=== PATIENT | male | born 1955 | race Caucasian/White ===

== ENCOUNTER 2024-04-13 18:26 | Emergency (ER) | payer MEDICARE, SELFPAY ==
[2024-04-13 18:48] VITALS: BP 129/64; PULSE 67; RESP 15; TEMP 36.3; O2SAT 100
--- NOTE | 2024-04-13 19:10 | ED_ITS ---
HPI - Extremity Injury (Lower) General Chief Complaint: Extremity Injury, Lower Stated Complaint: right/left big toe issues Time Seen by Provider: 04/13/24 19:10 Source: patient, RN notes reviewed and old records reviewed Mode of arrival: ambulatory Limitations: no limitations History of Present Illness HPI Narrative: Patient presents with complaints of bilateral great toe discomfort. He reports that on the left foot, the nail became loose when he tried to cut it with a Dremel tool. Right foot has scant amount of drainage around the toenail. Patient admits he has not been taking good care of his feet. He does have a podiatry appointment on April 26, 2024 Related Data Home Medications ?Medication ?Instructions ?Recorded ?Confirmed ?Last Taken ?Type atorvastatin 40 mg tablet mg 04/13/24 Unknown History finasteride 5 mg tablet mg 04/13/24 Unknown History insulin degludec 100 unit/mL (3 unit subcut 04/13/24 Unknown History mL) subcutaneous pen (Tresiba FlexTouch U-100 insulin) meloxicam 15 mg tablet mg 04/13/24 Unknown History pioglitazone 15 mg tablet mg 04/13/24 Unknown History Allergies Allergy/AdvReac Type Severity Reaction Status Date / Time No Known Allergies Allergy Verified 04/13/24 18:50 Review of Systems Review of Systems: All systems reviewed & are unremarkable except as noted in HPI and below Constitutional: Constitutional: Reports no additional constitutional complaints ENT: Reports system reviewed and no additional complaints, except as documented Cardiovascular: Cardiovascular: Reports no additional cardiovascular complaints Respiratory: Respiratory: Reports no additional respiratory complaints Gastrointestinal: Gastrointestinal: Reports no additional gastrointestinal complaints Integumentary/Breasts: Skin/Breast: Reports nail changes and Reports change in nails PMFSH Comments At the time of my signature, I reviewed and agree with the nursing past medical, surgical, social, and family history. There is no relevant family history pertinent to the patient complaint. Exam Const: General: cooperative, no acute distress, alert and awake Orientation/consciousness: oriented to person, oriented to place and oriented to time HENMT: Head: normal to inspection Resp: Effort & Inspection: normal respiratory effort and able to speak in complete sentences Auscultation: clear to auscultation bilaterally, no crackles, no rales, no rhonchi and no wheezes Cardio: Palpation: normal PMI Rate: regular rate Rhythm: regular rhythm Heart sounds: S1 normal heart sound present and S2 normal heart sound present Skin: Nails: discolored (toenails), yellow and thickened (toenails) and other (Right great toe with some drainage surrounding the nail) Neuro: General: oriented to person, oriented to place and oriented to time Cranial nerves: Yes CN's II-XII intact bilaterally Psych: Appearance: grossly normal Thought process: Normal thought process present Insight: Good insight present (Psych) Judgement: Good judgement present (Psych) Course Course Level of Care: Express Care Visit Vital Signs Vital signs: Vital Signs Temperature 97.3 F L 04/13/24 18:48 Pulse Rate 67 04/13/24 18:48 Respiratory Rate 15 04/13/24 18:48 Blood Pressure 129/64 04/13/24 18:48 Pulse Oximetry 100 04/13/24 18:48 Oxygen Delivery Room Air 04/13/24 18:48 Temperature 97.3 F L 04/13/24 18:48 Pulse Rate 67 04/13/24 18:48 Respiratory Rate 15 04/13/24 18:48 Blood Pressure 129/64 04/13/24 18:48 Pulse Oximetry 100 04/13/24 18:48 Oxygen Delivery Room Air 04/13/24 18:48 Reviewed MDM - Extremity Injury (Lower) MDM Narrative Medical decision making narrative: Patient diabetic, has active infections to both great toes. He does have appointment follow with Podiatry later this month. Emergency department precautions discussed. Some parts of this dictation were generated by voice recognition software and may contain typographical and/or grammatical inaccuracies. Discharge instructions reviewed with patient, as well as provided in writing per nursing staff. The instructions also include specific and strict return/GO TO THE ER as well as f/u information. All questions have been answered, and the patient deny any further questions with discharge and discharge plan. Differential Diagnosis Differential diagnosis: Likely other (Toe injury) Medical Records Attestation: I reviewed the patient's medical records. Discharge Plan Discharge Clinical Impression: Infection of toe Patient Disposition: Home, Self-Care Condition: Stable Instructions: Antibiotic Form Additional Instructions: Take medication as prescribed. Follow-up with critical care nurse as scheduled. Emergency department for new or worse symptoms Patient Language: Wolof Prescriptions: New doxycycline hyclate 100 mg capsule 100 mg PO BID Qty: 20 0RF No Action pioglitazone 15 mg tablet atorvastatin 40 mg tablet meloxicam 15 mg tablet finasteride 5 mg tablet insulin degludec [Tresiba FlexTouch U-100] 100 unit/mL (3 mL) insulin pen SUBCUT Follow-up/Referrals: Alecia,Merary Veras, [employer]EL[employer] [Primary Care Provider] - 2 Weeks Time of Disposition: 19:15
== END 2024-04-13 19:19 | disposition home or self-care (01) ==
PROVIDERS: Emergency Provider Nurse Practitioner Family; PCP Nurse Practitioner
DX: L03.032 Cellulitis of left toe (principal); L03.031 Cellulitis of right toe; E11.9 Type 2 diabetes mellitus without complications; E78.00 Pure hypercholesterolemia, unspecified
CPT/HCPCS: 99203; G0463

== ENCOUNTER 2024-05-29 09:17 | Outpatient (CLI) | payer MEDICARE, SELFPAY ==
--- NOTE | ~2024-05-29 | XR_ITS ---
Lumbosacral Spine: AP and lateral views Clinical History: Pain Findings: The normal lordotic curve is maintained. No fracture or subluxation. There is advanced dege nerative disc and L5-S1. There is moderate degenerative disc narrowing at L2-L3 and L3-L4. There is m ild facet arthropathy. The sacroiliac joints are normally outlined. Impression: Moderate degenerative spondylosis overall, as detailed above. Reviewed, dictated and finalized at location M. Impression: Moderate degenerative spondylosis overall, as detailed above.
--- OUTSIDE RECORDS SUMMARY | 2024-05-29 10:02 | XMS_ITS | Encounter Summary ---
Author Organization [facility] Address [address] [place] [address] Care Team Providers Care Crosstie Inspector Name Role Phone Glen Banks MD Unavailable Pascual Lamar DO Unavailable Gabby Gilbert MD Primary Care Provider Jerrell Qureshi DO Unavailable [phone] Alex Cage MD Unavailable Lewis Barahona DO Unavailable Holli Wellington AMBULANCE OPERATIONS SUPERVISOR-PETAL SHAPER HAND Unavailable Caitlin Mabry RN Unavailable Gabby Gilbert MD Unavailable Holli Wellington AMBULANCE OPERATIONS SUPERVISOR-PETAL SHAPER HAND Unavailable Caitlin Mabry RN Unavailable Lo Scott RN Unavailable Alexa Burton MA Unavailable Devora Lindsay AMBULANCE OPERATIONS SUPERVISOR-PETAL SHAPER HAND Unavailable Lee Trujillo RN Unavailable Gabby Gilbert MD Unavailable Evelyn Azul Unavailable Holli Wellington AMBULANCE OPERATIONS SUPERVISOR-PETAL SHAPER HAND Unavailable Evelyn Azul Unavailable Gabby Gilbert MD Unavailable [phone] Glen Banks MD Unavailable Holli Wellington AMBULANCE OPERATIONS SUPERVISOR-PETAL SHAPER HAND Unavailable Merary Alston AMBULANCE OPERATIONS SUPERVISOR-PETAL SHAPER HAND Primary Care Provid er Encounter Details Date Type Department Care Team (Late st Contact Info) Description 05/07/2017 [facility] Outpatient Visit [facility] Orthopedics - Radiology [address] [place] [address] Dell Walker PA-C [facility] [address] [place] [address] Social History Tobacco Use Types Packs/Day Years Used Date Smoking Tobacco: Every Day Cigarettes 1 30 Smokeless Tobacco: Never Alcohol Use Standard Drinks/Week Comments Yes 1 (1 standard drink = 0.6 oz pur e alcohol) Sex and Gender Information Value Date Recorded Sex Assigned at Not on file Gender Identity Not on file Sexual Orientation Not on file documented as of this encounter Functional Status Functional Status Response Date of Assess ment Is person deaf or have serious hearing difficult y? No 04/21/2017 Is person blind or have serious difficulty seein g? No 04/21/2017 Does person have serious dif ficulty walking/climbing stairs? Yes 04/21/2017 Does person have difficulty dressing/bathing? Ye s 04/21/2017 Does person have difficulty doing errands alone? Yes 04/21/2017 Cognitive Status Response Date of Assessm ent Does person have difficulty concentrating/remembering/making decisions? No 04/21/2017 documented as of this encounter Plan of Treatment Not on file documented as of this encounter Goals Goal Patient Goal Type Associated Problems Recent Progress Patient-Stated? Author Quit smoking / using tobacco Lifestyle No Liberty Yoder MA [facility] Lifestyle: Have labs drawn Lifestyle No Liberty Yoder MA Have labs drawn Lifestyle Liberty Pritchett MA documented as of this encounter Visit Diagnoses Not on filedocumented in this encounter Care Teams Crosstie Inspector Relationship Specialty Start Date End Date Gabby Gilbert MD [address] [place] [address] PCP - General Family Medicine 06/04/15 05/04/24 Holli Wellington AMBULANCE OPERATIONS SUPERVISOR-PETAL SHAPER HAND [address] [place], [place] [address] [address] [place] [phone] PCP - Attributed-MSSP 11/29/18 06/04/19 Gabby Gilbert MD [address] [place] [address] PCP - Attributed-MSSP 03/01/21 06/28/21 Holli Wellington AMBULANCE OPERATIONS SUPERVISOR-PETAL SHAPER HAND [address] [place], [place] [address] [address] [phone] PCP - Attributed-MSSP 06/29/21 05/30/23 Devora Lindsay AMBULANCE OPERATIONS SUPERVISOR-PETAL SHAPER HAND [address] SCHWARTZ [address] [place] [address] PCP - Attributed-MSSP 05/31/23 08/29/23 Gabby Gilbert MD [address] [place] [address] PCP - Attributed-MSSP 08/30/23 11/29/23 Holli Wellington AMBULANCE OPERATIONS SUPERVISOR-PETAL SHAPER HAND [address] [place], [place] [address] [address] [phone] PCP - Attributed-MSSP 11/30/23 [place] [address] [place] [address] [address] [place] [address] PCP - Attributed-MSSP 04/29/18 07/29/18 Glen Banks MD [address] [address] PCP - Attributed-MSSP 09/29/18 11/28/18 Holli Wellington AMBULANCE OPERATIONS SUPERVISOR-PETAL SHAPER HAND [address] [place] [phone] PCP - Attributed-MSSP 07/30/18 09/28/18 Merary Alston AMBULANCE OPERATIONS SUPERVISOR-PETAL SHAPER HAND [address] [place] [phone] PCP - General Nurse Practitioner 05/05/24 Glen Banks MD [address] [address] Psychiatry 01/02/14 05/25/23 Pascual Lamar DO [address] [place] [address] [address] [place] [address] Hand Surgery 12/19/14 [place] [address] Crew Supervisor 06/04/15 Alex Cage MD [address] [place] [address] [address] [place] [address] Endocrinology 06/04/15 Lewis Barahona DO [address] [place] [address] Orthopedic Surgery 05/25/17 Caitlin Mabry RN Insole RounderCredit Interviewer 03/04/21 03/16/23 Caitlin Mabry RN Care Management 03/04/21 03/09/23 Lo Scott RN [address] [address] Insole RounderCredit Interviewer 03/09/23 06/03/23 Alexa Burton [place] Care Coordination Specialist Care Management 05/28/23 05/28/23 Lee Trujillo, JOHNATHAN [address] [place] [address] Insole RounderCredit Interviewer 11/04/23 11/05/23 Evelyn Azul [address] [place] [address] Care Coordination Specialist Care Management 12/02/23 01/16/24 Evelyn Azul [address] [place] [address] Care Coordination Specialist Care Management 03/08/24 04/22/24 documented as of this encounter
--- OUTSIDE RECORDS SUMMARY | 2024-05-29 10:02 | XMS_ITS ---
Author Organization [facility] Address [address] [place] [address] Dr. [address] [place] [address] Care Team Providers Care Pancake Professional Name Role Phone Merary Amezcua Primary Care Provider Unavail able Roberto Mccarty Unavailable [phone] REASON FOR VISIT Right sided abdominal pain Medications Medication SIG (Take, Route, Frequency, Duration) Notes Start Date End Date Status Sennosides Active Tresiba Active Finasteride Active metFORMIN HCl Active traZODone HCl Active Metamucil Active Docusate Sodium Acti ve Omeprazole 40 MG 1 capsule 1/2 to 1 hour before morning meal Orally Once a day 03/28/2024 Active Simethicone Active MiraLax Active Atorvastatin Calcium Active Pioglitazone HCl Act harvey OTC/Vitamins Linda Root, ASA Active Meloxicam Active Procedures Procedure Date Ordered Date Performed Result Body Sit e SIBO Breath Test 05/17/2024 N/A Encounters Encounter Location Date Provider Diagnosis [facility], [address] [place] [address] 05/17/2024 Roberto Mccarty Right sided abdomina l pain R10.9 Assessments Encounter Date Diagnosis (ICD Code) Assessment Notes Treatment Notes Treatment Clinical Notes Section Notes 05/17/2024 Right sided abdominal pain (ICD-10 - R10.9) Patient has experienced a constant abdominal pain which is described as a dull burning pain which can become sharp and stabbing at times. He has undergone 3 CT scans during this time, as well as 2 ultrasounds. He also has undergone endoscopy and colonoscopy per his report with no abnormalities contributing to symptoms. Unfortunately these records are unavailable for review and were requested. Differential diagnosis includes irritable bowel syndrome, SIBO, food intolerances, secondary to radiculopathy, urinary tract and less likely his gallbladder as he has not noticed symptoms are worse after eating, would like to ensure he has been tested for celiac disease. Plan Of Treatment Pending Test Test Name Order Date SIBO Breath Test 05/17/2024 Progress Notes * VALENTINO RafaelDOB: 7 (69 yo M)Acc No.[id number]:05/17/2024 Patient: Rafael PEREZ Provider: Sona Mccarty D.O. :1955 A ge:69 Y S ex:Male Date:05/17/2024 Address:[address] [place] [address] Pcp:Merary GAVIN Subjective: * Chief Complaints: * R ight sided abdominal pain * Medical History: * Surgical History: * Hospitalization/Major Diagno stic Procedure: * Medications: T akingOmeprazole 40 MG Capsule Delayed Release 1 capsule 1/2 to 1 hour before morning meal Orally Once a day Simethicone MiraLax Metamucil Docusate Sodium Sennosides Tresiba Finasteride traZODone HCl metFORMIN HCl Pioglitazone HCl Atorvastatin Calcium Meloxicam OTC/Vitamins , Notes to Pharmacist: Linda Garcia, ASATaking Omeprazole 40 MG Capsule Delayed Release 1 capsule 1/2 to 1 hour before morning meal Orally Once a day Taking Simethicone Taking MiraLax Taking Metamucil Taking Docusate Sodium Taking Sennosides Taking Tresiba Taking Finasteride Taking traZODone HCl Taking metFORMIN HCl Taking Pioglitazone HCl Taking Atorvastatin Calcium Taking Meloxicam Taking OTC/Vitamins , Notes to Pharmacist: Linda Garcia ASA Objective: * Vitals: Assessment: * Assessment: 1. R ight sided abdominal pain - R10.9 (Primary) N otes :Patient has experienced a constant abdominal pain which is described as a dull burning pain which can become sharp and stabbing at times. He has undergone 3 CT scans during this time, as well as 2 ultrasounds. He also has undergone endoscopy and colonoscopy per his report with no abnormalities contributing to symptoms. Unfortunately these records are unavailable for review and were requested. Differential diagnosis includes irritable bowel syndrome, SIBO, food intolerances, secondary to radiculopathy, urinary tract and less likely his gallbladder as he has not noticed symptoms are worse after eating, would like to ensure he has been tested for celiac disease. Plan: * Treatment: * Procedure Codes: 9 1065 BREATH HYDROGEN TEST * Images: * Sign off status: Completed true * Provider: Sona Mccarty D.O. Date: 0 05/17/2024 Generated for Reba gu/Elke/Niecyitting on: 0 05/29/2024 10:02 AM CDT
--- OUTSIDE RECORDS SUMMARY | 2024-05-29 10:02 | XMS_ITS | Clinical Summary ---
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 Gender Identity Not on file Sexual Orientation Not on file Plan of Treatment Upcoming Encounters Date Type Department Care Team (Late st Contact Info) Description 06/28/2024 1:00 PM CDT Office Visit [facility], [address] [phone] Marcelo Brynat MD [facility], [address] [place], [place] [phone] Health Maintenance Due Date Last Done Comments Colorectal Cancer Screening Colonoscopy (10 Years) 1955 Hepatitis C 1975 DTaP, Tdap and Td Vaccines ( 1 - Tdap) 01/14/1976 Zoster Vaccines (1 of 2) 2007 Annual Medicare Wellness Visit 2022 Pneumococcal Vaccine: 65+ Ye ars (1 of 1 - PCV) 2022 COVID-19 Vaccine ( - 2023-2 5 season) 2023 RSV Immunization or 60+ Years (1 - 1-dose 75+ series) 01/14/2032 Meningococcal B Vaccine Aged Out No l onger eligible based on patient's age to complete this topic Meningococcal Vaccine Aged Out No vanna radha eligible based on patient's age to complete this topic RSV Immunizations Under 20 Months Aged Out No longer eligible based on patient's age to complete this topic Insurance MEDICARE
--- OUTSIDE RECORDS SUMMARY | 2024-05-29 10:02 | XMS_ITS | Patient Health Record ---
Author Organization [facility] Address [address] [facility] [address] [place] [address] Care Team Providers Care Parent Aide Name Role Phone Merary Amezcua Primary Care Provider Unavail able Lola Davis Unavailable [phone] Roberto Mccarty Unavailable [phone] Allergies No Known Allergies Reason For Referral No Information Medications Medication SIG (Take, Route, Frequency, Duration) Notes Start Date End Date Status Metamucil Active Docusate Sodium Acti ve Sennosides Active Tresiba Active Atorvastatin Calcium Active Omeprazole 40 MG 1 capsule 1/2 to 1 hour before morning meal Orally Once a day 03/28/2024 Active Pioglitazone HCl Act harvey Simethicone Active OTC/Vitamins Linda Root, ASA Active MiraLax Active Meloxicam Active Finasteride Active Neomycin Sulfate 500 MG 1 tablet Orally Twice a day for 10 days 05/22/2024 Active metFORMIN HCl Active traZODone HCl Active Immunizations Vaccine Route Administration Date Status Comme nts Influenza Vaccination Unknown 10/31/2023 Administered Pneumococcal polysaccharide PPV23 Unknown 10/31/2023 Ad ministered Zoster Unknown 06/29/2022 Administered Zoster Unknown 07/30/2022 Administered Social History Tobacco Use: Social History Observation Description Date Details (start date - stop date) Former Smoker NA - NA Tobacco Control (Standard) Question Answer Notes Tobacco use: Former smoker How long has it been since you last smoked? 1-5 years Problems Problem Type SNOMED Code ICD Code Onset Dates Problem Status W/U Status Risk Notes Problem Flatulence (363695554) Flatulence (R14.3) Active confirmed Problem Colon cancer screening (345602344) Colon cancer screening (Z12.11) Active confirmed Patient reports recent colonoscopy revealed 5 colon polyps which were removed. These records are unavailable for review. Problem Elevated liver enzymes level (029177011) Elevated liver enzymes (R74.8) Active confirmed Mildly eleva michael liver enzymes. Is certainly possible this may be secondary to fatty liver. His most recent hemoglobin A1c was 8.7. Will obtain records. Problem [id number] Constipation (K59.00) Active confirmed Patient has a history of chronic constipation. He is up-to-date with colon cancer screening. Differential diagnosis includes irritable bowel syndrome, side effect of medication, secondary to diet, and other. Problem 884417814 Chronic GERD (K21.9) Active confirmed Patient is currently on omeprazole 40 mg daily and denies any symptoms. He reports recent upper endoscopy revealed findings secondary to acid reflux. Problem Right sided abdominal pain (067002949) Right sided abdominal pain (R10.9) Active confirmed Patient has experienced a constant abdominal pain [...] he has been tested for celiac disease. Problem 49867613 Hepatitis B (B19.10) Active confirmed Patient reports exposure in [place] but reports hepatitis B DNA was negative last September. Would like to repeat. Recent labs revealed elevated liver enzymes with an ALT of 80. Vital Signs Height 69 in 03/28/2024 Weight 186 lbs 03/28/2024 BMI 27.46 kg/m2 03/28/2024 Procedures Procedure Date Ordered Date Performed Result Body Sit e Initiate SIBO 03/28/2024 N/A SIBO Breath Test 05/17/2024 N/A Encounters Encounter Location Date Provider Diagnosis [facility], [address] Hoffman [address] [place] [phone] 03/28/2024 Lola Davis Right sided abdomina l pain R10.9 ; Chronic GERD K21.9 ; Constipation K59.00 ; Flatulence R14.3 ; Hepatitis B B19.10 ; Elevated liver enzymes R74.8 and Colon cancer screening Z12.[address] [place] [address] 05/17/2024 Roberto Mccarty Right sided abdomina l pain R10.[address] [place] [address] 05/17/2024 Roberto Mccarty [address] [place] [address] 02/11/2024 Lola Davis [address] [place] [address] 03/31/2024 Lola Davis [address] [place] [address] 03/31/2024 Lola Davis [address] [place] [address] 05/17/2024 Lola Davis Assessments Encounter Date Diagnosis (ICD Code) Assessment Notes Treatment Notes Treatment Clinical Notes Section Notes 03/28/2024 Chronic GERD (ICD-10 - K21.9) Patient is currently on omeprazole 40 mg daily and denies any symptoms. He reports recent upper endoscopy revealed findings secondary to acid reflux. 03/28/2024 Right sided abdominal pain (ICD-10 - R10.9) [...] he has been tested for celiac disease. Records were requested to include endoscopy, colonoscopy, path report, recent CT scan, ultrasound and labs. Schedule SIBO breath testing. Further recommendations pending test results. May want to pursue further food intolerance testing. Consider trial of dicyclomine. 05/17/2024 Right sided abdominal pain (ICD-10 - [...] he has been tested for celiac disease. 03/28/2024 Constipation (ICD-10 - K59.00) Patient has a history of chronic constipation. He is up-to-date with colon cancer screening. Differential diagnosis includes irritable bowel syndrome, side effect of medication, secondary to diet, and other. Continue with regimen of medications however would like for him to wean off of the senna as this may be contributing to his symptoms. May consider Amitiza in the future. He has been prescribed Linzess in the past but was too expensive. Can increase Miralax dose as needed. 03/28/2024 Flatulence (ICD-10 - R14.3) 03/28/2024 Hepatitis B (ICD-10 - B19.10) Patient reports exposure in [place] but reports hepatitis B DNA was negative last September. Would like to repeat. Recent labs revealed elevated liver enzymes with an ALT of 80. 03/28/2024 Elevated liver enzymes (ICD-10 - R74.8) Mildly elevated liver enzymes. Is certainly possible this may be secondary to fatty liver. His most recent hemoglobin A1c was 8.7. Will obtain records. 03/28/2024 Colon cancer screening (ICD-10 - Z12.11) Patient reports recent colonoscopy revealed 5 colon polyps which were removed. These records are unavailable for review. Plan Of Treatment Pending Test Test Name Order Date SIBO Breath Test 05/17/2024 HEPATITIS B SURFACE AB IMMUNITY, QN 03/02 HEPATITIS BE ANTIBODY 03/28/2024 HEPATITIS B VIRUS DNA, QN PCR W/REFL HBV GENOTYPE 03/28/2024 Hepatitis b surface Ag 03/28/2024 Hep Be Ag 03/28/2024 Initiate SIBO 03/28/2024 Hepatic Function 03/28/2024 Insurance Providers Payer Name Payer Address Payer Phone Subscriber Number Group Number Insured Name Patient Relationship to Insured Coverage Start Date Coverage End Date Medicare E2 [address] [address] [place] [phone] [id number] Rafael Hall Self - patient is the insured Medical (General) History Medical History History ICD Code GERD IBS Colon Polyps Hemorrhoids Hepatitis B Hyperlipidemia Hypercholesterolemia Diabetes Depression Surgical History Surgery Date(Month/Year) Colonoscopy (Outside Provider) 2023 Upper Endoscopy (Outside Provider) 2023 Pilonidal Cyst Removal Surgery Rt Ankle fracture with plate and screw r epair Hospitalization History Reason Date(Month/Year) Anxiety/Depression Unspecified Injury
--- OUTSIDE RECORDS SUMMARY | 2024-05-29 10:02 | XMS_ITS | Encounter Summary ---
Author Organization [facility] Address [address] [place] [address] Care Team Providers Care Music Librarian Name Role Phone Glen Banks MD Unavailable Pascual Lamar DO Unavailable Gabby Gilbert MD Primary Care Provider Jerrell Qureshi DO Unavailable Alex Cage MD Unavailable Lewis Barahona DO Unavailable Holli Wellington SALES ESTIMATOR-ADOBE MAKER Unavailable Caitlin Mabry RN Unavailable Gabby Gilbert MD Unavailable Holli Wellington SALES ESTIMATOR-ADOBE MAKER Unavailable Caitlin Mabry RN Unavailable Lo Scott RN Unavailable Alexa Burton MA Unavailable Devora Lindsay SALES ESTIMATOR-ADOBE MAKER Unavailable Lee Trujillo RN Unavailable Gabby Gilbert MD Unavailable Evelyn Azul Unavailable Holli Wellington SALES ESTIMATOR-ADOBE MAKER Unavailable [phone] Evelyn Azul Unavailable Gabby Gilbert MD Unavailable Glen Banks MD Unavailable Holli Wellington SALES ESTIMATOR-ADOBE MAKER Unavailable Merary Alston SALES ESTIMATOR-ADOBE MAKER Primary Care Provid er Encounter Details Date Type Department Care Team (Late st Contact Info) Description 06/14/2017 [facility] Outpatient Visit [facility] Orthopedics - Radiology [address] [place] [address] Dell Walker PA-C [facility] [address] [place] [address] Social History Tobacco Use Types [...] using tobacco Lifestyle No Liberty Yoder MA [facility] Lifestyle: Have labs drawn Lifestyle No Liberty Yoder MA Have labs drawn Lifestyle Liberty Pritchett MA documented as of this encounter Visit Diagnoses Not on filedocumented in this encounter Care Teams Music Librarian Relationship Specialty Start Date End Date Gabby Gilbert MD [address] [place] [address] PCP - General Family Medicine 06/04/15 05/04/24 Holli Wellington SALES ESTIMATOR-ADOBE MAKER [address] [place], [place] [address]y [address] [place] [phone] PCP - Attributed-MSSP 11/29/18 06/04/19 Gabby Gilbert MD [address] [place] [phone] PCP - Attributed-MSSP 03/01/21 06/28/21 Holli Wellington SALES ESTIMATOR-ADOBE MAKER [address] [place], [place] [address] [phone] PCP - Attributed-MSSP 06/29/21 05/30/23 Devora Lindsay SALES ESTIMATOR-ADOBE MAKER [address] [place] [address] [place] [address] PCP - Attributed-MSSP 05/31/23 08/29/23 Gabby Gilbert MD [address] [place] [address] PCP - Attributed-MSSP 08/30/23 11/29/23 Holli Wellington SALES ESTIMATOR-ADOBE MAKER [address] [place], [place] [address]y [address] [phone] PCP - Attributed-MSSP 11/30/23 [place] [address] [place] [address] [address] [place] [address] PCP - Attributed-MSSP 04/29/18 07/29/18 Glen Banks MD [address] [address] PCP - Attributed-MSSP 09/29/18 11/28/18 Holli Wellington SALES ESTIMATOR-ADOBE MAKER [address] [place] [phone] PCP - Attributed-MSSP 07/30/18 09/28/18 Merary Alston SALES ESTIMATOR-ADOBE MAKER [address] [place] [phone] PCP - General Nurse Practitioner 05/05/24 Glen Banks MD [address] [address] Psychiatry 01/02/14 05/25/23 Pascual Lamar DO [address] [place] [address] [address] [place] [address] Hand Surgery 12/19/14 Jerrell Qureshi [place] [address] Stacker Straightener 06/04/15 Alex Cage MD [address] [place] [address] [address] [place] [address] Endocrinology 06/04/15 Lewis Barahona DO [address] [facility] [address] [place] [address] Orthopedic Surgery 05/25/17 Caitlin Mabry RN Crew DirectorCell Tender Helper 03/04/21 03/16/23 Caitlin Mabry RN Care Management 03/04/21 03/09/23 Lo Scott RN [address] [address] Crew DirectorCell Tender Helper 03/09/23 06/03/23 Alexa Burton [place] Care Coordination Specialist Care Management 05/28/23 05/28/23 Lee Trujillo, JOHNATHAN [address] [place] [address] Crew DirectorCell Tender Helper 11/04/23 11/05/23 Evelyn Azul [address] [place] [address] Care Coordination Specialist Care Management 12/02/23 01/16/24 Evelyn Azul [address] [place] [address] Care Coordination Specialist Care Management 03/08/24 04/22/24 documented as of this encounter
--- OUTSIDE RECORDS SUMMARY | 2024-05-29 10:02 | XMS_ITS | Clinical Summary ---
Author Organization [facility] Address [address] [place] [address] Care Team Providers Care Dietary Manager Name Role Phone Pascual Lamar DO Unavailable [phone] Jerrell Qureshi DO Unavailable [phone] Aelx Cage MD Unavailable Lewis Barahona DO Unavailable [phone] Holli Wellington GUT SORTER-ECMO SPECIALIST Unavailable [phone] Merary Alston GUT SORTER-ECMO SPECIALIST Primary Care Provid er Source Comments [facility],non-owned Affiliates and Associated Physician Practices is amultiple site organization consisting of ambulatory clinics and hospital sitesin [place], [place], [place] and [place]. This disclosure is being madepursuant to the Care Everywhere program and may not contain all information available regarding this patient. Last updated 17.[facility] Allergies No known active allergies Medications * Be aware that medications may not be up to date on this document. Alwaysverify current medications with the patient. Medication Sig Dispensed Refills Start Date End Date Status docusate sodium (COLACE) 100 MG capsuleIndications:Ch ronic idiopathic constipation Take 1 (one) capsule by mouth 2 times daily 60 capsule 2 1 Active buPROPion XL 24hr (Wellbutrin-XL) 150 MG tablet Take 1 (one) tablet by mouth every morning 4 Active omeprazole (PriLOSEC) 40 MG capsuleIndications:Ga stroesophageal reflux disease without esophagitis,Oropharyn geal dysphagia Take 1 (one) capsule by mouth daily before breakfast 90 capsule 1 4 09/20/19 25 Active finasteride (Proscar) 5 MG tablet Take 1 (one) tablet by mouth once daily 30 tablet 11 4 Active aspirin (Aspirin) 81 MG chew tablet Take 1 (one) tablet by mouth once daily Active traZODone (Desyrel) 50 MG tabletIndications:Ins omnia,Major Depressive Disorder Take 1 (one) tablet by mouth at bedtime Reasons: Major Depressive Disorder, Trouble Sleeping 15 tablet 1 4 Active polyethylene glycol 3350 (Miralax) 17 g packetIndications:Con stipation Take 17 (seventeen) g by mouth once daily Reasons: Constipation 15 packet 4 Active glimepiride (Amaryl) 4 MG tablet 4 Active atorvastatin (Lipitor) 40 MG tablet TAKE 1 TABLET BY MOUTH AT BEDTIME REASONS: HIGH AMOUNT OF FATS IN THE BLOOD 90 tablet 2 4 Active pioglitazone (Actos) 15 MG tabletIndications:Typ e 2 diabetes mellitus with 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, with long-term current use of insulin (HCC) Take 1 (one) tablet by mouth once daily 30 tablet 5 4 Active insulin degludec (Tresiba FlexTouch) 100 UNIT/ML pen Inject 10 (ten) Units subcutaneously once daily 15 mL 1 5 Active Active Problems Problem Noted Date Diagnosed Date Moderate episode of recurrent major depressive d isorder 11/11/2023 BPH (benign prostatic hyperplasia) 11/11/2023 Gastroesophageal reflux disease without esophagi tis 08/25/2023 Recurrent major depressive episodes, moderate Mild nonproliferative diabet ic retinopathy of both eyes without macular edema associated with type 2 diabetes mellitus 05/26/2023 Seasonal allergic rhinitis due to pollen 023 Bipolar disorder, current episode mixed, moderat e 03/27/2020 Overview (03/27/2020): Managed by Psychiatry Chronic idiopathic constipation 03/27/2020 Type 2 diabetes mellitus wit h 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, with long-term current use of insulin 06/22/2017 Overview (04/08/2022): Managed by Endocrinology ss Mixed hyperlipidemia 06/04/2015 Overview (04/08/2022): Managed by Endocrinology ss Resolved Problems Problem Noted Date Diagnosed Date Resolved Date Depression, unspecified depression type 11/01/2023 11/11/2023 Type 2 diabetes mellitus wit hout complication, with long-term current use of insulin 03/28/2020 04/08/2022 Overview (04/08/2022): Managed by Endocrinology ss Uncontrolled type 2 diabetes mellitus with diabetic polyneuropathy 03/28/2020 04/08/2022 Overview (03/28/2020): Gabby Gilbert MD 09/05/19 Uncontrolled Type II Diabete s mellitus w/ Diabetic polyneuropathy 06/18/2017 04/08/2022 Overview (06/18/2017): Alex Caeg MD: 11.07.17 Closed fracture of right ankle 04/21/2017 09/05/2019 Ankle injury, right, initial encounter 04/21/2017 09/05/2019 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 06/04/2015 06/22/2017 Major depressive disorder, s christine episode, severe with psychotic features 06/04/2015 1 long-term current use of insulin 06/04/2015 06/22/2017 Type 2 diabetes mellitus, uncontrolled 05/30/2015 06/04/2015 Vitamin D deficiency 04/16/2014 016 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 04/09/2014 06/04/2015 Overview (05/30/2015): Cee Rincon, OD 02/07/15 salvage determiner current use of insulin 04/09/2014 06/04/2015 Hyperlipidemia 01/10/2014 06/04/2015 Overview (01/10/2014): 19% AHA 12/2013 Severe major depression with psychotic features 01/10/2014 06/04/2015 DM II with ophthalmic manifestations 12/17/2013 05/30/2015 History of hepatitis B 12/17/201306/03 Depression 12/17/2013 06/04/2015 IBS (irritable bowel syndrome) 12/17/2013 06/04/2015 Tobacco abuse 12/13/2013 06/04/2015 Encounters Date Type Department Care Team Description 03/08/2024 Patient Outreach [facility] - Care Coordination [address] [place] [address] Evelyn Azul Outreach Preventive Care 03/05/2024 Refill [facility] - Endocrinology [address] [place] [address] Alex Cage MD Med Change Request from Last 3 Months Immunizations Name Administration Dates Next Due INFLUENZA VACCINE, TRIV. (AF LURIA, FLUZONE TRIVALENT; 6MO+) (IIV3) 12/08/2016,01/10/2014 COVID MODERNA 12+ yr 50mcg/0.5mL 11/15/2023 COVID PFIZER 12+YR 30MCG/0.3mL 05/26/2023 COVID PFIZER BIVALENT 12Y+ 30mcg/0.3ML 04/08/2022 Covid Pfizer primary monoval ent 12+ yr 0.3mL Purple cap 06/20/2020 INFLUENZA VACCINE 11/30/2018,12/08/2016,12/06/19 16 INFLUENZA VACCINE, ADJUVANTE D, QUADR. (FLUAD QUADRIVALENT; 65Y+) (AIIV4) 11/09/2022 INFLUENZA VACCINE, CELL CULT URE, QUADR. (FLUCELVAX QUADRIVALENT; 6MO+) (CCIIV4) 11/26/2021 INFLUENZA VACCINE, HIGH-DOSE , QUADR. (FLUZONE HIGH-DOSE QUADRIVALENT; 65Y+), 0.7 ML (HD-IIV4) 11/15/2023 INFLUENZA VACCINE, HIGH-DOSE , TRIV. (FLUZONE HIGH-DOSE TRIVALENT; 65Y+) (HD-IIV3) 11/15/2023 INFLUENZA VACCINE, QUADR. (A FLURIA, FLUZONE QUADRIVALENT; 6MO+) (IIV4) 11/30/2018,12/06/2014 INFLUENZA VACCINE, QUADR. (F LUZONE; FLULAVAL; FLUARIX; AFLURIA QUADRIVALENT; 6MO+), 0.5 ML (IIV4) 12/02/2020,11/16/2019,11/16/2019,2018,12/07/2017 INFLUENZA VACCINE, TRIV. (FL UZONE; FLULAVAL; FLUARIX; AFLURIA TRIVALENT; 6MO+), 0.5 ML (IIV3) 12/06/2015 PNEUMOCOCCAL PCV20 CONJ VAC IM 05/26/2023 PNEUMOCOCCAL PPSV23 01/10/2014 Zoster Hzv Vacc Recombinant Inj Im 11/09/2022, Family History Medical History Relation Name Comments Diabetes Father bilateral amput ee Cancer Mother luncg Diabetes Sister Cancer - Colon Neg Hx Colon polyps Neg Hx Relation Name Status Comments Father Mother Sister Social History Tobacco Use Types Packs/Day Years Used Date Smoking Tobacco: Former Cigarettes 1 30 0 11/14/1989 - 11/15/2019 Passive Smoke Exposure: Current Smokeless Tobacco: Never Tobacco Cessation:Counseling Given: Yes Alcohol Use Standard Drinks/Week Comments Not Currently 0 (1 standard drink = 0.6 oz pur e alcohol) Social Connection and Isolat ion Panel [NHANES] Answer Date Recorded In a typical week, how many times do you talk on the phone with family, friends, or neighbors? Once a week 06/09/2022 How often do you get togethe r with friends or relatives? More than three times a week 06/09/2022 How often do you attend [facility] or anabaptism services? More than 4 times per year 06/09/2022 Do you belong to any clubs o r organizations such as restorationism groups, unions, fraternal or athletic groups, or school groups? No 06/09/2022 How often do you attend meet ings of the clubs or organizations you belong to? Never 06/09/2022 Marital Status Not on file 06/09/2022 AUDIT-C Answer Date Recorded Q1: How often do you have a drink containing alcohol? Never 11/01/2023 Q2: How many drinks containi ng alcohol do you have on a typical day when you are drinking? Patient does not drink Q3: How often do you have si x or more drinks on one occasion? Never 11/01/2023 Overall Financial Resource Strain (CARDIA) Answe r Date Recorded How hard is it for you to pa y for the very basics like food, housing, medical care, and heating? Somewhat hard 11/01/2023 PHQ-2 Answer Date Recorded Patient Health Questionnaire-2 Score 0 11/11/2023 [facility] Occupat ional [facility] - Occupational Stress Questionnaire Answer Date Recorded Do you feel stress - tense, restless, nervous, or anxious, or unable to sleep at night because your mind is troubled all the time - these days? To some extent 11/01/2023 Exercise Vital Sign Answer Date Recorde d On average, how many days pe r week do you engage in moderate to strenuous exercise (like a brisk walk)? 5 days 06/09/2022 On average, how many minutes do you engage in exercise at this level? 20 min 06/09/2022 Hunger Vital Sign Answer Date Recorded Within the past 12 months, y ou worried that your food would run out before you got the money to buy more. Sometimes true Within the past 12 months, t he food you bought just didn't last and you didn't have money to get more. Sometimes true 04/2023 PRAPARE - Transportation Answer Date Re corded In the past 12 months, has l ack of transportation kept you from medical appointments or from getting medications? No 04/2023 In the past 12 months, has l ack of transportation kept you from meetings, work, or from getting things needed for daily living? No 11/01/2023 Housing Stability Vital Sign Answer Anton e Recorded In the last 12 months, was t here a time when you were not able to pay the mortgage or rent on time? Patient declined 11/01/19 24 In the last 12 months, how many places have you lived? 1 11/01/2023 In the last 12 months, was t here a time when you did not have a steady place to sleep or slept in a correction (including now)? No 11/01/2023 Sex and Gender Information Value Date Recorded Sex Assigned at Not on file Gender Identity Not on file Sexual Orientation Not on file Last Filed Vital Signs Vital Sign Reading Time Taken Comments Blood Pressure 120/59 12/01/2023 10:00 AM CDT Pulse 71 12/01/2023 10:00 AM CDT Temperature 36.3 C (97.4 F) 12/01/2023 7:51 AM CDT Respiratory Rate 27 12/01/2023 10:0 0 AM CDT Oxygen Saturation 99% 12/01/2023 10: 00 AM CDT Inhaled Oxygen Concentration 100% 03/25/2020 6 :38 PM TRAVELIFT OPERATOR Weight 80.6 kg (177 lb 12.8 oz) 12/01/2023 7:51 AM CDT Height 175.3 cm (5' 9 ) 12/01/2023 7:51 AM CDT Body Mass Index 26.26 12/01/2023 7:51 AM CDT Plan of Treatment Health Maintenance Due Date Last Done Comments COLOGUARD (AGES 45-75) - COLON CA SCREENING 1955 CT COLONOGRAPHY - COLON CA SCREENING 1955 FIT - COLON CA SCREENING 1955 FLEX SIG - COLON CA SCREENING 1955 DTAP/TDAP/TD VACCINES (1 - Tdap) 01/14/1976 Respiratory Syncytial Virus (RSV) Vaccine Pt: or over 60 yrs (1 - Risk 60-74 years 1-dose series) 2017 AAA SCREENING 2022 LUNG CANCER SCREENING 12/10/2022 12/10/2021 , 09/30/2020, 09/26/2019 DIABETES RETINOPATHY SCREENING 08/27/2023 08/26/2022, 07/16/2021, 07/09/2020, Additional history exists DIABETES - URINE PROTEIN SCREENING 03/01/2024 02/03/2023, 01/12/2022, 01/08/2021, Additional history exists DIABETES-HGB A1C 05/01/2024 11/02/2023, , 07/20/2022, Additional history exists MEDICARE AWV 12 MONTHS 05/25/2024 05/26/2023, 04/08/2022, 01/01/2021, Additional history exists DIABETES-FOOT EXAM WITH MONOFILAMENT 08/17/2024 08/18/2023, 01/10/2014, 01/10/2014 DIABETES-SERUM CREATININE 11/01/20242023, 08/19/2023, 08/17/2023, Additional history exists COLON MONITORING 12/06/2026 12/07/2023, 04/2023, 12/01/2023, Additional history exists Colorectal Cancer Screening 12/06/2026 COLONOSCOPY - COLON CA SCREENING 12/06/2033 12/07/2023, 12/01/2023, 12/01/2023, Additional history exists HEPATITIS C SCREENING Completed 01/15/2014 ZOSTER VACCINE Completed 11/09/2022, 09/07/2022 PNEUMOCOCCAL VACCINE 50+ Completed 05/26/2023, 12/30 COVID-19 VACCINE Completed 11/15/2023, , 04/08/2022, Additional history exists INFLUENZA VACCINE Completed 11/15/2023, , 11/09/2022, Additional history exists HEPATITIS B VACCINE Aged Out No longe r eligible based on patient's age to complete this topic HIB VACCINE Aged Out No longer eligi ble based on patient's age to complete this topic HPV VACCINE Aged Out No longer eligi ble based on patient's age to complete this topic MENINGOCOCCAL (Group B) VACCINE SHARED DECISION-MAKING Aged Out No longer eligible based on patient's age to complete this topic MENINGOCOCCAL GROUPS A/C/Y/W VACCINE Aged Out No longer eligible based on patient's age to complete this topic Goals Goal Patient Goal Type Associated Problems Recent Progress Patient-Stated? Author Quit smoking / using tobacco Lifestyle No Liberty Yoder MA [facility] Lifestyle: Have labs drawn Lifestyle No Liberty Yoder MA Have labs drawn Lifestyle No Liberty Yoder MA Medical Devices Implanted Type Area Appeals Examiner Device Identifier Shelf Expiration Date Model / Serial / Lot Plate Lopro 5 Hl Lck Mdlr Ss Ankl Rt Fib Implanted:Qty: 1 on 04/22/2017 by Lewis Barahona DO at [facility] Right: Ankle [employer] [id number] / / Screw Bn 2.7mm 12mm Loprfl Scr Ss Ft T10 Implanted:Qty: 1 on 04/22/2017 by Lewis Barahona DO at [facility] Right: Ankle [employer] AR-[id number]-12 / / Screw Bn 2.7mm 14mm Loprfl Scr Ss Ft T10 Implanted:Qty: 2 on 04/22/2017 by Lewis Barahona DO at [facility] Right: Ankle [employer] AR-[id number]-14 / / Screw Bn 3.5mm 14mm Loprfl Scr Ss T15 Ft Implanted:Qty: 1 on 04/22/2017 by Lewis Barahona DO at [facility] Right: Ankle [employer] AR-8835-14 / / Screw Bn 2.7mm 16mm Loprfl Scr Ss Ft T10 Implanted:Qty: 1 on 04/22/2017 by Lewis Barahona DO at [facility] Right: Ankle [employer] AR-[id number]-16 / / Screw Bn 3.5mm 16mm Loprfl Scr Ss T15 Ft Implanted:Qty: 1 on 04/22/2017 by Lewis Barahona DO at [facility] Right: Ankle [employer] AR-8835-16 / / Screw Bn 3.5mm 14mm Loprfl Scr Ss T15 Ft Implanted:Qty: 2 on 04/22/2017 by Lewis Barahona DO at [facility] Right: Ankle [employer] AR-8835L-14 / / Screw Bn 4mm 40mm Loprfl Scr Ss Lng .5 Implanted:Qty: 1 on 04/22/2017 by Lewis Barahona DO at [facility] Right: Ankle [employer] AR-[id number]-4 0 / / Procedures Procedure Name Priority Date/Time Associated Diagnosis Comments ENDOSCOPY, COLON, SCREENING Routine 12/01/2023 9:02 AM CDT Encounter for screening for colorectal cancer in high risk patient Adenomatous polyp of colon, unspecified part of colon COMPREHENSIVE METABOLIC PANEL AM Draw 11/02/2023 6:28 AM CDT HEMOGLOBIN A1C Routine 11/02/2023 6:28 AM CDT MICROALB/CREAT RATIO URINE RANDOM PANEL Routine 02/03/2023 9:16 AM TRAVELIFT OPERATOR Type 2 diabetes mellitus with 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, with long-term current use of insulin EYE EXAM 08/26/2022 CT LUNG SCREEN LOW DOSE Routine 12/10/2021 9:31 AM CDT Personal history of nicotine dependence from Last 3 Months or Most Recently Relevant to Health Maintenance Results * Endoscopy, Colon, Screening (12/01/2023 9:02 AM CDT) Report Endoscopy POC _ Patient Name: Rafael Hall Procedure Date: 12/01/2023 9:02 AM Date of : 1955 Admit Type: Outpatient Age: 68 Gender: Male Attending MD: Trevor Morrison MD, [id number] _ Procedure: Colonoscopy Indications: High risk colon cancer surveillance: Personal history of colonic polyps Providers: Trevor Morrison MD (Doctor) Referring MD: Gabby Gilbert MD (Referring MD) Medicines: Monitored Anesthesia Care Complications: No immediate complications. _ Estimated Blood Loss: Estimated blood loss was minimal. Procedure: Pre-Anesthesia Assessment: - Prior to the procedure, a History and Physical was performed, and patient medications, allergies and sensitivities were reviewed. The patient's tolerance of previous anesthesia was reviewed. - The risks and benefits of the procedure and the sedation options and risks were discussed with the patient. All questions were answered and informed consent was obtained. After I obtained informed consent, the scope was passed under direct vision. Throughout the procedure, the patient's blood pressure, pulse, and oxygen saturations were monitored continuously. The Colonoscope was introduced through the anus and advanced to the cecum, identified by appendiceal orifice and ileocecal valve. The colonoscopy was performed without difficulty. The patient tolerated the procedure well. The quality of the bowel preparation was adequate to identify polyps greater than 5 mm in size. The terminal ileum, ileocecal valve, appendiceal orifice, and rectum were photographed. Findings: The perianal exam findings include medium non-thrombosed external hemorrhoids. The terminal ileum appeared normal. Two sessile polyps were found in the descending colon. The polyps were 2 to 3 mm in size. These polyps were removed with a cold biopsy forceps. Resection and retrieval were complete. Three sessile polyps were found in the recto-sigmoid colon. The polyps were 2 to 3 mm in size. These polyps were removed with a cold biopsy forceps. Resection and retrieval were complete. Non-bleeding internal hemorrhoids were found during retroflexion. The hemorrhoids were small. A diffuse area of mild melanosis was found in the entire colon. Biopsies were taken with a cold forceps for histology. _ Impression: - Non-thrombosed external hemorrhoids found on perianal exam. - The examined portion of the ileum was normal. - Two 2 to 3 mm polyps in the descending colon, removed with a cold biopsy forceps. Resected and retrieved. - Three 2 to 3 mm polyps at the recto-sigmoid colon, removed with a cold biopsy forceps. Resected and retrieved. - Non-bleeding internal hemorrhoids. - Melanosis in the colon. Biopsied. Recommendation: - Await pathology results. - Discontinue aspirin and NSAIDs for 7 days. - High fiber diet. - Repeat colonoscopy in 3 - 5 years for surveillance based on pathology results. - Discharge patient to home (ambulatory). - Patient has a contact number available for emergencies. The signs and symptoms of potential delayed complications were discussed with the patient. Return to normal activities tomorrow. Written discharge instructions were provided to the patient. Procedure Code(s): --- Professional --- 27319, Colonoscopy, flexible; with biopsy, single or multiple --- Technical --- 82250, Colonoscopy, flexible; with biopsy, single or multiple Diagnosis Code(s): --- Professional --- Z86.010, Personal history of colonic polyps K64.4, Residual hemorrhoidal skin tags K64.8, Other hemorrhoids D12.4, Benign neoplasm of descending colon D12.7, Benign neoplasm of rectosigmoid junction K63.89, Other specified diseases of intestine --- Technical --- Z86.010, Personal history of colonic polyps K64.4, Residual hemorrhoidal skin tags K64.8, Other hemorrhoids D12.4, Benign neoplasm of descending colon D12.7, Benign neoplasm of rectosigmoid junction K63.89, Other specified diseases of intestine CPT copyright 2020 [employer]. All rights reserved. The codes documented in this report are preliminary and upon production tech review may be revised to meet current compliance requirements. Trevor Morrison MD 12/01/2023 9:38:03 AM This report has been signed electronically. Number of Addenda: 0 Note Initiated On: 12/01/2023 9:02 AM Procedure Date: 12/01/2023 9:02:31 AM Scope Withdrawal Time: 0 hours 20 minutes 42 seconds [facility] 12/01/2023 9:02 AM CDT Trevor Morrison MD GI PROCEDURE ORDERA BLES [facility] ENDOSCOPY * (ABNORMAL) HEMOGLOBIN A1C (11/02/2023 6:28 AM CDT) Hemoglobin A1c 6.5(H) <5.7 % 11/02/2023 7:05 AM CDT [facility] Estimated Average Glucose 140 mg/dL 11/02/2023 7:05 AM CDT [facility] Blood BLOOD SPECIMEN / Unknown Venipuncture / Unknown 11/02/2023 6:28 AM CDT 11/02/2023 6:37 AM CDT [facility] LAB[facility]ATORY - 11/02/2023 7:05 AM CDT HbA1c Interpretation: Normal: < 5.7% Pre-diabetes: 5.7-6.4% Diabetes: Equal to or greater than 6.5% Test results diagnostic of diabetes should be repeated for confirmation. Treatment target values recommended by ADA and other clinical organizations should be used to evaluate metabolic control in patients. This test should not replace glucose testing for patients with Type 1 diabetes, pediatric patients, or women. Falsely low HbA1c results may be observed in patients with clinical conditions that shorten erythrocyte life span or decrease mean erythrocyte age such as the presence of unstable hemoglobin variants, elevated hemoglobin F level or other causes of hemolytic anemia. HbA1c may not accurately reflect glycemic control when clinical conditions that affect erythrocyte survival are present. Severe Iron deficiency anemia may yield falsely high results. Hemoglobin A1c assay should not be used to diagnose or monitor diabetes in patients with malignancy, recent blood transfusion, chronic kidney or liver disease. This method may yield falsely low results when hemoglobin (HbF) exceeds 5% in the specimen. The Hall Alinity assay for the measurement of HbA1c is a National Glycohemoglobin Standardization Program (NGSP) certified method. Jamila Zapata MD LAB - CHEMISTRY NEELIMA PATTERSON [facility] [address] [place] [address] * (ABNORMAL) COMPREHENSIVE METABOLIC PANEL (11/02/2023 6:28 AM CDT) Glucose 192(H) 70 - 105 mg/dL 11/02/2023 7:00 AM [facility] Sodium 139 136 - 145 mmol/L 11/02/2023 7:00 AM [facility] Potassium 4.2 3.5 - 5.1 mmol/L 11/02/2023 7:00 AM [facility] Chloride 109(H) 98 - 107 mmol/L 11/02/2023 7:00 AM [facility] CO2 20(L) 22 - 29 mmol/L 11/02/2023 7:00 AM [facility] Calcium 9.6 8.4 - 10.4 mg/dL 11/02/2023 7:00 AM [facility] Anion Gap 10 6 - 16 mmol/L 11/02/2023 7:00 AM [facility] BUN 17 7 - 26 mg/dL 11/02/2023 7:00 AM [facility] Creatinine 0.87 0.72 - 1.25 mg/dL 11/02/2023 7:00 AM [facility] Alkaline Phosphatase 149 40 - 150 U/L 11/02/2023 7:00 AM [facility] ALT 63(H) 0 - 55 U/L 11/02/2023 7:00 AM [facility] AST 28 5 - 34 U/L 11/02/2023 7:00 AM [facility] Protein Total 6.5 6.4 - 8.3 gm/dL 11/02/2023 7:00 AM [facility] Albumin 4.0 3.4 - 5.0 gm/dL 11/02/2023 7:00 AM [facility] Bilirubin Total 0.8 0.2 - 1.2 mg/dL 11/02/2023 7:00 AM [facility] eGFR by CKD-EPI >90 >=90 mL/min/1.7 3 m2 11/02/2023 7:00 AM [facility] Blood BLOOD SPECIMEN / Unknown Venipuncture / Unknown 11/02/2023 6:28 AM CDT 11/02/2023 6:37 AM T Jamila Zapata MD LAB - CHEMISTRY NEELIMA PATTERSON [facility] Organization Address City/State/ZIP Co de Phone Number [facility] [address] [place] [address] * MICROALB/CREAT RATIO URINE RANDOM PANEL (02/03/2023 9:16 AM TRAVELIFT OPERATOR) Creatinine Urine 147.89 mg/dL [facility] INSURANCE BILL Microalbumin Urine 0.8 mg/dL [facility] INSURANCE BILL Microalbumin/Crea tinine Ratio 5 <30 mg/g [facility] INSURANCE BILL Comment:FASTING Urine URINE SPECIMEN OBTAINED BY CLEAN CATCH PROCEDURE / Unknown 02/03/2023 9:16 AM TRAVELIFT OPERATOR 02/03/2023 Narrative Resulting Agency Comment Lab Testing performed at: [facility] [address] [place]ZMAN [id number] Holli Wellington GUT SORTER-ECMO SPECIALIST LAB - URINE CHEM ISTRY ORDERABLES [facility] INSURANCE BILL [address] [place] [address] * EYE EXAM (08/26/2022) Anatomical Region Laterality Modality Other 08/26/2022 Narrative 08/26/2022 Ordered by an unspecified provider. Scanned Document SCANNING ONLY * CT LUNG CANCER SCREEN LOW DOSE (12/10/2021 9:31 AM CDT) Anatomical Region Laterality Modality Chest Computed Tomogra phy 12/10/2021 10:1 8 AM CDT Narrative 12/10/2021 10:25 AM CDT PROCEDURE: CT LUNG SCREEN LOW DOSE, DATE/TIME OF EXAM: 12/10/2021 9:32 AM, LOCATION [facility] INDICATION: Z87.891: Personal history of nicotine dependence ADDITIONAL CLINICAL INFORMATION: Ordering Provider Reason For Exam: Technologist Note: Patient is a former smoker with a 30 pack year history Additional: COMPARISON: September 30, 2020 TECHNIQUE: CT of the chest was performed without intravenous contrast utilizing low dose protocol. CT dose reduction technique was used, including Automated Exposure Control. FINDINGS: The peripheral soft tissues are unremarkable. There is no significant axillary or thoracic inlet lymphadenopathy. Unchanged left thyroid hypodense nodule with coarse calcification. Mild cardiomegaly. Mild hiatal hernia. Cholecystectomy clips are present. The central airways are patent. There is no gross pleural effusion or pneumothorax. Mild bilateral upper lobe predominant centrilobular emphysematous changes are seen. On series 4 image 97, punctate right upper lobe perivascular nodule is unchanged. Image 145, tiny right middle lobe nodules are new. Image 130, punctate left upper lobe nodule is new. Image 137, likely a left intrafissural lymph node is unchanged. No focal osseous lesion identified. ASSESSMENT: Lung-RADS 2: Benign appearance or behavior. RECOMMENDATION: Follow up LDCT in 1 year. ACR Lung-RADS Category/Recommendations: 0: Need prior comparisons or additional images 1: Negative: 12 month follow up LDCT (Low Dose CT) 2: Benign Appearin month follow up LDCT 3: Probably Benign: 6 month follow up LDCT 4A: Suspicious: 3 month follow up LDCT (or immediate PET if >7mm solid component) 4B: Suspicious: Immediate Chest CT or PET if >7mm solid component 4X: Cat 3 or 4A nodules with additional suspicious findings Modifier- S : Significant NON-lung cancer findings Modifier- C : Prior treated Lung Cancer. For details of the ACR Lung-RADS program, categories and recommendations: 1) https://www.acr.org/Quality-Safety/Resources/LungRADS 2) Internet search: Lung-RADS Lung Cancer Screening 3) Contact [facility] thoracic nurse coordinator ([phone]) (Data Mining Phrase: [facility]-LungNodule ) > Interpreting Provider: Teddy Richards MD on 12/10/2021 10:25 AM Procedure Note Teddy Richards MD - 12/10/2021 PROCEDURE: CT LUNG SCREEN LOW DOSE, DATE/TIME OF EXAM: 12/10/2021 9:32 AM, LOCATION [facility] INDICATION: Z87.891: Personal history of nicotine dependence ADDITIONAL CLINICAL INFORMATION: Ordering Provider Reason For Exam: Technologist Note: Patient is a former smoker with a 30 pack yearhistory Additional: COMPARISON: September 30, 2020 TECHNIQUE: CT of the chest was performed without intravenous contrast utilizing low dose protocol. CT dose reduction technique was used, including Automated ExposureControl. FINDINGS: The peripheral soft tissues are unremarkable. There is no significant axillary or thoracic inlet lymphadenopathy. Unchanged left thyroid hypodense nodule with coarse calcification. Mild cardiomegaly. Mildhiatal hernia. Cholecystectomy clips are present. The central airways are patent. There is no gross pleural effusion or pneumothorax. Mild bilateral upper lobe predominant centrilobular emphysematous changes are seen. On series 4 image 97, punctate right upper lobe perivascular nodule is unchanged. Image 145, tiny right middle lobe nodules are new. Image 130, punctate left upper lobe nodule is new. Image 137, likely a left intrafissural lymph node is unchanged. No focal osseous lesion identified. ASSESSMENT: Lung-RADS 2: Benign appearance or behavior. RECOMMENDATION: Follow up LDCT in 1 year. ACR Lung-RADS Category/Recommendations: 0: Need prior comparisons or additional images 1: Negative: 12 month follow up LDCT (Low Dose CT) 2: Benign Appearin month follow up LDCT 3: Probably Benign: 6 month follow up LDCT 4A: Suspicious: 3 month follow up LDCT (or immediate PET if >7mm solid component) 4B: Suspicious: Immediate Chest CT or PET if >7mm solid component 4X: Cat 3 or 4A nodules with additional suspicious findings Modifier- S : Significant NON-lung cancer findings Modifier- C : Prior treated Lung Cancer. For details of the ACR Lung-RADS program, categories andrecommendations: 1) https://www.acr.org/Quality-Safety/Resources/LungRADS 2) Internet search: Lung-RADS Lung Cancer Screening 3) Contact [facility] thoracic nurse coordinator ([phone]) (Data Mining Phrase: [facility]-LungNodule ) > Interpreting Provider: Teddy Richards MD on 12/10/2021 10:25 AM Gabby Gilbert MD CT ORDERABLES from Last 3 Months or Most Recently Relevant to Health Maintenance Advance Directives * Full Code (Latest Code Status on File) Date Activated Date Inactivated Comments 11/01/2023 11:26 AM 11/03/2023 6:11 PM * Full Code Date Activated Date Inactivated Comments 04/22/2017 6:02 PM 04/24/2017 4:48 PM * Full Code Date Activated Date Inactivated Comments 04/21/2017 2:18 PM 04/22/2017 6:02 PM Care Teams Dietary Manager Relationship Specialty Start Date End Date Holli Wellington APRN-ECMO SPECIALIST [address] [place] [address] [address]kw[address] [place] [phone] PCP - Attributed-MSSP 11/30/23 Merary Alston GUT SORTER-ECMO SPECIALIST [address] [place] [phone] PCP - General Nurse Practitioner 05/05/24 Pascual Lamar DO [address] [facility] [address] [place] [phone] Hand Surgery 12/19/14 Jerrell Qureshi DO [address] [place] [address] Distribution Sales Representative 06/04/15 Alex Cage MD [address] [place] [address] [address] [place] [phone] Endocrinology 06/04/15 Lewis Barahona DO [address] [facility] [address] [place] [address] Orthopedic Surgery 05/25/17
--- OUTSIDE RECORDS SUMMARY | 2024-05-29 10:02 | XMS_ITS | Encounter Summary ---
Author Organization [facility] Address [address] [facility] [place] [address] Care Team Providers Care Mother Baby Rn Name Role Phone Glen Banks MD Unavailable Pascual Lamar DO Unavailable Gabby Gilbert MD Primary Care Provider Jerrell Qureshi DO Unavailable Alex Cage MD Unavailable [phone] Lewis Barahona DO Unavailable Holli Wellington FINANCE ADMIN-SECONDARY SCHOOL PRINCIPAL Unavailable Caitlin Mabry RN Unavailable Gabby Gilbert MD Unavailable Holli Wellington FINANCE ADMIN-SECONDARY SCHOOL PRINCIPAL Unavailable Caitlin Mabry RN Unavailable Lo Scott RN Unavailable Alexa Burton MA Unavailable Devora Lindsay FINANCE ADMIN-SECONDARY SCHOOL PRINCIPAL Unavailable Lee Trujillo RN Unavailable Gabby Gilbert MD Unavailable [phone] Evelyn Azul Unavailable Holli Wellington FINANCE ADMIN-SECONDARY SCHOOL PRINCIPAL Unavailable [phone] Evelyn Azul Unavailable Gabby Gilbert MD Unavailable Glen Banks MD Unavailable Holli Wellington FINANCE ADMIN-SECONDARY SCHOOL PRINCIPAL Unavailable Merary Alston FINANCE ADMIN-SECONDARY SCHOOL PRINCIPAL Primary Care Provid er Encounter Details Date Type Department Care Team (Late st Contact Info) Description 05/14/2017 [facility] Outpatient Visit [facility] Health Orthopedics - Radiology [address] [place] [address] Lewis Barahona [facility] [address] [address] Social History Tobacco Use Types Packs/Day [...] using tobacco Lifestyle No Liberty Yoder MA [facility] Lifestyle: Have labs drawn Lifestyle No Liberty Yoder MA Have labs drawn Lifestyle Liberty Pritchett MA documented as of this encounter Visit Diagnoses Not on filedocumented in this encounter Care Teams Mother Baby Rn Relationship Specialty Start Date End Date Gabby Gilbert MD [address] [place] [address] PCP - General Family Medicine 06/04/15 05/04/24 Holli Wellington APRN-SECONDARY SCHOOL PRINCIPAL [address] [place], [place] [address]y [address] [place] [phone] PCP - Attributed-MSSP 11/29/18 06/04/19 Gabby Gilbert MD [address] [place] [address] PCP - Attributed-MSSP 03/01/21 06/28/21 Holli Wellington FINANCE ADMIN-SECONDARY SCHOOL PRINCIPAL [address] [place], [place] [address]y [address] [phone] PCP - Attributed-MSSP 06/29/21 05/30/23 Devora Lindsay FINANCE ADMIN-SECONDARY SCHOOL PRINCIPAL [address] [place] [address] PCP - Attributed-MSSP 05/31/23 08/29/23 Gabby Gilbert MD [address] [place] [address] PCP - Attributed-MSSP 08/30/23 11/29/23 Holli Wellington FINANCE ADMIN-SECONDARY SCHOOL PRINCIPAL [address] [place], [place] [address] [address] [place] [phone] PCP - Attributed-MSSP 11/30/23 [place] [address] [place] [address] [address] [place] [address] PCP - Attributed-MSSP 04/29/18 07/29/18 Glen Banks MD [address] [address] PCP - Attributed-MSSP 09/29/18 11/28/18 Holli Wellington FINANCE ADMIN-SECONDARY SCHOOL PRINCIPAL [address] [place] [phone] PCP - Attributed-MSSP 07/30/18 09/28/18 Merary Alston FINANCE ADMIN-SECONDARY SCHOOL PRINCIPAL [address] [place], [place] [phone] PCP - General Nurse Practitioner 05/05/24 Glen Banks MD [address] [address] Psychiatry 01/02/14 05/25/23 Pascual Lamar DO [address] [place] [address] [address] [place] [address] Hand Surgery 12/19/14 [place] [address] Centrifugal Casting Machine Operator 06/04/15 Alex Cage MD [address] [place] [address] [place] [address] [place] [address] Endocrinology 06/04/15 Lewis Barahona DO [address] [facility] [address] [place] [address] Orthopedic Surgery 05/25/17 Caitlin Mabry RN Washroom OperatorNuclear Radiation Engineer 03/04/21 03/16/23 Caitlin Mabry RN Care Management 03/04/21 03/09/23 oL Scott RN [address] [address] Washroom OperatorNuclear Radiation Engineer 03/09/23 06/03/23 Alexa Burton, [place] Care Coordination Specialist Care Management 05/28/23 05/28/23 Lee Trujillo, JOHNATHAN [address] [place] [address] Washroom OperatorNuclear Radiation Engineer 11/04/23 11/05/23 Evelyn Azul [address] [place] [address] Care Coordination Specialist Care Management 12/02/23 01/16/24 Evelyn Azul [address] [place] [address] Care Coordination Specialist Care Management 03/08/24 04/22/24 documented as of this encounter
--- OUTSIDE RECORDS SUMMARY | 2024-05-29 10:02 | XMS_ITS | Encounter Summary ---
Author Organization [facility] Address [address] [place] [address] Care Team Providers Care Entry Level Sales Consultant Name Role Phone Glen Banks MD Unavailable Pascual Lamar DO Unavailable Gabby Gilbert MD Primary Care Provider [phone] Jerrell Qureshi DO Unavailable Alex Cage MD Unavailable [phone] Lewis Barahona DO Unavailable Caitlin Mabry RN Unavailable Gabby Gilbert MD Unavailable Holli Wellington CLOTH SPREADER SCREEN PRINTING-AERONAUTICAL TEST ENGINEER Unavailable Caitlin Mabry RN Unavailable Lo Scott RN Unavailable Alexa Burton MA Unavailable Devora Lindsay CLOTH SPREADER SCREEN PRINTING-AERONAUTICAL TEST ENGINEER Unavailable Lee rTujillo RN Unavailable Gabby Gilbert MD Unavailable Evelyn Azul Unavailable Holli Wellington CLOTH SPREADER SCREEN PRINTING-AERONAUTICAL TEST ENGINEER Unavailable Evelyn Azul Unavailable Merary Alston July CLOTH SPREADER SCREEN PRINTING-AERONAUTICAL TEST ENGINEER Primary Care Provid er Reason for Visit * Reason Onset Date Comments MEDICATION REFILL 03/04/2021 Encounter Details Date Type Department Care Team (Late st Contact Info) Description 03/04/2021 Refill [facility] - Family Medicine [address] [facility] [address] [place] [address] Shawn Whitmore PA-C [address] [place] [address] [address] [place] [address] MEDICATION REFILL Social History Tobacco Use Types Packs/Day Years Used Date Smoking Tobacco: Former Cigarettes 1 30 0 11/14/1989 - 11/15/2019 Smokeless Tobacco: Never Alcohol Use Standard Drinks/Week Comments Not Currently 1 (1 standard drink = 0.6 oz pur e alcohol) AUDIT-C Answer Date Recorded Q1: How often do you have a drink containing alc ohol? Never 01/12/2021 Average Number of Drinks Not on file 021 Frequency of Binge Drinking Not on file 12/30 Sex and Gender Information Value Date Recorded Sex Assigned at Not on file Gender Identity Not on file Sexual Orientation Not on file documented as of this encounter Functional Status Functional Status Response Date of Assess ment Is person deaf or have serious hearing difficult y? No 10/25/2019 Is person blind or have serious difficulty seein g? No 10/25/2019 Does person have serious dif ficulty walking/climbing stairs? No 10/25/2019 Does person have difficulty dressing/bathing? No 10/25/2019 Does person have difficulty doing errands alone? No 10/25/2019 Cognitive Status Response Date of Assessm ent Does person have difficulty concentrating/remembering/making decisions? No 10/25/2019 documented as of this encounter Plan of Treatment Not on file documented as of this encounter Goals Goal Patient Goal Type Associated Problems Recent Progress Patient-Stated? Author Quit smoking / using tobacco Lifestyle No Liberty Yoder MA [facility] Lifestyle: Have labs drawn Lifestyle No Liberty Yoder MA Have labs drawn Lifestyle No Liberty Yoder MA documented as of this encounter Visit Diagnoses Diagnosis Chronic idiopathic constipation Unspecified constipation documented in this encounter Care Teams Entry Level Sales Consultant Relationship Specialty Start Date End Date Gabby Gilbert MD [address] [place] [address] PCP - General Family Medicine 06/04/15 05/04/24 Gabby Gilbert MD [address] [place] [address] PCP - Attributed-MSSP 03/01/21 06/28/21 Holli Wellington CLOTH SPREADER SCREEN PRINTING-AERONAUTICAL TEST ENGINEER [address] [place] [phone] PCP - Attributed-MSSP 06/29/21 05/30/23 Devora Lindsay CLOTH SPREADER SCREEN PRINTING-AERONAUTICAL TEST ENGINEER [address] [address] PCP - Attributed-MSSP 05/31/23 08/29/23 Gabby Gilbert MD [address] [place] [address] PCP - Attributed-MSSP 08/30/23 11/29/23 Holli Wellington CLOTH SPREADER SCREEN PRINTING-AERONAUTICAL TEST ENGINEER [address] [place] [address] [place] [phone] PCP - Attributed-MSSP 11/30/23 Merary Alston CLOTH SPREADER SCREEN PRINTING-AERONAUTICAL TEST ENGINEER [address] [place] [phone] PCP - General Nurse Practitioner 05/05/24 Glen Banks MD [address] [place], [place] [phone] Psychiatry 01/02/14 05/25/23 Pascual Lamar DO [address] [facility] [place] [phone] Hand Surgery 12/19/14 Jerrell Qureshi DO [address] [place], [place] [phone] Inclusion Paraeducator 06/04/15 Alex Cage MD [address] [facility] [address] [place] [address] Endocrinology 06/04/15 Lewis Barahona DO [address] [facility] [address] [place] [address] Orthopedic Surgery 05/25/17 Caitlin Mabry RN Mammography TechnologistJoint Setter 03/04/21 03/16/23 Caitlin Mabry RN Care Management 03/04/21 03/09/23 Lo Scott, JOHNATHAN [address] [facility] [address] [place] [address] Mammography TechnologistJoint Setter 03/09/23 06/03/23 Alexa Burton MA Care Coordination Specialist Care Management 05/28/23 05/28/23 Lee Trujillo, RN [address] [place] [address] Mammography TechnologistJoint Setter 11/04/23 11/05/23 Evelyn Azul [address] [address] Care Coordination Specialist Care Management 12/02/23 01/16/24 Evelyn Azul [address] [address] Care Coordination Specialist Care Management 03/08/24 04/22/24 documented as of this encounter
--- OUTSIDE RECORDS SUMMARY | 2024-05-29 10:02 | XMS_ITS | Clinical Summary ---
Author Organization [facility] Address [address] [place] [address] Phone Care Team Providers Care Statistical Developer Name Role Phone Tex Colby MD Primary Care Provider + Allergies No known active allergies Medications insulin glargine (LANTUS) 100 unit/mL subCUT Soln Inject by subcutaneous injection daily. Active metFORMIN (GLUCOPHAGE) 1,000 mg Oral tablet Take 1,000 mg by mouth 2 times daily with meals. Active donepezil (ARICEPT) 10 mg Oral tablet Take 10 mg by mouth 2 times daily. Active L-methylfolate (DEPLIN) 15 mg Oral Tab Take by mouth daily. Active armodafinil (NUVIGIL) 250 mg Oral tablet Take 250 mg by mouth 2 times daily. Active QUEtiapine SR 24 hour (SEROQUEL XR) 300 mg Oral Tb24 Take 300 mg by mouth daily with supper. Active carBAMazepine SR 12 hr (TEGRETOL XR) 200 mg Oral tablet Take 200 mg by mouth 2 times daily. Active OTHER trifuoperazine--an ti psychotic-1mg bid Active OTHER vitbryd--depressio n rx--20mg daily Active moxifloxacin (MOXIFLOXICIN) 0.5 % OP solution Administer 1 Drop in left eye 3 times daily. 3 mL 0 2 Active DULoxetine (Cymbalta) 20 mg Capsule, Delayed Release(E.C.) Take 3 Capsules by mouth. Active atorvastatin (LIPITOR) 40 mg tablet TAKE 1 TABLET BY MOUTH AT BEDTIME REASONS: HIGH AMOUNT OF FATS IN THE BLOOD 9 Active glimepiride (AMARYL) 4 mg tablet TAKE 1 TABLET BY MOUTH TWICE A DAY 0 Active insulin degludec (Tresiba FlexTouch U-100) 100 unit/mL pen syringe INJECT 20 UNITS SUBCUTANEOUSLY ONCE DAILY REASONS: TYPE 2 DIABETES 9 Active lithium carbonate (ESKALITH IR) 300 mg Capsule Take 300 mg by mouth. 4 Active loxapine (LOXITANE) 10 mg Capsule Take 30 mg by mouth. 5 Active mirtazapine (REMERON) 15 mg tablet Take 15 mg by mouth. 8 Active Insulin [place], Disposable, (Nette Pen Needle) 32 gauge x 32 Needle 1 Syringe by NOT APPLICABLE route. 9 Active pioglitazone (ACTOS) 15 mg tablet TAKE 1 TABLET BY MOUTH ONCE DAILY REASONS: TYPE 2 DIABETES 0 Active prazosin (MINIPRESS) 2 mg capsule Take 2 mg by mouth. 4 Active Active Problems Problem Noted Date Diagnosed Date Type II or unspecified type diabetes mellitus without mention of complication, not stated as uncontrolled 06/13/2010 Family History Medical History Relation Name Comments Unknown Father Lung Cancer Mother Relation Name Status Comments Father Mother Social History Tobacco Use Types Packs/Day Years Used Date Smoking Tobacco: Every Day Cigarettes 1 30 Smokeless Tobacco: Never Alcohol Use Standard Drinks/Week Comments Yes 0 (1 standard drink = 0.6 oz pur e alcohol) Sex and Gender Information Value Date Recorded Sex Assigned at Not on file Legal Sex Male 5:56 AM REMEDY DEVELOPER Gender Identity Not on file Sexual Orientation Not on file Occupation Industry Job Start Date Job End Date Not on file Not on file Not on file Not on file Last Filed Vital Signs Vital Sign Reading Time Taken Comments Blood Pressure 147/77 05/11/2019 10:56 PM CDT Pulse 103 03/19/2013 5:09 PM REMEDY DEVELOPER Temperature 36.9 C (98.5 F) 05/11/2019 8:12 PM CDT Respiratory Rate 18 05/11/2019 10:56 PM CDT Oxygen Saturation 97% 05/11/2019 10:56 PM CDT Inhaled Oxygen Concentration - - Weight 82.8 kg (182 lb 8 oz) 05/11/2019 8:12 PM CDT Height 174 cm (5' 8.5 ) 05/11/2019 8:12 PM CDT Body Mass Index 27.35 05/11/2019 8:12 PM CDT Plan of Treatment Health Maintenance Due Date Last Done Comments DIABETES MICROALBUMIN ANNUAL SCREEN 1975 LDL CHOLESTEROL ANNUAL 1975 DTAP/TDAP/TD VACCINES (1 - Tdap) 01/14/1976 FIT-DNA Q 3 years 2002 FIT/FOBT Q 1 year 2002 Flex Sig/CT Colonography Q 5 years 2002 RSV VACCINE (60+ or ) (1 - Risk 60-74 years 1-dose series) 2017 DIABETES ANNUAL RETINAL EXAM 08/27/2023 08/26/2022 DIABETES HBA1C Q 6 MONTHS 05/01/20242023, 01/25/2023, 07/20/2022, Additional history exists COVID-19 Vaccine (2023-2 5 season) 2024 11/15/2023, 05/26/2023, 04/08/2022, Additional history exists DIABETES ANNUAL FOOT EXAM 08/17/2024 08/18/2023 COLORECTAL SCREENING 11/30/2033 12/01/2023, 12/01/2023, 01/15/2021 Colorectal Cancer Screening 11/30/2033 ZOSTER VACCINE Completed 11/09/2022, 09/07/2022 PNEUMOCOCCAL VACCINE 50+ YEARS Completed 05/26/2023 , 01/10/2014 INFLUENZA VACCINE Completed 11/15/2023, , 11/09/2022, Additional history exists Insurance MEDICARE PART A AND B [facility] [id number] Care Teams Statistical Developer Relationship Specialty Start Date End Date Tex Colby MD PCP - General Allergy & Immunology 11/30/09
--- OUTSIDE RECORDS SUMMARY | 2024-05-29 10:02 | XMS_ITS ---
Author Organization [facility] Address [address] [place] [address] [address] [place] [address] Care Team Providers Care Political Theory Professor Name Role Phone Merary Amezcua Primary Care Provider Roberto Chiang Unavailable [phone] REASON FOR VISIT *UPDATE*SIBO- positive Medications Medication SIG (Take, Route, Fr equency, Duration) Notes Start Date End Date Status Neomycin Sulfate 500 MG 1 tablet Orally Twice a day for 10 days 05/22/2024 Active Encounters Encounter Location Date Provider Diagnosis [facility], [address] [place] [address] 05/17/2024 Roberto Mccarty Plan Of Treatment Medication Medication Name Sig Start Date Stop Date Notes Neomycin Sulfate 500 MG 1 tablet Orally Twice a day for 10 days 05/22/2024 Progress Notes * Rafael AVELARDOB: 7 (69 yo M)Acc No.[id number]:05/17/2024 Patient: Tigist Rafael CRYSTAL :1955 A ge:69 Y S ex:Male Address:[address] [place] [address], [address] * Refills Start Neomycin Sulfate Tablet, 500 MG, Orally, 20 Tablet, 1 tablet, Twice a day, 10 days, Refills=0 * * Date:
--- OUTSIDE RECORDS SUMMARY | 2024-05-29 10:02 | XMS_ITS ---
Author Organization [facility], [facility] Address [address] [place] [address] [address] [place] [address] Care Team Providers Care Silviculture Teacher Name Role Phone Merary Amezcua Primary Care Provider Unavail Lola Aleman Unavailable [phone] REASON FOR VISIT Omeprazole Refill request Medications Medication SIG (Take, Route, Fr equency, Duration) Notes Start Date End Date Status Omeprazole 40 MG 1 capsule 1/2 to 1 h our before morning meal Orally Once a day for 30 days 03/28/2024 Active Encounters Encounter Location Date Provider Diagnosis [facility], [address] [place] [address] 05/17/2024 Lola Davis Plan Of Treatment Medication Medication Name Sig Start Date Stop Date Notes Omeprazole 40 MG 1 capsule 1/2 to 1 h our before morning meal Orally Once a day for 30 days 03/28/2024 Progress Notes * Rafael AVELARDOB: 7 (69 yo M)Acc No.[id number]:05/17/2024 Patient: Tigist Rafael CRYSTAL :1955 A ge:69 Y S ex:Male Address:[address] [place] [address], [address] * Refills Refill Omeprazole Capsule Delayed Release, 40 MG, Orally, 30, 1 capsule 1/2 to 1 hour before morning meal, Once a day, 30 days, Refills=11 * true * Date: Generated for Reba gu/Elke/Niecyitting on: 0 05/29/2024 10:02 AM CDT
--- OUTSIDE RECORDS SUMMARY | 2024-05-29 10:03 | XMS_ITS | Encounter Summary ---
Author Organization [facility] Address [address] [facility] [place] [address] Care Team Providers Care Electrical Plumbing Supervisor Name Role Phone Ladonna Turcios MD Primary Care Provider [phone] Glen Banks MD Unavailable [phone] Pascual Lamar DO Unavailable Gabby Gilbert MD Primary Care Provider [phone] Jerrell Qureshi DO Unavailable Alex Cage MD Unavailable Lewis Barahona DO Unavailable Holli Wellington PET TECHNOLOGIST-FOUNDATION MAKER Unavailable Caitlin Mabry RN Unavailable Gabby Gilbert MD Unavailable Holli Wellington PET TECHNOLOGIST-FOUNDATION MAKER Unavailable Caitlin Mabry RN Unavailable Lo Scott RN Unavailable Alexa Burton MA Unavailable Devora Lindsay PET TECHNOLOGIST-FOUNDATION MAKER Unavailable Lee Trujillo RN Unavailable Gabby Gilbert MD Unavailable Evelyn Azul Unavailable [phone] Holli Wellington PET TECHNOLOGIST-FOUNDATION MAKER Unavailable Evelyn Azul Unavailable Gabby Gilbert MD Unavailable Glen Banks MD Unavailable Holli Wellington PET TECHNOLOGIST-FOUNDATION MAKER Unavailable Alecia Merarywestley Jones PET TECHNOLOGIST-FOUNDATION MAKER Primary Care Provid er Reason for Visit * Reason Onset Date Comments MEDICATION REFILL 01/17/2015 Encounter Details Date Type Department Care Team (Late st Contact Info) Description 01/17/2015 Refill SS MYCHART GENERII [address] [place] [address] Mychart, Generic Provider MEDICATION REFILL Social History Tobacco Use Types Packs/Day Years Used Date Smoking Tobacco: Every Day Cigarettes 1 30 Alcohol Use Standard Drinks/Week Comments Yes 0.8 (1 standard drink = 0.6 oz p ure alcohol) Sex and Gender Information Value Date Recorded Sex Assigned at Not on file Gender Identity Not on file Sexual Orientation Not on file documented as of this encounter Plan of Treatment Not on file documented as of this encounter Goals Goal Patient Goal Type Associated Problems Recent Progress Patient-Stated? Author Quit smoking / using tobacco Lifestyle No Liberty Yoder MA M Lifestyle: Have labs drawn Lifestyle No Liberty Yoder MA Have labs drawn Lifestyle Liberty Pritchett MA documented as of this encounter Visit Diagnoses Not on filedocumented in this encounter Care Teams Electrical Plumbing Supervisor Relationship Specialty Start Date End Date Ladonna Turcios MD PCP - General Family Medicine 12/08/13 06/03/15 Gabby Gilbert MD [address] [place] [address] PCP - General Family Medicine 06/04/15 05/04/24 Holli Wellington PET TECHNOLOGIST-FOUNDATION MAKER [address] [place] [address] [address] [place] [phone] PCP - Attributed-MSSP 11/29/18 06/04/19 Gabby Gilbert MD [address] [place] [address] PCP - Attributed-MSSP 03/01/21 06/28/21 Holli Wellington PET TECHNOLOGIST-FOUNDATION MAKER [address] [place] [address] [address] [place] [phone] PCP - Attributed-MSSP 06/29/21 05/30/23 Devora Lindsay, PET TECHNOLOGIST-FOUNDATION MAKER [address] [facility] [address] [address] PCP - Attributed-MSSP 05/31/23 08/29/23 Gabby Gilbert MD [address] [place] [address] PCP - Attributed-MSSP 08/30/23 11/29/23 Holli Wellington PET TECHNOLOGIST-FOUNDATION MAKER [address] [place] [address] [address] [place] [phone] PCP - Attributed-MSSP 11/30/23 Gabby Gilbert MD [address] [place] [address] PCP - Attributed-MSSP 04/29/18 07/29/18 Glen Banks MD [address] [facility] [address] [place] [address] PCP - Attributed-MSSP 09/29/18 11/28/18 Holli Wellington PET TECHNOLOGIST-FOUNDATION MAKER [address] [facility] [address] [place] [address] PCP - Attributed-MSSP 07/30/18 09/28/18 Merary Alston PET TECHNOLOGIST-FOUNDATION MAKER [facility] [place] [phone] PCP - General Nurse Practitioner 05/05/24 Glen Banks MD [address] [facility] [address] [place] [address] Psychiatry 01/02/14 05/25/23 Pascual Lamar DO [address] [place] [address] [address] [place] [phone] Hand Surgery 12/19/14 Jerrell [place] [place] [address] Probation And Parole Officer 06/04/15 Alex Cage MD [address] [place] [address] [address] [place] [phone] Endocrinology 06/04/15 Lewis Barahona DO [address] [place] [address] [address] [place] [address] Orthopedic Surgery 05/25/17 Caitlin Mabry, RN Photographic Laboratory SupervisorStemhole Borer 03/04/21 03/16/23 Caitlin Mabry RN Care Management 03/04/21 03/09/23 Lo Scott, JOHNATHAN [address] [address] Photographic Laboratory SupervisorStemhole Borer 03/09/23 06/03/23 Alexa Burton MA Care Coordination Specialist Care Management 05/28/23 05/28/23 Lee Trujillo, JOHNATHAN [address] [facility] [address] [place] [address] Photographic Laboratory SupervisorStemhole Borer 11/04/23 11/05/23 Evelyn Azul [address] [facility] [address] [place] [address] Care Coordination Specialist Care Management 12/02/23 01/16/24 Evelyn Azul VD [address] [place] [address] Care Coordination Specialist Care Management 03/08/24 04/22/24 documented as of this encounter
--- OUTSIDE RECORDS SUMMARY | 2024-05-29 10:03 | XMS_ITS | Encounter Summary ---
Author Organization [facility] Address [address] [place] [address] Care Team Providers Care Instructor Of Nursing Name Role Phone Ladonna Turcios MD Primary Care Provider [phone] Glen Banks MD Unavailable Pascual Lamar DO Unavailable Gabby Gilbert MD Primary Care Provider Jerrell Qureshi DO Unavailable Alex Cage MD Unavailable Lewis Barahona DO Unavailable Holli Wellington OBSTETRICS/GYNECOLOGY NURSE-DIVERSITY MANAGER Unavailable Caitlin Mabry RN Unavailable Gabby Gilbert MD Unavailable Holli Wellington OBSTETRICS/GYNECOLOGY NURSE-DIVERSITY MANAGER Unavailable Caitlin Mabry RN Unavailable Lo Scott RN Unavailable Alexa Burton MA Unavailable Devora Lindsay OBSTETRICS/GYNECOLOGY NURSE-DIVERSITY MANAGER Unavailable Lee Trujillo RN Unavailable Gabby Gilbert MD Unavailable Evelyn Azul Unavailable [phone] Holli Wellington OBSTETRICS/GYNECOLOGY NURSE-DIVERSITY MANAGER Unavailable Evelyn Azul Unavailable Gabby Gilbert MD Unavailable Glen Banks MD Unavailable Holli Wellington OBSTETRICS/GYNECOLOGY NURSE-DIVERSITY MANAGER Unavailable [phone] Merary Alston OBSTETRICS/GYNECOLOGY NURSE-DIVERSITY MANAGER Primary Care Provid er Encounter Details Date Type Department Care Team (Late st Contact Info) Description 12/19/2014 Therapy Visit [facility] PHYSICAL THERAP[facility] [address] [place] [address] Unknown, Provider Social History Tobacco Use Types Packs/Day Years [...] using tobacco Lifestyle No Liberty Yoder MA [facility] Lifestyle: Have labs drawn Lifestyle Liberty Pritchett MA Have labs drawn Lifestyle Liberty Pritchett MA documented as of this encounter Visit Diagnoses Not on filedocumented in this encounter Care Teams Instructor Of Nursing Relationship Specialty Start Date End Date Ladonna Turcios MD PCP - General Family Medicine 12/08/13 06/03/15 Gabby Gilbert MD [address] [place] [address] PCP - General Family Medicine 06/04/15 05/04/24 Holli Wellington APRN-CNP [address] [place] [address] [address] [place] [address] PCP - Attributed-MSSP 11/29/18 06/04/19 Gabby Gilbert MD [address] [place] [address] [phone] PCP - Attributed-MSSP 03/01/21 06/28/21 Holli Wellington OBSTETRICS/GYNECOLOGY NURSE-DIVERSITY MANAGER [address] [place], [place] [address]y [address] [place] [phone] PCP - Attributed-MSSP 06/29/21 05/30/23 Devora Lindsay, OBSTETRICS/GYNECOLOGY NURSE-DIVERSITY MANAGER [address] [facility] [address] [address] PCP - Attributed-MSSP 05/31/23 08/29/23 Gabby Gilbert MD [address] [place] [address] PCP - Attributed-MSSP 08/30/23 11/29/23 Holli Wellington OBSTETRICS/GYNECOLOGY NURSE-DIVERSITY MANAGER [address] [place], [place] [address]y [address] [place] [phone] PCP - Attributed-MSSP 11/30/23 Gabby Gilbert MD [address] [place] [phone] PCP - Attributed-MSSP 04/29/18 07/29/18 [place] [address] [place] [address] PCP - Attributed-MSSP 09/29/18 11/28/18 Holli Wellington OBSTETRICS/GYNECOLOGY NURSE-DIVERSITY MANAGER [address] [facility] [address] [place] [address] PCP - Attributed-MSSP 07/30/18 09/28/18 Merary Alston, OBSTETRICS/GYNECOLOGY NURSE-DIVERSITY MANAGER [address] [place] [phone] PCP - General Nurse Practitioner 05/05/24 Glen Banks MD [address] [facility] [address] [place] [address] Psychiatry 01/02/14 05/25/23 Pascual Lamar DO [facility] [address] [place] [phone] Hand Surgery 12/19/14 Jerrell Qureshi DO [address] [place] [address] Mat Packer 06/04/15 Alex Cage MD [address] [place] [address] [address] [place] [address] Endocrinology 06/04/15 Lewis Barahona DO [address] [place] [address] [address] [place] [address] Orthopedic Surgery 05/25/17 Caitlin Mabry, RN Metal Patternmaker ApprenticeRewinder Operator 03/04/21 03/16/23 Caitlin Mabry RN Care Management 03/04/21 03/09/23 Lo Scott RN [address] [address] Metal Patternmaker ApprenticeRewinder Operator 03/09/23 06/03/23 Alexa Burton MA Care Coordination Specialist Care Management 05/28/23 05/28/23 Lee Trujillo RN [address] [facility] [address] [place] [address] Metal Patternmaker ApprenticeRewinder Operator 11/04/23 11/05/23 Evelyn Azul [address] [facility] [address] [place] [address] Care Coordination Specialist Care Management 12/02/23 01/16/24 Evelyn Azul [address] [facility] [address] [place] [address] Care Coordination Specialist Care Management 03/08/24 04/22/24 documented as of this encounter
== END 2024-05-29 09:18 | disposition home or self-care (01) ==
PROVIDERS: PCP Nurse Practitioner; Visit Provider Urology
DX: R10.9 Unspecified abdominal pain (principal); M47.816 Spondylosis without myelopathy or radiculopathy, lumbar region
CPT/HCPCS: 72100

== ENCOUNTER 2024-08-18 10:44 | Outpatient (CLI) | payer MEDICARE, SELFPAY ==
[2024-08-18 11:45] LABS: Hematocrit 43.2 % (42.0-52.0); Hemoglobin 14.4 g/dL (14.0-18.0); Mean Corpuscular HGB Conc 33.3 g/dl (32-36); Mean Corpuscular Hemoglobin 30.2 pg (26-34); Mean Corpuscular Volume 90.6 fl (80-100); Mean Platelet Volume 10.6 fl (7.4-10.4); Platelet Count Result 185 k/mm3 (150-375); Red Blood Count 4.77 M/mm3 (4.6-6.20); Red Cell Distribution Width 13.4 % (11.5-14.5); White Blood Count 6.8 K/mm3 (4.5-10.0)
[2024-08-18 11:56] LABS: Alanine Aminotransferase 87 U/L (6-50); Albumin Level 4.5 g/dL (3.5-5.1); Alkaline Phosphatase 114 U/L (38-126); Anion Gap 12 mmol/L (4-12); Aspartate Amino Transferase 40 U/L (17-59); Bilirubin,Total 0.4 mg/dL (0.2-1.3); Blood Urea Nitrogen 19 mg/dL (9-20); CRP < 0.5 mg/dL (<1.0); Carbon Dioxide 23 mmol/L (22-30); Chloride 107 mmol/L (98-107); Estimated Glomerular Filt Rate > 60; Glucose 85 mg/dL (65-110); Lipase 91 U/L (23-300); Potassium 4.5 mmol/L (3.4-5.0); Sodium 142 mmol/L (137-145)
[2024-08-18 12:04] LABS: Hemoglobin A1C 6.7 % (<5.7)
[2024-08-18 12:46] LABS: Erythrocyte Sedimentation Rate 8 mm/hr (0-20)
== END 2024-08-18 10:45 | disposition home or self-care (01) ==
LOC: ANHLAB 10:46
PROVIDERS: PCP Nurse Practitioner; Visit Provider Nurse Practitioner
DX: R10.9 Unspecified abdominal pain (principal); G89.29 Other chronic pain; K58.1 Irritable bowel syndrome with constipation; E11.9 Type 2 diabetes mellitus without complications; K29.80 Duodenitis without bleeding; K92.1 Melena; Z86.0100 Personal history of colon polyps, unspecified
CPT/HCPCS: 36415; 80053; 83036; 83690; 84443; 85027; 85652; 86038; 86039; 86140

== ENCOUNTER 2024-09-17 12:14 | Outpatient (CLI) | payer MEDICARE, SELFPAY ==
--- NOTE | ~2024-09-17 | MR_ITS ---
EXAMINATION: MR sacrum wo/w con, MR lumbar spine wo/w con DATE: 09/17/2024 14:11 INDICATION: Abdominal pain TECHNIQUE: 1.Magnetic resonance imaging (MRI) of the lumbar spine was performed without and with 17 mL Multihanc e intravenous contrast. Sequences included sagittal T2-weighted FSE, sagittal T2-weighted FS FSE, and sagittal and axial T1-weighted FSE. Postcontrast sequences included axial T2-weighted FSE, sagittal T1-weighted FSE, and axial and sagittal T1-weighted FS FSE. 2. MRI of the sacrum and coccyx was performed without and with the same 17 mL bolus of MultiHance int ravenous contrast. intravenous contrast. Sequences included sagittal PD-weighted FS FSE, coronal obl ique T2-weighted FS FSE, coronal oblique T1-weighted FSE, oblique axial T2-weighted FS FSE, oblique a xial T1-weighted FSE, oblique axial T1-weighted FS FSE and and postcontrast coronal oblique and obliq ue axial T1-weighted FS FSE. COMPARISON: None FINDINGS: Lumbar spine: 3 mm retrolisthesis L4 on L5 and L5 on S1. 1-2 mm retrolisthesis T12 on L1 and L1 on L2. Vertebral trudi dy heights are normal. There are Schmorl's nodes along endplates in the T12-L1 through the L5-S1 disc spaces. Many of these Schmorl's nodes demonstrate associated increased T2 signal and/or enhancement in the immediately surrounding bone suggesting these are acute. There is also increased enhancement w ithin several of the Schmorl's nodes most prominently at L2-L3 where the region of enhancement extend s across the immediately intervening disc space likely related to neovascularization of the disc mate rial. There is no evident extensive enhancement throughout remainder of the L2-L3 disc or significant surrounding reactive edema to suggest infection. Malignancy would include both a radial centered wit hin the disc as well as with prominent extension to the bone prior to involvement of the remainder of the disc space and this is also considered unlikely. There are additional T1 hyperintense fibrofatty Modic type II degenerative endplate changes on many of the endplates in the lumbar spine. Moderate t o severe disc height loss at L5-S1. Moderate disc height loss at L2-L3 and L3-L4. Mild disc height lo ss at T12-L1, L1-L2 and L4-L5. The conus medullaris terminates at L1. There is normal signal in the c audal spinal cord. Paravertebral soft tissues are unremarkable. The following disc levels are specifi eliane discussed: T12-L1: Disc is bulging with annular fissure. There is moderate bilateral facet joint osteoarthritis. There is minimal bilateral neural foraminal stenosis. There is mild central canal stenosis. L1-L2: Disc is minimally bulging. There is mild bilateral facet joint osteoarthritis. There is minima l bilateral neural foraminal stenosis. There is minimal central canal stenosis. L2-L3: Disc is bulging. There is mild to moderate bilateral facet joint osteoarthritis. There is mild to moderate bilateral neural foraminal stenosis. There is mild central canal stenosis. L3-L4: Disc is bulging with annular fissure. There is mild to moderate right and moderate left facet joint osteoarthritis. There is mild bilateral neural foraminal stenosis. There is mild central canal stenosis. L4-L5: Disc is bulging with annular fissure. There is moderate bilateral facet joint osteoarthritis. There is moderate left and mild right neural foraminal stenosis. There is mild central canal stenosis . L5-S1: Disc is mildly bulging with endplate osteophytes at the bilateral foraminal zones, left greate r than right. There is moderate left and severe right facet joint osteoarthritis. There is mild right and moderate left neural foraminal stenosis. There is no central canal stenosis. Sacrum: Moderate bilateral sacroiliac osteoarthritis. No enhancing synovitis or evident erosions to suggest i nflammatory sacroiliitis. There is heterogeneous red and yellow marrow signal in the pelvis with no a bnormal marrow signal or pathologic marrow replacing process. Bladder and prostate are unremarkable. No free fluid in the pelvis. No pathologically enlarged pelvic lymphadenopathy. IMPRESSION: 1. Moderate to severe lumbar spondylosis with multiple Schmorl's nodes, several which demonstrate inc reased T2 signal and enhancement suggesting these are relatively recent. 2. Moderate bilateral sacroiliac osteoarthritis without evident inflammatory sacroiliitis. Reviewed, dictated and finalized at location A. IMPRESSION: 1. Moderate to severe lumbar spondylosis with multiple Schmorl's nodes, several which demonstrate increased T2 signal and enhancement suggesting these are rel atively recent. 2. Moderate bilateral sacroiliac osteoarthritis without evident inflammatory sa croiliitis.
--- OUTSIDE RECORDS SUMMARY | 2024-09-17 12:19 | XMS_ITS | Clinical Summary ---
Author Organization [facility] Address [facility] [place] [address] Care Team Providers Care Family And Consumer Sciences Teacher Name Role Phone Unavailable Primary Care Provider Unavailabl e Social History Tobacco Use Types Packs/Day Years Used Date Smoking Tobacco: Never Assessed Sex and Gender Information Value Date Recorded Sex Assigned at Not on file Legal Sex Male 12:46 PM BUSINESS LAW TEACHER Gender Identity Not on file Sexual Orientation Not on file Plan of Treatment Upcoming Encounters Date Type Department Care Team ([facility] st Contact Info) Description 09/19/2024 11:15 AM CDT Office Visit [facility], [address] [place], [place] [phone] Marcelo Bryant MD [facility] [address] [place], [place] [phone] Health Maintenance Due Date Last Done Comments Colorectal Cancer Screening Colonoscopy (10 Years) 1957 Hepatitis C 1975 DTaP, Tdap and Td Vaccines ( 1 - Tdap) 01/14/1976 Pneumococcal Vaccine: 50+ Ye ars (1 of 1 - PCV) 2007 Zoster Vaccines (1 of 2) 2007 Annual Medicare Wellness Visit 2022 COVID-19 Vaccine ( - 2023-2 5 [...]
--- OUTSIDE RECORDS SUMMARY | 2024-09-17 12:19 | XMS_ITS | Encounter Summary ---
Author Organization [facility] Address [address] [facility] [place] [address] Care Team Providers Care Fire Captain Marine Name Role Phone Glen Banks MD Unavailable Pascual Lamar DO Unavailable Gabby Gilbert MD Primary Care Provider Jerrell Qureshi DO Unavailable Alex Cage MD Unavailable Lewis Barahona DO Unavailable Holli Wellington PROFESSOR OF EARLY CHILDHOOD EDUCATION-QUALIFICATIONS EXAMINER Unavailable Caitlin Mabry RN Unavailable Gabby Gilbert MD Unavailable Holli Wellington PROFESSOR OF EARLY CHILDHOOD EDUCATION-QUALIFICATIONS EXAMINER Unavailable Caitlin Mabry RN Unavailable Lo Scott RN Unavailable Alexa Burton MA Unavailable Devora Lindsay PROFESSOR OF EARLY CHILDHOOD EDUCATION-QUALIFICATIONS EXAMINER Unavailable Lee Trujillo RN Unavailable Gabby Gilbert MD Unavailable Evelyn Azul Unavailable Holli Wellington PROFESSOR OF EARLY CHILDHOOD EDUCATION-QUALIFICATIONS EXAMINER Unavailable Evelyn Azul Unavailable Gabby Gilbert MD Unavailable Glen Banks MD Unavailable [phone] Holli Wellington PROFESSOR OF EARLY CHILDHOOD EDUCATION-QUALIFICATIONS EXAMINER Unavailable [phone] Merary Alston PROFESSOR OF EARLY CHILDHOOD EDUCATION-QUALIFICATIONS EXAMINER Primary Care Provid er Encounter Details Date Type Department Care Team (Late st Contact Info) Description 05/14/2017 [facility] Outpatient Visit [facility] Orthopedics - Radiology [address] [place] [address] Lewis Barahona DO [facility] [address] [address] Social History Tobacco Use Types Packs/Day Years Used Date Smoking Tobacco: Every Day Cigarettes 1 30 Smokeless Tobacco: Never Alcohol Use Standard Drinks/Week Comments Yes 1 (1 standard drink = 0.6 oz pur e alcohol) Sex and Gender Information Value Date Recorded Sex Assigned at Not on file Legal Sex Male 6:03 AM TECHNICAL SALES REPRESENTATIVES Gender Identity Not on file Sexual Orientation Not on file Occupation Industry Job Start Date Job End Date Disability for mental illness Not on file Not on file Not on file documented as of this encounter Functional Status * Is person deaf or have serious hearing difficulty? Answer Date of Assessment Author No 04/21/2017 1:01 PM Cash Owusu RN * Is person blind or have serious difficulty seeing? Answer Date of Assessment Author No 04/21/2017 1:01 PM Cash Owusu RN * Does person have serious difficulty walking/climbing stairs? Answer Date of Assessment Author Yes 04/21/2017 1:01 PM Cash Owusu RN * Does person have difficulty dressing/bathing? Answer Date of Assessment Author Yes 04/21/2017 1:01 PM Cash Owusu RN * Does person have difficulty doing errands alone? Answer Date of Assessment Author Yes 04/21/2017 1:01 PM Cash Owusu RN documented as of this encounter Mental Status * Does person have difficulty concentrating/remembering/making decisions? Answer Entry Date Author No 04/21/2017 1:01 PM Cash Owusu RN documented in this encounter Plan of Treatment Not on file documented as of this encounter Goals Goal Patient Goal Type Associated Problems Recent Progress Patient-Stated? Author Quit smoking / using tobacco Lifestyle Liberty Pritchett MA [facility] Lifestyle: Have labs drawn Lifestyle Liberty Pritchett MA Have labs drawn Lifestyle Liberty Pritchett MA documented as of this encounter Visit Diagnoses Not on filedocumented in this encounter Care Teams Fire Captain Marine Relationship Specialty Start Date End Date Gabby Gilbert MD [address] [place] [address] PCP - General Family Medicine 06/04/15 05/04/24 Holli Wellington PROFESSOR OF EARLY CHILDHOOD EDUCATION-QUALIFICATIONS EXAMINER [address] [place] [address] [place] [phone] PCP - Attributed-MSSP 11/29/18 06/04/19 Gabby Gilbert MD [address] [place] [address] PCP - Attributed-MSSP 03/01/21 06/28/21 Holli Wellington PROFESSOR OF EARLY CHILDHOOD EDUCATION-QUALIFICATIONS EXAMINER [address] [place], [place] [address]y [address] [place] [phone] PCP - Attributed-MSSP 06/29/21 05/30/23 Devora Lindsay, PROFESSOR OF EARLY CHILDHOOD EDUCATION-QUALIFICATIONS EXAMINER [address] [place] [address] PCP - Attributed-MSSP 05/31/23 08/29/23 Gabby Gilbert MD [address] [place] [address] PCP - Attributed-MSSP 08/30/23 11/29/23 Holli Wellington PROFESSOR OF EARLY CHILDHOOD EDUCATION-QUALIFICATIONS EXAMINER [address] [place] [address] [place] [phone] PCP - Attributed-MSSP 11/30/23 Gabby Gilbert MD [address] [place] [address] PCP - Attributed-MSSP 04/29/18 07/29/18 Glen Banks MD [address] [address] PCP - Attributed-MSSP 09/29/18 11/28/18 Holli Wellington PROFESSOR OF EARLY CHILDHOOD EDUCATION-QUALIFICATIONS EXAMINER [address] [place] [phone] PCP - Attributed-MSSP 07/30/18 09/28/18 Merary Alston PROFESSOR OF EARLY CHILDHOOD EDUCATION-QUALIFICATIONS EXAMINER [facility] [place] [phone] PCP - General Nurse Practitioner 05/05/24 Glen Banks MD [address] [address] Psychiatry 01/02/14 05/25/23 Pascual Lamar DO [address] [facility] [address] [place] [phone] Hand Surgery 12/19/14 Jerrell Qureshi DO [address] [place] [address] Printed Circuit Designer 06/04/15 Alex Cage MD [address] [facility] [address] [place] [address] Endocrinology 06/04/15 Lewis Barahona DO [address] [facility] [address] [place] [address] Orthopedic Surgery 05/25/17 Caitlin Mabry RN Environmental JournalistRadiation Officer 03/04/21 03/16/23 Caitlin Mabry RN Care Management 03/04/21 03/09/23 Lo Scott RN [address] [facility] [address] [place] [address] Environmental JournalistRadiation Officer 03/09/23 06/03/23 Alexa Burton MA Care Coordination Specialist Care Management 05/28/23 05/28/23 Lee Trujillo, JOHNATHAN [address] [place] [address] Environmental JournalistRadiation Officer 11/04/23 11/05/23 Evelyn Azul [address] [facility] [address] [place] [address] Care Coordination Specialist Care Management 12/02/23 01/16/24 Evelyn Azul [address] [place] [phone] Care Coordination Specialist Care Management 03/08/24 04/22/24 documented as of this encounter
--- OUTSIDE RECORDS SUMMARY | 2024-09-17 12:19 | XMS_ITS | Encounter Summary ---
Author Organization [facility] Address [address] [facility] [place] [address] Care Team Providers Care Coil Wrapper Name Role Phone Glen Banks MD Unavailable Pascual Lamar DO Unavailable Gabby Gilbert MD Primary Care Provider [phone] Jerrell Qureshi DO Unavailable Alex Cage MD Unavailable Lewis Barahona DO Unavailable Holli Wellington OFFICE SUPPORT ASSOCIATE-SOLAR ENERGY INSTALLATION MANAGER Unavailable Caitlin Mabry RN Unavailable Gabby Gilbert MD Unavailable Holli Wellington OFFICE SUPPORT ASSOCIATE-SOLAR ENERGY INSTALLATION MANAGER Unavailable Caitlin Mabry RN Unavailable Lo Scott RN Unavailable Alexa Burton MA Unavailable Devora Lindsay OFFICE SUPPORT ASSOCIATE-SOLAR ENERGY INSTALLATION MANAGER Unavailable Lee Trujillo RN Unavailable Gabby iGlbert MD Unavailable Evelyn Azul Unavailable Holli Wellington OFFICE SUPPORT ASSOCIATE-SOLAR ENERGY INSTALLATION MANAGER Unavailable Evelyn Azul Unavailable Gabby Gilbert MD Unavailable [phone] Glen Banks MD Unavailable [phone] Holli Wellington OFFICE SUPPORT ASSOCIATE-SOLAR ENERGY INSTALLATION MANAGER Unavailable [phone] Merary Alston OFFICE SUPPORT ASSOCIATE-SOLAR ENERGY INSTALLATION MANAGER Primary Care Provid er Encounter Details Date Type Department Care Team (Late st Contact Info) Description 06/14/2017 [facility] Outpatient Visit [facility] Orthopedics - Radiology [address] [place] [address] Dell Walker PA-C [facility] [address] [place] [address] Social History Tobacco Use Types Packs/Day Years Used Date Smoking Tobacco: Every Day Cigarettes 1 30 Smokeless Tobacco: Never Alcohol Use Standard Drinks/Week Comments Yes 1 (1 standard drink = 0.6 oz pur e alcohol) Sex and Gender Information Value Date Recorded Sex Assigned at Not on file Legal Sex Male 6:[address] ADMINISTRATOR Gender Identity Not on file Sexual Orientation [...] on filedocumented in this encounter Care Teams Coil Wrapper Relationship Specialty Start Date End Date Gabby Gilbert MD [address] [place] [address] PCP - General Family Medicine 06/04/15 05/04/24 Holli Wellington OFFICE SUPPORT ASSOCIATE-SOLAR ENERGY INSTALLATION MANAGER [address] [place], [place] [address]y [address] [place] [phone] PCP - Attributed-MSSP 11/29/18 06/04/19 Gabby Gilbert MD [address] [place] [address] PCP - Attributed-MSSP 03/01/21 06/28/21 Holli Wellington OFFICE SUPPORT ASSOCIATE-SOLAR ENERGY INSTALLATION MANAGER [address] [place], [place] [address]y [address] [place] [phone] PCP - Attributed-MSSP 06/29/21 05/30/23 Devora Lindsay, OFFICE SUPPORT ASSOCIATE-SOLAR ENERGY INSTALLATION MANAGER [address] [place] [address] PCP - Attributed-MSSP 05/31/23 08/29/23 Gabby Gilbert MD [address] [place] [phone] PCP - Attributed-MSSP 08/30/23 11/29/23 Holli Wellington OFFICE SUPPORT ASSOCIATE-SOLAR ENERGY INSTALLATION MANAGER [address] [place] [address] [place] [phone] PCP - Attributed-MSSP 11/30/23 Gabby Gilbert MD [address] [place] [address] PCP - Attributed-MSSP 04/29/18 07/29/18 Glen Banks MD [address] [address] PCP - Attributed-MSSP 09/29/18 11/28/18 Holli Wellington OFFICE SUPPORT ASSOCIATE-SOLAR ENERGY INSTALLATION MANAGER [address] [place] [phone] PCP - Attributed-MSSP 07/30/18 09/28/18 Merary Alston OFFICE SUPPORT ASSOCIATE-SOLAR ENERGY INSTALLATION MANAGER [address] [place], [place] [phone] PCP - General Nurse Practitioner 05/05/24 Glen Banks MD [address] [address] Psychiatry 01/02/14 05/25/23 Pascual Lamar DO [address] [facility] [address] [place] [address] Hand Surgery 12/19/14 Jerrell Qureshi DO [address] [facility] [place] [address] Assessment Analyst 06/04/15 Alex Cage MD [address] [facility] [address] [place] [address] Endocrinology 06/04/15 Lewis Barahona DO [address] [place] [address] [address] [place] [address] Orthopedic Surgery 05/25/17 Caitlin Mabry RN Entry Level BuyerDrilling Assistant 03/04/21 03/16/23 Caitlin Mabry RN Care Management 03/04/21 03/09/23 Lo Scott RN 1475 [facility] [address] [place] [address] Entry Level BuyerDrilling Assistant 03/09/23 06/03/23 Alexa Burton MA Care Coordination Specialist Care Management 05/28/23 05/28/23 Lee Trujillo, JOHNATHAN [address] [facility] [place] [address] Entry Level BuyerDrilling Assistant 11/04/23 11/05/23 Evelyn Azul [address] [facility] [address] [place] [address] Care Coordination Specialist Care Management 12/02/23 01/16/24 Evelyn Azul [address] [address] Care Coordination Specialist Care Management 03/08/24 04/22/24 documented as of this encounter
--- OUTSIDE RECORDS SUMMARY | 2024-09-17 12:19 | XMS_ITS | Clinical Summary ---
Author Organization [facility] Address [address] [place] [address] Care Team Providers Care Fabrication Technician Name Role Phone Pascual Lamar DO Unavailable Jerrell Qureshi DO Unavailable [phone] Alex Cage MD Unavailable [phone] Lewis Barahona DO Unavailable [phone] Holli Wellington BEDSPREAD CUTTER-HOME COORDINATOR Unavailable [phone] Merary Alston BEDSPREAD CUTTER-HOME COORDINATOR Primary Care Provid er Source Comments [facility],non-owned Affiliates and Associated Physician Practices is amultiple site organization consisting of ambulatory clinics and hospital sitesin [place], [place], [place] and [place]. This disclosure is being madepursuant to the Care Everywhere program and may not contain all information available regarding this patient. Last updated 17.[facility] Allergies No known active allergies Medications * This document contains information received from the source organization and may not represent a complete record from that organization. * Be aware that medications may not be up to date on this document. Alwaysverify current medications with the patient. docusate sodium (COLACE) 100 MG capsuleIndications: Chronic idiopathic constipation Take 1 (one) capsule by mouth 2 times daily 60 capsule 2 01/21/20 21 Active buPROPion XL 24hr (Wellbutrin-XL) 150 MG tablet Take 1 (one) tablet by mouth every morning 09/08/19 24 Active omeprazole (PriLOSEC) 40 MG capsuleIndications: Gastroesophageal reflux disease without esophagitis,Orophar yngeal dysphagia Take 1 (one) capsule by mouth daily before breakfast 90 capsule 1 09/20/19 24 2024 Active finasteride (Proscar) 5 MG tablet Take 1 (one) tablet by mouth once daily 30 tablet 11 10/15/19 24 Active aspirin (Aspirin) 81 MG chew tablet Take 1 (one) tablet by mouth once daily Active traZODone (Desyrel) 50 MG tabletIndications:I nsomnia,Major Depressive Disorder Take 1 (one) tablet by mouth at bedtime Reasons: Major Depressive Disorder, Trouble Sleeping 15 tablet 1 11/03/19 24 Active polyethylene glycol 3350 (Miralax) 17 g packetIndications:C onstipation Take 17 (seventeen) g by mouth once daily Reasons: Constipation 15 packet 11/04/19 24 Active glimepiride (Amaryl) 4 MG tablet 08/11/19 24 Active atorvastatin (Lipitor) 40 MG tablet TAKE 1 TABLET BY MOUTH AT BEDTIME REASONS: HIGH AMOUNT OF FATS IN THE BLOOD 90 tablet 2 12/29/19 24 Active pioglitazone (Actos) 15 MG tabletIndications:T ype 2 diabetes mellitus with 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, with long-term current use of insulin (HCC) Take 1 (one) tablet by mouth once daily 30 tablet 5 12/29/19 24 Active Basaglar KwikPen (Basaglar) pen Inject 10 (ten) Units subcutaneously once daily 15 mL 1 07/18/19 25 Active Active Problems Problem Noted Date Diagnosed [...] Diabetic polyneuropathy 06/18/2017 04/08/2022 Overview (06/18/2017): Alex Cage MD: 11.07.17 Closed fracture of right ankle 04/21/2017 09/05/2019 Ankle injury, right, initial encounter 04/21/2017 09/05/2019 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 06/04/2015 06/22/2017 Major depressive disorder, s christine episode, severe with psychotic features 06/04/2015 1 custodial current use of insulin 06/04/2015 06/22/2017 Type 2 diabetes mellitus, uncontrolled 05/30/2015 06/04/2015 Vitamin D deficiency 04/16/2014 016 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 04/09/2014 06/04/2015 Overview (05/30/2015): Cee Rinocn, OD 02/07/15 superintendent terminal current use of insulin 04/09/2014 06/04/2015 Hyperlipidemia 01/10/2014 06/04/2015 Overview (01/10/2014): 19% AHA 12/2013 Severe major depression with psychotic features 01/10/2014 06/04/2015 DM II with ophthalmic manifestations 12/17/2013 05/30/2015 History of hepatitis B 12/17/201306/03 Depression 12/17/2013 06/04/2015 IBS (irritable bowel syndrome) 12/17/2013 06/04/2015 Tobacco abuse 12/13/2013 06/04/2015 Encounters Date Type Department Care Team Description 07/15/2024 Refill [facility] - Endocrinology [address] [place] [phone] Alex Cage MD Med Change Request from Last 3 Months Immunizations Immunization Administration Dates Next Due INFLUENZA VACCINE, TRIV. [...] week 06/09/2022 How often do you attend chur or restorationist services? More than 4 times per year 06/09/2022 Do you belong to any clubs o r organizations such as holiness groups, unions, fraternal or athletic groups, or [...] Recorded Patient Health Questionnaire-2 Score 0 11/11/2023 [facility] - Occupational Stress Questionnaire Answer Date Recorded [...] place to sleep or slept in a long term (including now)? No 11/01/2023 Sex and Gender Information Value Date Recorded Sex Assigned at Not on file Legal Sex Male 6:03 AM PRIVATE EQUITY ASSOCIATE Gender Identity Not on file Sexual Orientation [...] Oxygen Concentration 100% 03/25/2020 6 :38 PM PRIVATE EQUITY ASSOCIATE Weight 80.6 kg (177 lb 12.8 oz) 12/01/2023 7:51 AM CDT Height 175.3 cm (5' 9) 12/01/2023 7:51 AM CDT Body Mass Index [...] 05/01/2024 11/02/2023, , 07/20/2022, Additional history exists COVID-19 VACCINE ( season) 2024 11/15/2023, 05/26/2023, 04/08/2022, Additional history exists MEDICARE AWV 12 MONTHS 05/25/2024 05/26/2023, 04/08/2022, 01/01/2021, Additional history exists DIABETES-FOOT EXAM WITH MONOFILAMENT 08/17/2024 08/18/2023, 01/10/2014, 01/10/2014 INFLUENZA VACCINE (#1) 2024 , 11/15/2023, 11/09/2022, Additional history exists DIABETES-SERUM CREATININE 11/01/20242023, 08/19/2023, 08/17/2023, Additional history exists COLON MONITORING 12/06/2026 12/07/2023, 04/2023, 12/01/2023, Additional history exists Colorectal Cancer Screening 12/06/2026 COLONOSCOPY - COLON CA SCREENING 12/06/2033 12/07/2023, 12/01/2023, 12/01/2023, Additional history exists HEPATITIS C SCREENING Completed 01/15/2014 ZOSTER VACCINE Completed 11/09/2022, 09/07/2022 PNEUMOCOCCAL VACCINE 50+ Completed 05/26/2023, 12/30 HEPATITIS B VACCINE Aged Out No longe [...] using tobacco Lifestyle No Liberty Yoder MA [facility] Lifestyle: Have labs drawn Lifestyle No Liberty Yoder MA Have labs drawn Lifestyle No Liberty Yoder MA Medical Devices Implanted Type Area Supervisor Meter Shop Device Identifier Shelf Expiration Date Model / Serial / Lot Plate Lopro 5 Hl Lck Mdlr Ss Ankl Rt Fib Implanted:Qty: 1 on 04/22/2017 by Lewis Barahona DO at [facility] [place] Right: Ankle [employer] AR-[id number]-0 5 / / Screw Bn 2.7mm 12mm Loprfl Scr Ss Ft T10 Implanted:Qty: 1 on 04/22/2017 by Lewis Barahona DO at [facility] [place] Right: Ankle [employer] AR-[id number]-12 / / Screw Bn 2.7mm 14mm Loprfl Scr Ss Ft T10 Implanted:Qty: 2 on 04/22/2017 by Lewis Barahona DO at [facility] [place] Right: Ankle [employer] AR-[id number]-14 / / Screw Bn 3.5mm 14mm Loprfl Scr Ss T15 Ft Implanted:Qty: 1 on 04/22/2017 by Lewis Barahona DO at [facility] [place] Right: Ankle [employer] AR-8835-14 / / Screw Bn 2.7mm 16mm Loprfl Scr Ss Ft T10 Implanted:Qty: 1 on 04/22/2017 by Lewis Barahona DO at [facility] [place] Right: Ankle [employer] AR-8827L-16 / / Screw Bn 3.5mm 16mm Loprfl Scr Ss T15 Ft Implanted:Qty: 1 on 04/22/2017 by Lewis Barahona DO at [facility] [place] Right: Ankle [employer] AR-8835-16 / / Screw Bn 3.5mm 14mm Loprfl Scr Ss T15 Ft Implanted:Qty: 2 on 04/22/2017 by Lewis Barahona DO at [facility] [place] Right: Ankle [employer] AR-8835L-14 / / Screw Bn 4mm 40mm Loprfl Scr Ss Lng .5 Implanted:Qty: 1 on 04/22/2017 by Lewis Barahona DO at [facility] [place] Right: Ankle [employer] AR-[id number]-4 0 / [...] URINE RANDOM PANEL Routine 02/03/2023 9:16 AM PRIVATE EQUITY ASSOCIATE Type 2 diabetes mellitus with both eyes [...] Gender: Male Attending MD: Trevor Morrison MD, [id number] _ Procedure: Colonoscopy Indications: High risk colon [...] the patient. Procedure Code(s): --- Professional --- 46631, Colonoscopy, flexible; with biopsy, single or multiple --- Technical --- 43883, Colonoscopy, flexible; with biopsy, single or multiple [...] specified diseases of intestine CPT copyright 2020 [employer]. All rights reserved. The codes documented in this report are preliminary and upon finish photographer review may be revised to meet current compliance requirements. Trevor Morrison MD 12/01/2023 9:38:03 AM This report has been signed electronically. Number of Addenda: 0 Note Initiated On: 12/01/2023 9:02 AM Procedure Date: 12/01/2023 9:02:31 AM Scope Withdrawal Time: 0 hours 20 minutes 42 seconds [facility] ENDOSCOPY 12/01/2023 9:02 AM CDT Trevor Morrison MD GI PROCEDURE ORDERABLES Bossman michael Result - Final [facility] ENDOSCOPY * (ABNORMAL) HEMOGLOBIN A1C (11/02/2023 6:28 AM CDT) Hemoglobin A1c 6.5(H) <5.7 % 11/02/2023 7:05 AM CDT [facility] Estimated Average Glucose 140 mg/dL 11/02/2023 7:05 AM CDT [facility] Blood BLOOD SPECIMEN / Unknown Venipuncture / Unknown 11/02/2023 6:28 AM CDT 11/02/2023 6:37 AM CDT Narrative [facility] - 11/02/2023 7:05 AM CDT HbA1c [...] National Glycohemoglobin Standardization Program (NGSP) certified method. us Jamila Zapata MD LAB - CHEMISTRY ORDERABLES Jaimie l Result [facility] [address] [place] [address] * (ABNORMAL) COMPREHENSIVE METABOLIC PANEL (11/02/2023 6:28 AM [facility] Signature Glucose 192(H) 70 - 105 mg/dL 11/02/2023 7:00 AM [facility] Sodium 139 136 - 145 mmol/L 11/02/2023 7:00 AM [facility] Potassium 4.2 3.5 - 5.1 mmol/L 11/02/2023 7:00 AM [facility] Chloride 109(H) 98 - 107 mmol/L 11/02/2023 7:00 AM [facility] CO2 20(L) 22 - 29 mmol/L 11/02/2023 7:00 AM [facility] Calcium 9.6 8.4 - 10.4 mg/dL 11/02/2023 7:00 AM [facility] Anion Gap 10 6 - 16 mmol/L 11/02/2023 7:00 AM [facility] BUN 17 7 - 26 mg/dL 11/02/2023 7:00 AM [facility] Creatinine 0.87 0.72 - 1.25 mg/dL 11/02/2023 7:00 AM [facility] Alkaline Phosphatase 149 40 - 150 U/L 11/02/2023 7:00 AM [facility] ALT 63(H) 0 - 55 U/L 11/02/2023 7:00 AM [facility] AST 28 5 - 34 U/L 11/02/2023 7:00 AM [facility] Protein Total 6.5 6.4 - 8.3 gm/dL 11/02/2023 7:00 AM [facility] Albumin 4.0 3.4 - 5.0 gm/dL 11/02/2023 7:00 AM [facility] Bilirubin Total 0.8 0.2 - 1.2 mg/dL 11/02/2023 7:00 AM [facility] eGFR by CKD-EPI >90 >=90 mL/min/1.7 3 m2 11/02/2023 7:00 AM [facility] Blood BLOOD SPECIMEN / Unknown Venipuncture / Unknown 11/02/2023 6:28 AM CDT 11/02/2023 6:37 AM CDT us Jamila Zapata MD LAB - CHEMISTRY ORDERABLES Jaimie l Result [facility] [address] [place] [address] * MICROALB/CREAT RATIO URINE RANDOM PANEL (02/03/2023 9:16 AM PRIVATE EQUITY ASSOCIATE) Creatinine Urine 147.89 mg/dL LAB [facility] INSURANCE BILL Microalbumin Urine 0.8 mg/dL [facility] INSURANCE BILL Microalbumin/Crea tinine Ratio 5 <30 mg/g [facility] INSURANCE BILL Comment:FASTING Urine URINE SPECIMEN OBTAINED BY CLEAN CATCH PROCEDURE / Unknown 02/03/2023 9:16 AM PRIVATE EQUITY ASSOCIATE 02/03/2023 Narrative Resulting Agency Comment Lab Testing performed at: [facility] [address] [place] [id number] us Holli Wellington BEDSPREAD CUTTER-HOME COORDINATOR LAB - URINE CHEMISTRY OR DERABLES Final Result [facility] INSURANCE BILL [address] [place] [address] * EYE EXAM (08/26/2022) Anatomical Region Laterality Modality Other 08/26/2022 Narrative 08/26/2022 Ordered by an unspecified provider. us Scanned Document SCANNING ONLY Final Result * CT LUNG CANCER SCREEN LOW DOSE (12/10/2021 9:31 AM CDT) Anatomical Region Laterality Modality Chest Computed Tomogra phy 12/10/2021 10:1 8 AM CDT Narrative 12/10/2021 10:25 AM CDT PROCEDURE: CT LUNG SCREEN LOW DOSE, DATE/TIME OF EXAM: 12/10/2021 9:32 AM, LOCATION [facility] INDICATION: Z87.891: Personal history of nicotine dependence [...] or 4A nodules with additional suspicious findings Modifier-S: Significant NON-lung cancer findings Modifier-C: Prior treated Lung Cancer. For details of the ACR Lung-RADS program, categories and recommendations: 1) https://www.acr.org/Quality-Safety/Resources/LungRADS 2) Internet search: Lung-RADS Lung Cancer Screening 3) Contact [facility] thoracic nurse coordinator ([phone]) (Data Mining Phrase: [facility]-LungNodule ) > Interpreting Provider: Teddy Richards MD on 12/10/2021 10:25 AM Procedure Note Teddy Richards MD - 12/10/2021 PROCEDURE: CT LUNG SCREEN LOW DOSE, DATE/TIME OF EXAM: 12/10/2021 9:32 AM, LOCATION [facility] INDICATION: Z87.891: Personal history of nicotine dependence [...] or 4A nodules with additional suspicious findings Modifier-S: Significant NON-lung cancer findings Modifier-C: Prior treated Lung Cancer. For details of the ACR Lung-RADS program, categories andrecommendations: 1) https://www.acr.org/Quality-Safety/Resources/LungRADS 2) Internet search: Lung-RADS Lung Cancer Screening 3) Contact [facility] thoracic nurse coordinator ([phone]) (Data Mining Phrase: [facility]-LungNodule ) > Interpreting Provider: Teddy Richards MD on 12/10/2021 10:25 AM Gabby Gilbert MD CT ORDERABLES Final Result from Last 3 Months or Most Recently Relevant to Health Maintenance Insurance MEDICARE MEDICARE Advance Directives * Full Code (Latest Code Status on File) Date Activated Date Inactivated Comments 11/01/2023 11:26 AM 11/03/2023 6:11 PM * Full Code Date Activated Date Inactivated Comments 04/22/2017 6:02 PM 04/24/2017 4:48 PM * Full Code Date Activated Date Inactivated Comments 04/21/2017 2:18 PM 04/22/2017 6:02 PM Care Teams Fabrication Technician Relationship Specialty Start Date End Date Holli Wellington APRN-CNP [address] [facility] [address] [place] [address] PCP - Attributed-MSSP 11/30/23 Merary Alston APRN-CNP [address] [place] [address] PCP - General Nurse Practitioner 05/05/24 Pascual Lamar DO [address] [facility] [address] [place] [address] Hand Surgery 12/19/14 Jerrell Qureshi DO [address] [place] [address] Custom Shoe Designer And Maker 06/04/15 Alex Cage MD [address] [place] [address] [address] [place] [phone] Endocrinology 06/04/15 Lewis Barahona DO [address] [place] [address] [address] [place] [address] Orthopedic Surgery 05/25/17
--- OUTSIDE RECORDS SUMMARY | 2024-09-17 12:19 | XMS_ITS | Clinical Summary ---
Author Organization [facility] Address [address] [place] [address] Phone Care Team Providers Care Meal Temperer Name Role Phone Tex Colby MD Primary [...] 15 mg by mouth. 8 Active Insulin [place], Disposable, (Nette Pen Needle) 32 gauge x [...] on file Legal Sex Male 5:56 AM LASTING MACHINE OPERATOR BED Gender Identity Not on file Sexual Orientation Not on file Occupation Industry Job Start Date Job End Date Not on file Not on file Not on file Not on file Last Filed Vital Signs Vital Sign Reading Time Taken Comments Blood Pressure 147/77 05/11/2019 10:56 PM CDT Pulse 103 03/19/2013 5:09 PM LASTING MACHINE OPERATOR BED Temperature 36.9 C (98.5 F) 05/11/2019 8:12 PM CDT Respiratory Rate 18 05/11/2019 10:56 PM CDT Oxygen Saturation 97% 05/11/2019 10:56 PM CDT Inhaled Oxygen Concentration - - Weight 82.8 kg (182 lb 8 oz) 05/11/2019 8:12 PM CDT Height 174 cm (5' 8.5) 05/11/2019 8:12 PM CDT Body Mass Index [...] 01/25/2023, 07/20/2022, Additional history exists COVID-19 Vaccine ( - 2023-2 5 season) 2024 11/15/2023, 05/26/2023, 04/08/2022, Additional history exists DIABETES ANNUAL FOOT EXAM 08/17/2024 08/18/2023 INFLUENZA VACCINE (#1) 2024 , 11/15/2023, 11/09/2022, Additional history exists COLORECTAL SCREENING 11/30/2033 12/01/2023, 12/01/2023, 01/15/2021 Colorectal Cancer Screening 11/30/2033 ZOSTER VACCINE Completed 11/09/2022, 09/07/2022 PNEUMOCOCCAL VACCINE 50+ YEARS Completed 05/26/2023 , 01/10/2014 Insurance MEDICARE PART A AND B [facility] [id number] Care Teams Meal Temperer Relationship Specialty Start Date End Date Tex Colby MD PCP - General Allergy & Immunology 11/30/09
--- OUTSIDE RECORDS SUMMARY | 2024-09-17 12:20 | XMS_ITS | Encounter Summary ---
Author Organization [facility] Address [address] [place] [address] Care Team Providers Care Fire Alarm Inspector Name Role Phone Ladonna Turcios MD Primary Care Provider [phone] Glen Banks MD Unavailable [phone] Pascual Lamar DO Unavailable Gabby Gilbert MD Primary Care Provider [phone] Jerrell Qureshi DO Unavailable Alex Cage MD Unavailable Lewis Barahona DO Unavailable Holli Wellington SPINNER CAP FRAME-SIGNAL TOWER OPERATOR Unavailable Caitlin Mabry RN Unavailable Gabby Gilbert MD Unavailable Holli Wellington SPINNER CAP FRAME-SIGNAL TOWER OPERATOR Unavailable Caitlin Mabry RN Unavailable Lo Scott RN Unavailable Alexa Burton MA Unavailable Devora Lindsay SPINNER CAP FRAME-SIGNAL TOWER OPERATOR Unavailable [phone] Lee Trujillo RN Unavailable Gabby Gilbert MD Unavailable Evelyn Azul Unavailable Holli Wellington SPINNER CAP FRAME-SIGNAL TOWER OPERATOR Unavailable Evelyn Azul Unavailable Gabby Gilbert MD Unavailable [phone] Glen Banks MD Unavailable Holli Wellington SPINNER CAP FRAME-SIGNAL TOWER OPERATOR Unavailable Alecia Merarywestley Jones SPINNER CAP FRAME-SIGNAL TOWER OPERATOR Primary Care Provid er Reason for Visit * Reason Onset Date Comments MEDICATION REFILL 01/17/2015 Encounter Details Date Type Department Care Team (Late st Contact Info) Description 01/17/2015 Refill [facility] MY[facility] GENER[facility] [address] [place] [address] MEDICATION REFILL Social History Tobacco Use Types Packs/Day Years Used Date Smoking Tobacco: Every Day Cigarettes 1 30 Alcohol Use Standard Drinks/Week Comments Yes 0.8 (1 standard drink = 0.6 oz p ure alcohol) Sex and Gender Information Value Date Recorded Sex Assigned at Not on file Legal Sex Male 6:03 AM LEAD POURER Gender Identity Not on file Sexual Orientation Not on file Occupation Industry Job Start Date Job End Date 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 Not on file Not on file Not [...] filedocumented in this encounter Care Teams Fire Alarm Inspector Relationship Specialty Start Date End Date Ladonna Turcios MD PCP - General Family Medicine 12/08/13 06/03/15 Gabby Gilbert MD [address] [place] [address] PCP - General Family Medicine 06/04/15 05/04/24 Holli Wellington SPINNER CAP FRAME-SIGNAL TOWER OPERATOR [address] [place], [place] [address]y [address] [place] [phone] PCP - Attributed-MSSP 11/29/18 06/04/19 Gabby Gilbert MD [address] [place] [address] PCP - Attributed-MSSP 03/01/21 06/28/21 Holli Wellington SPINNER CAP FRAME-SIGNAL TOWER OPERATOR [address] [place], [place] [address] [address] PCP - Attributed-MSSP 06/29/21 05/30/23 Devora Lindsay, SPINNER CAP FRAME-SIGNAL TOWER OPERATOR [address] [place] [address] PCP - Attributed-MSSP 05/31/23 08/29/23 Gabby Gilbert MD [address] [place] [address] PCP - Attributed-MSSP 08/30/23 11/29/23 Holli Wellington SPINNER CAP FRAME-SIGNAL TOWER OPERATOR [address] [place] [address] [place] [phone] PCP - Attributed-MSSP 11/30/23 Gabby Gilbert MD [address] [place] [address] PCP - Attributed-MSSP 04/29/18 07/29/18 Glen Banks MD [address] [facility] [address] [place] [address] PCP - Attributed-MSSP 09/29/18 11/28/18 Holli Wellington SPINNER CAP FRAME-SIGNAL TOWER OPERATOR [address] [place] [address] [address] [place] [phone] PCP - Attributed-MSSP 07/30/18 09/28/18 Merary Alston SPINNER CAP FRAME-SIGNAL TOWER OPERATOR [address] [place] [phone] PCP - General Nurse Practitioner 05/05/24 Glen Banks MD [address] [facility] [address] [place] [address] Psychiatry 01/02/14 05/25/23 Pascual Lamar DO [address] [place] [address] [address] [place] [address] Hand Surgery 12/19/14 Jerrell Qureshi DO [address] [place] [address] Booth Supervisor 06/04/15 Alex Cage MD [address] [place] [address] [address] [place] [phone] Endocrinology 06/04/15 Lewis Barahona DO [address] [place] [address] [address] [place] [address] Orthopedic Surgery 05/25/17 Caitlin Mabry RN Compliance Representative DealerProtocol Officer 03/04/21 03/16/23 Caitlin Mabry RN Care Management 03/04/21 03/09/23 Lo Scott, JOHNATHAN [address] [facility] [address] [place] [address] Compliance Representative DealerProtocol Officer 03/09/23 06/03/23 Alexa Burton [place] Care Coordination Specialist Care Management 05/28/23 05/28/23 Lee Trujillo, JOHNATHAN [address] [place] [address] Compliance Representative DealerProtocol Officer 11/04/23 11/05/23 Evelyn Azul [address] [facility] [address] [place] [address] Care Coordination Specialist Care Management 12/02/23 01/16/24 Evelyn Azul [address] [place] [address] Care Coordination Specialist Care Management 03/08/24 04/22/24 documented as of this encounter
--- OUTSIDE RECORDS SUMMARY | 2024-09-17 12:20 | XMS_ITS | Encounter Summary ---
Author Organization [facility] Address [address] [facility] [facility] [place] [address] Care Team Providers Care Postal Mail Carrier Name Role Phone Glen Banks MD Unavailable Pascual Lamar DO Unavailable Gabby Gilbert MD Primary Care Provider Jerrell Qureshi DO Unavailable Alex Cage MD Unavailable [phone] Lewis Barahona DO Unavailable Caitlin Mabry RN Unavailable Gabby Gilbert MD Unavailable Holli Wellington SENIOR COUNSEL COMMERCIAL-MECHANICAL ENGINEERING TECHNOLOGIST Unavailable Caitlin Mabry RN Unavailable Lo Scott RN Unavailable Alexa Burton MA Unavailable Devora Lindsay SENIOR COUNSEL COMMERCIAL-MECHANICAL ENGINEERING TECHNOLOGIST Unavailable Lee Trujillo RN Unavailable Gabby Gilbert MD Unavailable Evelyn Azul Unavailable Holli Wellington SENIOR COUNSEL COMMERCIAL-MECHANICAL ENGINEERING TECHNOLOGIST Unavailable [phone] Evelyn Azul [facility] Merary Alston July SENIOR COUNSEL COMMERCIAL-MECHANICAL ENGINEERING TECHNOLOGIST Primary Care Provid er Reason for Visit * Reason Onset Date Comments MEDICATION REFILL 03/04/2021 Encounter Details Date Type Department Care Team (Late st Contact Info) Description 03/04/2021 Refill [facility] - Family Medicine [address] [facility] [address] [place] [address] Shawn Whitmore PA-C [address] [place] [address] [address] [place] [address] MEDICATION REFILL Social History Tobacco Use Types [...] on file 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 Answer Date of Assessment Author No 10/25/2019 1:27 PM Jefe Wooten RN * Is person blind or have serious difficulty seeing? Answer Date of Assessment Author No 10/25/2019 1:27 PM Jefe Wooten RN * Does person have serious difficulty walking/climbing stairs? Answer Date of Assessment Author No 10/25/2019 1:27 PM Jefe Wooten RN * Does person have difficulty dressing/bathing? Answer Date of Assessment Author No 10/25/2019 1:27 PM Jefe Wooten RN * Does person have difficulty doing errands alone? Answer Date of Assessment Author No 10/25/2019 1:27 PM Jefe Wooten RN documented as of this encounter Mental Status * Does person have difficulty concentrating/remembering/making decisions? Answer Entry Date Author No 10/25/2019 1:27 PM Jefe Wooten RN documented in this encounter Plan of [...] constipation documented in this encounter Care Teams Postal Mail Carrier Relationship Specialty Start Date End Date Gabby Gilbert MD [address] [place] [address] PCP - General Family Medicine 06/04/15 05/04/24 Gabby Gilbert MD [address] [place] [address] PCP - Attributed-MSSP 03/01/21 06/28/21 Holli Wellington SENIOR COUNSEL COMMERCIAL-MECHANICAL ENGINEERING TECHNOLOGIST [address] [facility] [address] [place] [phone] PCP - Attributed-MSSP 06/29/21 05/30/23 Devora Lindsay, SENIOR COUNSEL COMMERCIAL-MECHANICAL ENGINEERING TECHNOLOGIST [address] [place] [address] PCP - Attributed-MSSP 05/31/23 08/29/23 Gabby Gilbert MD [address] [place] [address] PCP - Attributed-MSSP 08/30/23 11/29/23 Holli Wellington SENIOR COUNSEL COMMERCIAL-MECHANICAL ENGINEERING TECHNOLOGIST [address] [place], [place] [address]y [address] [place] [address] PCP - Attributed-MSSP 11/30/23 Merary Alston SENIOR COUNSEL COMMERCIAL-MECHANICAL ENGINEERING TECHNOLOGIST [facility] [place] [address] PCP - General Nurse Practitioner 05/05/24 Glen Banks MD [address] [facility] [address] [place] [address] Psychiatry 01/02/14 05/25/23 Pascual Lamar DO [address] [place] [address] [address] [place] [address] Hand Surgery 12/19/14 Jerrell Qureshi DO [address] [place] [address] Sanipractic Physician 06/04/15 Alex Cage MD [address] [place], [place] [address]y [address] [place] [address] Endocrinology 06/04/15 Lewis Barahona DO [address] [place], [place] [address]y [address] [place] [address] Orthopedic Surgery 05/25/17 Caitlin Mabry, RN Coding Quality AnalystCustomer Service Trainer 03/04/21 03/16/23 Caitlin Mabry RN Care Management 03/04/21 03/09/23 Lo Scott, RN [address] [facility] [address] [place] [address] Coding Quality AnalystCustomer Service Trainer 03/09/23 06/03/23 Alexa Burton MA Care Coordination Specialist Care Management 05/28/23 05/28/23 Lee Trujillo, JOHNATHAN [address] [facility] [address] [place] [address] Coding Quality AnalystCustomer Service Trainer 11/04/23 11/05/23 Evelyn Azul [address] [facility] [address] [place] [address] Care Coordination Specialist Care Management 12/02/23 01/16/24 Evelyn Azul [address] [place] [address] Care Coordination Specialist Care Management 03/08/24 04/22/24 documented as of this encounter
--- OUTSIDE RECORDS SUMMARY | 2024-09-17 12:20 | XMS_ITS | Encounter Summary ---
Author Organization [facility] Address [address] [facility] [place] [address] Care Team Providers Care Front End Engineer Name Role Phone Glen Banks MD Unavailable Pascual Lamar DO Unavailable Gabby Gilbert MD Primary Care Provider [phone] Jerrell Qureshi DO Unavailable Alex Cage MD Unavailable Lewis Barahona DO Unavailable Holli Wellington MANAGER RETENTION-SOUND EFFECTS TECHNICIAN Unavailable Caitlin Mabry RN Unavailable Gabby Gilbert MD Unavailable Holli Wellington MANAGER RETENTION-SOUND EFFECTS TECHNICIAN Unavailable Caitlin Mabry RN Unavailable Lo Scott RN Unavailable Alexa Burton MA Unavailable Devora Lindsay MANAGER RETENTION-SOUND EFFECTS TECHNICIAN Unavailable Lee Trujillo RN Unavailable Gabby Gilbert MD Unavailable [phone] Evelyn Azul Unavailable Holli Wellington MANAGER RETENTION-SOUND EFFECTS TECHNICIAN Unavailable Evelyn Azul Unavailable Gabby Gilbert MD Unavailable [phone] Glen Banks MD Unavailable [phone] Holli Wellington MANAGER RETENTION-SOUND EFFECTS TECHNICIAN Unavailable Merary Alston MANAGER RETENTION-SOUND EFFECTS TECHNICIAN Primary Care Provid er Encounter Details Date Type Department Care Team (Late st Contact Info) Description 05/07/2017 [facility] Outpatient Visit [facility] Orthopedics - Radiology [address] [place] [address] Dell Walkre PA-C [facility] [address] [place] [address] Social History Tobacco Use Types Packs/Day Years Used Date Smoking Tobacco: Every Day Cigarettes 1 30 Smokeless Tobacco: Never Alcohol Use Standard Drinks/Week Comments Yes 1 (1 standard drink = 0.6 oz pur e alcohol) Sex and Gender Information Value Date Recorded Sex Assigned at Not on file 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 Gender Identity Not on file Sexual Orientation [...] on filedocumented in this encounter Care Teams Front End Engineer Relationship Specialty Start Date End Date Gabby Gilbert MD [address] [place] [address] PCP - General Family Medicine 06/04/15 05/04/24 Holli Wellington MANAGER RETENTION-SOUND EFFECTS TECHNICIAN [address] [place], [place] [address]y [address] [place] [phone] PCP - Attributed-MSSP 11/29/18 06/04/19 Gabby Gilbert MD [address] [place] [address] PCP - Attributed-MSSP 03/01/21 06/28/21 Holli Wellington MANAGER RETENTION-SOUND EFFECTS TECHNICIAN [address] [place], [place] [address]y [address] [place] [phone] PCP - Attributed-MSSP 06/29/21 05/30/23 Devora Lindsay, MANAGER RETENTION-SOUND EFFECTS TECHNICIAN [address] [place] [address] PCP - Attributed-MSSP 05/31/23 08/29/23 Gabby Gilbert MD [address] [place] [address] PCP - Attributed-MSSP 08/30/23 11/29/23 Holli Wellington MANAGER RETENTION-SOUND EFFECTS TECHNICIAN [address] [place] [address] [place] [address] PCP - Attributed-MSSP 11/30/23 Gabby Gilbert MD [address] [place] [address] PCP - Attributed-MSSP 04/29/18 07/29/18 Glen Banks MD [address] [address] PCP - Attributed-MSSP 09/29/18 11/28/18 Holli Wellington MANAGER RETENTION-SOUND EFFECTS TECHNICIAN [address] [place] [phone] PCP - Attributed-MSSP 07/30/18 09/28/18 Merary Alston MANAGER RETENTION-SOUND EFFECTS TECHNICIAN [address] [place], [place] [phone] PCP - General Nurse Practitioner 05/05/24 Glen Banks MD [address] [address] Psychiatry 01/02/14 05/25/23 Pascual Lamar DO [address] [facility] [address] [place] [address] Hand Surgery 12/19/14 Jerrell Qureshi DO [address] [place] [address] Wire Inserter 06/04/15 Alex Cage MD [address] [facility] [address] [place] [address] Endocrinology 06/04/15 Lewis Barahona DO [address] [place] [address] Pkw[address] [place] [address] Orthopedic Surgery 05/25/17 Caitlin Mabry RN Audiometric TechnicianSales Service Professional 03/04/21 03/16/23 Caitlin Mabry RN Care Management 03/04/21 03/09/23 Lo Scott RN [address] [facility] [address] [place] [address] Audiometric TechnicianSales Service Professional 03/09/23 06/03/23 Alexa Burton MA Care Coordination Specialist Care Management 05/28/23 05/28/23 Lee Trujillo, JOHNATHAN [address] [facility] [place] [address] Audiometric TechnicianSales Service Professional 11/04/23 11/05/23 Evelyn Azul [address] [facility] [address] [place] [address] Care Coordination Specialist Care Management 12/02/23 01/16/24 Evelyn Azul [address] [address] Care Coordination Specialist Care Management 03/08/24 04/22/24 documented as of this encounter
--- OUTSIDE RECORDS SUMMARY | 2024-09-17 12:20 | XMS_ITS | Encounter Summary ---
Author Organization [facility] Address [address] [facility] [address] Care Team Providers Care Professional Wrestler Name Role Phone Ladonna Turcios MD Primary Care Provider [phone] Glen Banks MD Unavailable Pascual Lamar DO Unavailable Gabby Gilbert MD Primary Care Provider Jerrell Qureshi DO Unavailable Alex Cage MD Unavailable Lewis Barahona DO Unavailable Holli Wellington VIDEOTAPE EDITOR-BAG PRESS OPERATOR Unavailable Caitlin Mabry RN Unavailable Gabby Gilbert MD Unavailable Holli Wellington VIDEOTAPE EDITOR-BAG PRESS OPERATOR Unavailable Caitlin Mabry RN Unavailable Lo Scott RN Unavailable Alexa Burton MA Unavailable Devora Lindsay VIDEOTAPE EDITOR-BAG PRESS OPERATOR Unavailable Lee Trujillo RN Unavailable Gabby Gilbert MD Unavailable [phone] Evelyn Azul Unavailable Holli Wellington VIDEOTAPE EDITOR-BAG PRESS OPERATOR Unavailable [phone] Evelyn Azul Unavailable Gabby Gilbert MD Unavailable Glen Banks MD Unavailable Holli Wellington VIDEOTAPE EDITOR-BAG PRESS OPERATOR Unavailable Merary Alston VIDEOTAPE EDITOR-BAG PRESS OPERATOR Primary Care Provid er Encounter Details Date Type Department Care Team (Late st Contact Info) Description 12/19/2014 Therapy Visit [facility] PHYSICAL THERAPY [address] [place] [address] Unknown, Provider Social History Tobacco Use Types Packs/Day Years Used Date Smoking Tobacco: Every Day Cigarettes 1 30 Alcohol Use Standard Drinks/Week Comments Yes 0.8 (1 standard drink = 0.6 oz p ure alcohol) Sex and Gender Information Value Date Recorded Sex Assigned at Not on file 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 Gender Identity Not on file Sexual Orientation [...] using tobacco Lifestyle No Liberty Yoder MA [facility] Lifestyle: Have labs drawn Lifestyle Liberty Pritchett MA Have labs drawn Lifestyle Liberty Pritchett MA documented as of this encounter Visit Diagnoses Not on filedocumented in this encounter Care Teams Professional Wrestler Relationship Specialty Start Date End Date Ladonna Turcios MD PCP - General Family Medicine 12/08/13 06/03/15 Gabby Gilbert MD [address] [place] [address] PCP - General Family Medicine 06/04/15 05/04/24 Holli Wellington VIDEOTAPE EDITOR-BAG PRESS OPERATOR [address] [place], [place] [address]y [address] [place] [phone] PCP - Attributed-MSSP 11/29/18 06/04/19 Gabby Gilbert MD [address] [place] [address] PCP - Attributed-MSSP 03/01/21 06/28/21 Holli Wellington VIDEOTAPE EDITOR-BAG PRESS OPERATOR [address] [place], [place] [address]y [address] [address] PCP - Attributed-MSSP 06/29/21 05/30/23 Devora Lindsay, VIDEOTAPE EDITOR-BAG PRESS OPERATOR [address] [place] [address] PCP - Attributed-MSSP 05/31/23 08/29/23 Gabby Gilbert MD [address] [place] [address] PCP - Attributed-MSSP 08/30/23 11/29/23 Holli Wellington VIDEOTAPE EDITOR-BAG PRESS OPERATOR [address] [place], [place] [address]y [address] [place] [phone] PCP - Attributed-MSSP 11/30/23 Gabby Gilbert MD [address] [place] [place] [address] PCP - Attributed-MSSP 04/29/18 07/29/18 Glen Banks MD [address] [facility] [address] [place] [address] PCP - Attributed-MSSP 09/29/18 11/28/18 Holli Wellington VIDEOTAPE EDITOR-BAG PRESS OPERATOR [address] [place] [address] [address]kw[address] [place] [phone] PCP - Attributed-MSSP 07/30/18 09/28/18 Merary Alston, VIDEOTAPE EDITOR-BAG PRESS OPERATOR [address] [place], [place] [phone] PCP - General Nurse Practitioner 05/05/24 Glen Banks MD [address] [facility] [address] [place] [address] Psychiatry 01/02/14 05/25/23 Pascual Lamar DO [address] [place] [address] [address] [place] [phone] Hand Surgery 12/19/14 Jerrell Qureshi DO [address] [place] [address] Velvet Steamer 06/04/15 Alex Cage MD [address] [place] [address] [address]kw[address] [place] [phone] Endocrinology 06/04/15 Lewis Barahona DO [address] [place] [address] [address] [place] [phone] Orthopedic Surgery 05/25/17 Caitlin Mabry RN Optical Glass InspectorRigging Up Man 03/04/21 03/16/23 Caitlin Mabry RN Care Management 03/04/21 03/09/23 Lo Scott, RN [facility] [address] Optical Glass InspectorRigging Up Man 03/09/23 06/03/23 Alexa Butron MA Care Coordination Specialist Care Management 05/28/23 05/28/23 Lee Trujillo, JOHNATHAN [address] [place] [address] Optical Glass InspectorRigging Up Man 11/04/23 11/05/23 Evelyn Azul [address] [place] [address] Care Coordination Specialist Care Management 12/02/23 01/16/24 Evelyn AzulVD [address] [place] [address] Care Coordination Specialist Care Management 03/08/24 04/22/24 documented as of this encounter
== END 2024-09-17 12:15 | disposition home or self-care (01) ==
PROVIDERS: PCP Nurse Practitioner; Visit Provider Nurse Practitioner
DX: M51.379 Other intervertebral disc degeneration, lumbosacral region without mention of lumbar back pain or lower extremity pain (principal); M47.896 Other spondylosis, lumbar region; M53.3 Sacrococcygeal disorders, not elsewhere classified
CPT/HCPCS: 72158; 72197; A9577

== ENCOUNTER 2024-11-01 00:37 | Day surgery (SDC) | payer MEDICARE, SELFPAY ==
--- OUTSIDE RECORDS SUMMARY | 2024-04-11 03:00 | XMS_ITS ---
Author Organization [employer], [facility] Address [address] [place] [address] Dr. Hoffman [address] [place] [address] Care Team Providers Care Service Planner Name Role Phone Merary Amezcua Primary Care Provider Unavail Roberto Kraus Unavailable [phone] REASON FOR VISIT Right Side Ab Pain Encounters Encounter Location Date Provider Diagnosis [facility], [address] Hoffman [address] [place] [address] 04/11/2024 Roberto cMcarty Plan Of Treatment No Information Progress Notes * Rafael AVELARDOB: 7 (69 yo M)Acc No.[id number]:04/11/2024 Patient: Rafael PEREZ Provider: Sona Mccarty D.O. :1955 A ge:69 Y S ex:Male Date:04/11/2024 Address:[address] [place], [place] [id number] Pcp:Merary GAVIN Subjective: * Chief Complaints: * 1 . Right Side Ab Pain. * Medical History: Objective: * Vitals: Assessment: Plan: * Treatment: * Images: * Electronic signature of Christiano Mccarty DO on 11/01/2024 at 12:41 AM CDT Sign off status: Pending * Provider: Sona Mccarty D.O. Date: 0 04/11/2024 Generated for Reba gu/Elke/Jenifersmitting on: 0 11/01/2024 12:41 AM CDT
--- OUTSIDE RECORDS SUMMARY | 2024-04-25 03:00 | XMS_ITS ---
Author Organization [employer], [facility] Address [address] [place] [address] Dr. Hoffman [address] [place] [address] Care Team Providers Care Leacher Name Role Phone Merary Amezcua Primary Care Provider Unavail Roberto Kraus Unavailable [phone] REASON FOR VISIT Right Side Ab Pain Encounters Encounter Location Date Provider Diagnosis [facility], [address] Hoffman [address] [place] [address] 04/25/2024 Roberto Mccarty Plan Of Treatment No Information Progress Notes * Rafael AVELARDOB: 7 (69 yo M)Acc No.[id number]:04/25/2024 Patient: Rafael PEREZ Provider: Sona Mccarty D.O. :1955 A ge:69 Y S ex:Male Date:04/25/2024 Address:[address] [place], [place] [id number] Pcp:Merary GAVIN Subjective: * Chief Complaints: * 1 . Right Side Ab Pain. * Medical History: Objective: * Vitals: Assessment: Plan: * Treatment: * Images: * Electronic signature of Christiano Mccarty DO on 11/01/2024 at 12:40 AM CDT Sign off status: Pending * Provider: Sona Mccarty D.O. Date: 0 04/25/2024 Generated for Reba gu/Elke/eTransmitting on: 0 11/01/2024 12:40 AM CDT
--- OUTSIDE RECORDS SUMMARY | 2024-05-10 03:00 | XMS_ITS ---
Author Organization [employer], [facility] Address [address] [place] [address] Dr. Hoffman [address] [place] [address] Care Team Providers Care Extrusion Technician Name Role Phone Merary Amezcua Primary Care Provider Unavail Roberto Kraus Unavailable [phone] REASON FOR VISIT Right sided abd pain Encounters Encounter Location Date Provider Diagnosis [facility], [address] Hoffman [address] [place] [address] 05/10/2024 Roberto Mccarty Plan Of Treatment No Information Progress Notes * Rafael AVELARDOB: 7 (69 yo M)Acc No.[id number]:05/10/2024 Patient: Rafael PEREZ Provider: Sona Mccarty D.O. :1955 A ge:69 Y S ex:Male Date:05/10/2024 Address:[address] [place], [place] [id number] Pcp:Merary GAVIN Subjective: * Chief Complaints: * 1 . Right sided abd pain. * Medical History: Objective: * Vitals: Assessment: Plan: * Treatment: * Images: * Electronic signature of Christiano Mccarty DO on 11/01/2024 at 12:41 AM CDT Sign off status: Pending * Provider: Sona Mccarty D.O. Date: 0 05/10/2024 Generated for Reba gu/Elke/Jenifersmitting on: 0 11/01/2024 12:41 AM CDT
[2024-10-20 10:17] VITALS: BMI 26.0
--- OUTSIDE RECORDS SUMMARY | 2024-11-01 00:40 | XMS_ITS | Encounter Summary ---
Author Organization [facility] Address [address] [place] [address] Care Team Providers Care Make Up Operator Name Role Phone Pascual Lamar DO Unavailable [phone] Jerrell Qureshi DO Unavailable [phone] Alex Cage MD Unavailable Lewis Barahona DO Unavailable Merary Alston PRINCIPAL CYBER ENGINEER-AUTO SERVICE STATION ATTENDANT Primary Care Provid er Shawn Whitmore PA-C Unavailable [phone] Encounter Details Date Type Department Care Team (Late st Contact Info) Description 10/28/2024 Orders Only [facility] - Urology [address] [facility], [address] [place] [address] Cordelia Fine RN Benign prostatic hyperplasia with urinary hesitancy Social History Tobacco Use Types Packs/Day Years Used Date Smoking Tobacco: Former Cigarettes 1 30 0 11/14/1989 - 11/15/2019 Passive Smoke Exposure: Current Smokeless Tobacco: Never Alcohol Use Standard Drinks/Week [...] week 06/09/2022 How often do you attend [facility] or jainism services? More than 4 times per year 06/09/2022 Do you belong to any clubs o r organizations such as jehovah's witness groups, unions, fraternal or athletic groups, or [...] Recorded Patient Health Questionnaire-2 Score 0 11/11/2023 [facility] - Occupational Stress Questionnaire Answer Date Recorded [...] place to sleep or slept in a penitentiary (including now)? 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 Answer Date of Assessment Author No 11/03/2023 3:11 PM Maria Victoria Ardon RN * Is person blind or have serious difficulty seeing? Answer Date of Assessment Author No 11/03/2023 3:11 PM Maria Victoria Ardon RN * Does person have serious difficulty walking/climbing stairs? Answer Date of Assessment Author No 11/03/2023 3:11 PM Maria Victoria Ardon RN * Does person have difficulty dressing/bathing? Answer Date of Assessment Author No 11/03/2023 3:11 PM Maria Victoria Ardon RN * Does person have difficulty doing errands alone? Answer Date of Assessment Author No 11/03/2023 3:11 PM Maria Victoria Ardon RN documented as of this encounter Mental Status * Does person have difficulty concentrating/remembering/making decisions? Answer Entry Date Author No 11/03/2023 3:11 PM Maria Victoria Ardon RN documented in this encounter Plan of Treatment Not on file documented as of this encounter Goals Goal Patient Goal Type Associated Problems Recent Progress Patient-Stated? Author Quit smoking / using tobacco Lifestyle Liberty Pritchett MA [facility] Lifestyle: Have labs drawn Lifestyle Liberty Pritchett MA Have labs drawn Lifestyle Liberty Pritchett MA documented as of this encounter Visit Diagnoses Diagnosis Benign prostatic hyperplasia with urinary hesitancy documented in this encounter Care Teams Make Up Operator Relationship Specialty Start Date End Date Merary Alston Karen, PRINCIPAL CYBER ENGINEER-AUTO SERVICE STATION ATTENDANT [address] [place] [address] PCP - General Nurse Practitioner 05/05/24 Shawn [place] PA-C [address] [facility] [address] [place] [address] PCP - Attributed-MSSP 06/29/24 Pascual Lamar DO [address] [facility] [address] [place] [phone] Hand Surgery 12/19/14 Jerrell Qureshi DO [address] [place] [address] Traveling Construction Superintendent 06/04/15 Alex Cage MD [address] [facility] [address] [place] [phone] Endocrinology 06/04/15 Lewis Barahona DO [address] [place] [address] [address] [place] [phone] Orthopedic Surgery 05/25/17 documented as of this encounter
--- OUTSIDE RECORDS SUMMARY | 2024-11-01 00:40 | XMS_ITS | Encounter Summary ---
Author Organization [facility] Address [address] [place] [address] Care Team Providers Care Market Editor Name Role Phone AleciaMerary Sona [facility] Primary Care Provider [phone] Encounter Details Date Type Department Care Team (Late st Contact Info) Description 09/19/2024 Abstract [facility], [facility] [address] [place], [place] [id number] Chantale Pozo MA Social History Tobacco Use Types Packs/Day Years Used Date Smoking Tobacco: Former Cigarettes Comments:Quit 2020 Alcohol Use Standard Drinks/Week Comments Not Currently 0 (1 standard drink = 0.6 oz pur e alcohol) Sex and Gender Information Value Date Recorded Sex Assigned at Male 10/13/2024 8:55 AM CDT 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 Gender Identity Not on file Sexual Orientation Not on file documented as of this encounter Plan of Treatment Upcoming Encounters Date Type Department Care Team (Late st Contact Info) Description 12/20/2024 12:30 PM CDT Office Visit [facility], [place] [address] [place], [place] [phone] Marcelo Bryant MD [facility] [address] [place], [place] [phone] documented as of this encounter Procedures Procedure Name Priority Date/Time Associated Diagnosis Comments HEMOGLOBIN, GLYCOSYLATED Routine 09/22/2024 COMPREHENSIVE METABOLIC PANEL Routine 09/22/2024 LIPID PANEL Routine 09/22/2024 CBC, MANUAL DIFF Routine 09/22/2024 THYROID STIM HORMONE TSH Routine 09/22/2024 CMP (ABSTRACTED LAB) Routine 08/18/2024 CBC (OUTSIDE LAB) Routine 08/18/2024 HEMOGLOBIN, GLYCOSYLATED Routine 08/18/2024 C-REACTIVE PROTEIN Routine 08/18/2024 THYROID STIM HORMONE TSH Routine 08/18/2024 documented in this encounter Results * COMPREHENSIVE METABOLIC PANEL (09/22/2024) Pathologist [facility] SODIUM S/P/B 139 GLUCOSE 120 mg/dL AST 70 BUN 19 CREATININE S/P/B 0.83 0.7 - 1.3 CALCIUM S/P/B 9.9 POTASSIUM S/P/B 4.1 CHLORIDE S/P/B 102 ALT 113 GFR ESTIMATE 96 Default History Genericprovider LABORATORY Edited Result - Final * LIPID PANEL (09/22/2024) Pathologist [facility] CHOLESTEROL 79 TRIGLYCERIDES 95 HDL 38 LDL (CALCULATED) 22 Default History Genericprovider LABORATORY Edited Result - Final * CBC, MANUAL DIFF (09/22/2024) WBC 8.5 HGB 15.6 HCT 47.1 PLT 227 Default History Genericprovider LABORATORY Edited Result - Final * HEMOGLOBIN, GLYCOSYLATED (09/22/2024) Pathologist [facility] HGB A1C 7.0 % Default History Genericprovider LABORATORY Edited Result - Final * THYROID STIM HORMONE TSH (09/22/2024) TSH 1.360 us Default History Genericprovider LABORATORY Edited Result - Final * C-REACTIVE PROTEIN (08/18/2024) [facility] CRP <0.5 08/18/2024 Default History Genericprovider LABORATORY Edited Result - Final * HEMOGLOBIN, GLYCOSYLATED (08/18/2024) [facility] HGB A1C 6.7 % Default History Genericprovider LABORATORY Final Result * THYROID STIM HORMONE TSH (08/18/2024) [facility] TSH 1.120 Default History Genericprovider LABORATORY Final Result * CBC (OUTSIDE LAB) (08/18/2024) [facility] WBC 6.8 HGB 14.4 HCT 43.2 PLT 185 08/18/2024 us Default History Genericprovider LAB-OUTSIDE/ABST RACTED Edited Result - Final * CMP (ABSTRACTED LAB) (08/18/2024) [facility] SODIUM S/P/B 142 POTASSIUM S/P/B 4.5 CHLORIDE S/P/B 107 CO2 23 BUN 19 CREATININE S/P/B 0.81 0.7 - 1.3 EGFR NON-AFR. AMER. >60 <=90 CALCIUM S/P/B 10.0 GLUCOSE 85 mg/dL TOTAL PROTEIN S/P/B 7.0 ALBUMIN S/P/B 4.5 3.5 - 5.0 AST 40 ALT 87 ALKALINE PHOSPHATASE S/P/B 114 BILIRUBIN TOTAL S/P/B 0.4 08/18/2024 us Default History Genericprovider LAB-OUTSIDE/ABST RACTED Edited Result - Final documented in this encounter Visit Diagnoses Not on filedocumented in this encounter Care Teams Market Editor Relationship Specialty Start Date End Date Merary Alston, CHAINSTITCH TUNNEL ELASTIC OPERATOR-BC [address] [place] [address] PCP - General NURSE PRACTITIONER 08/29/24 documented as of this encounter
--- OUTSIDE RECORDS SUMMARY | 2024-11-01 00:40 | XMS_ITS | Encounter Summary ---
Author Organization [facility] Address [address] [place] [address] Care Team Providers Care Poultry Vaccinator Name Role Phone AleciaMerary Sona [facility] Primary Care Provider [phone] Encounter Details Date Type Department Care Team (Late Contact Info) Description 09/19/2024 Results Follow-Up [facility], [facility] [address] [place] [address] Sally Almodovar RN CMP (ABSTRACTED LAB), CBC (OUTSIDE LAB), C-REACTIVE PROTEIN, Additional followed-up results: 5 Social History Tobacco Use Types Packs/Day Years Used Date Smoking Tobacco: Former Cigarettes Comments:Quit 2020 Alcohol Use Standard Drinks/Week Comments Not Currently 0 (1 standard drink = 0.6 oz pur e alcohol) Sex and Gender Information Value Date Recorded Sex Assigned at Male 10/13/2024 8:55 AM CDT 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 Gender Identity Not on file Sexual Orientation Not on file documented as of this encounter Plan of Treatment Upcoming Encounters Date Type Department Care Team (Late Contact Info) Description 12/20/2024 12:30 PM CDT Office Visit [facility], [place] [address] [place] [address] Marcelo Bryant MD [facility] [address] [place], [place] [phone] documented as of this encounter Visit Diagnoses Not on filedocumented in this encounter Care Teams Poultry Vaccinator Relationship Specialty Start Date End Date Merary Alston, CIRCUS HAND- [address] [place] [address] PCP - General NURSE PRACTITIONER 08/29/24 documented as of this encounter
--- OUTSIDE RECORDS SUMMARY | 2024-11-01 00:40 | XMS_ITS | Clinical Summary ---
Author Organization [facility] Address [address] [facility] [place] [address] Care Team Providers Care Clinical Case Manager Name Role Phone Pascual Lamar DO Unavailable Jerrell Qureshi DO Unavailable [phone] Alex Cage MD Unavailable Lewis Barahona DO Unavailable Merary Alston FRUIT DISTRIBUTOR-OUTSIDE PHYSICAL DAMAGE APPRAISER Primary Care Provid er Shawn Whitmore PA-C Unavailable [phone] Source Comments [facility],non-owned Affiliates and Associated Physician Practices is amultiple site organization consisting of ambulatory clinics and hospital sitesin [place], [place], [place] and [place]. This disclosure is being madepursuant to the Care Everywhere program and may not contain all information available regarding this patient. 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 04/09/2014 06/04/2015 Overview (05/30/2015): Cee Rincon, OD 02/07/15 terminal carman current use of insulin 04/09/2014 06/04/2015 Hyperlipidemia 01/10/2014 06/04/2015 Overview (01/10/2014): 19% AHA 12/2013 Severe major depression with psychotic features 01/10/2014 06/04/2015 DM II with ophthalmic manifestations 12/17/2013 05/30/2015 History of hepatitis B 12/17/201306/03 Depression 12/17/2013 06/04/2015 IBS (irritable bowel syndrome) 12/17/2013 06/04/2015 Tobacco abuse 12/13/2013 06/04/2015 Encounters Date Type Department Care Team Description 10/28/2024 Orders Only [facility] - Urology [address] [facility], [address] [place] [address] Cordelia Fine, RN Benign prostatic hyperplasia with urinary hesitancy from Last 3 Months Immunizations Immunization Administration [...] How often do you attend chur or oriental orthodox services? More than 4 times per year 06/09/2022 Do you belong to any clubs o r organizations such as anglican groups, unions, fraternal or athletic groups, or [...] Recorded Patient Health Questionnaire-2 Score 0 11/11/2023 [facility] - Occupational Stress [...] place to sleep or slept in a retirement (including now)? No 11/01/2023 Sex and Gender Information Value Date Recorded Sex Assigned at Not on file Legal Sex Male 6:03 AM CARE PROVIDER Gender Identity Not on file Sexual Orientation [...] Oxygen Concentration 100% 03/25/2020 6 :38 PM CARE PROVIDER Weight 80.6 kg (177 lb 12.8 oz) [...] using tobacco Lifestyle No Liberty Yoder MA [facility] Lifestyle: Have labs drawn Lifestyle No Liberty Yoder MA Have labs drawn Lifestyle No Liberty Yoder MA Medical Devices Implanted Type Area All Source Intelligence Analyst Device Identifier Shelf Expiration Date Model / Serial / Lot Plate Lopro 5 Hl Lck Mdlr Ss Ankl Rt Fib Implanted:Qty: 1 on 04/22/2017 by Lewis Barahona DO at [facility] Right: Ankle [employer] [id number]-0 5 / / Screw Bn 2.7mm 12mm Loprfl Scr Ss Ft T10 Implanted:Qty: 1 on 04/22/2017 by Lewis Barahona DO at [facility] Right: Ankle [employer] AR-8827L-12 / / Screw Bn 2.7mm 14mm Loprfl Scr Ss Ft T10 Implanted:Qty: 2 on 04/22/2017 by Lewis Barahona DO at [facility] Right: Ankle [employer] AR-8827L-14 / / Screw Bn 3.5mm 14mm Loprfl Scr Ss T15 Ft Implanted:Qty: 1 on 04/22/2017 by Lewis Barahona DO at [facility] Right: Ankle [employer] AR-8835-14 / / Screw Bn 2.7mm 16mm Loprfl Scr Ss Ft T10 Implanted:Qty: 1 on 04/22/2017 by Lewis Barahona DO at [facility] Right: Ankle [employer] AR-8827L-16 / / Screw Bn 3.5mm 16mm Loprfl Scr Ss T15 Ft Implanted:Qty: 1 on 04/22/2017 by Lewis Barahona DO at [facility] Right: Ankle [employer] AR-8835-16 / / Screw Bn 3.5mm 14mm Loprfl Scr Ss T15 Ft Implanted:Qty: 2 on 04/22/2017 by Lewis Barahona DO at [facility] Right: Ankle [employer] AR-8835L-14 / / Screw Bn 4mm 40mm Loprfl Scr Ss Lng .5 Implanted:Qty: 1 on 04/22/2017 by Lewis Barahona DO at [facility] Right: Ankle [employer] AR-[id number]-4 0 [...] URINE RANDOM PANEL Routine 02/03/2023 9:16 AM CARE PROVIDER 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 Procedure Code(s): --- Professional --- 36709, Colonoscopy, flexible; with biopsy, single or multiple --- Technical --- 25316, Colonoscopy, flexible; with biopsy, single or multiple [...] specified diseases of intestine CPT copyright 2020 [employer]. All rights reserved. The codes documented in this report are preliminary and upon chemistry associate review may be revised to meet current compliance requirements. Trevor Morrison MD 12/01/2023 9:38:03 AM This report has been signed electronically. Number of Addenda: 0 Note Initiated On: 12/01/2023 9:02 AM Procedure Date: 12/01/2023 9:02:31 AM Scope Withdrawal Time: 0 hours 20 minutes 42 seconds [facility] ENDOSCOPY 12/01/2023 9:02 AM CDT us Trevor Morrison MD GI PROCEDURE ORDERABLES Bossman michael Result - Final [facility] ENDOSCOPY * (ABNORMAL) HEMOGLOBIN A1C (11/02/2023 6:28 AM CDT) Hemoglobin A1c 6.5(H) <5.7 % 11/02/2023 7:05 AM CDT [facility] Estimated Average Glucose 140 mg/dL 11/02/2023 7:05 AM CDT [facility] Blood BLOOD SPECIMEN / Unknown Venipuncture / Unknown 11/02/2023 6:28 AM CDT 11/02/2023 6:37 AM CDT Narrative [facility] - 11/02/2023 7:05 AM CDT [...] method. Jamila Zapata MD LAB - CHEMISTRY ORDERABLES Jaimie l Result [facility] [address] [place] [address] * (ABNORMAL) COMPREHENSIVE METABOLIC PANEL (11/02/2023 6:28 AM [facility]) [facility] Signature Glucose 192(H) 70 - 105 mg/dL 11/02/2023 7:00 AM [facility] Sodium 139 136 - 145 mmol/L 11/02/2023 7:00 AM [facility] Potassium 4.2 3.5 - 5.1 mmol/L 11/02/2023 7:00 AM [facility] Chloride 109(H) 98 - 107 mmol/L 11/02/2023 7:00 AM [facility] CO2 20(L) 22 - 29 mmol/L 11/02/2023 7:00 AM [facility] Calcium 9.6 8.4 - 10.4 mg/dL 11/02/2023 7:00 AM [facility] Anion Gap 10 6 - 16 mmol/L 11/02/2023 7:00 AM [facility] BUN 17 7 - 26 mg/dL 11/02/2023 7:00 AM [facility] Creatinine 0.87 0.72 - 1.25 mg/dL 11/02/2023 7:00 AM [facility] Alkaline Phosphatase 149 40 - 150 U/L 11/02/2023 7:00 AM [facility] ALT 63(H) 0 - 55 U/L 11/02/2023 7:00 AM [facility] AST 28 5 - 34 U/L 11/02/2023 7:00 AM [facility] Protein Total 6.5 6.4 - 8.3 gm/dL 11/02/2023 7:00 AM [facility] Albumin 4.0 3.4 - 5.0 gm/dL 11/02/2023 7:00 AM [facility] Bilirubin Total 0.8 0.2 - 1.2 mg/dL 11/02/2023 7:00 AM [facility] eGFR by CKD-EPI >90 >=90 mL/min/1.7 3 m2 11/02/2023 7:00 AM [facility] Blood BLOOD SPECIMEN / Unknown Venipuncture / Unknown 11/02/2023 6:28 AM CDT 11/02/2023 6:37 AM CDT us Jamila Zapata MD LAB - CHEMISTRY ORDERABLES Jaimie l Result [facility] [address] [place] [address] * MICROALB/CREAT RATIO URINE RANDOM PANEL (02/03/2023 9:16 AM CARE PROVIDER) Creatinine Urine 147.89 mg/dL [facility] INSURANCE BILL Microalbumin Urine 0.8 mg/dL [facility] INSURANCE BILL Microalbumin/Crea tinine Ratio 5 <30 mg/g [facility] INSURANCE BILL Comment:FASTING Urine URINE SPECIMEN OBTAINED BY CLEAN CATCH PROCEDURE / Unknown 02/03/2023 9:16 AM CARE PROVIDER 02/03/2023 Narrative Resulting Agency Comment Lab Testing performed at: [facility] [address] [place] [id number] us Holli Wellington APRN-OUTSIDE PHYSICAL DAMAGE APPRAISER LAB - URINE CHEMISTRY OR DERABLES Final Result [facility] INSURANCE BILL [address] [place] [address] * EYE EXAM (08/26/2022) Anatomical Region Laterality [...] DATE/TIME OF EXAM: 12/10/2021 9:32 AM, LOCATION [facility] INDICATION: Z87.891: Personal history of [...] search: Lung-RADS Lung Cancer Screening 3) Contact [facility] thoracic nurse coordinator ([phone]) (Data Mining Phrase: [facility]-LungNodule ) > Interpreting Provider: Teddy Richards MD on 12/10/2021 10:25 AM Procedure Note Teddy Richards MD - 12/10/2021 PROCEDURE: CT LUNG SCREEN LOW DOSE, DATE/TIME OF EXAM: 12/10/2021 9:32 AM, LOCATION [facility] INDICATION: Z87.891: Personal history of [...] search: Lung-RADS Lung Cancer Screening 3) Contact [facility] thoracic nurse coordinator ([phone]) (Data Mining Phrase: [facility]-LungNodule ) > Interpreting Provider: Teddy Richards MD [...] 2:18 PM 04/22/2017 6:02 PM Care Teams Clinical Case Manager Relationship Specialty Start Date End Date Merary Alston July, FRUIT DISTRIBUTOR-MARILIA [address] [place] [address] PCP - General Nurse Practitioner 05/05/24 Shawn Whitmore PA-C [address] [place], [place] [phone] PCP - Attributed-MSSP 06/29/24 Pascual Lamar DO [address] [facility] [address] [place] [address] Hand Surgery 12/19/14 Jerrell Qureshi DO [address] [place] [address] Non Profit Job Titles 06/04/15 Alex Cage MD [address] [place] [phone] Endocrinology 06/04/15 Lewis Barahona DO [address] [place] [phone] Orthopedic Surgery 05/25/17
--- OUTSIDE RECORDS SUMMARY | 2024-11-01 00:40 | XMS_ITS | Encounter Summary ---
Author Organization [facility] Address [address] [place] [address] Care Team Providers Care Painter Rough Name Role Phone Merary Alston [facility] Primary Care Provider [phone] Encounter Details Date Type Department Care Team (Late Contact Info) Description 10/16/2024 Results Follow-Up [facility] [address] [place] [address] Sally Almodovar RN USE ECHOCARDIOGRAM, NM EXER NUC STRESS TEST 1DAY Social History Tobacco Use Types Packs/Day Years Used Date Smoking Tobacco: Former Cigarettes Comments:Quit 2020 Alcohol Use Standard Drinks/Week Comments Not Currently 0 (1 standard drink = 0.6 oz pur e alcohol) Sex and Gender Information Value Date Recorded Sex Assigned at Male 10/13/2024 8:55 AM CDT 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 Gender Identity Not on file Sexual Orientation Not on file documented as of this encounter Plan of Treatment Upcoming Encounters Date Type Department Care Team (Late st Contact Info) Description 12/20/2024 12:30 PM CDT Office Visit [facility], [address] [place], [place] [phone] Marcelo Bryant MD [facility] [address] [place], [place] [phone] documented as of this encounter Visit Diagnoses Not on filedocumented in this encounter Care Teams Painter Rough Relationship Specialty Start Date End Date Merary Alston, CUSTOMER SALES CONSULTANT- [facility] [place] [address] PCP - General NURSE PRACTITIONER 08/29/24 documented as of this encounter
--- OUTSIDE RECORDS SUMMARY | 2024-11-01 00:41 | XMS_ITS | Encounter Summary ---
Author Organization [facility] Address [address] [place] [address] Care Team Providers Care Agricultural Consultant Name Role Phone Glen Banks MD Unavailable Pascual Lamar DO Unavailable Gabby Gilbert MD Primary Care Provider Jerrell Qureshi DO Unavailable Alex Cage MD Unavailable Lewis Barahona DO Unavailable Holli Wellington INTERN BRAND-PERSONNEL PLACEMENT SPECIALIST Unavailable Caitlin Mabry RN Unavailable Gabby Gilbert MD Unavailable Holli Wellington INTERN BRAND-PERSONNEL PLACEMENT SPECIALIST Unavailable Caitlin Mabry RN Unavailable Lo Scott RN Unavailable Alexa [place] MA Unavailable Devora Lindsay INTERN BRAND-PERSONNEL PLACEMENT SPECIALIST Unavailable Lee Trujillo RN Unavailable Gabby Gilbert MD Unavailable Evelyn Azul Unavailable Holli Wellington INTERN BRAND-PERSONNEL PLACEMENT SPECIALIST Unavailable Evelyn Azul Unavailable Gabby Gilbert MD Unavailable Glen Banks MD Unavailable Holli Wellington INTERN BRAND-PERSONNEL PLACEMENT SPECIALIST Unavailable Merary Alston INTERN BRAND-PERSONNEL PLACEMENT SPECIALIST Primary Care Provid er Shawn Whitmore PA-C Unavailable [phone] Encounter Details Date Type Department Care Team (Late st Contact Info) Description 05/07/2017 [facility] Outpatient Visit [facility] Orthopedics - Radiology [address] [place] [address] Dell Walker PA-C [address] [place] [address] Social History Tobacco Use Types Packs/Day Years Used Date Smoking Tobacco: Every Day Cigarettes 1 30 Smokeless Tobacco: Never Alcohol Use Standard Drinks/Week Comments Yes 1 (1 standard drink = 0.6 oz pur e alcohol) Sex and Gender Information Value Date Recorded Sex Assigned at Not on file Legal Sex Male 6:03 AM RESIDENT SERVICES COORDINATOR Gender Identity Not on file Sexual Orientation [...] Date Author No 04/21/2017 1:01 PM Cash Ouwsu RN documented in this encounter Plan of Treatment Not on file documented as of this encounter Goals Goal Patient Goal Type Associated Problems Recent Progress Patient-Stated? Author Quit smoking / using tobacco Lifestyle No Liberty Yoder MA [facility] Lifestyle: Have labs drawn Lifestyle Liberty Pritchett MA Have labs drawn Lifestyle Liberty Pritchett MA documented as of this encounter Visit Diagnoses Not on filedocumented in this encounter Care Teams Agricultural Consultant Relationship Specialty Start Date End Date Gabby Gilbert MD [address] [place] [address] PCP - General Family Medicine 06/04/15 05/04/24 Holli Wellington APRN-PERSONNEL PLACEMENT SPECIALIST [address] [place] [address] [place] [phone] PCP - Attributed-MSSP 11/29/18 06/04/19 Gabby Gilbert MD [address] [place] [address] PCP - Attributed-MSSP 03/01/21 06/28/21 Holli Wellington APRN-PERSONNEL PLACEMENT SPECIALIST [address] [place] [address] [place] [phone] PCP - Attributed-MSSP 06/29/21 05/30/23 Devora Lindsay INTERN BRAND-PERSONNEL PLACEMENT SPECIALIST [address] [place] [address] PCP - Attributed-MSSP 05/31/23 08/29/23 Gabby Gilbert MD [address] [place] [address] [address] [place] [address] PCP - Attributed-MSSP 08/30/23 11/29/23 Holli Wellington INTERN BRAND-PERSONNEL PLACEMENT SPECIALIST [address] [place], [place] [address] [address] [place] [phone] PCP - Attributed-MSSP 11/30/23 06/28/24 Gabby Gilbert MD [address] [place] [address] [place] [address] PCP - Attributed-MSSP 04/29/18 07/29/18 [place] [address] [place] [address] [address] [place], [place] [phone] PCP - Attributed-MSSP 09/29/18 11/28/18 Holli Wellington INTERN BRAND-PERSONNEL PLACEMENT SPECIALIST [address] [place], [place] [address] [address] [place] [phone] PCP - Attributed-MSSP 07/30/18 09/28/18 Merary Alston INTERN BRAND-PERSONNEL PLACEMENT SPECIALIST [address] [place], [place] [phone] PCP - General Nurse Practitioner 05/05/24 Shawn Whitmore PA-C [address] [place] [address] [address] [place] [address] PCP - Attributed-MSSP 06/29/24 Glen Banks MD [address] [facility] [address] [place] [address] Psychiatry 01/02/14 05/25/23 Pascual Lamar DO [address] [place] [address] [address] [place] [phone] Hand Surgery 12/19/14 Jerrell Qureshi DO [address] [place] [address] Merchandiser Retail Representative 06/04/15 Alex Cage MD [address] [place], [place] [address] [address] [place] [address] Endocrinology 06/04/15 Lewis Barahona DO [address] [place], [place] [address] [address] [place] [phone] Orthopedic Surgery 05/25/17 Caitlin Mabry RN Washroom CleanerGreen Coffee Blender 03/04/21 03/16/23 Caitlin Mabry RN Care Management 03/04/21 03/09/23 Lo Scott RN [address] [facility] [address] [place] [address] Washroom CleanerGreen Coffee Blender 03/09/23 06/03/23 Alexa [place], HERON Care Coordination Specialist Care Management 05/28/23 05/28/23 Lee Trujillo, RN [address] [place] [address] Washroom CleanerGreen Coffee Blender 11/04/23 11/05/23 Evelyn Azul [address] [place] [address] Care Coordination Specialist Care Management 12/02/23 01/16/24 Evelyn Azul[address] [place] [address] Care Coordination Specialist Care Management 03/08/24 04/22/24 documented as of this encounter
--- OUTSIDE RECORDS SUMMARY | 2024-11-01 00:41 | XMS_ITS | Encounter Summary ---
Author Organization [facility] Address [address] [place] [address] Care Team Providers Care Automotive Starter Repairer Name Role Phone Glen Banks MD Unavailable [phone] Pascual Lamar DO Unavailable Gabby Gilbert MD Primary Care Provider Jerrell Qureshi DO Unavailable Alex Cage MD Unavailable Lewis Barahona DO Unavailable Caitlin Mabry RN Unavailable Gabby Gilbert MD Unavailable Holli Wellington LUMBER PLANER-MILLED RICE BROKER Unavailable Caitlin Mabry RN Unavailable Lo Scott RN Unavailable Alexa Burton MA Unavailable Devora Lindsay LUMBER PLANER-MILLED RICE BROKER Unavailable Lee Trujillo RN Unavailable Gabby Gilbert MD Unavailable Evelyn Azul Unavailable Holli Wellington LUMBER PLANER-MILLED RICE BROKER Unavailable [phone] Evelyn Azul Unavailable Merary Alston Karen LUMBER PLANER-MILLED RICE BROKER Primary Care Provid er Shawn Whitmore PA-C Unavailable [phone] Reason for Visit * Reason Onset Date Comments MEDICATION REFILL 03/04/2021 Encounter Details Date Type Department Care Team (Late st Contact Info) Description 03/04/2021 Refill [facility] - Family Medicine [address] [facility] [address] [place] [address] Shawn Whitmore PA-C [address] [facility] [address] [place] [address] MEDICATION REFILL Social History Tobacco Use Types [...] on file Legal Sex Male 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 Gender Identity Not on file Sexual Orientation [...] / using tobacco Lifestyle Liberty Pritchett MA M Lifestyle: Have labs drawn Lifestyle Liberty Pritchett MA Have labs drawn Lifestyle Liberty Pritchett MA documented as of this encounter Visit Diagnoses Diagnosis Chronic idiopathic constipation Unspecified constipation documented in this encounter Care Teams Automotive Starter Repairer Relationship Specialty Start Date End Date Gabby Gilbert MD [address] [place] [address] PCP - General Family Medicine 06/04/15 05/04/24 Gabby Gilbert MD [address] [place] [address] PCP - Attributed-MSSP 03/01/21 06/28/21 Holli Wellington LUMBER PLANER-MILLED RICE BROKER [address] [place] [address] [address] [place] [id number] PCP - Attributed-MSSP 06/29/21 05/30/23 Devora Lindsay, LUMBER PLANER-MILLED RICE BROKER [address] [place] [address] PCP - Attributed-MSSP 05/31/23 08/29/23 Gabby Gilbert MD [address] [place] [address], [place] [address] PCP - Attributed-MSSP 08/30/23 11/29/23 Holli Wellington LUMBER PLANER-MILLED RICE BROKER [address] [place] [address] [address] [place] [address] PCP - Attributed-MSSP 11/30/23 06/28/24 Alecia Merary Jones LUMBER PLANER-MILLED RICE BROKER [address] [place], [place] [phone] PCP - General Nurse Practitioner 05/05/24 Shawn Whitmore PA-C [address] [place] [address] [address] [place] [address] PCP - Attributed-MSSP 06/29/24 [place] [address] [place] [address] [address] [place] [address] Psychiatry 01/02/14 05/25/23 Pascual Lamar DO [address] [place] [address] [address] [place] [id number] Hand Surgery 12/19/14 [place] [address] [employer] Hand Finisher 06/04/15 Alex Cage MD [address] [place] [address] [address] [place] [id number] Endocrinology 06/04/15 Lewis Barahona DO [address] [facility] [address] [place] [address] Orthopedic Surgery 05/25/17 Caitlin Mabry, RN Medical TranscriptionSenior Java Developer 03/04/21 03/16/23 Caitlin Mabry RN Care Management 03/04/21 03/09/23 Lo Scott RN [address] [facility] [address] [place] [address] Medical TranscriptionSenior Java Developer 03/09/23 06/03/23 Alexa Burton MA Care Coordination Specialist Care Management 05/28/23 05/28/23 Lee Trujillo, JOHNATHAN [address] [place] [address] Medical TranscriptionSenior Java Developer 11/04/23 11/05/23 Evelyn Azul [address] [place] [address] Care Coordination Specialist Care Management 12/02/23 01/16/24 Evelyn Azul [address] [place] [address] Care Coordination Specialist Care Management 03/08/24 04/22/24 documented as of this encounter
--- OUTSIDE RECORDS SUMMARY | 2024-11-01 00:41 | XMS_ITS | Encounter Summary ---
Author Organization [facility] Address [address] [place] [address] Care Team Providers Care Lamp Shade Assembler Name Role Phone Ladonna Turcios MD Primary Care Provider [phone] Glen Banks MD Unavailable Pascual Lamar DO Unavailable Gabby Gilbert MD Primary Care Provider [phone] Jerrell Qureshi DO Unavailable Alex Cage MD Unavailable Lewis Barahona DO Unavailable Holli Wellington DIAMOND SAW OPERATOR-MANAGER LATIN Unavailable Caitlin Mabry RN Unavailable Gabby Gilbert MD Unavailable [phone] Holli Wellington DIAMOND SAW OPERATOR-MANAGER LATIN Unavailable Caitlin Mabry RN Unavailable Lo Scott RN Unavailable Alexa Burton MA Unavailable Devora Lindsay DIAMOND SAW OPERATOR-MANAGER LATIN Unavailable Lee Trujillo RN Unavailable Gabby Gilbert MD Unavailable Evelyn Azul Unavailable Holli Wellington DIAMOND SAW OPERATOR-MANAGER LATIN Unavailable Evelyn Azul Unavailable Gabby Gilbert MD Unavailable [phone] Glen Banks MD Unavailable [phone] Holli Wellington DIAMOND SAW OPERATOR-MANAGER LATIN Unavailable [phone] Merary Alston DIAMOND SAW OPERATOR-MANAGER LATIN Primary Care Provid er Shawn Whitmore PA-C Unavailable [phone] Encounter Details Date Type Department Care Team (Late st Contact Info) Description 12/19/2014 Therapy Visit 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 Gender Identity Not on file Sexual Orientation [...] using tobacco Lifestyle No Liberty Yoder MA [facility] Lifestyle: Have labs drawn Lifestyle No Liberty Yoder MA Have labs drawn Lifestyle Liberty Pritchett MA documented as of this encounter Visit Diagnoses Not on filedocumented in this encounter Care Teams Lamp Shade Assembler Relationship Specialty Start Date End Date Ladonna Turcios MD PCP - General Family Medicine 12/08/13 06/03/15 Gabby Gilbert MD [address] [place], [place] [id number] PCP - General Family Medicine 06/04/15 05/04/24 Holli Wellington DIAMOND SAW OPERATOR-MANAGER LATIN [address] [place], [place] [address]y [address] [place] [address] PCP - Attributed-MSSP 11/29/18 06/04/19 Gabby Gilbert MD [address] [place] [address] PCP - Attributed-MSSP 03/01/21 06/28/21 Holli Wellington DIAMOND SAW OPERATOR-MANAGER LATIN [address] [place], [place] [address]y [address] [place] [address] PCP - Attributed-MSSP 06/29/21 05/30/23 Devora Lindsay, DIAMOND SAW OPERATOR-MANAGER LATIN [address] [place] [address] PCP - Attributed-MSSP 05/31/23 08/29/23 Gabby Gilbert MD [address] [place] [address] PCP - Attributed-MSSP 08/30/23 11/29/23 Holli Wellington DIAMOND SAW OPERATOR-MANAGER LATIN [address] [place] [address] [place] [address] PCP - Attributed-MSSP 11/30/23 06/28/24 Gabby Gilbert MD [address] [place] [address] PCP - Attributed-MSSP 04/29/18 07/29/18 Glen Banks MD [address] [facility] [address] [place] [address] PCP - Attributed-MSSP 09/29/18 11/28/18 Holli Wellington, DIAMOND SAW OPERATOR-MANAGER LATIN [address] [facility] [address] [place] [address] PCP - Attributed-MSSP 07/30/18 09/28/18 Merary [place], DIAMOND SAW OPERATOR-MANAGER LATIN [address] [place] [address] PCP - General Nurse Practitioner 05/05/24 Shawn Whitmore PA-C [address] [facility] [address] [place] [address] PCP - Attributed-MSSP 06/29/24 Glen Banks MD [address] [facility] [address] [place] [address] Psychiatry 01/02/14 05/25/23 Pascual Lamar DO [address] [facility] [address] [place] [address] Hand Surgery 12/19/14 Jerrell Qureshi DO [address] [place] [address] Roustabout Crew 06/04/15 Alex Cage MD [address] [facility] [address] [place] [address] Endocrinology 06/04/15 Lewis Barahona DO [address] [facility] [address] [place] [address] Orthopedic Surgery 05/25/17 Caitlin Mabry RN Auto Body CustomizerPalaeontologist 03/04/21 03/16/23 Caitlin Mabry RN Care Management 03/04/21 03/09/23 Lo Scott RN [address] [facility] [address] [place] [address] Auto Body CustomizerPalaeontologist 03/09/23 06/03/23 Alexa Burton MA Care Coordination Specialist Care Management 05/28/23 05/28/23 Lee Trujillo, JOHNATHAN [address] [facility] [address] [place] [address] Auto Body CustomizerPalaeontologist 11/04/23 11/05/23 Evelyn Azul [address] [place] [address] Care Coordination Specialist Care Management 12/02/23 01/16/24 Evelyn Azul [address] [place] [address] Care Coordination Specialist Care Management 03/08/24 04/22/24 documented as of this encounter
--- OUTSIDE RECORDS SUMMARY | 2024-11-01 00:41 | XMS_ITS | Clinical Summary ---
Author Organization [facility] Address [address] [place] [address] Care Team Providers Care Fruit Or Nut Grower Name Role Phone Merary Alston [facility] Primary Care Provider [phone] Allergies No known active allergies Medications aspirin 81 MG chewable tablet Chew 1 tablet (81 mg total) by mouth daily. Active atorvastatin (LIPITOR) 40 MG tablet Take 1 tablet (40 mg total) by mouth nightly at bedtime. Active dicyclomine (BENTYL) 20 MG tablet 4 (four) times daily. 5 Active doxycycline hyclate (VIBRAMYCIN) 100 MG capsule Take 1 capsule (100 mg total) by mouth 2 (two) times daily. 5 Active finasteride (PROSCAR) 5 MG tablet Take 1 tablet (5 mg total) by mouth daily. 4 Active TRESIBA FLEXTOUCH 100 UNIT/ML Solution Pen-injector injection INJECT 10 (TEN) UNITS SUBCUTANEOUSLY ONCE DAILY 4 Active meloxicam (MOBIC) 15 MG tablet TAKE 1 TABLET ONCE A DAY NEEDED FOR PAIN 30 DAY(S) TAKE WITH FOOD Active metFORMIN ER (GLUCOPHAGE-XR ) 500 MG 24 hr tablet Take 1 tablet (500 mg total) by mouth 2 (two) times daily. 5 Active omeprazole (PRILOSEC) 40 MG capsule Take 1 capsule (40 mg total) by mouth 2 (two) times daily. Active polyethylene glycol (GLYCOLAX) packet Take 240 mLs (17 g total) by mouth daily. 4 Active Simethicone 125 MG Cap mg, capsule(s), 0 5 Active traZODone (DESYREL) 50 MG tablet 1 as needed (50 mg) 4 Active empagliflozin (JARDIANCE) 25 MG tablet Take by mouth daily. Active psyllium (METAMUCIL 3 IN 1 DAILY FIBER) 400 MG capsule Take 1 capsule (400 mg total) by mouth daily. Active insulin glargine (BASAGLAR KWIKPEN) 100 UNIT/ML injection (PEN) 1 as directed (100 unit/mL (3 mL)) Active Active Problems Problem Noted Date Diagnosed Date Benign prostatic hyperplasia (BPH) with urinary urge incontinence 09/19/2024 Diabetes mellitus ([facility]) 09/19/2024 Overview (09/19/2024): Phreesia 05/26/2024 Gastroesophageal reflux disease 09/19/2024 Overview (09/19/2024): Phreesia 05/26/2024 Diabetic retinopathy associa michael with type 2 diabetes mellitus ([facility]) 09/18/2024 Hepatitis B virus infection 09/18/2024 Bipolar disorder, current ep isode mixed, moderate ([facility]) 03/27/2020 Overview (09/18/2024): Managed by Psychiatry Mixed hyperlipidemia 06/04/2015 Overview (09/18/2024): Managed by Endocrinology ss Encounters Date Type Department Care Team Description 10/16/2024 Results Follow-Up [facility] [address] [place] [address] Sally Almodovar RN USE ECHOCARDIOGRAM, NM EXER NUC STRESS TEST 1DAY 10/13/2024 9:00 AM CDT - 10/13/2024 11:59 PM CDT Hospital Encounter [facility] [place] [address] Marcelo Gamez MD Discharge Disposition: Home or Self Care (Routine Discharge) 10/13/2024 Travel 09/19/2024 11:15 AM CDT Office Visit [facility] [address] [place] [address] Marcelo Gamez MD Establish Care (Consult ) 09/19/2024 Results Follow-Up [facility] [address] [place] [address] Sally Almodovar RN CMP (ABSTRACTED LAB), CBC (OUTSIDE LAB), C-REACTIVE PROTEIN, Additional followed-up results: 5 09/19/2024 Abstract [facility] [address] [place] [address] Chantale Pozo, HERON 09/19/2024 Travel from Last 3 Months Immunizations Immunization Administration Dates Next Due Fluzone High Dose (IIV, triv alent, 0.5mL) 11/15/2023 Influenza (Generic) 10/31/2023, 7,12/06/2015,2013 Influenza Adult (Generic) 11/26/2021,05/2020,11/16/2019,2018,12/07/2017,12/06/2014 PFIZER COVID-19 (ORIGINAL FORMULATION, PURPLE CAP) mRNA, LNP-S, PF, 30 MCG/0.3 ML DOSE 06/20/2020 Pneumococcal (Pneumovax 23) 10/31/2023, 4 Pneumococcal (Prevnar 20) 05/26/2023 Shingrix 11/09/2022, 3,07/30/2022,2022 Family History Relation Status Comments Brother (Age 68) Father (Age 85) Mother (Age 62) Paternal Grandmother (Age 85) Sister (Age 69) Social History Tobacco Use Types Packs/Day Years Used Date Smoking Tobacco: Former Cigarettes Comments:Quit 2020 Alcohol Use Standard Drinks/Week Comments Not Currently 0 (1 standard drink = 0.6 oz pur e alcohol) Sex and Gender Information Value Date Recorded Sex Assigned at Male 10/13/2024 8:55 AM CDT Legal Sex Male 12:46 PM [employer] Gender Identity Not on file Sexual Orientation Not on file Last Filed Vital Signs Vital Sign Reading Time Taken Comments Blood Pressure 132/72 09/19/2024 11:12 AM CDT Pulse 79 09/19/2024 11:12 AM CDT Temperature - - Respiratory Rate - - Oxygen Saturation 98% 09/19/2024 11:12 AM CDT Inhaled Oxygen Concentration - - Weight 81.2 kg (179 lb) 09/19/2024 11:12 AM CDT Height 175.3 cm (5' 9) 09/19/2024 11:12 AM CDT Body Mass Index 26.43 09/19/2024 11:12 AM CDT Plan of Treatment Upcoming Encounters Date Type Department Care Team (Late st Contact Info) Description 12/20/2024 12:30 PM CDT Office Visit [facility] [address] [place], [place] [id number] Marcelo Gamez MD Three [facility] [address] [place], [place] [id number] Health Maintenance Due Date Last Done Comments Colorectal Cancer Screening Colonoscopy (10 Years) 1955 Kidney Health Evaluation 1955 Hepatitis C 1975 Annual Medicare Wellness Visit 2022 COVID-19 Vaccine ( season) 2024 11/15/2023, 05/26/2023, 04/08/2022, Additional history exists Diabetes: Retinopathy Eye Exam 08/26/2024 08/26/2022 Hemoglobin A1C 03/25/2025 09/22/2024, 06, 11/02/2023, Additional history exists Lipid Panel 09/22/2025 09/22/2024 DTaP, Tdap and Td Vaccines (2 - Td or Tdap) 07/21/2034 07/21/2024 Zoster Vaccines Completed 11/09/2022, 08/29, 07/30/2022, Additional history exists AAA SCREENING Completed 08/20/2023, 07/30, 05/11/2019, Additional history exists Pneumococcal Vaccine: 50+ Years Completed 10/31/2023, 05/26/2023, 01/10/2014 RSV Immunization or 60+ Years Completed 07/21/2024 Meningococcal B Vaccine Aged Out No l onger eligible based on patient's age to complete this topic Meningococcal Vaccine Aged Out No vanna radha eligible based on patient's age to complete this topic RSV Immunizations Under 20 Months Aged Out No longer eligible based on patient's age to complete this topic Procedures Procedure Name Priority Date/Time Associated Diagnosis Comments NM EXER NUC STRESS TEST 1 DAY W TRACING Routine 10/13/2024 12:09 PM CDT CAD in tejon artery USE ECHOCARDIOGRAM Routine 10/13/2024 9: 36 AM CDT CAD in tejon artery CARDIOLOGY STRESS TEST ONLY, EXERCISE Routine 10/13/2024 9:14 AM CDT CAD in tejon artery Gastroesophageal reflux disease Diabetes mellitus ([facility]) Mixed hyperlipidemia COMPREHENSIVE METABOLIC PANEL Routine 09/22/2024 LIPID PANEL Routine 09/22/2024 CBC, MANUAL DIFF Routine 09/22/2024 HEMOGLOBIN, GLYCOSYLATED Routine 09/22/2024 THYROID STIM HORMONE TSH Routine 09/22/2024 ELECTROCARDIOGRAM (NON MIDMARK ACQUIRED) Routine 09/19/2024 11:21 AM CDT Mixed hyperlipidemia C-REACTIVE PROTEIN Routine 08/18/2024 HEMOGLOBIN, GLYCOSYLATED Routine 08/18/2024 THYROID STIM HORMONE TSH Routine 08/18/2024 CBC (OUTSIDE LAB) Routine 08/18/2024 CMP (ABSTRACTED LAB) Routine 08/18/2024 from Last 3 Months Results * NM EXER NUC STRESS TEST 1DAY (10/13/2024 12:09 PM CDT) Anatomical Region Laterality Modality Cardiac Nuclear Medicine 10/13/2024 10:3 0 AM CDT Narrative 10/13/2024 5:28 PM CDT Myocardial Perfusion Imaging Pat.Name: PEDRO AVELAR Pat.ID: [id number] St.Date: 10/13/2024 Refer.MD: Alecia Exam Time: 10:30:00 AM Study Type:TAL NC HT MUSCLE IMAGE SPECT MULTI Height: 69 in Weight: 179 lb BSA: 1.97 m2 Age: 11 1955,69Y Sex: M Sonogrphr: RAE Cortez Pat. Stat.:Outpatient Reason for Study:Evaluation of known CAD History / Clinical:Diabetes, Ex-Smoker, GERD, Dyslipidemia Procedures: Nuclear Stress Test with Exercise Race: W Surgery: None ++++++++++++++++++++++++++++++++++++ SUMMARY: ++++++++++++++++++++++++++++++++++++ Stress conclusion: 1. Clinically negative. 2. Electrocardiographically negative treadmill test for ischemia. 3. Adequate exercise capacity. 4. Park Treadmill Score is 4, which indicates moderate risk. 5. Blood pressure response was normal. 6. Scintigraphic images to follow. Perfusion conclusion: 1. Excellent study quality. No motion correction was applied to images. Diaphragm attenuation is noted. Prone imaging was performed. 2. Normal myocardial perfusion SPECT imaging. 3. Normal wall motion with an ejection fraction of 70%. 4. Stress test with myocardial perfusion imaging shows overall low risk for a cardiac event. ++++++++++++++++++++++++++++++++++++ FINDINGS: ++++++++++++++++++++++++++++++++++++ Protocol: The images were processed using the standard SPECT technique. A gated study was performed on the stress images. Impression: SPECT images demonstrate normal perfusion of normal intensity. Heart Size: The left ventricle is normal. LV Wall Motion: The LVEF is calculated to be 70%. Gated SPECT images reveal normal wall motion. Transient Ischemic Dilatation: The TID is 0.84. There is no evidence of Transient Ischemic Dilatation. 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 Procedure Note Marcelo Gamez MD - 10/13/2024 Myocardial Perfusion Imaging Pat.Name: PEDRO AVELAR Pat.ID: [id number] .Date: 10/13/2024 Refer.MD: Alecia Exam Time: 10:30:00 AM Study Type:TAL NC HT MUSCLE IMAGE SPECT MULTI Height: 69 in Weight: 179 lb BSA: 1.97 m2 Age: 11 1955,69Y Sex: M Sonogrphr: RAE Cortez Pat. Stat.:Outpatient Reason for Study:Evaluation of known CAD History / Clinical:Diabetes, Ex-Smoker, GERD, Dyslipidemia Procedures: Nuclear Stress Test with Exercise Race: W Surgery: None ++++++++++++++++++++++++++++++++++++ SUMMARY: ++++++++++++++++++++++++++++++++++++ Stress conclusion: 1. Clinically negative. 2. Electrocardiographically negative treadmill test for ischemia. 3. Adequate exercise capacity. 4. Park Treadmill Score is 4, which indicates moderate risk. 5. Blood pressure response was normal. 6. Scintigraphic images to follow. Perfusion conclusion: 1. Excellent study quality. No motion correction was applied to images. Diaphragm attenuation is noted. Prone imaging was performed. 2. Normal myocardial perfusion SPECT imaging. 3. Normal wall motion with an ejection fraction of 70%. 4. Stress test with myocardial perfusion imaging shows overall low risk for a cardiac event. ++++++++++++++++++++++++++++++++++++ FINDINGS: ++++++++++++++++++++++++++++++++++++ Protocol: The images were processed using the standard SPECT technique. A gated study was performed on the stress images. Impression: SPECT images demonstrate normal perfusion of normal intensity. Heart Size: The left ventricle is normal. LV Wall Motion: The LVEF is calculated to be 70%. Gated SPECT images reveal normal wall motion. Transient Ischemic Dilatation: The TID is 0.84. There is no evidence of Transient Ischemic Dilatation. 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 Marcelo Gamez MD NUC MED Final Res ult * USE ECHOCARDIOGRAM (10/13/2024 9:36 AM CDT) Anatomical Region Laterality Modality Cardiac Echocardiogram 10/13/2024 9:11 AM CDT Narrative 10/14/2024 7:24 AM CDT Echocardiography Report Pat.Name: PEDRO AVELAR Pat.ID: [id number] St.Date: 10/13/2024 Exam Time: 9:11:00 AM Study Type:ECHO WITH CARDIAC DOPPLER COMP Height: 69 in Weight: 179 lb BSA: 1.97 m2 Age: 11 1955,69Y Sex: M BP: 138/56 Sonogrphr: Catalina Jones Pat. Stat.:Outpatient CPT - 4: [id number] Reason for Study:Coronary artery disease Procedures: 2D, M-mode, Doppler, Color Flow, The study quality is technically fair. Race: W ++++++++++++++++++++++++++++++++++++ SUMMARY: ++++++++++++++++++++++++++++++++++++ The left ventricular size is normal. The left ventricular systolic function is normal. Estimated left ventricular ejection fraction is 60-65%. Mild concentric left ventricular hypertrophy. Left ventricular diastolic function is normal. The right ventricular size is mildly enlarged. Right ventricular systolic function is normal. Right atrial size is mildly enlarged. No significant valve abnormalities. ++++++++++++++++++++++++++++++++++++ FINDINGS: ++++++++++++++++++++++++++++++++++++ LV: The left ventricular size is normal. The left ventricular systolic function is normal. Estimated left ventricular ejection fraction is 60-65%. Mild concentric left ventricular hypertrophy. The septal E/e' is indeterminate at 8-15. The lateral E/e' is normal at <8. Left ventricular diastolic function is normal. WM: Wall motion appears normal in all segments. RV: The right ventricular size is mildly enlarged. Right ventricular systolic function is normal. TAPSE = 16.1mm (<16 mm indicates systolic RV dysfunction). IVS: Intraventricular septum is normal. LA: The left atrial volume is normal ( less than 34 ml/M2). RA: Right atrial size is mildly enlarged. IAS: Atrial septum is normal. HANNAH: Small pericardial effusion, without tamponade physiology. AO: Normal aortic root. PA: Unable to reliably quantitate pulmonary systolic pressure. SVn: Systemic veins not well visualized. AV: The aortic valve is trileaflet. No evidence of aortic valve stenosis. No evidence of aortic valve regurgitation. MV: Trace mitral regurgitation. No evidence of mitral stenosis. PV: No evidence of pulmonic valve stenosis. No evidence of pulmonic regurgitation. TV: A trace of tricuspid regurgitation. No evidence of tricuspid valve stenosis. ++++++++++++++++++++++++++++++++++++ MEASUREMENTS: ++++++++++++++++++++++++++++++++++++ DOPPLER Pulmonary Veins PVnpkVeld 49 cm/s Pulmonary Vein 0.4 m/s PVnVs/Vd 1.02 AR-wave velocit 0.24 m/s S1-wave velocit 0.5 m/s PVn A Dur 0.123 second MV Regurg Flow MV pkPG 27.2 mmHg TV Forward Flow TV E/A 1.75 Aortic Valve Cardiovascular 2.18 cm Aortic Root Drake 2.98 cm LVOT/AoV (AERIAL PLANTING AND C[employer]IVATION MANAGER) ( 0.55 Left atrial drake 4.3 cm AV Antegrade Flow Peak Velocity ( 1.14 m/s Mean Velocity ( 0.77 m/s Velocity Time I 23.4 cm AV Antegrade Flow Simplified Bernoulli Gradient pressu 5.2 mmHg Gradient pressu 2.6 mmHg AV Continuity Equation by Velocity Time Integral Aortic Valve Ar 2.66 cm2 AoV Area Index 1.35 Left Ventricle Stroke Volume ( 62.2 ml Cardiac Output 3.67 liter per minute LV Antegrade Flow Peak Velocity ( 0.63 m/s Mean Velocity ( 0.45 m/s Velocity Time I 16.7 cm LV Antegrade Flow Simplified Bernoulli Gradient pressu 1.6 mmHg Gradient pressu 0.9 mmHg Mitral Valve Mitral Valve E- 0.167 second Mean Myocardial 9.6 centimeter/second Myocardial Velo 11.7 centimeter/second Ratio of Mitral 8.61 Myocardial Velo 7.4 centimeter/second Ratio of Mitral 7.07 Mitral Valve E 0.94 Ratio of Mitral 11.2 MV Antegrade Flow Mitral Valve E- 0.83 m/s Mitral Valve A- 0.88 m/s PV Antegrade Flow Peak Velocity ( 1.42 m/s Mean Velocity ( 0.91 m/s Velocity Time I 28 cm PV Antegrade Flow Simplified Bernoulli Gradient pressu 8.1 mmHg Gradient pressu 3.7 mmHg Tricuspid Valve Tricuspid Valve 0.66 m/s Tricuspid Valve 0.38 m/s TV Regurgitant Flow MaximumTricuspi 1.65 m/s MaximumTricuspi 10.9 mmHg 2D Left Ventricle LVIDd 4.39 cm (3.6-5.2) LVEDV BP 75.6 ml LV EDV 62 ml LVESV BP 27.4 ml LV ESV 27.1 ml LV EF 56.3 % LV EDV 75.2 ml Left Ventricula -12 % LV ESV 25 ml LV EF 66.8 % LV EF BP 63.8 % Left Ventricula -17.2 % Left Ventricula -14.6 % Left Atrium Left Atrium Vol 13.7 ml/m2 LA Biplane Left Atrium Vol 27 ml LA Single Plane Left Atrium liyah 5.08 cm Left Atrium liyah 4.02 cm Left Atrium Vol 28.5 ml Left Atrium Vol 20.7 ml LV Teichholz Interventricula 0.98 cm Left Ventricle 2.08 cm Left Ventricle 1 cm Heart rate 60 Heart beat per minute Right Atrium RA sys Area 18.2 cm2 Right Ventricle Right Ventricul 2.5 cm RVIDd 3.61 cm MMODE Tricuspid Valve Tricuspid annul 1.61 cm <Electronic Signature> 10/14/2024 07:24 AM Marcelo Gamez M.D. Procedure Note Marcelo Gamez MD - 10/14/2024 Echocardiography Report Pat.Name: PEDRO AVELAR Pat.ID: [id number] .Date: 10/13/2024 Exam Time: 9:11:00 AM Study Type:ECHO WITH CARDIAC DOPPLER COMP Height: 69 in Weight: 179 lb BSA: 1.97 m2 Age: 11 1955,69Y Sex: M BP: 138/56 Sonogrphr: Catalina Jones Pat. Stat.:Outpatient CPT - 4: [id number] Reason for Study:Coronary artery disease Procedures: 2D, M-mode, Doppler, Color Flow, The study quality is technically fair. Race: W ++++++++++++++++++++++++++++++++++++ SUMMARY: ++++++++++++++++++++++++++++++++++++ The left ventricular size is normal. The left ventricular systolic function is normal. Estimated left ventricular ejection fraction is 60-65%. Mild concentric left ventricular hypertrophy. Left ventricular diastolic function is normal. The right ventricular size is mildly enlarged. Right ventricular systolic function is normal. Right atrial size is mildly enlarged. No significant valve abnormalities. ++++++++++++++++++++++++++++++++++++ FINDINGS: ++++++++++++++++++++++++++++++++++++ LV: The left ventricular size is normal. The left ventricular systolic function is normal. Estimated left ventricular ejection fraction is 60-65%. Mild concentric left ventricular hypertrophy. The septal E/e' is indeterminate at 8-15. The lateral E/e' is normal at <8. Left ventricular diastolic function is normal. WM: Wall motion appears normal in all segments. RV: The right ventricular size is mildly enlarged. Right ventricular systolic function is normal. TAPSE = 16.1mm (<16 mm indicates systolic RV dysfunction). IVS: Intraventricular septum is normal. LA: The left atrial volume is normal ( less than 34 ml/M2). RA: Right atrial size is mildly enlarged. IAS: Atrial septum is normal. AHNNAH: Small pericardial effusion, without tamponade physiology. AO: Normal aortic root. PA: Unable to reliably quantitate pulmonary systolic pressure. SVn: Systemic veins not well visualized. AV: The aortic valve is trileaflet. No evidence of aortic valve stenosis. No evidence of aortic valve regurgitation. MV: Trace mitral regurgitation. No evidence of mitral stenosis. PV: No evidence of pulmonic valve stenosis. No evidence of pulmonic regurgitation. TV: A trace of tricuspid regurgitation. No evidence of tricuspid valve stenosis. ++++++++++++++++++++++++++++++++++++ MEASUREMENTS: ++++++++++++++++++++++++++++++++++++ DOPPLER Pulmonary Veins PVnpkVeld 49 cm/s Pulmonary Vein 0.4 m/s PVnVs/Vd 1.02 AR-wave velocit 0.24 m/s S1-wave velocit 0.5 m/s PVn A Dur 0.123 second MV Regurg Flow MV pkPG 27.2 mmHg TV Forward Flow TV E/A 1.75 Aortic Valve Cardiovascular 2.18 cm Aortic Root Drake 2.98 cm LVOT/AoV ([employer]IVATION MANAGER) ( 0.55 Left atrial drake 4.3 cm AV Antegrade Flow Peak Velocity ( 1.14 m/s Mean Velocity ( 0.77 m/s Velocity Time I 23.4 cm AV Antegrade Flow Simplified Bernoulli Gradient pressu 5.2 mmHg Gradient pressu 2.6 mmHg AV Continuity Equation by Velocity Time Integral Aortic Valve Ar 2.66 cm2 AoV Area Index 1.35 Left Ventricle Stroke Volume ( 62.2 ml Cardiac Output 3.67 liter per minute LV Antegrade Flow Peak Velocity ( 0.63 m/s Mean Velocity ( 0.45 m/s Velocity Time I 16.7 cm LV Antegrade Flow Simplified Bernoulli Gradient pressu 1.6 mmHg Gradient pressu 0.9 mmHg Mitral Valve Mitral Valve E- 0.167 second Mean Myocardial 9.6 centimeter/second Myocardial Velo 11.7 centimeter/second Ratio of Mitral 8.61 Myocardial Velo 7.4 centimeter/second Ratio of Mitral 7.07 Mitral Valve E 0.94 Ratio of Mitral 11.2 MV Antegrade Flow Mitral Valve E- 0.83 m/s Mitral Valve A- 0.88 m/s PV Antegrade Flow Peak Velocity ( 1.42 m/s Mean Velocity ( 0.91 m/s Velocity Time I 28 cm PV Antegrade Flow Simplified Bernoulli Gradient pressu 8.1 mmHg Gradient pressu 3.7 mmHg Tricuspid Valve Tricuspid Valve 0.66 m/s Tricuspid Valve 0.38 m/s TV Regurgitant Flow MaximumTricuspi 1.65 m/s MaximumTricuspi 10.9 mmHg 2D Left Ventricle LVIDd 4.39 cm (3.6-5.2) LVEDV BP 75.6 ml LV EDV 62 ml LVESV BP 27.4 ml LV ESV 27.1 ml LV EF 56.3 % LV EDV 75.2 ml Left Ventricula -12 % LV ESV 25 ml LV EF 66.8 % LV EF BP 63.8 % Left Ventricula -17.2 % Left Ventricula -14.6 % Left Atrium Left Atrium Vol 13.7 ml/m2 LA Biplane Left Atrium Vol 27 ml LA Single Plane Left Atrium liyah 5.08 cm Left Atrium liyah 4.02 cm Left Atrium Vol 28.5 ml Left Atrium Vol 20.7 ml LV Teichholz Interventricula 0.98 cm Left Ventricle 2.08 cm Left Ventricle 1 cm Heart rate 60 Heart beat per minute Right Atrium RA sys Area 18.2 cm2 Right Ventricle Right Ventricul 2.5 cm RVIDd 3.61 cm MMODE Tricuspid Valve Tricuspid annul 1.61 cm <Electronic Signature> 10/14/2024 07:24 AM Marcelo Gamez M.D. us Marcelo Gamez MD ECHO Final Res ult * HEMOGLOBIN, GLYCOSYLATED (09/22/2024) Only the most recent of2 resultswithin the time period is included. [facility] HGB A1C 7.0 % Default History Genericprovider LABORATORY Edited Result - Final * COMPREHENSIVE METABOLIC PANEL (09/22/2024) Pathologist [facility] SODIUM S/P/B 139 GLUCOSE 120 mg/dL AST 70 BUN 19 CREATININE S/P/B 0.83 0.7 - 1.3 CALCIUM S/P/B 9.9 POTASSIUM S/P/B 4.1 CHLORIDE S/P/B 102 ALT 113 GFR ESTIMATE 96 Default History Genericprovider LABORATORY Edited Result - Final * LIPID PANEL (09/22/2024) CHOLESTEROL 79 TRIGLYCERIDES 95 HDL 38 LDL (CALCULATED) 22 Default History Genericprovider LABORATORY Edited Result - Final * CBC, MANUAL DIFF (09/22/2024) WBC 8.5 HGB 15.6 HCT 47.1 PLT 227 Default History Genericprovider LABORATORY Edited Result - Final * THYROID STIM HORMONE TSH (09/22/2024) Only the most recent of2 resultswithin the time period is included. Pathologist [facility] TSH 1.360 Default History Genericprovider LABORATORY Edited Result - Final * ELECTROCARDIOGRAM (09/19/2024 11:21 AM CDT) 09/19/2024 11:2 1 AM CDT Ariana SALDAÑA - 09/19/2024 3:47 PM CDT Demian Saldaña [facility] Test Date: 2024-09-19 Pat Name: PEDRO AVELAR Department: 112 Room: Gender: Male Head Of Ethics And Compliance: cara : 1955 Requested By: MARCELO GAMEZ Order Number: [id number] Reading MD: Marcelo Gamez Measurements Intervals [place] Rate: 63 P: 54 AR: 195 QRS: 8 QRSD: 86 T: 8 QT: 390 QTc: 400 Interpretive Statements SINUS RHYTHM LOW QRS VOLTAGE IN PRECORDIAL LEADS No prior ECG for comparison Procedure Note Marcelo Gamez MD - 09/19/2024 [facility] Test Date: 2024-09-19 Pat Name: PEDRO AVELAR Department: 112 Room: Gender: Male Head Of Ethics And Compliance: cara : 1955 Requested By: MARCELO GAMEZ Order Number: [id number] Reading MD: Marcelo Gamez Measurements Intervals [place] Rate: 63 P: 54 AR: 195 QRS: 8 QRSD: 86 T: 8 QT: 390 QTc: 400 Interpretive Statements SINUS RHYTHM LOW QRS VOLTAGE IN PRECORDIAL LEADS No prior ECG for comparison us Marcelo Gamez MD PROCEDURES-ORDERABLE NO C HARGE Final Result [facility] * CMP (ABSTRACTED LAB) (08/18/2024) SODIUM S/P/B 142 POTASSIUM S/P/B 4.5 CHLORIDE [...] LAB-OUTSIDE/ABST RACTED Edited Result - Final * CBC (OUTSIDE LAB) (08/18/2024) WBC 6.8 HGB 14.4 HCT 43.2 PLT 185 08/18/2024 us Default History Genericprovider LAB-OUTSIDE/ABST RACTED Edited Result - Final * C-REACTIVE PROTEIN (08/18/2024) CRP <0.5 08/18/2024 us Default History Genericprovider LABORATORY Edited Result - Final from Last 3 Mon[address] Insurance [place] [address] [id number] Care Teams Fruit Or Nut Grower Relationship Specialty Start Date End Date Merary Alston, MESS ATTENDANT CREW-BC [address] [place] [address] PCP - General NURSE PRACTITIONER 08/29/24
--- OUTSIDE RECORDS SUMMARY | 2024-11-01 00:41 | XMS_ITS | Encounter Summary ---
Author Organization [facility] Address [address] [address] Care Team Providers Care Home Demonstration Agent Name Role Phone Glen Banks MD Unavailable Pascual Lamar DO Unavailable Gabby Gilbert MD Primary Care Provider Jerrell Qureshi DO Unavailable Alex Cage MD Unavailable Lewis Barahona DO Unavailable Holli Wellington CHANNEL MARKETING PROGRAM MANAGER-DIRECTOR OF PLAYER PERSONNEL Unavailable Caitlin Mabry RN Unavailable Gabby Gilbert MD Unavailable Holli Wellington CHANNEL MARKETING PROGRAM MANAGER-DIRECTOR OF PLAYER PERSONNEL Unavailable Caitlin Mabry RN Unavailable Lo Scott RN Unavailable Alexa Burton MA Unavailable Devora Lindsay CHANNEL MARKETING PROGRAM MANAGER-DIRECTOR OF PLAYER PERSONNEL Unavailable Lee Trujillo RN Unavailable Gabby Gilbert MD Unavailable Evelyn Azul Unavailable Holli Wellington CHANNEL MARKETING PROGRAM MANAGER-DIRECTOR OF PLAYER PERSONNEL Unavailable Evelyn Azul Unavailable Gabby Gilbert MD Unavailable Glen Banks MD Unavailable [phone] Holli Wellington CHANNEL MARKETING PROGRAM MANAGER-DIRECTOR OF PLAYER PERSONNEL Unavailable [phone] Merary Alston CHANNEL MARKETING PROGRAM MANAGER-DIRECTOR OF PLAYER PERSONNEL Primary Care Provid er Shawn Whitmore PA-C Unavailable [phone] Encounter Details Date Type Department Care Team (Late st Contact Info) Description 05/14/2017 [facility] Outpatient Visit [facility] Orthopedics - Radiology [address] [place] [address] Lewis Barahona DO [facility] [address] [address] Social History Tobacco Use Types Packs/Day Years Used Date Smoking Tobacco: Every Day Cigarettes 1 30 Smokeless Tobacco: Never Alcohol Use Standard Drinks/Week Comments Yes 1 (1 standard drink = 0.6 oz pur e alcohol) Sex and Gender Information Value Date Recorded Sex Assigned at Not on file Legal Sex Male 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 Gender Identity Not on file Sexual [...] / using tobacco Lifestyle Liberty Pritchett MA [facility] Lifestyle: Have labs drawn Lifestyle Liberty Pritchett MA Have labs drawn Lifestyle Liberty Pritchett MA documented as of this encounter Visit Diagnoses Not on filedocumented in this encounter Care Teams Home Demonstration Agent Relationship Specialty Start Date End Date Gabby Gilbert MD [address] [place] [address] PCP - General Family Medicine 06/04/15 05/04/24 Holli Wellington APRN-DIRECTOR OF PLAYER PERSONNEL [address] [place] [address] [place] [phone] PCP - Attributed-MSSP 11/29/18 06/04/19 Gabby Gilbert MD [address] [place] [address] PCP - Attributed-MSSP 03/01/21 06/28/21 Holli Wellington APRN-DIRECTOR OF PLAYER PERSONNEL [address] [place] [address] [place] [phone] PCP - Attributed-MSSP 06/29/21 05/30/23 Devora Lindsay CHANNEL MARKETING PROGRAM MANAGER-DIRECTOR OF PLAYER PERSONNEL [address] [address] PCP - Attributed-MSSP 05/31/23 08/29/23 Gabby Gilbert MD [address] [place] [address] [place] [address] PCP - Attributed-MSSP 08/30/23 11/29/23 Holli Wellington CHANNEL MARKETING PROGRAM MANAGER-DIRECTOR OF PLAYER PERSONNEL [address] [place], [place] [address]y [address] [place] [phone] PCP - Attributed-MSSP 11/30/23 06/28/24 Gabby Gilbert MD [address] [place] [address] [place] [address] PCP - Attributed-MSSP 04/29/18 07/29/18 [place] [address] [place] [address] [place] [phone] PCP - Attributed-MSSP 09/29/18 11/28/18 Holli Wellington CHANNEL MARKETING PROGRAM MANAGER-DIRECTOR OF PLAYER PERSONNEL [address] [place], [place] [address]y [address] [place] [phone] PCP - Attributed-MSSP 07/30/18 09/28/18 Merary Alston CHANNEL MARKETING PROGRAM MANAGER-DIRECTOR OF PLAYER PERSONNEL [address] [place] [phone] PCP - General Nurse Practitioner 05/05/24 Shawn Whitmore PA-C [address] [place] [address] [address] [place] [address] PCP - Attributed-MSSP 06/29/24 Glen Banks MD [address] [facility] [address] [place] [address] Psychiatry 01/02/14 05/25/23 Pascual Lamar DO [address] [place] [address] [address] [place] [phone] Hand Surgery 12/19/14 Jerrell Qureshi DO [address] [place] [address] Bottling Line Attendant 06/04/15 Alex Cage MD [address] [facility] [address] [place] [address] Endocrinology 06/04/15 Lewis Barahona DO [address] [place], [place] [address]y [address] [place] [address] Orthopedic Surgery 05/25/17 Caitlin Mabry RN Skimmer Scoop OperatorPerformance Engineer 03/04/21 03/16/23 Caitlin Mabry RN Care Management 03/04/21 03/09/23 Lo Scott RN [address] [facility] [address] [place] [address] Skimmer Scoop OperatorPerformance Engineer 03/09/23 06/03/23 Alexa Burton, HERON Care Coordination Specialist Care Management 05/28/23 05/28/23 Lee Trujillo, RN [address] [place] [address] Skimmer Scoop OperatorPerformance Engineer 11/04/23 11/05/23 Evelyn Azul [address] [facility] [address] [place] [address] Care Coordination Specialist Care Management 12/02/23 01/16/24 Evelyn Azul[address] [facility] [address] [place] [address] Care Coordination Specialist Care Management 03/08/24 04/22/24 documented as of this encounter
--- OUTSIDE RECORDS SUMMARY | 2024-11-01 00:41 | XMS_ITS | Encounter Summary ---
Author Organization [facility] Address [address] [facility] [place] [address] Care Team Providers Care Cardiopulmonary Technologist Chief Name Role Phone Glen Banks MD Unavailable [phone] Pascual Lamar DO Unavailable Gabby Gilbert MD Primary Care Provider Jerrell Qureshi DO Unavailable Alex Cage MD Unavailable Lewis Barahona DO Unavailable Holli Wellington RING ATTACHER-PLATE DRILLER Unavailable Caitlin Mabry RN Unavailable Gabby Gilbert MD Unavailable Holli Wellington RING ATTACHER-PLATE DRILLER Unavailable Caitlin Mabry RN Unavailable Lo Scott RN Unavailable Alexa Burton MA Unavailable Devora Lindsay RING ATTACHER-PLATE DRILLER Unavailable Lee Trujillo RN Unavailable Gabby Gilbert MD Unavailable Evelyn Azul Unavailable Holli Wellington RING ATTACHER-PLATE DRILLER Unavailable Evelyn Azul Unavailable Gabby Gilbert MD Unavailable [phone] Glen Banks MD Unavailable [phone] Holli Wellington RING ATTACHER-PLATE DRILLER Unavailable [phone] Merary Alston RING ATTACHER-PLATE DRILLER Primary Care Provid er Shawn Whitmore PA-C Unavailable [phone] Encounter Details Date Type Department Care Team (Late st Contact Info) Description 06/14/2017 [facility] Outpatient Visit [facility] Orthopedics - Radiology [address] [place] [address] Dell Walker PA-C [address] [place] [address] Social History Tobacco Use Types Packs/Day Years Used Date Smoking Tobacco: Every Day Cigarettes 1 30 Smokeless Tobacco: Never Alcohol Use Standard Drinks/Week Comments Yes 1 (1 standard drink = 0.6 oz pur e alcohol) Sex and Gender Information Value Date Recorded Sex Assigned at Not on file 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 Gender Identity Not on file Sexual Orientation [...] tobacco Lifestyle No Liberty Yoder MA [facility] Lifestyle: Have labs drawn Lifestyle Liberty Pritchett MA Have labs drawn Lifestyle Liberty Pritchett MA documented as of this encounter Visit Diagnoses Not on filedocumented in this encounter Care Teams Cardiopulmonary Technologist Chief Relationship Specialty Start Date End Date Gabby Gilbert MD [address] [place] [address] PCP - General Family Medicine 06/04/15 05/04/24 Holli Wellington APRN-PLATE DRILLER [address] [place] [address] [place] [phone] PCP - Attributed-MSSP 11/29/18 06/04/19 Gabby Gilbert MD [address] [place] [address] PCP - Attributed-MSSP 03/01/21 06/28/21 Holli Wellington APRN-PLATE DRILLER [address] [place] [address] [place] [phone] PCP - Attributed-MSSP 06/29/21 05/30/23 Devora Lindsay RING ATTACHER-PLATE DRILLER [address] [place] [address] PCP - Attributed-MSSP 05/31/23 08/29/23 Gabby Gilbert MD [address] [place] [address] [address] [place] [address] PCP - Attributed-MSSP 08/30/23 11/29/23 Holli Wellington RING ATTACHER-PLATE DRILLER [address] [place], [place] [address] [address] [place] [phone] PCP - Attributed-MSSP 11/30/23 06/28/24 Gabby Gilbert MD [address] [place] [address] [place] [address] PCP - Attributed-MSSP 04/29/18 07/29/18 [place] [address] [place] [address] [address] [place], [place] [phone] PCP - Attributed-MSSP 09/29/18 11/28/18 Holli Wellington RING ATTACHER-PLATE DRILLER [address] [place], [place] [address] [address] [place] [phone] PCP - Attributed-MSSP 07/30/18 09/28/18 Merary Alston RING ATTACHER-PLATE DRILLER [address] [place], [place] [phone] PCP - General Nurse Practitioner 05/05/24 Shawn Whitmore PA-C [address] [place] [address] [address] [place] [address] PCP - Attributed-MSSP 06/29/24 Glen Banks MD [address] [facility] [address] [place] [address] Psychiatry 01/02/14 05/25/23 Pascual Lamar DO [address] [place] [address] [address] [place] [phone] Hand Surgery 12/19/14 Jerrell Qureshi DO [address] [place] [address] Gaming Floor Supervisor 06/04/15 Alxe Cage MD [address] [place], [place] [address]y [address] [place] [address] Endocrinology 06/04/15 Lewis Barahona DO [address] [place], [place] [address] [address] [place] [phone] Orthopedic Surgery 05/25/17 Caitlin Mabry RN Seed BuyerComputational Scientist 03/04/21 03/16/23 Caitlin Mabry RN Care Management 03/04/21 03/09/23 Lo Scott RN [address] [facility] [address] [place] [address] Seed BuyerComputational Scientist 03/09/23 06/03/23 Alexa Burton, HERON Care Coordination Specialist Care Management 05/28/23 05/28/23 Lee Trujillo, RN [address] [place] [address] Seed BuyerComputational Scientist 11/04/23 11/05/23 Evelyn Azlu [address] [place] [address] Care Coordination Specialist Care Management 12/02/23 01/16/24 Evelyn Azul[address] [place] [address] Care Coordination Specialist Care Management 03/08/24 04/22/24 documented as of this encounter
--- OUTSIDE RECORDS SUMMARY | 2024-11-01 00:41 | XMS_ITS | Clinical Summary ---
Author Organization [facility] Address [address] [facility] [place] [address] Phone Care Team Providers Care Brazer Assembler Name Role Phone Tex Colby MD Primary [...] 15 mg by mouth. 8 Active Insulin [place], Disposable, (Nette Pen Needle) 32 gauge x [...] on file Legal Sex Male 5:56 AM PRIMARY CARE SALES REPRESENTATIVE Gender Identity Not on file Sexual Orientation Not on file Occupation Industry Job Start Date Job End Date Not on file Not on file Not on file Not on file Last Filed Vital Signs Vital Sign Reading Time Taken Comments Blood Pressure 147/77 05/11/2019 10:56 PM CDT Pulse 103 03/19/2013 5:09 PM PRIMARY CARE SALES REPRESENTATIVE Temperature 36.9 C (98.5 F) 05/11/2019 8:12 [...] 01/10/2014 Insurance MEDICARE PART A AND B [facility] [id number] Care Teams Brazer Assembler Relationship Specialty Start Date End Date Tex Colby MD PCP - General Allergy & Immunology 11/30/09
--- OUTSIDE RECORDS SUMMARY | 2024-11-01 00:41 | XMS_ITS | Encounter Summary ---
Author Organization [facility] Address [address] [place] [address] Care Team Providers Care Sweet Pickle Maker Name Role Phone Ladonna Turcios MD Primary Care Provider [phone] Glen Banks MD Unavailable [phone] Pascual Lamar DO Unavailable Gabby Gilbert MD Primary Care Provider Jerrell Qureshi DO Unavailable Alex Cage MD Unavailable Lewis Barahona DO Unavailable Holli Wellington TUBE CUTTER OPERATOR-YARN WINDER Unavailable Caitlin Mabry RN Unavailable Gabby Gilbert MD Unavailable Holli Wellington TUBE CUTTER OPERATOR-YARN WINDER Unavailable Caitlin Mabry RN Unavailable Lo Scott RN Unavailable [phone] Alexa Burton MA Unavailable Devora Lindsay TUBE CUTTER OPERATOR-YARN WINDER Unavailable Lee Trujillo RN Unavailable Gabby Gilbert MD Unavailable [phone] Evelyn Azul Unavailable Holli Wellington TUBE CUTTER OPERATOR-YARN WINDER Unavailable Evelyn Azul Unavailable Gabby Gilbert MD Unavailable [phone] Glen Banks MD Unavailable Holli Wellington TUBE CUTTER OPERATOR-YARN WINDER Unavailable Merary Alston TUBE CUTTER OPERATOR-YARN WINDER Primary Care Provid er Shawn Whitmore PA-C Unavailable [phone] Reason for Visit * Reason Onset Date Comments MEDICATION REFILL 01/17/2015 Encounter Details Date Type Department Care Team (Late st Contact Info) Description 01/17/2015 Refill PSYCHIATRIC [address] [place] [address] MEDICATION REFILL Social History Tobacco Use Types Packs/Day Years Used Date Smoking Tobacco: Every Day Cigarettes 1 30 Alcohol Use Standard Drinks/Week Comments Yes 0.8 (1 standard drink = 0.6 oz p ure alcohol) Sex and Gender Information Value Date Recorded Sex Assigned at Not on file Legal Sex Male 6:03 AM CHIEF PSYCHOLOGIST Gender Identity Not on file Sexual Orientation [...] on filedocumented in this encounter Care Teams Sweet Pickle Maker Relationship Specialty Start Date End Date Ladonna Turcios MD PCP - General Family Medicine 12/08/13 06/03/15 Gabby Gilbert MD [address] [place] [address] PCP - General Family Medicine 06/04/15 05/04/24 Holli Wellington APRN-YARN WINDER [address] [place] [address] [place] [phone] PCP - Attributed-MSSP 11/29/18 06/04/19 Gabby Gilbert MD [address] [place] [address] PCP - Attributed-MSSP 03/01/21 06/28/21 Holli Wellington TUBE CUTTER OPERATOR-YARN WINDER [address] [place] [phone] PCP - Attributed-MSSP 06/29/21 05/30/23 Devora Lindsay, TUBE CUTTER OPERATOR-YARN WINDER [address] [place] [address] PCP - Attributed-MSSP 05/31/23 08/29/23 Gabby Gilbert MD [address] [place] [address] PCP - Attributed-MSSP 08/30/23 11/29/23 Holli Wellington TUBE CUTTER OPERATOR-YARN WINDER [address] [place] [address] [place] [phone] PCP - Attributed-MSSP 11/30/23 06/28/24 Gabby Gilbert MD [address] [place] [address] [address] [place] [address] PCP - Attributed-MSSP 04/29/18 07/29/18 Glen Banks MD [address] [facility] [address] [place] [address] PCP - Attributed-MSSP 09/29/18 11/28/18 Holli Wellington, TUBE CUTTER OPERATOR-YARN WINDER [address] [place] [address] [address]kw[address] [place] [phone] PCP - Attributed-MSSP 07/30/18 09/28/18 Merary Alston, TUBE CUTTER OPERATOR-YARN WINDER [address] [place] [phone] PCP - General Nurse Practitioner 05/05/24 Shawn Whitmore PA-C [address] [place] [address] [address] [place] [address] PCP - Attributed-MSSP 06/29/24 Glen Banks MD [address] [facility] [address] [place] [address] Psychiatry 01/02/14 05/25/23 Pascual Lamar DO [address] [place] [address] [address] [place] [phone] Hand Surgery 12/19/14 Jerrell Qureshi DO [address] [place] [address] Polystyrene Molding Machine Tender 06/04/15 Alex Cage MD [address] [facility] [address] [place] [address] Endocrinology 06/04/15 Lewis Barahona DO [address] [facility] [address] [place] [address] Orthopedic Surgery 05/25/17 Caitlin Mabry, RN Deli AssociateEasement Worker 03/04/21 03/16/23 Caitlin Mabry, RN Care Management 03/04/21 03/09/23 Lo Scott, RN [address] [facility] [address] [place] [address] Deli AssociateEasement Worker 03/09/23 06/03/23 Alexa Burton MA Care Coordination Specialist Care Management 05/28/23 05/28/23 Lee Trujillo, RN [address] [facility] [place] [address] Deli AssociateEasement Worker 11/04/23 11/05/23 Evelyn Azul [address] [place] [address] Care Coordination Specialist Care Management 12/02/23 01/16/24 Evelyn Azul [address] [facility] [address] [place] [address] Care Coordination Specialist Care Management 03/08/24 04/22/24 documented as of this encounter
--- OUTSIDE RECORDS SUMMARY | 2024-11-01 00:41 | XMS_ITS | Patient Health Record ---
Author Organization [facility] Address [address] [facility] [address] [place] [address] Care Team Providers Care Heavy Equipment Rental Associate Name Role Phone Merary Amezcua Primary Care Provider Unavail able Lola Davis Unavailable [phone] Roberto Mccarty Unavailable [phone] Allergies No Known Allergies Reason For Referral [...] Status W/U Status Risk Notes Problem Flatulence (517967345) Flatulence (R14.3) Active confirmed Problem Colon cancer screening (Z12.11) Active confirmed Patient reports recent colonoscopy revealed 5 colon polyps which were removed. These records are unavailable for review. Problem Elevated liver enzymes level (323948776) Elevated liver enzymes (R74.8) Active confirmed Mildly eleva michael liver enzymes. Is certainly possible this may be secondary to fatty liver. His most recent hemoglobin A1c was 8.7. Will obtain records. Problem 52273508 Constipation (K59.00) Active confirmed Patient has a history of chronic constipation. He is up-to-date with colon cancer screening. Differential diagnosis includes irritable bowel syndrome, side effect of medication, secondary to diet, and other. Problem 897160342 Chronic GERD (K21.9) Active confirmed Patient is currently on omeprazole 40 mg daily and denies any symptoms. He reports recent upper endoscopy revealed findings secondary to acid reflux. Problem Right sided abdominal pain (868077252) Right sided abdominal pain (R10.9) Active confirmed [...] has been tested for celiac disease. Problem 60732428 Hepatitis B (B19.10) Active confirmed Patient reports exposure in [place] but reports hepatitis B DNA was negative last September. Would like to repeat. Recent labs revealed elevated liver enzymes with an ALT of 80. Vital Signs Height 69 in 03/28/2024 Weight 186 lbs 03/28/2024 BMI 27.46 kg/m2 03/28/2024 Procedures Procedure Date Ordered Date Performed Result Body Sit e Initiate SIBO 03/28/2024 N/A SIBO Breath Test 05/17/2024 05/17/2024 Abnormal Encounters Encounter Location Date Provider Diagnosis [facility], [address] Garcia[address] [place] [phone] 03/28/2024 Lola Davis Right sided abdomina l pain R10.9 ; Chronic GERD K21.9 ; Constipation K59.00 ; Flatulence R14.3 ; Hepatitis B B19.10 ; Elevated liver enzymes R74.8 and Colon cancer screening Z12.[address] [place] [address] 05/17/2024 Roberto Mccarty Right sided abdomina l pain R10.[address] [place] [address] 02/11/[address] [place] [address] 03/31/[address] [place] [address] 03/31/[address] [place] [address] 05/17/[address] [place] [address] 05/17/2024 Roberto Mccarty Assessments Encounter Date Diagnosis (ICD Code) Assessment [...] (ICD-10 - B19.10) Patient reports exposure in [place] but reports hepatitis B DNA was [...] Treatment Pending Test Test Name Order Date HEPATITIS B SURFACE AB IMMUNITY, QN 03/02 [...] Coverage End Date Medicare E2 [address] [address] [place] [address] [id number] Rafael Hall Self - patient is the [...]
[2024-11-01 11:00] VITALS: BP 154/62; PULSE 87; RESP 18; TEMP 36.1; O2SAT 100; BMI 25.0
[2024-11-01] MEDS: LACTATED RINGERS 1,000 ML 150 ML IV CONT (11:06)
--- NOTE | 2024-11-01 11:12 | SUR.PREOP ---
Dr. Pate aware of patient glucose 72 in preop, patient asymptomatic. No interventions ordered at this time.
--- NOTE | 2024-11-01 11:13 | WPDANESEPPF ---
Anes - Initial Pre Proc Eval Procedure: Operation Date: 11/01/24 12:30 Proposed Procedures p EGD & Diagnostic Colonoscopy - Watson Restrepo MD Date/Time: 11/01/24 11:13 Surgeon: Watson Restrepo MD Pre Op Diagnosis: Personal history of colon polyps, unspecified Patient Data Age: 69 Gender: M Height: 1.75 m Weight: 77 kg Last Vital Signs Temp 36.1 C L 11/01/24 11:00 Pulse 87 11/01/24 11:00 Resp 18 11/01/24 11:00 BP 154/62 H 11/01/24 11:00 Pulse Ox 100 11/01/24 11:00 O2 Del Method Room Air 11/01/24 11:00 Allergies Allergy/AdvReac Type Severity Reaction Status Date / Time No Known Allergies Allergy Verified 11/01/24 10:58 Home Medications ?Medication ?Instructions ?Recorded ?Confirmed ?Type atorvastatin 40 mg tablet 40 mg PO DAILY 04/13/24 11/01/24 History finasteride 5 mg tablet 5 mg PO DAILY 04/13/24 11/01/24 History aspirin 81 mg tablet 81 mg PO DAILY 08/18/24 11/01/24 History docusate sodium 100 mg capsule 100 mg PO DAILY 08/18/24 11/01/24 History (Dulcolax Stool Softener (docusate)) empagliflozin 25 mg tablet 25 mg PO DAILY 08/18/24 11/01/24 History (Jardiance) glipizide 2.5 mg tablet 2.5 mg PO DAILY 08/18/24 11/01/24 History insulin glargine 100 unit/mL (3 18 unit subcut DAILY 08/18/24 11/01/24 History mL) subcutaneous pen, sensor (Basaglar Tempo Pen (U-100) Insulin) metformin 500 mg tablet 500 mg PO DAILY 08/18/24 11/01/24 History polyethylene glycol 3350 17 17 g PO BID #238 grams 08/18/24 11/01/24 Rx gram/dose oral powder (Miralax) simethicone 250 mg capsule 250 mg PO DAILY PRN gas discomfor 08/18/24 10/20/24 History trazodone 50 mg tablet 50 mg PO QHS PRN sleeping 08/18/24 10/20/24 History dicyclomine 20 mg tablet 20 mg PO QID PRN abdominal pain 10/19/24 10/20/24 Rx #120 tabs insulin glargine 100 unit/mL (3 15 unit subcut BID 10/19/24 11/01/24 History mL) subcutaneous pen (Basaglar KwikPen U-100 Insulin) omeprazole 40 mg capsule,delayed 40 mg PO DAILY #30 caps 10/19/24 11/01/24 Rx release plecanatide 3 mg tablet (Trulance) 3 mg PO DAILY #30 tabs 10/19/24 10/20/24 Rx plecanatide 3 mg tablet (Trulance) 3 mg Tablet#4 Samples 10/19/24 10/20/24 Sample antoine root extract 50 mg tablet 50 mg PO DAILY 10/20/24 11/01/24 History multivitamin (Daily Multi-Vitamin 1 tablet PO DAILY 10/20/24 11/01/24 History tablet) peppermint 1 cap PO DAILY 10/20/24 11/01/24 History amitriptyline 25 mg tablet 25 mg PO QHS #30 tabs 10/23/24 11/01/24 Rx Laboratory Tests 11/01/24 11:08 POC Capillary Glucose 72 mg/dl (65-105) Patient hx anesthesia problems: none Family hx anesthesia problems: none Results Review: All pre-operative results and documents have been reviewed as part of the pre-operative evaluation. [facility] Past Medical History Medical History (Updated 10/31/24 @ 13:25 by Jeff Pate DO) Diabetes type 2, controlled GERD (gastroesophageal reflux disease) Hyperlipidemia Social History Social History Smoking status: Unknown if ever smoked Tobacco type: cigarettes Alcohol intake: never Substance use: current Substance use type: marijuana Other substance usage details: very rarely Anes - Eval Final PreProcedure Day of Procedure 11/01/24 11:13 Patient weight: overweight Heart: regular rate and rhythm Lungs: clear to auscultation Airway: Mallampati scale class II Neurological: alert and oriented Last oral intake: >/= 8 hours ASA classification: III Emergent: no Anesthetic plan: proceed Anesthesia type and monitoring: general GIVS and standard monitoring Results Review: All pre-operative results and documents have been reviewed as part of the pre-operative evaluation. Informed Consent: The patient's anesthetic plan and its attendant risks and benefits were discussed with the patient/family/POA. Questions were solicited and answers provided to the satisfaction of the patient/family/POA.
--- NOTE | 2024-11-01 11:33 | WPDHPUPDATE1 ---
History and Physical Update Update Date/Time: 11/01/24 11:33 History and Physical has been reviewed, including an updated exam of the patient. There are NO changes in the patient's condition. Risks, benefits, and alternatives have been discussed and questions answered. Patient agrees to proceed with procedure.
--- NOTE | 2024-11-01 11:37 | S_PTH ---
PATIENT: Rafael Hall LOC: [facility]EROD Parry#:[id number] AGE/SX: 69/M ROOM: RE11/01/[address]: Watson Restrepo MD : 1955 BED: DIS: 11/01/2024 SPEC #: [id number] RECD: 11/01/24 13:22 STATUS: BLAKE REDonna #: [id number] DHAVAL: 11/01/24 11:[address]: Watson Restrepo DEPT: [facility] Surgical RECD BY: Taisha Bray ENTERED: 11/01/24 13:22 SP TYPE: Surgical OTHR DR: Merary Alston, SALES ACCOUNT MANAGER Tissues: A - Gastric Biopsy B - Small Bowel Bx Procedures: Hematoxylin and Eosin Stain Gross and Microscopic Level 4
--- NOTE | 2024-11-01 11:40 | SUR.OPER ---
EGD: [id number] Colon: [id number]
[2024-11-01 11:55] VITALS: BP 116/50; PULSE 86; RESP 16; O2SAT 100
[2024-11-01 12:05] VITALS: BP 106/53; PULSE 94; RESP 17; O2SAT 99
[2024-11-01 12:15] VITALS: BP 127/65; PULSE 90; RESP 18; O2SAT 100
== END 2024-11-01 12:22 | disposition home or self-care (01) ==
PROVIDERS: PCP Nurse Practitioner; Referring Provider Nurse Practitioner; Visit Provider Internal Medicine Gastroenterology
PROC: 0DJ08ZZ Inspection of Upper Intestinal Tract, Via Natural or Artificial Opening Endoscopic (ICD-10-PCS; CPT 45378; principal; 2024-11-01 12:30)
DX: R10.30 Lower abdominal pain, unspecified (principal); Z86.0100 Personal history of colon polyps, unspecified; E11.9 Type 2 diabetes mellitus without complications
CPT/HCPCS: 45378; 43239; 82948; 88305; J2704; J7120

== ENCOUNTER 2024-12-19 08:24 | Outpatient (CLI) | payer MEDICARE, SELFPAY ==
--- NOTE | ~2024-12-19 | NM_ITS ---
EXAMINATION: NM_HEPATWP_NM DATE: 12/19/2024 10:32 INDICATION: Chronic abdominal pain COMPARISON: None. TECHNIQUE: 5.3 mCi Tc-99m mebrofenin (Choletec) was administered intravenously. Scintigraphic images of the abdomen were obtained for one hour. Patient terminated the study at the 1 hour time point and no further delayed imaging was obtained. FINDINGS: There is normal clearance of radiotracer from the blood pool. There is homogeneous tracer uptake by the liver. Activity progresses to the common bile duct by 25 minutes with small bowel activity reflux into the stomach seen at 30 minutes and small bowel activity evident at 35 minutes which progressively increases over the remainder of the study. No accumulation of activity in the typical location of the gallbladder along the caudal aspect of the right hepatic lobe. There is a small collection of activity which extends anteriorly from the region of the carolina hepatis on the lateral image, unclear whether this is within a more anteriorly and medially directed gallbladder or within portions of the central biliary tree. IMPRESSION: 1. No biliary obstruction. 2. Collection of excreted activity projecting anteriorly from the region of the carolina hepatis which could represent activity within the gallbladder oriented more anteriorly and medially than typical versus activity within the central biliary tree. Consider correlation with reported prior outside CT imaging. Reviewed, dictated and finalized at location A. IMPRESSION: 1. No biliary obstruction. 2. Collection of excreted activity projecting anteriorly from the region of the carolina hepatis which could represent activity within the gallbladder oriented m ore anteriorly and medially than typical versus activity within the central jamel iary tree. Consider correlation with reported prior outside CT imaging.
== END 2024-12-19 08:25 | disposition home or self-care (01) ==
PROVIDERS: PCP Nurse Practitioner; Visit Provider Nurse Practitioner
DX: R93.2 Abnormal findings on diagnostic imaging of liver and biliary tract (principal)
CPT/HCPCS: 78227; A9537; J2805

== ENCOUNTER 2024-12-21 08:30 | Outpatient (CLI) | payer MEDICARE, SELFPAY ==
--- OUTSIDE RECORDS SUMMARY | 2024-04-11 03:00 | XMS_ITS ---
Author Organization [employer], [facility] Address [address] [place] [address] Dr. Hoffman [address] [place] [address] Care Team Providers Care Sous Chef Name Role Phone Merary Amezcua Primary Care Provider Unavail Roberto Kraus Unavailable [phone] REASON FOR VISIT Right Side Ab Pain Encounters Encounter Location Date Provider Diagnosis [facility], [address] Hoffman [address] [place] [address] 04/11/2024 Roberto Mccarty Plan Of Treatment No Information Progress Notes * Rafael AVELARDOB: 7 (69 yo M)Acc No.[id number]:04/11/2024 Patient: Rafael PEREZ Provider: Sona Mccarty D.O. :1955 A ge:69 Y S ex:Male Date:04/11/2024 Address:[address] [place], [place] [id number] Pcp:Merary GAVIN Subjective: * Chief Complaints: * 1 . Right Side Ab Pain. * Medical History: Objective: * Vitals: Assessment: Plan: * Treatment: * Images: * Electronic signature of Christiano Mccarty DO on 12/21/2024 at 08:39 AM CDT Sign off status: Pending * Provider: Sona Mccarty D.O. Date: 0 04/11/2024 Generated for Reba gu/Elke/eTransmitting on: 1 08:39 AM CDT
--- OUTSIDE RECORDS SUMMARY | 2024-04-25 03:00 | XMS_ITS ---
Author Organization [employer], [facility] Address [address] [place] [address] Dr. Hoffman [address] [place] [address] Care Team Providers Care Beamster Name Role Phone Merary Amezcua Primary Care Provider Unavail Roberto Kraus Unavailable [phone] REASON FOR VISIT Right Side Ab Pain Encounters Encounter Location Date Provider Diagnosis [facility], [address] Hoffman [address] [place] [address] 04/25/2024 Roberto Mccarty Plan Of Treatment No Information Progress Notes * Rafael AVELARDOB: 7 (69 yo M)Acc No.[id number]:04/25/2024 Patient: Rafael PEREZ Provider: Sona Mccarty D.O. :1955 A ge:69 Y S ex:Male Date:04/25/2024 Address:[address] [place], [place] [phone] Pcp:Merary GAVIN Subjective: * Chief Complaints: * 1 . Right Side Ab Pain. * Medical History: Objective: * Vitals: Assessment: Plan: * Treatment: * Images: * Electronic signature of Christiano Mccarty DO on 12/21/2024 at 08:38 AM CDT Sign off status: Pending * Provider: Sona Mccarty D.O. Date: 0 04/25/2024 Generated for Reba gu/Elke/eTransmitting on: 1 08:38 AM CDT
--- OUTSIDE RECORDS SUMMARY | 2024-05-10 03:00 | XMS_ITS ---
Author Organization [employer], [facility] Address [address] [place] [address] Dr. Hoffman [address] [place] [address] Care Team Providers Care Ui Software Developer Name Role Phone Merary Amezcua Primary Care Provider Unavail Roberto Kraus Unavailable [phone] REASON FOR VISIT Right sided abd pain Encounters Encounter Location Date Provider Diagnosis [facility], [address] Hoffman [address] [place] [address] 05/10/2024 Roberto Mccarty Plan Of Treatment No Information Progress Notes * Rafael AVELARDOB: 7 (69 yo M)Acc No.[id number]:05/10/2024 Patient: Rafael PEREZ Provider: Sona Mccarty D.O. :1955 A ge:69 Y S ex:Male Date:05/10/2024 Address:[address] [place], [place] [phone] Pcp:Merary GAVIN Subjective: * Chief Complaints: * 1 . Right sided abd pain. * Medical History: Objective: * Vitals: Assessment: Plan: * Treatment: * Images: * Electronic signature of Christiano Mccarty DO on 12/21/2024 at 08:39 AM CDT Sign off status: Pending * Provider: Sona Mccarty D.O. Date: 0 05/10/2024 Generated for Reba gu/Elke/eTransmitting on: 1 08:39 AM CDT
--- NOTE | ~2024-12-21 | US_ITS ---
ULTRASOUND ABDOMEN LIMITED (RIGHT UPPER QUADRANT) Clinical History: elevated liver enzymes, assess gallbladder Comparison: HIDA scan 12/19/2024 Technique: Right upper quadrant sonography Findings: Liver: Normal size. Normal echotexture. No intrahepatic biliary ductal dilatation. Normal hepatopedal flow main portal vein. Common Duct: Normal caliber. 4 mm. Gallbladder: Not seen. Pancreas: Obscured by bowel gas. IMPRESSION: 1. Gallbladder not seen. Per technologist notes, outside imaging reports also do not identify gallbladder. 2. Correlation with prior exams recommended. Otherwise can consider CT or MRI. 3. Liver unremarkable. Reviewed, dictated and finalized at location R.
--- OUTSIDE RECORDS SUMMARY | 2024-12-21 08:39 | XMS_ITS | Clinical Summary ---
Author Organization [facility] Address [address] [place] [address] Phone Care Team Providers Care Communications Equipment Installer Name Role Phone Tex Colby MD Primary [...] 15 mg by mouth. 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 Gender Identity Not on file Sexual Orientation Not on file Occupation Industry Job Start Date Job End Date Not on file Not on file Not on file Not on file Last Filed Vital Signs Vital Sign Reading Time Taken Comments Blood Pressure 147/77 05/11/2019 10:56 PM CDT Pulse 103 03/19/2013 5:09 PM REGISTERED SAFETY ENGINEER Temperature 36.9 C (98.5 F) 05/11/2019 8:12 [...] VACCINE (60+ or ) (1 - Risk 50-74 years 1-dose series) 2007 DIABETES ANNUAL RETINAL EXAM 08/27/2023 08/26/2022 DIABETES HBA1C Q 6 MONTHS 05/01/20242023, 01/25/2023, 07/20/2022, Additional history exists DIABETES ANNUAL FOOT EXAM 08/17/2024 08/18/2023 INFLUENZA VACCINE (#1) 2024 , 11/15/2023, 11/09/2022, Additional history exists COVID-19 Vaccine ( - 2023-2 5 season) 2024 11/15/2023, 05/26/2023, 04/08/2022, Additional history exists COLORECTAL SCREENING 11/30/2033 12/01/2023, 12/01/2023, 01/15/2021 Colorectal Cancer Screening 11/30/2033 ZOSTER VACCINE Completed 11/09/2022, 09/07/2022 PNEUMOCOCCAL VACCINE 50+ YEARS Completed 05/26/2023 , 01/10/2014 Insurance MEDICARE PART A AND B [facility] [id number] Care Teams Communications Equipment Installer Relationship Specialty Start Date End Date Tex Colby MD PCP - General Allergy & Immunology 11/30/09
--- OUTSIDE RECORDS SUMMARY | 2024-12-21 08:39 | XMS_ITS | Encounter Summary ---
Author Organization [facility] Address [address] [place] [address] Care Team Providers Care Saddle Maker Name Role Phone Ladonna Turcios MD Primary Care Provider [phone] Glen Banks MD Unavailable Pascual Lamar DO Unavailable Gabby Gilbert MD Primary Care Provider Jerrell Qureshi DO Unavailable Alex Cage MD Unavailable Lewis Barahona DO Unavailable Holli [place] ANIMAL SITTER-LOAN SECRETARY Unavailable Caitlin Mabry RN Unavailable Gabby Gilbert MD Unavailable Holli [place] ANIMAL SITTER-LOAN SECRETARY Unavailable Caitlin Mabry RN Unavailable Lo Scott RN Unavailable Alexa Burton MA Unavailable Devora Lindsay ANIMAL SITTER-LOAN SECRETARY Unavailable Lee Trujillo RN Unavailable Gabby Gilbert MD Unavailable [phone] Evelyn Azul Unavailable Holli [place] ANIMAL SITTER-LOAN SECRETARY Unavailable Evelyn Azul Unavailable Gabby Gilbert MD Unavailable Glen Banks MD Unavailable Holli [place] ANIMAL SITTER-LOAN SECRETARY Unavailable Merary Alston ANIMAL SITTER-LOAN SECRETARY Primary Care Provid er Shawn Whitmore PA-C Unavailable [phone] Reason for Visit * Reason Onset Date Comments MEDICATION REFILL 01/17/2015 Encounter Details Date Type Department Care Team (Late st Contact Info) Description 01/17/2015 Refill [facility] [address] [place] [address] MEDICATION REFILL Social History Tobacco Use Types Packs/Day Years Used Date Smoking Tobacco: Every Day Cigarettes 1 30 Alcohol Use Standard Drinks/Week Comments Yes 0.8 (1 standard drink = 0.6 oz p ure alcohol) Sex and Gender Information Value Date Recorded Sex Assigned at Not on file 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 Sex 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 Gender Identity Not on file Sexual Orientation [...] on filedocumented in this encounter Care Teams Saddle Maker Relationship Specialty Start Date End Date Ladonna Turcios MD PCP - General Family Medicine 12/08/13 06/03/15 Gabby Gilbert MD [address] [place] [address] PCP - General Family Medicine 06/04/15 05/04/24 Holli [place] APRN-LOAN SECRETARY [address] [place] [address] [place] [phone] PCP - Attributed-MSSP 11/29/18 06/04/19 Gabby Gilbert MD [address] [place] [address] PCP - Attributed-MSSP 03/01/21 06/28/21 Holli [place] ANIMAL SITTER-LOAN SECRETARY [address] [place] [phone] PCP - Attributed-MSSP 06/29/21 05/30/23 Devora Lindsay, ANIMAL SITTER-LOAN SECRETARY [address] [place] [address] PCP - Attributed-MSSP 05/31/23 08/29/23 Gabby Gilbert MD [address] [place] [address] PCP - Attributed-MSSP 08/30/23 11/29/23 Holli [place] ANIMAL SITTER-LOAN SECRETARY [address] [place] [address] [place] [phone] PCP - Attributed-MSSP 11/30/23 06/28/24 Gabby Gilbert MD [address] [place] [address] [address] [place] [address] PCP - Attributed-MSSP 04/29/18 07/29/18 Glen Banks MD [address] [facility] [address] [place] [address] PCP - Attributed-MSSP 09/29/18 11/28/18 Holli [place], ANIMAL SITTER-LOAN SECRETARY [address] [place] [address] [address] [place] [phone] PCP - Attributed-MSSP 07/30/18 09/28/18 Merary Alston, ANIMAL SITTER-LOAN SECRETARY [address] [place] [phone] PCP - General Nurse Practitioner 05/05/24 Shawn Whitmore PA-C [address] [place] [address] [address] [place] [address] PCP - Attributed-MSSP 06/29/24 Glen Banks MD [address] [facility] [address] [place] [address] Psychiatry 01/02/14 05/25/23 Pascual Lamar DO [address] [place] [address] [address] [place] [phone] Hand Surgery 12/19/14 Jerrell Qureshi DO [address] [place] [address] Nail Expert 06/04/15 Alex Cage MD [address] [facility] [address] [place] [address] Endocrinology 06/04/15 Lewis Barahona DO [address] [facility] [address] [place] [address] Orthopedic Surgery 05/25/17 Caitlin Mabry, RN Brake Lining FinisherCopying Machine Mechanic 03/04/21 03/16/23 Caitlin Mabry, RN Care Management 03/04/21 03/09/23 Lo Scott, RN [address] [facility] [address] [place] [address] Brake Lining FinisherCopying Machine Mechanic 03/09/23 06/03/23 Alexa Burton MA Care Coordination Specialist Care Management 05/28/23 05/28/23 Lee Trujillo, RN [address] [facility] [place] [address] Brake Lining FinisherCopying Machine Mechanic 11/04/23 11/05/23 Evelyn Azul [address] [place] [address] Care Coordination Specialist Care Management 12/02/23 01/16/24 Evelyn Azul [address] [facility] [address] [place] [address] Care Coordination Specialist Care Management 03/08/24 04/22/24 documented as of this encounter
--- OUTSIDE RECORDS SUMMARY | 2024-12-21 08:39 | XMS_ITS | Encounter Summary ---
Author Organization [facility] Address [address] [facility] [facility] [place] [address] Care Team Providers Care Steam Finisher Name Role Phone Glen Banks MD Unavailable Pascual Lamar DO Unavailable Gabby Gilbert MD Primary Care Provider Jerrell Qureshi DO Unavailable Alex Cage MD Unavailable Lewis Barahona DO Unavailable Holli [place] ASSOCIATE FACULTY-PRODUCTION SUPPORT ENGINEER Unavailable Caitlin Mabry RN Unavailable Gabby Gilbert MD Unavailable Holli [place] ASSOCIATE FACULTY-PRODUCTION SUPPORT ENGINEER Unavailable Caitlin Mabry RN Unavailable Lo Scott RN Unavailable Alexa Burton MA Unavailable Devora Lindsay ASSOCIATE FACULTY-PRODUCTION SUPPORT ENGINEER Unavailable Lee Trujillo RN Unavailable Gabby Gilbert MD Unavailable Evelyn Azul Unavailable Holli [place] ASSOCIATE FACULTY-PRODUCTION SUPPORT ENGINEER Unavailable Evelyn Azul Unavailable Gabby Gilbert MD Unavailable Glen Banks MD Unavailable [phone] Holli [place] ASSOCIATE FACULTY-PRODUCTION SUPPORT ENGINEER Unavailable Merary Alston ASSOCIATE FACULTY-PRODUCTION SUPPORT ENGINEER Primary Care Provid er Shawn Whitmore PA-C Unavailable [phone] Encounter Details Date Type Department Care Team (Late st Contact Info) Description 05/14/2017 [facility] Outpatient Visit [facility] Orthopedics - Radiology [address] [place] [address] Lewis Barahona [facility] [address] [phone] Social History Tobacco Use Types Packs/Day Years Used Date Smoking Tobacco: Every Day Cigarettes 1 30 Smokeless Tobacco: Never Alcohol Use Standard Drinks/Week Comments Yes 1 (1 standard drink = 0.6 oz pur e alcohol) Sex and Gender Information Value Date Recorded Sex Assigned at Not on file 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 Sex Male 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 Gender Identity Not on file Sexual Orientation [...] of Assessment Author Yes 04/21/2017 1:01 PM Anastasiya Owusu RN * Does person have difficulty [...] / using tobacco Lifestyle Liberty Pritchett MA [facility] Lifestyle: Have labs drawn Lifestyle Liberty Pritchett MA Have labs drawn Lifestyle Liberty Pritchett MA documented as of this encounter Visit Diagnoses Not on filedocumented in this encounter Care Teams Steam Finisher Relationship Specialty Start Date End Date Gabby Gilbert MD [address] [place] [address] PCP - General Family Medicine 06/04/15 05/04/24 Holli [place] APRN-PRODUCTION SUPPORT ENGINEER [address] [place] [address] [place] [phone] PCP - Attributed-MSSP 11/29/18 06/04/19 Gabby Gilbert MD [address] [place] [address] PCP - Attributed-MSSP 03/01/21 06/28/21 Holli [place] APRN-PRODUCTION SUPPORT ENGINEER [address] [place] [address] [place] [phone] PCP - Attributed-MSSP 06/29/21 05/30/23 Devora Lindsay ASSOCIATE FACULTY-PRODUCTION SUPPORT ENGINEER [address] [address] PCP - Attributed-MSSP 05/31/23 08/29/23 Gabby Gilbert MD [address] [place] [address] [place] [address] PCP - Attributed-MSSP 08/30/23 11/29/23 Holli [place] ASSOCIATE FACULTY-PRODUCTION SUPPORT ENGINEER [address] [place], [place] [address] [address] [place] [phone] PCP - Attributed-MSSP 11/30/23 06/28/24 Gabby Gilbert MD [address] [place] [address] [place] [address] PCP - Attributed-MSSP 04/29/18 07/29/18 [place] [address] [place] [address] [place] [address] [phone] PCP - Attributed-MSSP 09/29/18 11/28/18 Holli [place] ASSOCIATE FACULTY-PRODUCTION SUPPORT ENGINEER [address] [place], [place] [address] [address] [place] [phone] PCP - Attributed-MSSP 07/30/18 09/28/18 Merary Alston ASSOCIATE FACULTY-PRODUCTION SUPPORT ENGINEER [address] [place], [place] [phone] PCP - General Nurse Practitioner 05/05/24 Shawn Whitmore PA-C [address] [place] [address] [address] [place] [address] PCP - Attributed-MSSP 06/29/24 Glen Banks MD [address] [facility] [address] [place] [address] Psychiatry 01/02/14 05/25/23 Pascual Lamar DO [address] [place] [address] [address] [place] [phone] Hand Surgery 12/19/14 Jerrell Qureshi DO [address] [place] [address] Software Systems Analyst 06/04/15 Alex Cage MD [address] [place], [place] [address]y [address] [place] [address] Endocrinology 06/04/15 Lewis Barahona DO [address] [place], [place] [address] [address] [place] [phone] Orthopedic Surgery 05/25/17 Caitlin Mabry RN Focused Factory ManagerPrison Classification Counselor 03/04/21 03/16/23 Caitlin Mabry RN Care Management 03/04/21 03/09/23 Lo Scott RN [address] [facility] [address] [place] [address] Focused Factory ManagerPrison Classification Counselor 03/09/23 06/03/23 Alexa Burton MA Care Coordination Specialist Care Management 05/28/23 05/28/23 Lee Trujillo, RN [address] [facility] [address] [place] [address] Focused Factory ManagerPrison Classification Counselor 11/04/23 11/05/23 Evelyn Azul [address] [facility] [address] [place] [address] Care Coordination Specialist Care Management 12/02/23 01/16/24 Evelyn Azul [facility] [address] [place] [address] Care Coordination Specialist Care Management 03/08/24 04/22/24 documented as of this encounter
--- OUTSIDE RECORDS SUMMARY | 2024-12-21 08:39 | XMS_ITS | Encounter Summary ---
Author Organization [facility] Address [address] [place] [address] Care Team Providers Care Phlebotomy Specialist Name Role Phone Ladonna Turcios MD Primary Care Provider [phone] Glen Banks MD Unavailable Pascual Lamar DO Unavailable Gabby Gilbert MD Primary Care Provider [phone] Jerrell Qureshi DO Unavailable Alex Cage MD Unavailable Lewis Barahona DO Unavailable Holli Wellington MAILING SPECIALIST-TAPE RULES PRINTING MACHINE OPERATOR Unavailable Caitlin Mabry RN Unavailable Gabby Gilbert MD Unavailable [phone] Holli Wellington MAILING SPECIALIST-TAPE RULES PRINTING MACHINE OPERATOR Unavailable Caitlin Mabry RN Unavailable Lo Scott RN Unavailable Alexa Burton MA Unavailable Devora Lindsay MAILING SPECIALIST-TAPE RULES PRINTING MACHINE OPERATOR Unavailable Lee Trujillo RN Unavailable Gabby Gilbert MD Unavailable Evelyn Azul Unavailable Holli Wellington MAILING SPECIALIST-TAPE RULES PRINTING MACHINE OPERATOR Unavailable [phone] Evelyn Azul Unavailable Gabby Gilbert MD Unavailable [phone] Glen Banks MD Unavailable [phone] Holli Wellington MAILING SPECIALIST-TAPE RULES PRINTING MACHINE OPERATOR Unavailable [phone] Merary Alston MAILING SPECIALIST-TAPE RULES PRINTING MACHINE OPERATOR Primary Care Provid er Shawn Whitmore PA-C Unavailable [phone] Encounter Details Date Type Department Care Team (Late st Contact Info) Description 12/19/2014 Therapy Visit [facility] [place] [address] Unknown, Provider Social History Tobacco Use Types Packs/Day Years Used Date Smoking Tobacco: Every Day Cigarettes 1 30 Alcohol Use Standard Drinks/Week Comments Yes 0.8 (1 standard drink = 0.6 oz p ure alcohol) Sex and Gender Information Value Date Recorded Sex Assigned at Not on file Legal Sex Male 6: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 Gender Identity Not on file Sexual Orientation [...] using tobacco Lifestyle No Liberty Yoder MA [facility] Lifestyle: Have labs drawn Lifestyle No Liberty Yoder MA Have labs drawn Lifestyle Liberty Pritchett MA documented as of this encounter Visit Diagnoses Not on filedocumented in this encounter Care Teams Phlebotomy Specialist Relationship Specialty Start Date End Date Ladonna Turcios MD PCP - General Family Medicine 12/08/13 06/03/15 Gabby Gilbert MD [address] [place], [place] [id number] PCP - General Family Medicine 06/04/15 05/04/24 Holli Wellington MAILING SPECIALIST-TAPE RULES PRINTING MACHINE OPERATOR [address] [place], [place] [address]y [address] [place] [address] PCP - Attributed-MSSP 11/29/18 06/04/19 Gabby Gilbert MD [address] [place] [address] PCP - Attributed-MSSP 03/01/21 06/28/21 Holli Wellington MAILING SPECIALIST-TAPE RULES PRINTING MACHINE OPERATOR [address] [place], [place] [address] [address] [place] [address] PCP - Attributed-MSSP 06/29/21 05/30/23 Devora Lindsay, MAILING SPECIALIST-TAPE RULES PRINTING MACHINE OPERATOR [address] [place] [address] PCP - Attributed-MSSP 05/31/23 08/29/23 Gabby Gilbert MD [address] [place] [address] PCP - Attributed-MSSP 08/30/23 11/29/23 Holli Wellington MAILING SPECIALIST-TAPE RULES PRINTING MACHINE OPERATOR [address] [place] [address] [place] [address] PCP - Attributed-MSSP 11/30/23 06/28/24 Gabby Gilbert MD [address] [place] [address] PCP - Attributed-MSSP 04/29/18 07/29/18 Glen Banks MD [address] [facility] [address] [place] [address] PCP - Attributed-MSSP 09/29/18 11/28/18 Holli Wellington, MAILING SPECIALIST-TAPE RULES PRINTING MACHINE OPERATOR [address] [facility] [address] [place] [address] PCP - Attributed-MSSP 07/30/18 09/28/18 Merary Alston, MAILING SPECIALIST-TAPE RULES PRINTING MACHINE OPERATOR [address] [place] [address] PCP - General Nurse Practitioner 05/05/24 Shawn Whitmore PA-C [address] [facility] [address] [place] [address] PCP - Attributed-MSSP 06/29/24 Glen Banks MD [address] [facility] [address] [place] [address] Psychiatry 01/02/14 05/25/23 Pascual Lamar DO [address] [facility] [address] [place] [address] Hand Surgery 12/19/14 Jerrell Qureshi DO [address] [place] [address] Candy Counter Clerk 06/04/15 Alex Cage MD [address] [facility] [address] [place] [address] Endocrinology 06/04/15 Lewis Barahona DO [address] [facility] [address] [place] [address] Orthopedic Surgery 05/25/17 Caitlin Mabry RN PododermatologistBand Saw Runner 03/04/21 03/16/23 Caitlin Mabry RN Care Management 03/04/21 03/09/23 Lo Scott RN [address] [facility] [address] [place] [address] PododermatologistBand Saw Runner 03/09/23 06/03/23 Alexa Burton MA Care Coordination Specialist Care Management 05/28/23 05/28/23 Lee Trujillo, JOHNATHAN [address] [facility] [address] [place] [address] PododermatologistBand Saw Runner 11/04/23 11/05/23 Evelyn Azul [address] [place] [address] Care Coordination Specialist Care Management 12/02/23 01/16/24 Evelyn Azul [address] [place] [address] Care Coordination Specialist Care Management 03/08/24 04/22/24 documented as of this encounter
--- OUTSIDE RECORDS SUMMARY | 2024-12-21 08:39 | XMS_ITS | Encounter Summary ---
Author Organization [facility] Address [address] [facility] [place] [address] Care Team Providers Care Street Worker Name Role Phone Glen Banks MD Unavailable Pascual Lamar DO Unavailable Gabby Gilbert MD Primary Care Provider Jerrell Qureshi DO Unavailable Alex Cage MD Unavailable Lewis Barahona DO Unavailable Caitlin Mabry RN Unavailable Gabby Gilbert MD Unavailable [phone] Holli Wellington EDGE TRIMMING MACHINE OPERATOR-DRY WALL PLASTERER Unavailable Caitlin Mabry RN Unavailable Lo Scott RN Unavailable Alexa Burton MA Unavailable Devora Lindsay EDGE TRIMMING MACHINE OPERATOR-DRY WALL PLASTERER Unavailable Lee Trujillo RN Unavailable Gabby Gilbert MD Unavailable Evelyn Azul Unavailable Holli Wellington EDGE TRIMMING MACHINE OPERATOR-DRY WALL PLASTERER Unavailable Evelyn Azul Unavailable Merary Alston Karen EDGE TRIMMING MACHINE OPERATOR-DRY WALL PLASTERER Primary Care Provid er Shawn Whitmore PA-C Unavailable [phone] Reason for Visit * Reason Onset Date Comments MEDICATION REFILL 03/04/2021 Encounter Details Date Type Department Care Team (Late st Contact Info) Description 03/04/2021 Refill [facility] - Family Medicine [address] [facility] [address] [place] [address] Shawn Whitmore PA-C [address] [facility] [address] [place] [address] MEDICATION REFILL Social History Tobacco [...] on file 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 Sex Male 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 Gender Identity Not on file Sexual Orientation [...] Entry Date Author No 10/25/2019 1:27 PM Cash Wooten RN documented in this encounter Plan [...] constipation documented in this encounter Care Teams Street Worker Relationship Specialty Start Date End Date Gbaby Gilbert MD [address] [place] [address] PCP - General Family Medicine 06/04/15 05/04/24 Gabby Gilbert MD [address] [place] [address] PCP - Attributed-MSSP 03/01/21 06/28/21 Holli Wellington EDGE TRIMMING MACHINE OPERATOR-DRY WALL PLASTERER [address] [place] [address] [address] [place] [phone] PCP - Attributed-MSSP 06/29/21 05/30/23 Devora Lindsay, EDGE TRIMMING MACHINE OPERATOR-DRY WALL PLASTERER [address] [place] [address] PCP - Attributed-MSSP 05/31/23 08/29/23 Gabby Gilbert MD [address] [place] [address] [place] [address] PCP - Attributed-MSSP 08/30/23 11/29/23 Holli Wellington EDGE TRIMMING MACHINE OPERATOR-DRY WALL PLASTERER [address] [place] [address] Pkw[address] [place] [address] PCP - Attributed-MSSP 11/30/23 06/28/24 Alecia Merary Jones EDGE TRIMMING MACHINE OPERATOR-DRY WALL PLASTERER [address] [place], [place] [phone] PCP - General Nurse Practitioner 05/05/24 Shawn Whitmore PA-C [address] [place] [address] [address] [place] [address] PCP - Attributed-MSSP 06/29/24 [place] [address] [place] [address] [address] [place] [address] Psychiatry 01/02/14 05/25/23 Pascual Lamar DO [address] [place] [address] [address] [place] [address] Hand Surgery 12/19/14 Jerrell Qureshi DO [address] [facility] [place] [address] Critical Care Physician 06/04/15 Alex Cage MD [address] [place] [address] Pkw[address] [place] [phone] Endocrinology 06/04/15 Lewis Barahona DO [address] [facility] [address] [place] [address] Orthopedic Surgery 05/25/17 Caitlin Mabry, RN Insurance BillerTile Layer Drainage 03/04/21 03/16/23 Caitlin Mabry RN Care Management 03/04/21 03/09/23 Lo Scott RN [address] [facility] [address] [place] [address] Insurance BillerTile Layer Drainage 03/09/23 06/03/23 Alexa Burton MA Care Coordination Specialist Care Management 05/28/23 05/28/23 Lee Trujillo, JOHNATHAN [address] [place] [address] Insurance BillerTile Layer Drainage 11/04/23 11/05/23 Evelyn Azul [address] [place] [address] Care Coordination Specialist Care Management 12/02/23 01/16/24 Evelyn Azul [facility] [address] [place] [address] Care Coordination Specialist Care Management 03/08/24 04/22/24 documented as of this encounter
--- OUTSIDE RECORDS SUMMARY | 2024-12-21 08:39 | XMS_ITS | Encounter Summary ---
Author Organization [facility] Address [address] [facility] [place] [address] Care Team Providers Care Company Laborer Name Role Phone Glen Banks MD Unavailable Pascual Lamar DO Unavailable Gabby Gilbert MD Primary Care Provider Jerrell Qureshi DO Unavailable Alex Cage MD Unavailable Lewis Barahona DO Unavailable Holli Wellington SUPERVISOR BRINE-TOBACCO SIZER Unavailable Caitlin Mabry RN Unavailable Gabby Gilbert MD Unavailable [phone] Holli Wellington SUPERVISOR BRINE-TOBACCO SIZER Unavailable Caitlin Mabry RN Unavailable Lo Scott RN Unavailable Alexa Burton MA Unavailable Devora Lindsay SUPERVISOR BRINE-TOBACCO SIZER Unavailable Lee Trujillo RN Unavailable Gabby Gilbert MD Unavailable Evelyn Azul Unavailable Holli Wellington SUPERVISOR BRINE-TOBACCO SIZER Unavailable Evelyn Azul Unavailable Gabby Gilbert MD Unavailable [phone] Glen Banks MD Unavailable [phone] Holli Wellington SUPERVISOR BRINE-TOBACCO SIZER Unavailable Merary Alston SUPERVISOR BRINE-TOBACCO SIZER Primary Care Provid er Shawn Whitmore PA-C Unavailable [phone] Encounter Details Date Type Department Care Team (Late st Contact Info) Description 06/14/2017 [facility] Outpatient Visit [facility] Orthopedics - Radiology [address] [place] [address] Dell Walker PA-C [address] [place] [address] Social History Tobacco Use Types Packs/Day Years Used Date Smoking Tobacco: Every Day Cigarettes 1 30 Smokeless Tobacco: Never Alcohol Use Standard Drinks/Week Comments Yes 1 (1 standard drink = 0.6 oz pur e alcohol) Sex and Gender Information Value Date Recorded Sex Assigned at Not on file Legal Sex Male 6:03 AM GAME ARTIST Gender Identity Not on file Sexual Orientation [...] tobacco Lifestyle No Liberty Yoder MA [facility] Lifestyle: Have labs drawn Lifestyle Liberty Pritchett MA Have labs drawn Lifestyle Liberty Pritchett MA documented as of this encounter Visit Diagnoses Not on filedocumented in this encounter Care Teams Company Laborer Relationship Specialty Start Date End Date Gabby Gilbert MD [address] [place] [address] PCP - General Family Medicine 06/04/15 05/04/24 Holli Wellington APRN-TOBACCO SIZER [address] [place] [address] [place] [address] PCP - Attributed-MSSP 11/29/18 06/04/19 Gabby Gilbert MD [address] [place] [address] PCP - Attributed-MSSP 03/01/21 06/28/21 Holli Wellington APRN-TOBACCO SIZER [address] [place] [address] [place] [address] PCP - Attributed-MSSP 06/29/21 05/30/23 Devora Lindsay SUPERVISOR BRINE-TOBACCO SIZER [address] [place] [address] PCP - Attributed-MSSP 05/31/23 08/29/23 Gabby Gilbert MD [address] [place] [address] [address] [place] [address] PCP - Attributed-MSSP 08/30/23 11/29/23 Holli Wellington SUPERVISOR BRINE-TOBACCO SIZER [address] [place], [place] [address] [address] [place] [phone] PCP - Attributed-MSSP 11/30/23 06/28/24 Gabby Gilbert MD [address] [place] [address] [place] [address] PCP - Attributed-MSSP 04/29/18 07/29/18 [place] [address] [place] [address] [address] [place], [place] [address] PCP - Attributed-MSSP 09/29/18 11/28/18 Holli Wellington SUPERVISOR BRINE-TOBACCO SIZER [address] [place], [place] [address] [address] [place] [phone] PCP - Attributed-MSSP 07/30/18 09/28/18 Merary Alston SUPERVISOR BRINE-TOBACCO SIZER [address] [place], [place] [phone] PCP - General Nurse Practitioner 05/05/24 Shawn Whitmore PA-C [address] [place] [address] [address] [place] [address] PCP - Attributed-MSSP 06/29/24 Glen Banks MD [address] [facility] [address] [place] [address] Psychiatry 01/02/14 05/25/23 Pascual Lamar DO [address] [place] [address] [address] [place] [phone] Hand Surgery 12/19/14 Jerrell Qureshi DO [address] [place] [address] Fountain Waitress/Waiter 06/04/15 Alex Cage MD [address] [place], [place] [address]y [address] [place] [address] Endocrinology 06/04/15 Lewis Barahona DO [address] [place], [place] [address] [address] [place] [address] Orthopedic Surgery 05/25/17 Caitlin Mabry RN External AuditorBoarder Hand 03/04/21 03/16/23 Caitlin Mabry RN Care Management 03/04/21 03/09/23 Lo Scott RN [address] [facility] [address] [place] [address] External AuditorBoarder Hand 03/09/23 06/03/23 Alexa Burton, HERON Care Coordination Specialist Care Management 05/28/23 05/28/23 Lee Trujillo, RN [address] [place] [address] External AuditorBoarder Hand 11/04/23 11/05/23 Evelyn Azul [address] [place] [address] Care Coordination Specialist Care Management 12/02/23 01/16/24 Evelyn Azul[address] [place] [address] Care Coordination Specialist Care Management 03/08/24 04/22/24 documented as of this encounter
--- OUTSIDE RECORDS SUMMARY | 2024-12-21 08:39 | XMS_ITS | Clinical Summary ---
Author Organization [facility] Address [address] [place] [address] Care Team Providers Care Billboard Installer Name Role Phone Pascual Lamar DO Unavailable Jerrell Qureshi DO Unavailable Alex Cage MD Unavailable Lewis Barahona DO Unavailable [phone] Merary Alston SIGNAL ENGINEER-CULVERT INSTALLER Primary Care Provid er Shawn Whitmore PA-C Unavailable [phone] Source Comments [facility], formerly [facility],non-owned Affiliates and Associated Physician Practices is amultiple site organization consisting of ambulatory clinics and hospital sitesin [place], [place], [place] and [place]. This disclosure is being madepursuant to the Care Everywhere program and may not contain all information available regarding this patient. 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 04/09/2014 06/04/2015 Overview (05/30/2015): Cee Rincon, OD 02/07/15 longterm current use of insulin 04/09/2014 06/04/2015 Hyperlipidemia 01/10/2014 06/04/2015 Overview (01/10/2014): 19% AHA 12/2013 Severe major depression with psychotic features 01/10/2014 06/04/2015 DM II with ophthalmic manifestations 12/17/2013 05/30/2015 History of hepatitis B 12/17/201306/03 Depression 12/17/2013 06/04/2015 IBS (irritable bowel syndrome) 12/17/2013 06/04/2015 Tobacco abuse 12/13/2013 06/04/2015 Encounters Date Type Department Care Team Description 10/28/2024 Orders Only [facility] - Urology [address], [address] [place] [address] Cordelia Fine, RN Benign prostatic hyperplasia with [...] oz pur e alcohol) Social Connection and Isolation Panel Answer Date Recorded In a typical week, how many times do you talk on the phone with family, friends, or neighbors? Once a week 06/09/2022 How often do you get togethe r with friends or relatives? More than three times a week 06/09/2022 How often do you attend [facility] or methodist services? More than 4 times per year 06/09/2022 Do you belong to any clubs o r organizations such as jainism groups, unions, fraternal or athletic groups, or [...] Recorded Patient Health Questionnaire-2 Score 0 11/11/2023 [facility] of Occupat ional Health - Occupational Stress [...] on file Legal Sex Male 6:03 AM JAVA APPLICATION ENGINEER Gender Identity Not on file Sexual [...] Oxygen Concentration 100% 03/25/2020 6 :38 PM JAVA APPLICATION ENGINEER Weight 80.6 kg (177 lb 12.8 oz) [...] EXAM WITH MONOFILAMENT 08/17/2024 08/18/2023, 01/10/2014, 01/10/2014 COVID-19 VACCINE ( season) 2024 11/15/2023, 05/26/2023, 04/08/2022, Additional history exists DIABETES-SERUM CREATININE 11/01/20242023, 08/19/2023, 08/17/2023, Additional history exists COLON MONITORING 12/06/2026 12/07/2023, 04/2023, 12/01/2023, Additional history exists Colorectal Cancer Screening 12/06/2026 COLONOSCOPY - COLON CA SCREENING 12/06/2033 12/07/2023, 12/01/2023, 12/01/2023, Additional history exists HEPATITIS C SCREENING Completed 01/15/2014 ZOSTER VACCINE Completed 11/09/2022, 09/07/2022 PNEUMOCOCCAL VACCINE 50+ Completed 05/26/2023, 12/30 INFLUENZA VACCINE Completed 11/17/2024, , 11/15/2023, Additional history exists HEPATITIS B VACCINE Aged [...] MEDICAL CENTER Lifestyle: Have labs drawn Lifestyle No Liberty Yoder MA Have labs drawn Lifestyle No Liberty Yoder MA Medical Devices Implanted Type Area Portable Grinding Machine Operator Device Identifier Shelf Expiration Date Model / Serial / Lot Plate Lopro 5 Hl Lck Mdlr Ss Ankl Rt Fib Implanted:Qty: 1 on 04/22/2017 by Lewis Barahona DO at [facility] Right: Ankle [employer] [id number] 5 / / Screw Bn 2.7mm 12mm Loprfl Scr Ss Ft T10 Implanted:Qty: 1 on 04/22/2017 by Lewis Barahona DO at [facility] Right: Ankle [employer] AR-[id number]-12 / / Screw Bn 2.7mm 14mm Loprfl Scr Ss Ft T10 Implanted:Qty: 2 on 04/22/2017 by Lewis Barahona DO at [facility] Right: Ankle [employer] AR-[id number]-14 / / Screw Bn 3.5mm 14mm Loprfl Scr Ss T15 Ft Implanted:Qty: 1 on 04/22/2017 by Lewis Barahona DO at [facility] Right: Ankle [employer] AR-8835-14 / / Screw Bn 2.7mm 16mm Loprfl Scr Ss Ft T10 Implanted:Qty: 1 on 04/22/2017 by Lewis Barahona DO at [facility] Right: Ankle [employer] AR-[id number]-16 / / Screw Bn 3.5mm 16mm Loprfl Scr Ss T15 Ft Implanted:Qty: 1 on 04/22/2017 by Lewis Barahona DO at [facility] Right: Ankle [employer] AR-8835-16 / / Screw Bn 3.5mm 14mm Loprfl Scr Ss T15 Ft Implanted:Qty: 2 on 04/22/2017 by Lewis Barahona DO at [facility] Right: Ankle [employer] AR-8835L-14 / / Screw Bn 4mm 40mm Loprfl Scr Ss Lng .5 Implanted:Qty: 1 on 04/22/2017 by Lewis Barahona DO at [facility] Right: Ankle [employer] AR-[id number]-4 0 / [...] URINE RANDOM PANEL Routine 02/03/2023 9:16 AM JAVA APPLICATION ENGINEER 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 Procedure Code(s): --- Professional --- 19351, Colonoscopy, flexible; with biopsy, single or multiple --- Technical --- 90636, Colonoscopy, flexible; with biopsy, single or multiple [...] specified diseases of intestine CPT copyright 2020 [employer]. All rights reserved. The codes documented in this report are preliminary and upon research physicist review may be revised to meet current compliance requirements. Trevor Morrison MD 12/01/2023 9:38:03 AM This report has been signed electronically. Number of Addenda: 0 Note Initiated On: 12/01/2023 9:02 AM Procedure Date: 12/01/2023 9:02:31 AM Scope Withdrawal Time: 0 hours 20 minutes [address] [facility] ENDOSCOPY 12/01/2023 9:02 AM CDT Trevor Morrison MD GI PROCEDURE ORDERABLES Bossman michael Result - Final [facility] ENDOSCOPY * (ABNORMAL) HEMOGLOBIN A1C (11/02/2023 6:28 AM CDT) Pathologist [facility] Hemoglobin A1c 6.5(H) <5.7 % 11/02/2023 7:05 AM CDT [facility] Estimated Average Glucose 140 mg/dL 11/02/2023 7:05 AM CDT [facility] Blood BLOOD SPECIMEN / Unknown Venipuncture / Unknown 11/02/2023 6:28 AM CDT 11/02/2023 6:37 AM CDT Narrative [facility] - 11/02/2023 7:05 AM CDT HbA1c [...] LAB - CHEMISTRY ORDERABLES Jaimie l Result [facility] [address] [place] [address] * (ABNORMAL) COMPREHENSIVE METABOLIC PANEL (11/02/2023 6:28 AM CDT) [facility] Glucose 192(H) 70 - 105 mg/dL 11/02/2023 7:00 AM [facility] Sodium 139 136 - 145 mmol/L 11/02/2023 7:00 AM [facility] Potassium 4.2 3.5 - 5.1 mmol/L 11/02/2023 7:00 AM [facility] Chloride 109(H) 98 - 107 mmol/L 11/02/2023 7:00 AM [facility] CO2 20(L) 22 - 29 mmol/L 11/02/2023 7:00 AM [facility] Calcium 9.6 8.4 - 10.4 mg/dL 11/02/2023 7:00 AM [facility] Anion Gap 10 6 - 16 mmol/L 11/02/2023 7:00 AM [facility] BUN 17 7 - 26 mg/dL 11/02/2023 7:00 AM [facility] Creatinine 0.87 0.72 - 1.25 mg/dL 11/02/2023 7:00 AM [facility] Alkaline Phosphatase 149 40 - 150 U/L 11/02/2023 7:00 AM [facility] ALT 63(H) 0 - 55 U/L 11/02/2023 7:00 AM [facility] AST 28 5 - 34 U/L 11/02/2023 7:00 AM [facility] Protein Total 6.5 6.4 - 8.3 gm/dL 11/02/2023 7:00 AM [facility] Albumin 4.0 3.4 - 5.0 gm/dL 11/02/2023 7:00 AM [facility] Bilirubin Total 0.8 0.2 - 1.2 mg/dL 11/02/2023 7:00 AM [facility] eGFR by CKD-EPI >90 >=90 mL/min/1.7 3 m2 11/02/2023 7:00 AM [facility] Blood BLOOD SPECIMEN / Unknown Venipuncture / Unknown 11/02/2023 6:28 AM CDT 11/02/2023 6:37 AM T Jamila Zapata MD LAB - CHEMISTRY ORDERABLES Jaimie l Result [facility] [address] [place] [address] * MICROALB/CREAT RATIO URINE RANDOM PANEL (02/03/2023 9:16 AM JAVA APPLICATION ENGINEER) Creatinine Urine 147.89 mg/dL [facility] INSURANCE BILL Microalbumin Urine 0.8 mg/dL [facility] INSURANCE BILL Microalbumin/Crea tinine Ratio 5 <30 mg/g [facility] INSURANCE BILL Comment:FASTING Urine URINE SPECIMEN OBTAINED BY CLEAN CATCH PROCEDURE / Unknown 02/03/2023 9:16 AM JAVA APPLICATION ENGINEER 02/03/2023 Narrative Resulting Agency Comment Lab Testing performed at: [facility] [address] [place] [id number] Holli Wellington SIGNAL ENGINEER-CULVERT INSTALLER LAB - URINE CHEMISTRY OR DERABLES Final Result [facility] INSURANCE BILL [address] [place] [address] * EYE EXAM (08/26/2022) Anatomical Region Laterality [...] DATE/TIME OF EXAM: 12/10/2021 9:32 AM, LOCATION [facility] INDICATION: Z87.891: Personal history of nicotine dependence [...] search: Lung-RADS Lung Cancer Screening 3) Contact [facility] thoracic nurse coordinator ([phone]) (Data Mining Phrase: [facility]-LungNodule ) > Interpreting Provider: Teddy Richards MD on 12/10/2021 10:25 AM Procedure Note Teddy Richards MD - 12/10/2021 PROCEDURE: CT LUNG SCREEN LOW DOSE, DATE/TIME OF EXAM: 12/10/2021 9:32 AM, LOCATION [facility] INDICATION: Z87.891: Personal history of nicotine dependence [...] search: Lung-RADS Lung Cancer Screening 3) Contact [facility] thoracic nurse coordinator ([phone]) (Data Mining Phrase: [facility]-LungNodule ) > Interpreting Provider: Teddy Richards MD on 12/10/2021 10:25 AM Gabby Gilbert MD CT ORDERABLES Final Result from Last 3 Months or Most Recently Relevant to Health Maintenance Insurance MEDICARE SELF PAY NO INSURANCE Member Subscriber Plan / Payer (Ef fective for All Dates) Name:Pedro Avelar Member ID:Not on file Relation to Subscriber:Not on file Name:PEDRO AVELAR Subscriber ID:Not on file (Home) Address: [address] [place] [id number] Payer ID:Not on file Group ID:Not on file Type:Self Pay Address: [place], [place] MEDICARE Advance Directives * Full Code (Latest Code Status on File) Date Activated Date Inactivated Comments 11/01/2023 11:26 AM 11/03/2023 6:11 PM * Full Code Date Activated Date Inactivated Comments 04/22/2017 6:02 PM 04/24/2017 4:48 PM * Full Code Date Activated Date Inactivated Comments 04/21/2017 2:18 PM 04/22/2017 6:02 PM Care Teams Billboard Installer Relationship Specialty Start Date End Date Merary Alston July, SIGNAL ENGINEER-CULVERT INSTALLER [address] [place] [phone] PCP - General Nurse Practitioner 05/05/24 Shawn Whitmore PA-C [address] [place] [address] PCP - Attributed-MSSP 06/29/24 Pascual Lamar DO [facility] [facility] [address] [place] [phone] Hand Surgery 12/19/14 eJrrell Qureshi DO [address] [place] [address] Material Controller 06/04/15 Alex Cage MD [address] [place] [address] [address] [place] [phone] Endocrinology 06/04/15 Lewis Barahona DO [address] [place] [address] [address]kw[address] [place] [phone] Orthopedic Surgery 05/25/17
--- OUTSIDE RECORDS SUMMARY | 2024-12-21 08:39 | XMS_ITS | Encounter Summary ---
Author Organization [facility] Address [address] [facility] [place] [address] Care Team Providers Care Water Resources Project Manager Name Role Phone Glen Banks MD Unavailable [phone] Pascual Lamar DO Unavailable Gabby Gilbert MD Primary Care Provider Jerrell Qureshi DO Unavailable Alex Cage MD Unavailable Lewis Barahona DO Unavailable Holli Wellington INDUSTRIAL RELATIONS REPRESENTATIVE-APPLICATION ADMINISTRATOR Unavailable Caitlin Mabry RN Unavailable Gabby Gilbert MD Unavailable Holli Wellington INDUSTRIAL RELATIONS REPRESENTATIVE-APPLICATION ADMINISTRATOR Unavailable Caitlin Mabry RN Unavailable Lo Scott RN Unavailable Alexa Burton MA Unavailable Devora Lindsay INDUSTRIAL RELATIONS REPRESENTATIVE-APPLICATION ADMINISTRATOR Unavailable Lee Trujillo RN Unavailable Gabby Gilbert MD Unavailable Evelyn Azul Unavailable Holli Wellington INDUSTRIAL RELATIONS REPRESENTATIVE-APPLICATION ADMINISTRATOR Unavailable Evelyn Azul Unavailable Gabby Gilbert MD Unavailable Glen Banks MD Unavailable [phone] Holli Wellington INDUSTRIAL RELATIONS REPRESENTATIVE-APPLICATION ADMINISTRATOR Unavailable [phone] Merary Alston INDUSTRIAL RELATIONS REPRESENTATIVE-APPLICATION ADMINISTRATOR Primary Care Provid er Shawn Whitmore PA-C Unavailable [phone] Encounter Details Date Type Department Care Team (Late st Contact Info) Description 05/07/2017 [facility] Outpatient Visit [facility] Orthopedics - Radiology [address] [place] [address] Dell Walker PA-C [address] [place] [address] Social History Tobacco Use Types Packs/Day Years Used Date Smoking Tobacco: Every Day Cigarettes 1 30 Smokeless Tobacco: Never Alcohol Use Standard Drinks/Week Comments Yes 1 (1 standard drink = 0.6 oz pur e alcohol) Sex and Gender Information Value Date Recorded Sex Assigned at Not on file Legal Sex Male 6:03 AM MORTGAGE BANKER Gender Identity Not on file Sexual Orientation [...] using tobacco Lifestyle No Liberty Yoder MA [facility] Lifestyle: Have labs drawn Lifestyle Liberty Pritchett MA Have labs drawn Lifestyle Liberty Pritchett MA documented as of this encounter Visit Diagnoses Not on filedocumented in this encounter Care Teams Water Resources Project Manager Relationship Specialty Start Date End Date Gabby Gilbert MD [address] [place] [address] PCP - General Family Medicine 06/04/15 05/04/24 Holli Wellington APRN-APPLICATION ADMINISTRATOR [address] [place] [address] [place] [phone] PCP - Attributed-MSSP 11/29/18 06/04/19 Gabby Gilbert MD [address] [place] [address] PCP - Attributed-MSSP 03/01/21 06/28/21 Holli Wellington APRN-APPLICATION ADMINISTRATOR [address] [place] [address] [place] [phone] PCP - Attributed-MSSP 06/29/21 05/30/23 Devora Lindsay INDUSTRIAL RELATIONS REPRESENTATIVE-APPLICATION ADMINISTRATOR [address] [place] [address] PCP - Attributed-MSSP 05/31/23 08/29/23 Gabby Gilbert MD [address] [place] [address] [address] [place] [address] PCP - Attributed-MSSP 08/30/23 11/29/23 Holli Wellington INDUSTRIAL RELATIONS REPRESENTATIVE-APPLICATION ADMINISTRATOR [address] [place], [place] [address]y [address] [place] [phone] PCP - Attributed-MSSP 11/30/23 06/28/24 Gabby Gilbert MD [address] [place] [address] [place] [address] PCP - Attributed-MSSP 04/29/18 07/29/18 [place] [address] [place] [address] [address] [place], [place] [phone] PCP - Attributed-MSSP 09/29/18 11/28/18 Holli Wellington INDUSTRIAL RELATIONS REPRESENTATIVE-APPLICATION ADMINISTRATOR [address] [place], [place] [address]y [address] [place] [phone] PCP - Attributed-MSSP 07/30/18 09/28/18 Merary Alston INDUSTRIAL RELATIONS REPRESENTATIVE-APPLICATION ADMINISTRATOR [address] [place], [place] [phone] PCP - General Nurse Practitioner 05/05/24 Shawn Whitmore PA-C [address] [place] [address] [address] [place] [address] PCP - Attributed-MSSP 06/29/24 Glen Banks MD [address] [facility] [address] [place] [address] Psychiatry 01/02/14 05/25/23 Pascual Lamar DO [address] [place] [address] [address] [place] [phone] Hand Surgery 12/19/14 Jerrell Qureshi DO [address] [place] [address] Cable Stretcher And Tester 06/04/15 Alex Cage MD [address] [place], [place] [address]y [address] [place] [address] Endocrinology 06/04/15 Lewis Barahona DO [address] [place], [place] [address]wy [address] [place] [phone] Orthopedic Surgery 05/25/17 Caitlin Mabry RN Trolley WorkerPlastics Technician 03/04/21 03/16/23 Caitlin Mabry RN Care Management 03/04/21 03/09/23 Lo Scott RN [address] [facility] [address] [place] [address] Trolley WorkerPlastics Technician 03/09/23 06/03/23 Alexa Burton, HERON Care Coordination Specialist Care Management 05/28/23 05/28/23 Lee Trujillo, RN [address] [place] [address] Trolley WorkerPlastics Technician 11/04/23 11/05/23 Evleyn Azul [address] [place] [address] Care Coordination Specialist Care Management 12/02/23 01/16/24 Evelyn Azul[address] [place] [address] Care Coordination Specialist Care Management 03/08/24 04/22/24 documented as of this encounter
--- OUTSIDE RECORDS SUMMARY | 2024-12-21 08:39 | XMS_ITS | Patient Health Record ---
Author Organization [facility] Address [address] [facility] [address] [place] [address] Care Team Providers Care Timber Selector Name Role Phone Merary Amezcua Primary Care Provider Unavail able Lola Davis Unavailable [phone] Roberto Mccarty Unavailable [phone] Allergies No Known Allergies Reason For Referral [...] 500 MG 1 tablet Orally Twice a day; Duration: 10 days 05/22/2024 Active metFORMIN HCl Active [...] Status W/U Status Risk Notes Problem Flatulence (404743471) Flatulence (R14.3) Active confirmed Problem Colon cancer screening (642888424) Colon cancer screening (Z12.11) Active confirmed Patient reports recent colonoscopy revealed 5 colon polyps which were removed. These records are unavailable for review. Problem Elevated liver enzymes level (086681219) Elevated liver enzymes (R74.8) Active confirmed Mildly elevated liver enzymes. Is certainly possible this may be secondary to fatty liver. His most recent hemoglobin A1c was 8.7. Will obtain records. Problem Constipation (69880974) Constipation (K59.00) Active confirmed Patient has a history of chronic constipation. He is up-to-date with colon cancer screening. Differential diagnosis includes irritable bowel syndrome, side effect of medication, secondary to diet, and other. Problem Gastroesophageal reflux disease (disorder) (551261433) Chronic GERD (K21.9) Active confirmed Patient is currently on omeprazole 40 mg daily and denies any symptoms. He reports recent upper endoscopy revealed findings secondary to acid reflux. Problem Right sided abdominal pain (331120212) Right sided abdominal pain (R10.9) Active confirmed [...] has been tested for celiac disease. Problem Hepatitis B (02695994) Hepatitis B (B19.10) Active confirmed Patient reports exposure in [place] war but reports hepatitis B DNA was [...] Abnormal Encounters Encounter Location Date Provider Diagnosis [facility], [address] [place] [address] 03/28/2024 Lola Ryan Right sided abdomina l pain R10.9 ; Chronic GERD K21.9 ; Constipation K59.00 ; Flatulence R14.3 ; Hepatitis B B19.10 ; Elevated liver enzymes R74.8 and Colon cancer screening Z12.11 [facility], [address] [place] [address] 05/17/2024 Roberto Mccarty Right sided abdomina l pain R10.9 [facility], [address] [place] [address] 02/11/2024 [facility], [address] [place] [phone] 03/31/2024 [facility], [address] [place] [address] 03/31/2024 [facility], [address] [place] [phone] 05/17/2024 [facility], [address] [place] [address] 05/17/2024 Roberto Mccarty Assessments Encounter Date Diagnosis [...] (ICD-10 - B19.10) Patient reports exposure in [place] war but reports hepatitis B DNA was [...] Coverage End Date Medicare E2 [address] [address] [place] [address] [id number] Rafael Hall Self - patient is the [...]
== END 2024-12-21 08:31 | disposition home or self-care (01) ==
PROVIDERS: PCP Nurse Practitioner; Visit Provider Nurse Practitioner
DX: R74.8 Abnormal levels of other serum enzymes (principal)
CPT/HCPCS: 76705

== ENCOUNTER 2025-01-03 09:21 | Outpatient (CLI) | payer MEDICARE, SELFPAY ==
--- OUTSIDE RECORDS SUMMARY | 2024-04-11 02:00 | XMS_ITS ---
Author Organization [employer], [facility] Address [address] [place] [address] Dr. Hoffman [address] [place] [address] Care Team Providers Care Digital Production Manager Name Role Phone Merary Amezcua Primary Care Provider Unavail Roberto Kraus Unavailable [phone] REASON FOR VISIT Right Side Ab Pain Encounters Encounter Location Date Provider Diagnosis [facility], [address] Hoffman [address] [place] [address] 04/11/2024 Roberto Mccarty Plan Of Treatment No Information Progress Notes * Rafael AVELARDOB: 7 (69 yo M)Acc No.[id number]:04/11/2024 Patient: Rafael PEREZ Provider: Sona Mccarty D.O. :1955 A ge:69 Y S ex:Male Date:04/11/2024 Address:[address] [place], [place] [id number] Pcp:Merary GAVIN Subjective: * Chief Complaints: * 1 . Right Side Ab Pain. * Medical History: Objective: * Vitals: Assessment: Plan: * Treatment: * * Electronic signature of Christiano Mccarty DO on 01/03/2025 at 10:04 AM CARDIOLOGY CONSULTANT Sign off status: Pending * Provider: Sona Mccarty D.O. Date: 0 04/11/2024 Generated for Reba gu/Elke/eTmohansmitting on: 1 03/05/2024 10:04 AM CARDIOLOGY CONSULTANT
--- OUTSIDE RECORDS SUMMARY | 2024-04-25 02:00 | XMS_ITS ---
Author Organization [facility] [employer], [facility] Address [address] [place] [address] Dr. Hoffman [address] [place] [address] Care Team Providers Care Mine Motor Engineer Name Role Phone Merary Amezcua Primary Care Provider Unavail Roberto Kraus Unavailable [phone] REASON FOR VISIT Right Side Ab Pain Encounters Encounter Location Date Provider Diagnosis [facility], [address] Hoffman [address] [place] [address] 04/25/2024 Roberto Mccarty Plan Of Treatment No Information Progress Notes * Rafael AVELARDOB: 7 (69 yo M)Acc No.[id number]:04/25/2024 Patient: Rafael PEREZ Provider: Sona Mccarty D.O. :1955 A ge:69 Y S ex:Male Date:04/25/2024 Address:[address] [place], [place] [id number] Pcp:Merary GAVIN Subjective: * Chief Complaints: * 1 . Right Side Ab Pain. * Medical History: Objective: * Vitals: Assessment: Plan: * Treatment: * * Electronic signature of Christiano Mccarty DO on 01/03/2025 at 10:03 AM SUPERVISOR FINISHING ROOM Sign off status: Pending * Provider: Sona Mccarty D.O. Date: 0 04/25/2024 Generated for Reba gu/Elke/eTmohansmitting on: 1 03/05/2024 10:03 AM SUPERVISOR FINISHING ROOM
--- OUTSIDE RECORDS SUMMARY | 2024-05-10 02:00 | XMS_ITS ---
Author Organization [employer], [facility] Address [address] [place] [address] Dr. Hoffman [address] [place] [address] Care Team Providers Care Director Peoplesoft Name Role Phone Merary Amezcua Primary Care Provider Unavail Roberto Kraus Unavailable [phone] REASON FOR VISIT Right sided abd pain Encounters Encounter Location Date Provider Diagnosis [facility], [address] Hoffman [address] [place] [address] 05/10/2024 Roberto Mccarty Plan Of Treatment No Information Progress Notes * Rafael AVELARDOB: 7 (69 yo M)Acc No.[id number]:05/10/2024 Patient: Rafael PEREZ Provider: Sona Mccarty D.O. :1955 A ge:69 Y S ex:Male Date:05/10/2024 Address:[address] [place], [place] [id number] Pcp:Merary GAVIN Subjective: * Chief Complaints: * 1 . Right sided abd pain. * Medical History: Objective: * Vitals: Assessment: Plan: * Treatment: * * Electronic signature of Christiano Mccarty DO on 01/03/2025 at 10:03 AM RICE DRYER MECHANIC Sign off status: Pending * Provider: Sona Mccarty D.O. Date: 0 05/10/2024 Generated for Reba gu/Elke/eTmohansmitting on: 1 03/05/2024 10:03 AM RICE DRYER MECHANIC
[2025-01-03 09:59] LABS: Hematocrit 46.2 % (42.0-52.0); Hemoglobin 15.7 g/dL (14.0-18.0); Immature Granulocyte Percent A 0.3 % (0-0.5); Lymphocytes Absolute Auto 2.41 K/mm3 (0.9-3.2); Mean Corpuscular HGB Conc 34.0 g/dl (32-36); Mean Corpuscular Hemoglobin 30.3 pg (26-34); Mean Corpuscular Volume 89.0 fl (80-100); Nucleated Red Blood Cells Absolute Auto 0.000 K/mm3 (0.0-0.012); Nucleated Red Blood Cells Perc 0.0 % (0.0-0.2); Platelet Count Result 222 k/mm3 (150-375); Red Blood Count 5.19 M/mm3 (4.6-6.20); White Blood Count 7.6 K/mm3 (4.5-10.0)
--- OUTSIDE RECORDS SUMMARY | 2025-01-03 10:03 | XMS_ITS | Clinical Summary ---
Author Organization [facility] Address [address] [place] [address] Phone Care Team Providers Care Director Of Student Affairs Name Role Phone Tex Colby MD Primary [...] 15 mg by mouth. 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
--- OUTSIDE RECORDS SUMMARY | 2025-01-03 10:03 | XMS_ITS | Clinical Summary ---
Author Organization [facility] [employer] Address [address] [place] [address] Care Team Providers Care Cigar Making Supervisor Name Role Phone Pascual Lamar DO Unavailable [phone] Jerrell Qureshi DO Unavailable Alex Cage MD Unavailable Lewis Barahona DO Unavailable [phone] Merary Alston VOCATIONAL EXAMINER-ASSISTANT SUPERINTENDENT Primary Care Provid er Shawn Whitmore PA-C Unavailable [phone] Source Comments [facility],non-owned Affiliates and Associated Physician Practices is amultiple site organization consisting of ambulatory clinics and hospital sitesin [place], [place], [place] and [place]. This disclosure is being madepursuant to the Care Everywhere program and may not contain all information available regarding this patient. 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 04/09/2014 06/04/2015 Overview (05/30/2015): Cee Rincon, OD 02/07/15 nursing home current use of insulin 04/09/2014 06/04/2015 Hyperlipidemia 01/10/2014 06/04/2015 Overview (01/10/2014): 19% AHA 12/2013 Severe major depression with psychotic features 01/10/2014 06/04/2015 DM II with ophthalmic manifestations 12/17/2013 05/30/2015 History of hepatitis B 12/17/201306/03 Depression 12/17/2013 06/04/2015 IBS (irritable bowel syndrome) 12/17/2013 06/04/2015 Tobacco abuse 12/13/2013 06/04/2015 Encounters Date Type Department Care Team Description 10/28/2024 Orders Only [facility] - Urology [address], [address] [place] [address] Cordelia Fine, RN Benign prostatic hyperplasia with [...] week 06/09/2022 How often do you attend [facility] or catholic services? 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 DRIVER Gender Identity Not on file Sexual Orientation [...] Oxygen Concentration 100% 03/25/2020 6 :38 PM JINRIKSHA DRIVER Weight 80.6 kg (177 lb 12.8 oz) [...] using tobacco Lifestyle No Liberty Yoder MA [facility] Lifestyle: Have labs drawn Lifestyle No Liberty Yoder MA Have labs drawn Lifestyle No Liberty Yoder MA Medical Devices Implanted Type Area Negative Stripper Device Identifier Shelf Expiration Date Model / Serial / Lot Plate Lopro 5 Hl Lck Mdlr Ss Ankl Rt Fib Implanted:Qty: 1 on 04/22/2017 by Lewis Barahona DO at [facility] Right: Ankle [employer] AR-[id number]-0 5 / / Screw Bn 2.7mm 12mm Loprfl Scr Ss Ft T10 Implanted:Qty: 1 on 04/22/2017 by Lewis Barahona DO at [facility] Right: Ankle [employer] AR-8827L-12 / / Screw Bn 2.7mm 14mm Loprfl Scr Ss Ft T10 Implanted:Qty: 2 on 04/22/2017 by Lewis Barahona DO at [facility] Right: Ankle [employer] AR-8827L-14 / / Screw Bn 3.5mm 14mm Loprfl Scr Ss T15 Ft Implanted:Qty: 1 on 04/22/2017 by Lewis Barahona DO at [facility] Right: Ankle [employer] AR-8835-14 / / Screw Bn 2.7mm 16mm Loprfl Scr Ss Ft T10 Implanted:Qty: 1 on 04/22/2017 by Lewis Barahona DO at [facility] Right: Ankle [employer] AR-8827L-16 / / Screw Bn 3.5mm 16mm Loprfl Scr Ss T15 Ft Implanted:Qty: 1 on 04/22/2017 by Lewis Barahona DO at [facility] Right: Ankle [employer] AR-8835-16 / / Screw Bn 3.5mm 14mm Loprfl Scr Ss T15 Ft Implanted:Qty: 2 on 04/22/2017 by Lewis Barahona DO at [facility] Right: Ankle [employer] AR-8835L-14 / / Screw Bn 4mm 40mm Loprfl Scr Ss Lng .5 Implanted:Qty: 1 on 04/22/2017 by Lewis Barahona DO at [facility] Right: Ankle [employer] AR-8840CL-4 0 / [...] URINE RANDOM PANEL Routine 02/03/2023 9:16 AM JINRIKSHA DRIVER 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 Procedure Code(s): --- Professional --- 98924, Colonoscopy, flexible; with biopsy, single or multiple --- Technical --- 66918, Colonoscopy, flexible; with biopsy, single or multiple [...] specified diseases of intestine CPT copyright 2020 [employer]. All rights reserved. The codes documented in this report are preliminary and upon funding coordinator review may be revised to meet current compliance requirements. Trevor Morrison MD 12/01/2023 9:38:03 AM This report has been signed electronically. Number of Addenda: 0 Note Initiated On: 12/01/2023 9:02 AM Procedure Date: 12/01/2023 9:02:31 AM Scope Withdrawal Time: 0 hours 20 minutes 42 seconds [facility] 12/01/2023 9:02 AM CDT Trevor Morrison MD GI PROCEDURE ORDERABLES Bossman michael Result - Final [facility] ENDOSCOPY * (ABNORMAL) HEMOGLOBIN A1C (11/02/2023 6:28 AM CDT) Pathologist [facility] Hemoglobin A1c 6.5(H) <5.7 % 11/02/2023 7:05 AM CDT [facility] Estimated Average Glucose 140 mg/dL 11/02/2023 7:05 AM CDT [facility] Blood BLOOD SPECIMEN / Unknown Venipuncture / Unknown 11/02/2023 6:28 AM CDT 11/02/2023 6:37 AM CDT Narrative [facility] - 11/02/2023 7:05 AM CDT HbA1c [...] LAB - CHEMISTRY ORDERABLES Jaimie l Result [facility] [address] [place] [address] * (ABNORMAL) COMPREHENSIVE METABOLIC PANEL (11/02/2023 6:28 AM CDT) [facility] Glucose 192(H) 70 - 105 mg/dL 11/02/2023 7:00 AM [facility] Sodium 139 136 - 145 mmol/L 11/02/2023 7:00 AM [facility] Potassium 4.2 3.5 - 5.1 mmol/L 11/02/2023 7:00 AM [facility] Chloride 109(H) 98 - 107 mmol/L 11/02/2023 7:00 AM [facility] CO2 20(L) 22 - 29 mmol/L 11/02/2023 7:00 AM [facility] Calcium 9.6 8.4 - 10.4 mg/dL 11/02/2023 7:00 AM [facility] Anion Gap 10 6 - 16 mmol/L 11/02/2023 7:00 AM [facility] BUN 17 7 - 26 mg/dL 11/02/2023 7:00 AM [facility] Creatinine 0.87 0.72 - 1.25 mg/dL 11/02/2023 7:00 AM [facility] Alkaline Phosphatase 149 40 - 150 U/L 11/02/2023 7:00 AM [facility] ALT 63(H) 0 - 55 U/L 11/02/2023 7:00 AM [facility] AST 28 5 - 34 U/L 11/02/2023 7:00 AM [facility] Protein Total 6.5 6.4 - 8.3 gm/dL 11/02/2023 7:00 AM [facility] Albumin 4.0 3.4 - 5.0 gm/dL 11/02/2023 7:00 AM [facility] Bilirubin Total 0.8 0.2 - 1.2 mg/dL 11/02/2023 7:00 AM [facility] eGFR by CKD-EPI >90 >=90 mL/min/1.7 3 m2 11/02/2023 7:00 AM [facility] Blood BLOOD SPECIMEN / Unknown Venipuncture / Unknown 11/02/2023 6:28 AM CDT 11/02/2023 6:37 AM T Jamila Zapata MD LAB - CHEMISTRY ORDERABLES Jaimie l Result [facility] [address] [place] [address] * MICROALB/CREAT RATIO URINE RANDOM PANEL (02/03/2023 9:16 AM JINRIKSHA DRIVER) Creatinine Urine 147.89 mg/dL [facility] INSURANCE BILL Microalbumin Urine 0.8 mg/dL [facility] INSURANCE BILL Microalbumin/Crea tinine Ratio 5 <30 mg/g [facility] INSURANCE BILL Comment:FASTING Urine URINE SPECIMEN OBTAINED BY CLEAN CATCH PROCEDURE / Unknown 02/03/2023 9:16 AM JINRIKSHA DRIVER 02/03/2023 Narrative Resulting Agency Comment Lab Testing performed at: [facility] [address] [place] GUZMAN [id number] Holli Wellington VOCATIONAL EXAMINER-ASSISTANT SUPERINTENDENT LAB - URINE CHEMISTRY OR DERABLES Final Result [facility] INSURANCE BILL [address] [place] [address] * EYE EXAM (08/26/2022) Anatomical Region Laterality [...] DATE/TIME OF EXAM: 12/10/2021 9:32 AM, LOCATION [facility] INDICATION: Z87.891: Personal history of [...] search: Lung-RADS Lung Cancer Screening 3) Contact [facility] thoracic nurse coordinator ([phone]) (Data Mining Phrase: [facility]-LungNodule ) > Interpreting Provider: Teddy iRchards MD on 12/10/2021 10:25 AM Procedure Note Teddy Richards MD - 12/10/2021 PROCEDURE: CT LUNG SCREEN LOW DOSE, DATE/TIME OF EXAM: 12/10/2021 9:32 AM, LOCATION [facility] INDICATION: Z87.891: Personal history of [...] search: Lung-RADS Lung Cancer Screening 3) Contact [facility] thoracic nurse coordinator ([phone]) (Data Mining Phrase: [facility]-LungNodule ) > Interpreting Provider: Teddy Richards [...] AVELAR Subscriber ID:Not on file (Home) Address: [address] [place] [phone] Payer ID:Not on file Group ID:Not on file Type:Self Pay Address: [place], [place] MEDICARE Advance Directives * Full Code (Latest Code Status on File) Date Activated Date Inactivated Comments 11/01/2023 11:26 AM 11/03/2023 6:11 PM * Full Code Date Activated Date Inactivated Comments 04/22/2017 6:02 PM 04/24/2017 4:48 PM * Full Code Date Activated Date Inactivated Comments 04/21/2017 2:18 PM 04/22/2017 6:02 PM Care Teams Cigar Making Supervisor Relationship Specialty Start Date End Date Merary Alston July, VOCATIONAL EXAMINER-ASSISTANT SUPERINTENDENT [address] [place] [phone] PCP - General Nurse Practitioner 05/05/24 Shawn Whitmore PA-C [address] [facility] [address] [place] [address] PCP - Attributed-MSSP 06/29/[address] [facility] [facility] [address] [place] [phone] Hand Surgery 12/19/14 Jerrell Qureshi DO [address] [place] [address] Clinical Ob 06/04/15 Alex Cage MD [address] [place] [address] [address] [place] [phone] Endocrinology 06/04/15 Lewis Barahona DO [address] [place] [address] [address] [place] [phone] Orthopedic Surgery 05/25/17
--- OUTSIDE RECORDS SUMMARY | 2025-01-03 10:03 | XMS_ITS | Patient Health Record ---
Author Organization [address] Address [address] [facility] [address] [place] [address] Care Team Providers Care [facility] Agent Name Role Phone Merary Amezcua Primary Care Provider Unavail able Lola Davis Unavailable [phone] Roberto Mccarty Unavailable [phone] Allergies No Known Allergies Reason For Referral [...] Status W/U Status Risk Notes Problem Flatulence (975458110) Flatulence (R14.3) Active confirmed Problem Colon cancer screening (028379460) Colon cancer screening (Z12.11) Active confirmed Patient reports recent colonoscopy revealed 5 colon polyps which were removed. These records are unavailable for review. Problem Elevated liver enzymes level (276515539) Elevated liver enzymes (R74.8) Active confirmed Mildly elevated liver enzymes. Is certainly possible this may be secondary to fatty liver. His most recent hemoglobin A1c was 8.7. Will obtain records. Problem Constipation (99197864) Constipation (K59.00) Active confirmed Patient has a history of chronic constipation. He is up-to-date with colon cancer screening. Differential diagnosis includes irritable bowel syndrome, side effect of medication, secondary to diet, and other. Problem Gastroesophageal reflux disease (disorder) (562477439) Chronic GERD (K21.9) Active confirmed Patient is currently on omeprazole 40 mg daily and denies any symptoms. He reports recent upper endoscopy revealed findings secondary to acid reflux. Problem Right sided abdominal pain (293513283) Right sided abdominal pain (R10.9) Active confirmed [...] tested for celiac disease. Problem Hepatitis B (33748753) Hepatitis B (B19.10) Active confirmed Patient reports exposure in [place] but reports hepatitis B DNA was [...] Abnormal Encounters Encounter Location Date Provider Diagnosis [facility], [address] [place] [address] 03/28/2024 Lola Ryan Right sided abdomina l pain R10.9 ; Chronic GERD K21.9 ; Constipation K59.00 ; Flatulence R14.3 ; Hepatitis B B19.10 ; Elevated liver enzymes R74.8 and Colon cancer screening Z12.11 [facility], [address] [place] [address] 05/17/2024 Roberto Mccarty Right sided abdomina l pain R10.9 [facility], [address] [place] [phone] 02/11/2024 [facility], [address] [place] [address] 03/31/2024 [facility], [address] [place] [address] 03/31/2024 [facility], [address] [place] [address] 05/17/2024 [facility], [address] [place] [address] 05/17/2024 Roberto Mccarty Assessments Encounter Date Diagnosis [...] (ICD-10 - B19.10) Patient reports exposure in [place] but reports hepatitis B DNA was [...] Coverage End Date Medicare E2 [address] [address] [place] [address] [id number] Rafael Hall Self - patient is the [...]
--- OUTSIDE RECORDS SUMMARY | 2025-01-03 10:03 | XMS_ITS | Encounter Summary ---
Author Organization [facility] Address [address] [place] [address] Care Team Providers Care Word Processing Specialist Name Role Phone Glen Banks MD Unavailable Pascual Lamar DO Unavailable Gabby [place] MD Primary Care Provider [phone] Jerrell Qureshi DO Unavailable Alex Cage MD Unavailable Lewis Barahona DO Unavailable Holli Wellington MAP COMPILER-TELEPHONE STATION REPAIRER Unavailable Caitlin Mabry RN Unavailable Gabby [place] MD Unavailable Holli Wellington MAP COMPILER-TELEPHONE STATION REPAIRER Unavailable Caitlin Mabry RN Unavailable Lo Scott RN Unavailable Alexa Burton MA Unavailable Devora Lindsay MAP COMPILER-TELEPHONE STATION REPAIRER Unavailable Lee Trujillo RN Unavailable Gabby [place] MD Unavailable Evelyn Azul Unavailable Holli Wellington MAP COMPILER-TELEPHONE STATION REPAIRER Unavailable Evelyn Azul Unavailable Gabby [place] MD Unavailable Glen Banks MD Unavailable [phone] Holli Wellington MAP COMPILER-TELEPHONE STATION REPAIRER Unavailable Merary Alston MAP COMPILER-TELEPHONE STATION REPAIRER Primary Care Provid er Shawn Whitmore PA-C Unavailable [phone] Encounter Details Date Type Department Care Team (Late st Contact Info) Description 06/14/2017 [facility] Outpatient Visit [facility] Orthopedics - Radiology [address] [place] [address] Dell Walker PA-C [address] [place] [address] Social History Tobacco Use Types Packs/Day Years Used Date Smoking Tobacco: Every Day Cigarettes 1 30 Smokeless Tobacco: Never Alcohol Use Standard Drinks/Week Comments Yes 1 (1 standard drink = 0.6 oz pur e alcohol) Sex and Gender Information Value Date Recorded Sex Assigned at Not on file Legal Sex Male 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 Gender Identity Not on file Sexual Orientation [...] using tobacco Lifestyle No Liberty Yoder MA [facility] Lifestyle: Have labs drawn Lifestyle Liberty Pritchett MA Have labs drawn Lifestyle Liberty Pritchett MA documented as of this encounter Visit Diagnoses Not on filedocumented in this encounter Care Teams Word Processing Specialist Relationship Specialty Start Date End Date Gabby [facility] MD [address] [place] [address] PCP - General Family Medicine 06/04/15 05/04/24 Holli Wellington APRN-TELEPHONE STATION REPAIRER [address] [place] [address] [place] [phone] PCP - Attributed-MSSP 11/29/18 06/04/19 Gabby Gilbert MD [address] [place] [address] PCP - Attributed-MSSP 03/01/21 06/28/21 Holli Wellington APRN-TELEPHONE STATION REPAIRER [address] [place] [address] [place] [phone] PCP - Attributed-MSSP 06/29/21 05/30/23 Devora Lindsay MAP COMPILER-TELEPHONE STATION REPAIRER [address] [place] [address] PCP - Attributed-MSSP 05/31/23 08/29/23 Gabby [facility] MD [address] [place] [address] [address] [place] [address] PCP - Attributed-MSSP 08/30/23 11/29/23 Holli Wellington MAP COMPILER-TELEPHONE STATION REPAIRER [address] [place], [place] [address]y [address] [place] [phone] PCP - Attributed-MSSP 11/30/23 06/28/24 Gabby [facility] MD [address] [place] [address] [place] [address] PCP - Attributed-MSSP 04/29/18 07/29/18 [place] [address] [place] [address] [address] [place], [place] [phone] PCP - Attributed-MSSP 09/29/18 11/28/18 Holli Wellington MAP COMPILER-TELEPHONE STATION REPAIRER [address] [place], [place] [address]y [address] [place] [phone] PCP - Attributed-MSSP 07/30/18 09/28/18 Merary Alston MAP COMPILER-TELEPHONE STATION REPAIRER [address] [place], [place] [phone] PCP - General Nurse Practitioner 05/05/24 Shawn Whitmore PA-C [address] [place] [address] [address] [place] [address] PCP - Attributed-MSSP 06/29/24 Glen Banks MD [address] [facility] [address] [place] [address] Psychiatry 01/02/14 05/25/23 Pascual Lamar DO [address] [place] [address] [address] [place] [phone] Hand Surgery 12/19/14 Jerrell Qureshi DO [address] [place] [address] Early Interventionist 06/04/15 Alex Cage MD [address] [place], [place] [address]y [address] [place] [address] Endocrinology 06/04/15 Lewis Barahona DO [address] [place], [place] [address] [address] [place] [phone] Orthopedic Surgery 05/25/17 Caitlin Mabry RN Consultant InternDrapery Estimator 03/04/21 03/16/23 Caitlin Mabry RN Care Management 03/04/21 03/09/23 Lo Scott RN [address] [facility] [address] [place] [address] Consultant InternDrapery Estimator 03/09/23 06/03/23 Alexa Burton, HERON Care Coordination Specialist Care Management 05/28/23 05/28/23 Lee Trujillo, RN [address] [place] [address] Consultant InternDrapery Estimator 11/04/23 11/05/23 Evelyn Azul [address] [place] [address] Care Coordination Specialist Care Management 12/02/23 01/16/24 Evelyn Azul[address] [place] [address] Care Coordination Specialist Care Management 03/08/24 04/22/24 documented as of this encounter
--- OUTSIDE RECORDS SUMMARY | 2025-01-03 10:04 | XMS_ITS | Encounter Summary ---
Author Organization [facility] Address [address] [place] [address] Care Team Providers Care Catalyst Recovery Operator Name Role Phone Glen Banks MD Unavailable Pascual Lamar DO Unavailable Gabby Gilbert MD Primary Care Provider Jerrell Qureshi DO Unavailable Alex Cage MD Unavailable Lewis Barahona DO Unavailable Holli Wellington BARIATRIC PROGRAM COORDINATOR-WIRE DRAWING MACHINE TENDER Unavailable Caitlin Mabry RN Unavailable Gabby Gilbert MD Unavailable Holli Wellington BARIATRIC PROGRAM COORDINATOR-WIRE DRAWING MACHINE TENDER Unavailable Caitlin Mabry RN Unavailable Lo Scott RN Unavailable Alexa Burton MA Unavailable Devora Lindsay BARIATRIC PROGRAM COORDINATOR-WIRE DRAWING MACHINE TENDER Unavailable Lee Trujillo RN Unavailable Gabby Gilbert MD Unavailable Evelyn Azul Unavailable Holli Wellington BARIATRIC PROGRAM COORDINATOR-WIRE DRAWING MACHINE TENDER Unavailable Evleyn Azul Unavailable Gabby Gilbert MD Unavailable [phone] Glen Banks MD Unavailable Holli Wellington BARIATRIC PROGRAM COORDINATOR-WIRE DRAWING MACHINE TENDER Unavailable [phone] Merary Alston BARIATRIC PROGRAM COORDINATOR-WIRE DRAWING MACHINE TENDER Primary Care Provid er Shawn Whitmore PA-C Unavailable [phone] Encounter Details Date Type Department Care Team (Late st Contact Info) Description 05/07/2017 [facility] Outpatient Visit [facility] Orthopedics - Radiology [address] [place] [address] Dell Walker PA-C [address] Medical [...] on file 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 Gender Identity Not on file Sexual Orientation [...] Lifestyle No Liberty Yoder MA [facility] Lifestyle: Have labs drawn Lifestyle Liberty Pritchett MA Have labs drawn Lifestyle Liberty Pritchett MA documented as of this encounter Visit Diagnoses Not on filedocumented in this encounter Care Teams Catalyst Recovery Operator Relationship Specialty Start Date End Date Gabby Gilbert MD [address] [place] [address] PCP - General Family Medicine 06/04/15 05/04/24 Holli Wellington APRN-WIRE DRAWING MACHINE TENDER [address] [place] [address] [place] [phone] PCP - Attributed-MSSP 11/29/18 06/04/19 Gabby Gilbert MD [address] [place] [address] PCP - Attributed-MSSP 03/01/21 06/28/21 Holli Wellington APRN-WIRE DRAWING MACHINE TENDER [address] [place] [address] [place] [address] [phone] PCP - Attributed-MSSP 06/29/21 05/30/23 Devora Lindsay BARIATRIC PROGRAM COORDINATOR-WIRE DRAWING MACHINE TENDER [address] [place] [address] PCP - Attributed-MSSP 05/31/23 08/29/23 Gabby Gilbert MD [address] [place] [address] [address] [place] [address] PCP - Attributed-MSSP 08/30/23 11/29/23 Holli Wellington BARIATRIC PROGRAM COORDINATOR-WIRE DRAWING MACHINE TENDER [address] [place], [place] [address]y [address] [place] [phone] PCP - Attributed-MSSP 11/30/23 06/28/24 Gabby Gilbert MD [address] [place] [address] [place] [address] PCP - Attributed-MSSP 04/29/18 07/29/18 [place] [address] [place] [address] [address] [place], [place] [phone] PCP - Attributed-MSSP 09/29/18 11/28/18 Holli Wellington BARIATRIC PROGRAM COORDINATOR-WIRE DRAWING MACHINE TENDER [address] [place], [place] [address]y [address] [place] [phone] PCP - Attributed-MSSP 07/30/18 09/28/18 Merary Alston BARIATRIC PROGRAM COORDINATOR-WIRE DRAWING MACHINE TENDER [address] [place], [place] [phone] PCP - General Nurse Practitioner 05/05/24 Shawn Whitmore PA-C [address] [place] [address] [address] [place] [address] PCP - Attributed-MSSP 06/29/24 Glen Banks MD [address] [facility] [address] [place] [address] Psychiatry 01/02/14 05/25/23 Pascual Lamar DO [address] [place] [address] [address] [place] [phone] Hand Surgery 12/19/14 Jerrell Qureshi DO [address] [place] [address] Child Nutrition Manager 06/04/15 Alex Cage MD [address] [place], [place] [address]y [address] [place] [address] Endocrinology 06/04/15 [place] Barahona DO [address] [place], [place] [address]wy [address] [place] [phone] Orthopedic Surgery 05/25/17 Caitlin Mabry RN Painter And Decorator ApprenticeFreight Associate 03/04/21 03/16/23 Caitlin Mabry RN Care Management 03/04/21 03/09/23 Lo Scott RN [address] [facility] [address] [place] [address] Painter And Decorator ApprenticeFreight Associate 03/09/23 06/03/23 Alexa Burton, HERON Care Coordination Specialist Care Management 05/28/23 05/28/23 Lee Trujillo, RN [address] [place] [address] Painter And Decorator ApprenticeFreight Associate 11/04/23 11/05/23 Evelyn Azul [address] [place] [address] Care Coordination Specialist Care Management 12/02/23 01/16/24 Evelyn Azul[address] [place] [address] Care Coordination Specialist Care Management 03/08/24 04/22/24 documented as of this encounter
--- OUTSIDE RECORDS SUMMARY | 2025-01-03 10:04 | XMS_ITS | Encounter Summary ---
Author Organization [facility] Address [address] [place] [address] Care Team Providers Care Warm In Worker Name Role Phone Ladonna Turcios MD Primary Care Provider [phone] Glen Banks MD Unavailable Pascual Lamar DO Unavailable Gabby Gilbert MD Primary Care Provider Jerrell Qureshi DO Unavailable Alex Cage MD Unavailable [place] Barahona DO Unavailable Holli Wellington KILN HEAD HOUSE OPERATOR-MATTRESS AND FOUNDATION SEWER Unavailable Caitlin Mabry RN Unavailable Gabby Gilbert MD Unavailable [phone] Holli Wellington KILN HEAD HOUSE OPERATOR-MATTRESS AND FOUNDATION SEWER Unavailable Caitlin Mabry RN Unavailable Lo Scott RN Unavailable Alexa Burton MA Unavailable Devora Lindsay KILN HEAD HOUSE OPERATOR-MATTRESS AND FOUNDATION SEWER Unavailable Lee Trujillo RN Unavailable Gabby Gilbert MD Unavailable Evelyn Azul Unavailable Holli Wellington KILN HEAD HOUSE OPERATOR-MATTRESS AND FOUNDATION SEWER Unavailable Evelyn Azul Unavailable Gabyb Gilbert MD Unavailable Glen Banks MD Unavailable [phone] Holli Wellington KILN HEAD HOUSE OPERATOR-MATTRESS AND FOUNDATION SEWER Unavailable [phone] Merary Alston KILN HEAD HOUSE OPERATOR-MATTRESS AND FOUNDATION SEWER Primary Care Provid er Shawn Whitmore PA-C Unavailable [phone] Reason for Visit * Reason Onset Date Comments MEDICATION REFILL 01/17/2015 Encounter Details Date Type Department Care Team (Late st Contact Info) Description 01/17/2015 Refill [facility] [address] [place] [address] MEDICATION REFILL Social History Tobacco Use Types Packs/Day Years Used Date Smoking Tobacco: Every Day Cigarettes 1 30 Alcohol Use Standard Drinks/Week Comments Yes 0.8 (1 standard drink = 0.6 oz p ure alcohol) Sex and Gender Information Value Date Recorded Sex Assigned at Not on file 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 Gender Identity Not on file Sexual Orientation [...] on filedocumented in this encounter Care Teams Warm In Worker Relationship Specialty Start Date End Date Ladonna Turcios MD PCP - General Family Medicine 12/08/13 06/03/15 Gabby Gilbert MD [address] [place] [address] PCP - General Family Medicine 06/04/15 05/04/24 Holli Wellington APRN-MATTRESS AND FOUNDATION SEWER [address] [place] [address] [place] [phone] PCP - Attributed-MSSP 11/29/18 06/04/19 Gabby Gilbert MD [address] [place] [address] PCP - Attributed-MSSP 03/01/21 06/28/21 Holli Wellington KILN HEAD HOUSE OPERATOR-MATTRESS AND FOUNDATION SEWER [address] [place] [phone] PCP - Attributed-MSSP 06/29/21 05/30/23 Devora Lindsay, KILN HEAD HOUSE OPERATOR-MATTRESS AND FOUNDATION SEWER [address] [place] [address] PCP - Attributed-MSSP 05/31/23 08/29/23 Gabby Gilbert MD [address] [place] [address] PCP - Attributed-MSSP 08/30/23 11/29/23 Holli Wellington KILN HEAD HOUSE OPERATOR-MATTRESS AND FOUNDATION SEWER [address] [place] [address] [place] [phone] PCP - Attributed-MSSP 11/30/23 06/28/24 Gabby Gilbert MD [address] [place] [address] [address] [place] [address] PCP - Attributed-MSSP 04/29/18 07/29/18 Glen Banks MD [address] [facility] [address] [place] [address] PCP - Attributed-MSSP 09/29/18 11/28/18 Holli Wellington, KILN HEAD HOUSE OPERATOR-MATTRESS AND FOUNDATION SEWER [address] [place] [address] [address]kw[address] [place] [phone] PCP - Attributed-MSSP 07/30/18 09/28/18 Merary Alston, KILN HEAD HOUSE OPERATOR-MATTRESS AND FOUNDATION SEWER [address] [place] [phone] PCP - General Nurse Practitioner 05/05/24 Shawn Whitmore PA-C [address] [place] [address] [address] [place] [address] PCP - Attributed-MSSP 06/29/24 Glen Banks MD [address] [facility] [address] [place] [address] Psychiatry 01/02/14 05/25/23 Pascual Lamar DO [address] [place] [address] [address] [place] [phone] Hand Surgery 12/19/14 Jerrell Qureshi DO [address] [place] [address] Car Mover 06/04/15 Alex Cage MD [address] [facility] [address] [place] [address] Endocrinology 06/04/15 [place] Barahona DO [address] [facility] [address] [place] [address] Orthopedic Surgery 05/25/17 Caitlin Mabry, RN Annealing OperatorSatellite Communications Engineer 03/04/21 03/16/23 Caitlin Mabry, RN Care Management 03/04/21 03/09/23 Lo Scott, RN [address] [facility] 200 [place] [address] Annealing OperatorSatellite Communications Engineer 03/09/23 06/03/23 Alexa Burton MA Care Coordination Specialist Care Management 05/28/23 05/28/23 Lee Trujillo, RN [address] [facility] [place] [address] Annealing OperatorSatellite Communications Engineer 11/04/23 11/05/23 Evelyn Azul [address] [place] [address] Care Coordination Specialist Care Management 12/02/23 01/16/24 Evelyn Azul [address] [facility] [address] [place] [address] Care Coordination Specialist Care Management 03/08/24 04/22/24 documented as of this encounter
--- OUTSIDE RECORDS SUMMARY | 2025-01-03 10:04 | XMS_ITS | Encounter Summary ---
Author Organization [facility] Address [address] [place] [address] Care Team Providers Care Ice Cream Van Vendor Name Role Phone Ladonna Turcios MD Primary Care Provider [phone] Glen Banks MD Unavailable [phone] Pascual Lamar DO Unavailable Gabby Gilbert MD Primary Care Provider Jerrell Qureshi DO Unavailable Alex Cage MD Unavailable [place] Barahona DO Unavailable Holli Wellington INVENTORY AUDIT CLERK-LENS MARKER Unavailable Caitlin Mabry RN Unavailable Gabby Gilbert MD Unavailable Holli Wellington INVENTORY AUDIT CLERK-LENS MARKER Unavailable Caitlin Mabry RN Unavailable Lo Scott RN Unavailable Alexa Burton MA Unavailable Devora Lindsay INVENTORY AUDIT CLERK-LENS MARKER Unavailable Lee Trujillo RN Unavailable Gabby Gilbert MD Unavailable [phone] Evelyn Azul Unavailable [phone] Holli Wellington INVENTORY AUDIT CLERK-LENS MARKER Unavailable Evelyn Azul Unavailable Gabby Gilbert MD Unavailable [phone] Glen Banks MD Unavailable Holli Wellington INVENTORY AUDIT CLERK-LENS MARKER Unavailable Merary Alston INVENTORY AUDIT CLERK-LENS MARKER Primary Care Provid er Shawn Whitmore PA-C Unavailable [phone] Encounter Details Date Type Department Care Team (Late st Contact Info) Description 12/19/2014 Therapy Visit [facility] PHYSICAL THERAPY [facility] [place] [address] Unknown, Provider Social History Tobacco Use Types Packs/Day Years Used Date Smoking Tobacco: Every Day Cigarettes 1 30 Alcohol Use Standard Drinks/Week Comments Yes 0.8 (1 standard drink = 0.6 oz p ure alcohol) Sex and Gender Information Value Date Recorded Sex Assigned at Not on file 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 Gender Identity Not on file Sexual [...] [facility] Lifestyle: Have labs drawn Lifestyle No Liberty Yoder MA Have labs drawn Lifestyle Liberty Pritchett MA documented as of this encounter Visit Diagnoses Not on filedocumented in this encounter Care Teams Ice Cream Van Vendor Relationship Specialty Start Date End Date Ladonna Turcios MD PCP - General Family Medicine 12/08/13 06/03/15 Gabby Gilbert MD [address] [place], [place] [id number] PCP - General Family Medicine 06/04/15 05/04/24 Holli Wellington INVENTORY AUDIT CLERK-LENS MARKER [address] [place], [place] [address] [address] [place] [phone] PCP - Attributed-MSSP 11/29/18 06/04/19 Gabby Gilbert MD [address] [place] [address] PCP - Attributed-MSSP 03/01/21 06/28/21 Holli Wellington INVENTORY AUDIT CLERK-LENS MARKER [address] [place], [place] [address]y [address] [place] [phone] PCP - Attributed-MSSP 06/29/21 05/30/23 Devora Lindsay, INVENTORY AUDIT CLERK-LENS MARKER [address] [facility] [address] [place] [address] PCP - Attributed-MSSP 05/31/23 08/29/23 Gabby Gilbert MD [address] [place] [address] PCP - Attributed-MSSP 08/30/23 11/29/23 Holli Wellington INVENTORY AUDIT CLERK-LENS MARKER [address] [place] [address] [place] [phone] PCP - Attributed-MSSP 11/30/23 06/28/24 Gabby Gilbert MD [address] [place] [address] PCP - Attributed-MSSP 04/29/18 07/29/18 Glen Banks MD [address] [facility] [address] [place] [address] PCP - Attributed-MSSP 09/29/18 11/28/18 Holli Wellington, INVENTORY AUDIT CLERK-LENS MARKER [address] [facility] [facility] [address] [place] [address] PCP - Attributed-MSSP 07/30/18 09/28/18 Merary Alston, INVENTORY AUDIT CLERK-LENS MARKER [address] [place] [address] PCP - General Nurse Practitioner 05/05/24 Shawn Whitmore PA-C [address] [facility] [address] [place] [address] PCP - Attributed-MSSP 06/29/24 Glen Banks MD [address] [facility] [address] [place] [address] Psychiatry 01/02/14 05/25/23 Pascual Lamar DO [address] [facility] [address] [place] [phone] Hand Surgery 12/19/14 Jerrell Qureshi DO [address] [place] [address] Vice President Of Customer Service 06/04/15 Alex Cage MD [address] [facility] [address] [address] [place] [phone] Endocrinology 06/04/15 [place] Barahona DO [address] [facility] [address] [facility] [address] [place] [phone] Orthopedic Surgery 05/25/17 Caitlin Mabry RN Systems Test TechnicianCardiovascular Surgeon 03/04/21 03/16/23 Caitlin Mabry RN Care Management 03/04/21 03/09/23 Lo Scott RN [address] [facility] [address] [place] [address] Systems Test TechnicianCardiovascular Surgeon 03/09/23 06/03/23 Alexa Burton MA Care Coordination Specialist Care Management 05/28/23 05/28/23 Lee Trujillo, JOHNATHAN [address] [facility] [address] [place] [address] Systems Test TechnicianCardiovascular Surgeon 11/04/23 11/05/23 Evelyn Azul [address] [place] [address] Care Coordination Specialist Care Management 12/02/23 01/16/24 Evelyn Azul [address] [place] [address] Care Coordination Specialist Care Management 03/08/24 04/22/24 documented as of this encounter
--- OUTSIDE RECORDS SUMMARY | 2025-01-03 10:04 | XMS_ITS | Encounter Summary ---
Author Organization [facility] Address [address] [facility] [place] [address] Care Team Providers Care Proposal Consultant Name Role Phone Glen Banks MD Unavailable Pascual Lamar DO Unavailable Gabby Gilbert MD Primary Care Provider Jerrell Qureshi DO Unavailable Alex Cage MD Unavailable [place] Barahona DO Unavailable Holli Wellington NEWS VIDEOGRAPHER-LIVESTOCK AGENT Unavailable Caitlin Mabry RN Unavailable Gabby Gilbert MD Unavailable [phone] Holli Wellington NEWS VIDEOGRAPHER-LIVESTOCK AGENT Unavailable Caitlin Mabry RN Unavailable Lo Scott RN Unavailable Alexa Burton MA Unavailable Devora Lindsay NEWS VIDEOGRAPHER-LIVESTOCK AGENT Unavailable Lee Trujillo RN Unavailable Gabby Gilbert MD Unavailable Evelyn Azul Unavailable Holli Wellington NEWS VIDEOGRAPHER-LIVESTOCK AGENT Unavailable [phone] Evelyn Azul Unavailable Gabby Gilbert MD Unavailable Glen Banks MD Unavailable [phone] Holli Wellington NEWS VIDEOGRAPHER-LIVESTOCK AGENT Unavailable [phone] Merary Alston NEWS VIDEOGRAPHER-LIVESTOCK AGENT Primary Care Provid er Shawn Whitmore PA-C Unavailable [phone] Encounter Details Date Type Department Care Team (Late st Contact Info) Description 05/14/2017 [facility] Outpatient Visit [facility] Orthopedics - Radiology [address] [place] [address] Lweis Barahona [facility] [address] [phone] Social History Tobacco Use Types Packs/Day Years Used Date Smoking Tobacco: Every Day Cigarettes 1 30 Smokeless Tobacco: Never Alcohol Use Standard Drinks/Week Comments Yes 1 (1 standard drink = 0.6 oz pur e alcohol) Sex and Gender Information Value Date Recorded Sex Assigned at Not on file 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 Gender Identity Not on file Sexual Orientation [...] / using tobacco Lifestyle Liberty Pritchett MA [facility] Lifestyle: Have labs drawn Lifestyle Liberty Pritchett MA Have labs drawn Lifestyle Liberty Pritchett MA documented as of this encounter Visit Diagnoses Not on filedocumented in this encounter Care Teams Proposal Consultant Relationship Specialty Start Date End Date Gabby Gilbert MD [address] [place] [address] PCP - General Family Medicine 06/04/15 05/04/24 Holli Wellington APRN-LIVESTOCK AGENT [address] [place] [address] [place] [phone] PCP - Attributed-MSSP 11/29/18 06/04/19 Gabby Gilbert MD [address] [place] [address] PCP - Attributed-MSSP 03/01/21 06/28/21 Holli Wellington APRN-LIVESTOCK AGENT [address] [place] [address] [place] [phone] PCP - Attributed-MSSP 06/29/21 05/30/23 Devora Lindsay NEWS VIDEOGRAPHER-LIVESTOCK AGENT [address] [address] PCP - Attributed-MSSP 05/31/23 08/29/23 Gabby Gilbert MD [address] [place] [address] [place] [address] PCP - Attributed-MSSP 08/30/23 11/29/23 Holli Wellington NEWS VIDEOGRAPHER-LIVESTOCK AGENT [address] [place], [place] [address]y [address] [place] [phone] PCP - Attributed-MSSP 11/30/23 06/28/24 Gabby Gilbert MD [address] [place] [address] [place] [address] PCP - Attributed-MSSP 04/29/18 07/29/18 [place] [address] [place] [address] [place] [address] PCP - Attributed-MSSP 09/29/18 11/28/18 Holli Wellington NEWS VIDEOGRAPHER-LIVESTOCK AGENT [address] [place], [place] [address] [address] [place] [phone] PCP - Attributed-MSSP 07/30/18 09/28/18 Merary Alston NEWS VIDEOGRAPHER-LIVESTOCK AGENT [address] [place], [place] [phone] PCP - General Nurse Practitioner 05/05/24 Shawn Whitmore PA-C [address] [place] [address] [address] [place] [address] PCP - Attributed-MSSP 06/29/24 Glen Banks MD [address] [facility] [address] [place] [address] Psychiatry 01/02/14 05/25/23 Pascual Lamar DO [address] [place] [address] [address] [place] [phone] Hand Surgery 12/19/14 Jerrell Qureshi DO [address] [place] [address] Middle School Football Coach 06/04/15 Alex Cage MD [address] [place], [place] [address]y [address] [place] [address] Endocrinology 06/04/15 [place] Barahona DO [address] [place], [place] [address] [address] [place] [phone] Orthopedic Surgery 05/25/17 Caitlin Mabry RN Bankruptcy ProcessorStock Car Driver 03/04/21 03/16/23 Caitlin Mabry RN Care Management 03/04/21 03/09/23 Lo Scott RN [address] [facility] [address] [place] [address] Bankruptcy ProcessorStock Car Driver 03/09/23 06/03/23 Alexa Burton MA Care Coordination Specialist Care Management 05/28/23 05/28/23 Lee Trujillo, RN [address] [facility] [address] [place] [address] Bankruptcy ProcessorStock Car Driver 11/04/23 11/05/23 Evelyn Auzl [address] [facility] [address] [place] [address] Care Coordination Specialist Care Management 12/02/23 01/16/24 Evelyn Azul [facility] [address] [place] [address] Care Coordination Specialist Care Management 03/08/24 04/22/24 documented as of this encounter
--- OUTSIDE RECORDS SUMMARY | 2025-01-03 10:04 | XMS_ITS | Encounter Summary ---
Author Organization [facility] Address [address] [facility] [place] [address] Care Team Providers Care Refrigerating Technician Name Role Phone Glen Banks MD Unavailable Pascual Lamar DO Unavailable Gabby Gilbert MD Primary Care Provider Jerrell Qureshi DO Unavailable Alex Cage MD Unavailable Lewis Barahona DO Unavailable Caitlin Mabry RN Unavailable Gabby Gilbert MD Unavailable Holli Wellington TERMINAL PRESS OPERATOR-TELETYPE MECHANIC Unavailable Caitlin Mabry RN Unavailable Lo Scott RN Unavailable Alexa Burton MA Unavailable Devora Lindsay TERMINAL PRESS OPERATOR-TELETYPE MECHANIC Unavailable [phone] Lee Trujillo RN Unavailable Gabby Gilbert MD Unavailable Evelyn Azul Unavailable Holli Wellington TERMINAL PRESS OPERATOR-TELETYPE MECHANIC Unavailable Evelyn Azul Unavailable Merary Alston Karen TERMINAL PRESS OPERATOR-TELETYPE MECHANIC Primary Care Provid er Shawn Whitmore PA-C Unavailable [phone] Reason for Visit * Reason Onset Date Comments MEDICATION REFILL 03/04/2021 Encounter Details Date Type Department Care Team (Late st Contact Info) Description 03/04/2021 Refill [facility] - Family Medicine [address] [facility] [address] [place] [address] Shawn Whitmore PA-C [address] [facility] [address] [place] [address] MEDICATION REFILL Social History Tobacco [...] on file 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 Gender Identity Not on file Sexual Orientation [...] constipation documented in this encounter Care Teams Refrigerating Technician Relationship Specialty Start Date End Date Gabby Gilbert MD [address] [place] [address] PCP - General Family Medicine 06/04/15 05/04/24 Gabby Gilbert MD [address] [place] [address] PCP - Attributed-MSSP 03/01/21 06/28/21 Holli Wellington TERMINAL PRESS OPERATOR-TELETYPE MECHANIC [address] [place] [address] [address] [place] [phone] PCP - Attributed-MSSP 06/29/21 05/30/23 Devora Lindsay, TERMINAL PRESS OPERATOR-TELETYPE MECHANIC [address] [place] [address] PCP - Attributed-MSSP 05/31/23 08/29/23 Gabby Gilbert MD [address] [place] [address], [place] [address] PCP - Attributed-MSSP 08/30/23 11/29/23 Holli Wellington TERMINAL PRESS OPERATOR-TELETYPE MECHANIC [address] [place] [address] [address] [place] [address] PCP - Attributed-MSSP 11/30/23 06/28/24 Alecia Merary Jnoes TERMINAL PRESS OPERATOR-TELETYPE MECHANIC [address] [place], [place] [phone] PCP - General Nurse Practitioner 05/05/24 Shawn Whitmore PA-C [address] [place] [address] [address] [place] [address] PCP - Attributed-MSSP 06/29/24 [place] [address] [place] [address] [address] [place] [address] Psychiatry 01/02/14 05/25/23 Pascual Lamar DO [address] [place] [address] [address] [place] [address] Hand Surgery 12/19/14 Jer[place] [address] Processing Clerk 06/04/15 Alex Cage MD [address] [place] [address] [address] [place] [phone] Endocrinology 06/04/15 Lewis Barahona DO [address] [facility] [address] [place] [address] Orthopedic Surgery 05/25/17 Caitlin Mabry, RN Electrostatic PainterAccounts Receivable Associate 03/04/21 03/16/23 Caitlin Mabry RN Care Management 03/04/21 03/09/23 Lo Scott RN [address] [facility] [address] [place] [address] Electrostatic PainterAccounts Receivable Associate 03/09/23 06/03/23 Alexa Burton MA Care Coordination Specialist Care Management 05/28/23 05/28/23 Lee Trujillo, JOHNATHAN [address] [place] [address] Electrostatic PainterAccounts Receivable Associate 11/04/23 11/05/23 Evelyn Azul [address] [place] [address] Care Coordination Specialist Care Management 12/02/23 01/16/24 Evelyn Azul [address] [place] [address] Care Coordination Specialist Care Management 03/08/24 04/22/24 documented as of this encounter
[2025-01-03 10:15] LABS: INR 1.0; Prothrombin Time 12.9 Seconds (11.1-14.7)
[2025-01-03 10:19] LABS: Alanine Aminotransferase 41 U/L (6-50); Albumin Level 4.5 g/dL (3.5-5.1); Alkaline Phosphatase 116 U/L (38-126); Amylase 75 U/L (30-110); Anion Gap 8 mmol/L (4-12); Aspartate Amino Transferase 28 U/L (17-59); Bilirubin,Total 0.6 mg/dL (0.2-1.3); Blood Urea Nitrogen 17 mg/dL (9-20); Calcium 10.0 mg/dL (8.4-10.2); Carbon Dioxide 25 mmol/L (22-30); Chloride 105 mmol/L (98-107); Estimated Glomerular Filt Rate > 60; Glucose 136 mg/dL (65-110); Lipase 58 U/L (23-300); Potassium 4.8 mmol/L (3.4-5.0); Sodium 138 mmol/L (137-145); Total Protein 6.9 g/dL (6.3-8.2)
== END 2025-01-03 09:22 | disposition home or self-care (01) ==
PROVIDERS: PCP Nurse Practitioner; Visit Provider Nurse Practitioner
DX: R74.8 Abnormal levels of other serum enzymes (principal); R94.8 Abnormal results of function studies of other organs and systems; R10.11 Right upper quadrant pain
CPT/HCPCS: 36415; 80053; 82150; 83690; 85025; 85610

== ENCOUNTER 2025-01-31 10:56 | Outpatient (CLI) | payer MEDICARE, SELFPAY ==
--- OUTSIDE RECORDS SUMMARY | 2025-01-31 12:32 | XMS_ITS | Encounter Summary ---
Author Organization [facility] Address [facility] [place] [address] Care Team Providers Care Measurement Superintendent Name Role Phone Merary Alston [facility] Primary Care Provider [phone] Encounter Details Date Type Department Care Team (Late st Contact Info) Description 09/19/2024 Abstract [facility] [address] [address] Chantale Pozo MA Social History Tobacco Use Types Packs/Day Years Used Date Smoking Tobacco: Former Cigarettes Comments:Quit 2020 Alcohol Use Standard Drinks/Week Comments Not Currently 0 (1 standard drink = 0.6 oz pur e alcohol) Sex and Gender Information Value Date Recorded Sex Assigned at Male 10/13/2024 8:55 AM CDT 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 Gender Identity Not on file Sexual Orientation Not on file documented as of this encounter Plan of Treatment Not on file documented as of this encounter Procedures Procedure [...] Results * COMPREHENSIVE METABOLIC PANEL (09/22/2024) Pathologist [facility] SODIUM S/P/B 139 GLUCOSE 120 mg/dL AST 70 BUN 19 CREATININE S/P/B 0.83 0.7 - 1.3 CALCIUM S/P/B 9.9 POTASSIUM S/P/B 4.1 CHLORIDE S/P/B 102 ALT 113 GFR ESTIMATE 96 Default History Genericprovider LABORATORY Edited Result - Final * LIPID PANEL (09/22/2024) [facility] CHOLESTEROL 79 TRIGLYCERIDES 95 HDL 38 LDL (CALCULATED) 22 Default History Genericprovider LABORATORY Edited Result - Final * CBC, MANUAL DIFF (09/22/2024) [facility] WBC 8.5 HGB 15.6 HCT 47.1 PLT 227 Default History Genericprovider LABORATORY Edited Result - Final * HEMOGLOBIN, GLYCOSYLATED (09/22/2024) [facility] HGB A1C 7.0 % Default History Genericprovider LABORATORY Edited Result - Final * THYROID STIM HORMONE TSH (09/22/2024) [facility] TSH 1.360 Default History Genericprovider LABORATORY Edited Result - Final * C-REACTIVE PROTEIN (08/18/2024) [facility] CRP <0.5 08/18/2024 Default History Genericprovider LABORATORY Edited Result - Final * HEMOGLOBIN, GLYCOSYLATED (08/18/2024) [facility] HGB A1C 6.7 % us Default History Genericprovider LABORATORY Final Result * THYROID STIM HORMONE TSH (08/18/2024) [facility] TSH 1.120 us Default History Genericprovider LABORATORY Final Result * CBC (OUTSIDE LAB) (08/18/2024) [facility] WBC 6.8 HGB 14.4 HCT 43.2 PLT 185 08/18/2024 us Default History Genericprovider LAB-OUTSIDE/ABST RACTED Edited Result - Final * CMP (ABSTRACTED LAB) (08/18/2024) [facility] SODIUM S/P/B 142 POTASSIUM S/P/B 4.5 CHLORIDE [...] on filedocumented in this encounter Care Teams Measurement Superintendent Relationship Specialty Start Date End Date Merary Alston, INVENTORY CONTROL CLERK- [address] [place] [address] PCP - General NURSE PRACTITIONER 08/29/24 documented as of this encounter
--- OUTSIDE RECORDS SUMMARY | 2025-01-31 12:32 | XMS_ITS | Clinical Summary ---
Author Organization [facility] [email or web address] Address [address] [place] [address] Care Team Providers Care Asbestos Brake Lining Finisher Helper Name Role Phone Pascual Lamar DO Unavailable [phone] Jerrell Qureshi DO Unavailable Alex Cage MD Unavailable [phone] Lewis Barahona DO Unavailable Merary Alston BOTANY PROFESSOR-GAS CONTROLLER Primary Care Provid er Shawn Whitmore PA-C Unavailable [phone] Source Comments [facility],non-owned Affiliates and Associated Physician Practices is amultiple site organization consisting of ambulatory clinics and hospital sitesin [place], [place], [place] and [place]. This disclosure is being madepursuant to the Care Everywhere program and may not contain all information available regarding this patient. 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 04/09/2014 06/04/2015 Overview (05/30/2015): Cee Rincon, OD 02/07/15 skilled nursing current use of insulin 04/09/2014 06/04/2015 Hyperlipidemia 01/10/2014 06/04/2015 Overview (01/10/2014): 19% AHA 12/2013 Severe major depression with psychotic features 01/10/2014 06/04/2015 DM II with ophthalmic manifestations 12/17/2013 05/30/2015 History of hepatitis B 12/17/201306/03 Depression 12/17/2013 06/04/2015 IBS (irritable bowel syndrome) 12/17/2013 06/04/2015 Tobacco abuse 12/13/2013 06/04/2015 Immunizations Immunization Administration Dates Next Due INFLUENZA [...] week 06/09/2022 How often do you attend [facility] or yazidism services? More than 4 times per year 06/09/2022 Do you belong to any clubs o r organizations such as oriental orthodox groups, unions, fraternal or athletic groups, or [...] Recorded Patient Health Questionnaire-2 Score 0 11/11/2023 [facility] Normal of Occupat ional Health - Occupational Stress [...] place to sleep or slept in a fci (including now)? No 11/01/2023 Sex and Gender Information Value Date Recorded Sex Assigned at Not on file Legal Sex Male 6:03 AM DIESEL ELECTRICIAN Gender Identity Not on file Sexual Orientation [...] Oxygen Concentration 100% 03/25/2020 6 :38 PM DIESEL ELECTRICIAN Weight 80.6 kg (177 lb 12.8 oz) [...] or over 60 yrs (1 - Risk 50-74 years 1-dose series) 2007 AAA SCREENING 2022 LUNG CANCER SCREENING 12/10/2022 [...] using tobacco Lifestyle No Liberty Yoder MA [facility] Lifestyle: Have labs drawn Lifestyle No Liberty Yoder MA Have labs drawn Lifestyle No Liberty Yoder MA Medical Devices Implanted Type Area Matting Press Tender Device Identifier Shelf Expiration Date Model / Serial / Lot Plate Lopro 5 Hl Lck Mdlr Ss Ankl Rt Fib Implanted:Qty: 1 on 04/22/2017 by Lewis Barahona DO at [facility] [place] Right: Ankle [employer] [id number] 5 / / Screw Bn 2.7mm 12mm Loprfl Scr Ss Ft T10 Implanted:Qty: 1 on 04/22/2017 by Lewis Barahona DO at [facility] [place] [facility] [place] Right: Ankle [employer] AR-[id number]-12 / / Screw Bn 2.7mm 14mm Loprfl Scr Ss Ft T10 Implanted:Qty: 2 on 04/22/2017 by Lewis Barahona DO at [facility] [place] [facility] [place] Right: Ankle [employer] AR-[id number]-14 / / Screw Bn 3.5mm 14mm Loprfl Scr Ss T15 Ft Implanted:Qty: 1 on 04/22/2017 by Lewis Barahona DO at [facility] [place] [facility] [place] Right: Ankle [employer] AR-8835-14 / / Screw Bn 2.7mm 16mm Loprfl Scr Ss Ft T10 Implanted:Qty: 1 on 04/22/2017 by Lewis Barahona DO at [facility] [place] [facility] [place] Right: Ankle [employer] AR-[id number]-16 / / Screw Bn 3.5mm 16mm Loprfl Scr Ss T15 Ft Implanted:Qty: 1 on 04/22/2017 by Lewis Barahona DO at [facility] [place] [facility] [place] Right: Ankle [employer] AR-8835-16 / / Screw Bn 3.5mm 14mm Loprfl Scr Ss T15 Ft Implanted:Qty: 2 on 04/22/2017 by Lewis Barahona DO at [facility] [place] [facility] [place] Right: Ankle [employer] AR-8835L-14 / / Screw Bn 4mm 40mm Loprfl Scr Ss Lng .5 Implanted:Qty: 1 on 04/22/2017 by Lewis Barahona DO at [facility] [place] [facility] [place] Right: Ankle [employer] AR-[id number]-4 0 / [...] URINE RANDOM PANEL Routine 02/03/2023 9:16 AM DIESEL ELECTRICIAN 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 Procedure Code(s): --- Professional --- 06613, Colonoscopy, flexible; with biopsy, single or multiple --- Technical --- 96361, Colonoscopy, flexible; with biopsy, single or multiple [...] specified diseases of intestine CPT copyright 2020 [employer]. All rights reserved. The codes documented in this report are preliminary and upon printed circuit boards stripper etcher review may be revised to meet current compliance requirements. Trevor Morrison MD 12/01/2023 9:38:03 AM This report has been signed electronically. Number of Addenda: 0 Note Initiated On: 12/01/2023 9:02 AM Procedure Date: 12/01/2023 9:02:31 AM Scope Withdrawal Time: 0 hours 20 minutes 42 seconds [facility] 12/01/2023 9:02 AM CDT us Trevor Morrison MD GI PROCEDURE ORDERABLES Bossman michael Result - Final [facility] * (ABNORMAL) HEMOGLOBIN A1C (11/02/2023 6:28 AM CDT) Hemoglobin A1c 6.5(H) <5.7 % 11/02/2023 7:05 AM [facility] Estimated Average Glucose 140 mg/dL 11/02/2023 7:05 AM [facility] Blood BLOOD SPECIMEN / Unknown Venipuncture / Unknown 11/02/2023 6:28 AM CDT 11/02/2023 6:37 AM CDT [facility] - 11/02/2023 7:05 AM CDT HbA1c [...] LAB - CHEMISTRY ORDERABLES Jaimie l Result [facility] [address] [place] [address] * (ABNORMAL) COMPREHENSIVE METABOLIC PANEL (11/02/2023 6:28 AM CDT) Pathologist [facility] Glucose 192(H) 70 - 105 mg/dL 11/02/2023 7:00 AM [facility] Sodium 139 136 - 145 mmol/L 11/02/2023 7:00 AM [facility] Potassium 4.2 3.5 - 5.1 mmol/L 11/02/2023 7:00 AM [facility] Chloride 109(H) 98 - 107 mmol/L 11/02/2023 7:00 AM [facility] CO2 20(L) 22 - 29 mmol/L 11/02/2023 7:00 AM [facility] Calcium 9.6 8.4 - 10.4 mg/dL 11/02/2023 7:00 AM [facility] Anion Gap 10 6 - 16 mmol/L 11/02/2023 7:00 AM [facility] BUN 17 7 - 26 mg/dL 11/02/2023 7:00 AM [facility] Creatinine 0.87 0.72 - 1.25 mg/dL 11/02/2023 7:00 AM [facility] Alkaline Phosphatase 149 40 - 150 U/L 11/02/2023 7:00 AM [facility] ALT 63(H) 0 - 55 U/L 11/02/2023 7:00 AM [facility] AST 28 5 - 34 U/L 11/02/2023 7:00 AM [facility] Protein Total 6.5 6.4 - 8.3 gm/dL 11/02/2023 7:00 AM [facility] Albumin 4.0 3.4 - 5.0 gm/dL 11/02/2023 7:00 AM [facility] Bilirubin Total 0.8 0.2 - 1.2 mg/dL 11/02/2023 7:00 AM [facility] eGFR by CKD-EPI >90 >=90 mL/min/1.7 3 m2 11/02/2023 7:00 AM [facility] Blood BLOOD SPECIMEN / Unknown Venipuncture / Unknown 11/02/2023 6:28 AM CDT 11/02/2023 6:37 AM [facility] us Jamila Zapata MD LAB - CHEMISTRY ORDERABLES Jaimie houser Result [facility] [address] [place], [place] [id number] * MICROALB/CREAT RATIO URINE RANDOM PANEL (02/03/2023 9:16 AM DIESEL ELECTRICIAN) Creatinine Urine 147.89 mg/dL [facility] INSURANCE BILL Microalbumin Urine 0.8 mg/dL [facility] INSURANCE BILL Microalbumin/Crea tinine Ratio 5 <30 mg/g [facility] INSURANCE BILL Comment:FASTING Urine URINE SPECIMEN OBTAINED BY CLEAN CATCH PROCEDURE / Unknown 02/03/2023 9:16 AM DIESEL ELECTRICIAN 02/03/2023 Narrative Resulting Agency Comment Lab Testing performed at: [facility] [address] [place] [id number] us Holli Wellington BOTANY PROFESSOR-GAS CONTROLLER LAB - URINE CHEMISTRY OR DERABLES Final Result [facility] INSURANCE BILL [address] [place] [address] * EYE EXAM (08/26/2022) Anatomical Region Laterality [...] DATE/TIME OF EXAM: 12/10/2021 9:32 AM, LOCATION [facility] INDICATION: Z87.891: Personal history of nicotine [...] search: Lung-RADS Lung Cancer Screening 3) Contact [facility] thoracic nurse coordinator ([phone]) (Data Mining Phrase: [facility]-LungNodule ) > Interpreting Provider: Teddy Richards MD on 12/10/2021 10:25 AM Procedure Note Teddy Richards MD - 12/10/2021 PROCEDURE: CT LUNG SCREEN LOW DOSE, DATE/TIME OF EXAM: 12/10/2021 9:32 AM, LOCATION [facility] INDICATION: Z87.891: Personal history of nicotine [...] search: Lung-RADS Lung Cancer Screening 3) Contact [facility] thoracic nurse coordinator ([phone]) (Data Mining Phrase: [facility]-LungNodule ) > Interpreting Provider: Teddy Richards [...] AVELAR Subscriber ID:Not on file (Home) Address: [address] [place] [phone] Payer ID:Not on file Group ID:Not on file Type:Self Pay Address: [place], [place] MEDICARE Advance Directives * Full Code (Latest Code Status on File) Date Activated Date Inactivated Comments 11/01/2023 11:26 AM 11/03/2023 6:11 PM * Full Code Date Activated Date Inactivated Comments 04/22/2017 6:02 PM 04/24/2017 4:48 PM * Full Code Date Activated Date Inactivated Comments 04/21/2017 2:18 PM 04/22/2017 6:02 PM Care Teams Asbestos Brake Lining Finisher Helper Relationship Specialty Start Date End Date Merary Alston Karen, BOTANY PROFESSOR-GAS CONTROLLER [address] [place] [phone] PCP - General Nurse Practitioner 05/05/24 Shawn Whitmore PA-C [address] [place] [address] PCP - Attributed-MSSP 06/29/24 Pascual Lamar DO [address] [place] [phone] Hand Surgery 12/19/14 Jerrell Qureshi DO [address] [place] [address] Cardiology Fellow 06/04/15 Alex Cage MD [address] [place] [address] [address] [place] [phone] Endocrinology 06/04/15 Lewis Barahona DO [address] [place] [address] [address] [place] [address] Orthopedic Surgery 05/25/17
--- OUTSIDE RECORDS SUMMARY | 2025-01-31 12:32 | XMS_ITS | Encounter Summary ---
Author Organization [facility] Address [address] [facility] [place] [address] Care Team Providers Care Cryogenics Repairer Name Role Phone Glen Banks MD Unavailable Pascual Lamar DO Unavailable Gabby Gilbert MD Primary Care Provider Jerrell Qureshi DO Unavailable Alex Cage MD Unavailable Lewis Barahona DO Unavailable Holli Wellington SHAREPOINT ARCHITECT-ROVING OR YARN COLOR CHECKER Unavailable Caitlin Mabry RN Unavailable Gabby Gilbert MD Unavailable Holli Wellington SHAREPOINT ARCHITECT-ROVING OR YARN COLOR CHECKER Unavailable Caitlin Mabry RN Unavailable Lo Scott RN Unavailable Alexa Burton MA Unavailable Devora Lindsay SHAREPOINT ARCHITECT-ROVING OR YARN COLOR CHECKER Unavailable Lee Trujillo RN Unavailable Gabby Gilbert MD Unavailable Evelyn Azul Unavailable Holli Wellington SHAREPOINT ARCHITECT-ROVING OR YARN COLOR CHECKER Unavailable Evelyn Azul Unavailable Gabby Gilbert MD Unavailable Glen Banks MD Unavailable Holli Wellington SHAREPOINT ARCHITECT-ROVING OR YARN COLOR CHECKER Unavailable [phone] Merary Alston SHAREPOINT ARCHITECT-ROVING OR YARN COLOR CHECKER Primary Care Provid er Shawn Whitmore PA-C Unavailable [phone] Encounter Details Date Type Department Care Team (Late st Contact Info) Description 05/14/2017 [facility] Outpatient Visit [facility] Orthopedics - Radiology [address] [place] [address] Lewis Barahona DO [facility] [address] [address] Social History Tobacco Use Types Packs/Day Years Used Date Smoking Tobacco: Every Day Cigarettes 1 30 Smokeless Tobacco: Never Alcohol Use Standard Drinks/Week Comments Yes 1 (1 standard drink = 0.6 oz pur e alcohol) Sex and Gender Information Value Date Recorded Sex Assigned at Not on file Legal Sex Male 6:03 AM NATURAL SCIENCE CURATOR Gender Identity Not on file Sexual Orientation [...] / using tobacco Lifestyle Liberty Pritchett MA [facility] Lifestyle: Have labs drawn Lifestyle Liberty Pritchett MA Have labs drawn Lifestyle Liberty Pritchett MA documented as of this encounter Visit Diagnoses Not on filedocumented in this encounter Care Teams Cryogenics Repairer Relationship Specialty Start Date End Date Gabby Gilbert MD [address] [place] [address] PCP - General Family Medicine 06/04/15 05/04/24 Holli Wellington APRN-ROVING OR YARN COLOR CHECKER [address] [place] [address] [place] [phone] PCP - Attributed-MSSP 11/29/18 06/04/19 Gabby Gilbert MD [address] [place] [address] PCP - Attributed-MSSP 03/01/21 06/28/21 Holli Wellington APRN-ROVING OR YARN COLOR CHECKER [address] [place] [address] [place] [phone] PCP - Attributed-MSSP 06/29/21 05/30/23 Devora Lindsay SHAREPOINT ARCHITECT-ROVING OR YARN COLOR CHECKER [address] [address] PCP - Attributed-MSSP 05/31/23 08/29/23 Gabby Gilbert MD [address] [place] [address] [place] [address] PCP - Attributed-MSSP 08/30/23 11/29/23 Holli Wellington SHAREPOINT ARCHITECT-ROVING OR YARN COLOR CHECKER [address] [place], [place] [address]y [address] [place] [phone] PCP - Attributed-MSSP 11/30/23 06/28/24 Gabby Gilbert MD [address] [place] [address] [place] [address] PCP - Attributed-MSSP 04/29/18 07/29/18 [place] [address] [place] [address] [place] [phone] PCP - Attributed-MSSP 09/29/18 11/28/18 Holli Wellington SHAREPOINT ARCHITECT-ROVING OR YARN COLOR CHECKER [address] [place], [place] [address] [address] [place] [phone] PCP - Attributed-MSSP 07/30/18 09/28/18 Merary Alston SHAREPOINT ARCHITECT-ROVING OR YARN COLOR CHECKER [address] [place] [phone] PCP - General Nurse Practitioner 05/05/24 Shawn Whitmore PA-C [address] [place] [address] [address] [place] [address] PCP - Attributed-MSSP 06/29/24 Glen Banks MD [address] [facility] [address] [place] [address] Psychiatry 01/02/14 05/25/23 Pascual Lamar DO [address] [place] [address] [address] [place] [phone] Hand Surgery 12/19/14 Jerrell Qureshi DO [address] [place] [address] Payment Manager 06/04/15 Alex Cage MD [address] [facility] [address] [facility] [place] [address] Endocrinology 06/04/15 Lewis Barahona DO [address] [place], [place] [address] [address] [place] [address] Orthopedic Surgery 05/25/17 Caitlin Mabry RN Metal Cnc OperatorAirport Duty Manager 03/04/21 03/16/23 Caitlin Mabry RN Care Management 03/04/21 03/09/23 Lo Scott RN [address] [facility] [address] [place] [address] Metal Cnc OperatorAirport Duty Manager 03/09/23 06/03/23 Alexa Burton, HERON Care Coordination Specialist Care Management 05/28/23 05/28/23 Lee Trujillo, RN [address] [place] [address] Metal Cnc OperatorAirport Duty Manager 11/04/23 11/05/23 Evelyn Azul [address] [facility] [address] [place] [address] Care Coordination Specialist Care Management 12/02/23 01/16/24 Evelyn [address] [facility] [address] [place] [address] Care Coordination Specialist Care Management 03/08/24 04/22/24 documented as of this encounter
--- OUTSIDE RECORDS SUMMARY | 2025-01-31 12:32 | XMS_ITS | Clinical Summary ---
Author Organization [facility] Address [address] [place] [address] Care Team Providers Care Relationship Assoc Name Role Phone Merary Alston [facility] Primary Care Provider [phone] Allergies No known active allergies Medications aspirin [...] with urinary urge incontinence 09/19/2024 Diabetes mellitus 09/19/2024 Overview (09/19/2024): Phreesia 05/26/2024 Gastroesophageal reflux disease 09/19/2024 Overview (09/19/2024): Phreesia 05/26/2024 Diabetic retinopathy associa michael with type 2 diabetes mellitus 09/18/2024 Hepatitis B virus infection 09/18/2024 Bipolar disorder, current episode mixed, moderat e 03/27/2020 Overview (09/18/2024): Managed by Psychiatry Mixed hyperlipidemia 06/04/2015 Overview (09/18/2024): Managed by Endocrinology ss Immunizations Immunization Administration Dates Next Due Fluzone [...] AM CDT Legal Sex Male 12:46 PM SHOEBLACK Gender Identity Not on file Sexual Orientation [...] 09/19/2024 11:12 AM CDT Plan of Treatment Health Maintenance Due Date Last Done Comments Colorectal Cancer Screening Colonoscopy (10 Years) 1957 Kidney Health Evaluation 1955 Hepatitis C 1975 Hepatitis A Vaccines (1 of 2 - Risk 2-dose series) 01/14/1976 Annual Medicare Wellness Visit 2022 Diabetes: Retinopathy Eye Exam 08/26/2024 08/26/2022 COVID-19 Vaccine ( season) 2024 11/15/2023, 05/26/2023, 04/08/2022, Additional history exists Influenza Adult (#1) 2024 11/15/2023, 10/31/2023, 11/26/2021, Additional history exists Hemoglobin A1C 03/25/2025 09/22/2024, 07/31, 11/02/2023, Additional history exists Lipid Panel 09/22/2025 [...] Procedure Name Priority Date/Time Associated Diagnosis Comments LIPID PANEL Routine 09/22/2024 HEMOGLOBIN, GLYCOSYLATED Routine 09/22/2024 from Last 3 Months or Most Recently Relevant to Health Maintenance Results * HEMOGLOBIN, GLYCOSYLATED (09/22/2024) HGB A1C 7.0 % us Default History Genericprovider LABORATORY Edited Result - Final * LIPID PANEL (09/22/2024) CHOLESTEROL 79 TRIGLYCERIDES 95 HDL 38 LDL (CALCULATED) 22 us Default History Genericprovider LABORATORY Edited Result - Final from Last 3 Months or Most Recently Relevant to Health Maintenance Insurance MEDICARE Care Teams Relationship Assoc Relationship Specialty Start Date End Date Merary Alston, PICKING SUPERVISOR- [address] [place] [address] PCP - General NURSE PRACTITIONER 08/29/24
--- OUTSIDE RECORDS SUMMARY | 2025-01-31 12:32 | XMS_ITS | Encounter Summary ---
Author Organization [facility] Address [address] [facility] [place] [address] Care Team Providers Care Large Animal Husbandry Technician Name Role Phone Glen Banks MD Unavailable [phone] Pascual Lamar DO Unavailable Gabby Gilbert MD Primary Care Provider Jerrell Qureshi DO Unavailable Alex Cage MD Unavailable Lewis Barahona DO Unavailable Caitlin Mabry RN Unavailable Gabby Gilbert MD Unavailable Holli Wellington BUNG DROPPER-TAKE DOWN INSPECTOR Unavailable Caitlin Mabry RN Unavailable Lo Scott RN Unavailable Alexa Burton MA Unavailable Devora Lindsay BUNG DROPPER-TAKE DOWN INSPECTOR Unavailable Lee Trujillo RN Unavailable Gabby Gilbert MD Unavailable Evelyn Azul Unavailable Holli Wellington BUNG DROPPER-TAKE DOWN INSPECTOR Unavailable Evelyn Azul Unavailable Merary Alston Karen BUNG DROPPER-TAKE DOWN INSPECTOR Primary Care Provid er Shawn Whitmore PA-C Unavailable [phone] Reason for Visit * Reason Onset Date Comments MEDICATION REFILL 03/04/2021 Encounter Details Date Type Department Care Team (Late st Contact Info) Description 03/04/2021 Refill [facility] - Family Medicine [address] [facility] [address] [place] [address] Shawn Whitmore PA-C [address] [facility] [address] [place] [address] MEDICATION REFILL Social History Tobacco [...] on file Legal Sex Male 6:03 AM 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 APPRENTICE Gender Identity Not on file Sexual Orientation [...] constipation documented in this encounter Care Teams Large Animal Husbandry Technician Relationship Specialty Start Date End Date Gabby Gilbert MD [address] [place] [address] PCP - General Family Medicine 06/04/15 05/04/24 Gabby Gilbert MD [address] [place] [address] PCP - Attributed-MSSP 03/01/21 06/28/21 Holli Wellington BUNG DROPPER-TAKE DOWN INSPECTOR [address] [place] [address] [address] [place] [phone] PCP - Attributed-MSSP 06/29/21 05/30/23 Devora Lindsay, BUNG DROPPER-TAKE DOWN INSPECTOR [address] [place] [address] PCP - Attributed-MSSP 05/31/23 08/29/23 Gabby Gilbert MD [address] [place] [address], [place] [address] PCP - Attributed-MSSP 08/30/23 11/29/23 Holli Wellington BUNG DROPPER-TAKE DOWN INSPECTOR [address] [place] [address] [address] [place] [address] PCP - Attributed-MSSP 11/30/23 06/28/24 Alecia Merary Jones BUNG DROPPER-TAKE DOWN INSPECTOR [address] [place], [place] [phone] PCP - General Nurse Practitioner 05/05/24 Shawn Whitmore PA-C [address] [place] [address] [address] [place] [address] PCP - Attributed-MSSP 06/29/24 [place] [address] [place] [address] [address] [place] [address] Psychiatry 01/02/14 05/25/23 Pascual Lamar DO [address] [place] [address] [address] [place] [address] Hand Surgery 12/19/14 [place] [address] Agency Appointments Supervisor 06/04/15 Alex Cage MD [address] [place] [address] [address] [place] [phone] Endocrinology 06/04/15 Lewis Barahona DO [address] [facility] [address] [place] [address] Orthopedic Surgery 05/25/17 Caitlin Mabry, RN Insulation TechnicianCnc Machine Programmer 03/04/21 03/16/23 Caitlin Mabry RN Care Management 03/04/21 03/09/23 Lo Scott RN [address] [facility] [address] [place] [address] Insulation TechnicianCnc Machine Programmer 03/09/23 06/03/23 Alexa Burton MA Care Coordination Specialist Care Management 05/28/23 05/28/23 Lee Trujillo, JOHNATHAN [address] [place] [address] Insulation TechnicianCnc Machine Programmer 11/04/23 11/05/23 Evelyn Azul [address] [place] [address] Care Coordination Specialist Care Management 12/02/23 01/16/24 Evelyn Azul [address] [place] [address] Care Coordination Specialist Care Management 03/08/24 04/22/24 documented as of this encounter
--- OUTSIDE RECORDS SUMMARY | 2025-01-31 12:32 | XMS_ITS | Clinical Summary ---
Author Organization [facility] Address [address] [facility] [place] [address] Phone Care Team Providers Care Plastic Frame Inserter Name Role Phone Tex Colby MD Primary [...] 15 mg by mouth. 8 Active Insulin [place], Disposable, (Nette Pen Needle) 32 gauge x [...] on file Legal Sex Male 5:56 AM LIGHT RAIL SIGNAL TECHNICIAN Gender Identity Not on file Sexual Orientation Not on file Occupation Industry Job Start Date Job End Date Not on file Not on file Not on file Not on file Last Filed Vital Signs Vital Sign Reading Time Taken Comments Blood Pressure 147/77 05/11/2019 10:56 PM CDT Pulse 103 03/19/2013 5:09 PM LIGHT RAIL SIGNAL TECHNICIAN Temperature 36.9 C (98.5 F) 05/11/2019 8:12 [...] Additional history exists COVID-19 Vaccine ( - 2024-2 6 season) 2024 11/15/2023, 05/26/2023, 04/08/2022, Additional history exists COLORECTAL SCREENING 11/30/2033 12/01/2023, 12/01/2023, 01/15/2021 Colorectal Cancer Screening 11/30/2033 ZOSTER VACCINE Completed 11/09/2022, 09/07/2022 PNEUMOCOCCAL VACCINE 50+ YEARS Completed 05/26/2023 , 01/10/2014 Insurance MEDICARE PART A AND B [facility] [id number] Care Teams Plastic Frame Inserter Relationship Specialty Start Date End Date Tex Colby MD PCP - General Allergy & Immunology 11/30/09
--- OUTSIDE RECORDS SUMMARY | 2025-01-31 12:32 | XMS_ITS | Encounter Summary ---
Author Organization [facility] Address [address] [place] [address] Care Team Providers Care Salesforce Consultant Name Role Phone Ladonna Turcios MD Primary Care Provider [phone] Glen Banks MD Unavailable Pascual Lamar DO Unavailable Gabby Gilbert MD Primary Care Provider Jerrell Qureshi DO Unavailable Alex Cage MD Unavailable Lewis Baarhona DO Unavailable Holli Wellington WARP HAULER-CUSTOMER SERVICE SUPERVISOR Unavailable Caitlin Mabry RN Unavailable Gabby Gilbert MD Unavailable [phone] Holli Wellington WARP HAULER-CUSTOMER SERVICE SUPERVISOR Unavailable Caitlin Mabry RN Unavailable Lo Scott RN Unavailable Alexa Burton MA Unavailable Devora Lindsay WARP HAULER-CUSTOMER SERVICE SUPERVISOR Unavailable Lee Trujillo RN Unavailable Gabby Gilbert MD Unavailable Evelyn Azul Unavailable Holli Wellington WARP HAULER-CUSTOMER SERVICE SUPERVISOR Unavailable Evelyn Azul Unavailable Gabby Gilbert MD Unavailable Glen Banks MD Unavailable Holli Wellington WARP HAULER-CUSTOMER SERVICE SUPERVISOR Unavailable Merary Alston WARP HAULER-CUSTOMER SERVICE SUPERVISOR Primary Care Provid er Shawn Whitmore PA-C Unavailable [phone] Reason for Visit * Reason Onset Date Comments MEDICATION REFILL 01/17/2015 Encounter Details Date Type Department Care Team (Late st Contact Info) Description 01/17/2015 Refill [facility] [address] [place] [address] MEDICATION REFILL Social History Tobacco Use Types Packs/Day Years Used Date Smoking Tobacco: Every Day Cigarettes 1 30 Alcohol Use Standard Drinks/Week Comments Yes 0.8 (1 standard drink = 0.6 oz p ure alcohol) Sex and Gender Information Value Date Recorded Sex Assigned at Not on file 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 Gender Identity Not on file Sexual Orientation [...] on filedocumented in this encounter Care Teams Salesforce Consultant Relationship Specialty Start Date End Date Ladonna Turcios MD PCP - General Family Medicine 12/08/13 06/03/15 Gabby Gilbert MD [address] [place] [address] PCP - General Family Medicine 06/04/15 05/04/24 Holli Wellington APRN-CUSTOMER SERVICE SUPERVISOR [address] [place] [address] [place] [phone] PCP - Attributed-MSSP 11/29/18 06/04/19 Gabby Gilbert MD [address] [place] [address] PCP - Attributed-MSSP 03/01/21 06/28/21 Holli Wellington WARP HAULER-CUSTOMER SERVICE SUPERVISOR [address] [place] [phone] PCP - Attributed-MSSP 06/29/21 05/30/23 Devora Lindsay, WARP HAULER-CUSTOMER SERVICE SUPERVISOR [address] [place] [address] PCP - Attributed-MSSP 05/31/23 08/29/23 Gabby Gilbert MD [address] [place] [address] PCP - Attributed-MSSP 08/30/23 11/29/23 Holli Wellington WARP HAULER-CUSTOMER SERVICE SUPERVISOR [address] [place] [address] [place] [phone] PCP - Attributed-MSSP 11/30/23 06/28/24 Gabby Gilbert MD [address] [place] [address] [address] [place] [address] PCP - Attributed-MSSP 04/29/18 07/29/18 Glen Banks MD [address] [facility] [address] [place] [address] PCP - Attributed-MSSP 09/29/18 11/28/18 Holli Wellington, WARP HAULER-CUSTOMER SERVICE SUPERVISOR [address] [place] [address] [address] [place] [phone] PCP - Attributed-MSSP 07/30/18 09/28/18 Merary [place], WARP HAULER-CUSTOMER SERVICE SUPERVISOR [address] [place] [phone] PCP - General Nurse Practitioner 05/05/24 Shawn Whitmore PA-C [address] [place] [address] [address] [place] [address] PCP - Attributed-MSSP 06/29/24 Glen Banks MD [address] [facility] [address] [place] [address] Psychiatry 01/02/14 05/25/23 Pascual Lamar DO [address] [place] [address] [address] [place] [address] Hand Surgery 12/19/14 Jerrell Qureshi DO [address] [place] [address] Programmer Analyst Consultant 06/04/15 Alex Cage MD [address] [facility] [address] [place] [address] Endocrinology 06/04/15 Lewis Barahona DO [address] [facility] [address] [place] [address] Orthopedic Surgery 05/25/17 Caitlin Mabry, RN Shorthand TeacherChicken Vaccinator 03/04/21 03/16/23 Caitlin Mabry, RN Care Management 03/04/21 03/09/23 Lo Scott, RN [address] [facility] [address] [place] [address] Shorthand TeacherChicken Vaccinator 03/09/23 06/03/23 Alexa Burton MA Care Coordination Specialist Care Management 05/28/23 05/28/23 Lee Trujillo, RN [address] [facility] [place] [address] Shorthand TeacherChicken Vaccinator 11/04/23 11/05/23 Evelyn Azul [address] [place] [address] Care Coordination Specialist Care Management 12/02/23 01/16/24 Evelyn Azul [address] [facility] [address] [place] [address] Care Coordination Specialist Care Management 03/08/24 04/22/24 documented as of this encounter
--- OUTSIDE RECORDS SUMMARY | 2025-01-31 12:32 | XMS_ITS | Encounter Summary ---
Author Organization [facility] Address [address] [facility] [place] [address] Care Team Providers Care Campus Safety Officer Name Role Phone Ladonna Turcios MD Primary Care Provider [phone] Glen Banks MD Unavailable Pascual Lamar DO Unavailable Gabby Gilbert MD Primary Care Provider [phone] Jerrell Qureshi DO Unavailable Alex Cage MD Unavailable Lewis Barahona DO Unavailable Holli Wellington TRIM SETTER-BINDING BENCH WORKER Unavailable Caitlin Mabry RN Unavailable Gabby Gilbert MD Unavailable Hloli Wellington TRIM SETTER-BINDING BENCH WORKER Unavailable Caitlin Mabry RN Unavailable Lo Scott RN Unavailable Alexa Burton MA Unavailable Devora Lindsay TRIM SETTER-BINDING BENCH WORKER Unavailable [phone] Lee Trujillo RN Unavailable Gabby Gilbert MD Unavailable Evelyn Azul Unavailable Holli Wellington TRIM SETTER-BINDING BENCH WORKER Unavailable Evelyn Azul Unavailable [phone] Gabby Gilbert MD Unavailable Glen Banks MD Unavailable Holli Wellington TRIM SETTER-BINDING BENCH WORKER Unavailable Merary Alston TRIM SETTER-BINDING BENCH WORKER Primary Care Provid er Shawn Whitmore PA-C Unavailable [phone] Encounter Details Date Type Department Care Team (Late st Contact Info) Description 12/19/2014 Therapy Visit [facility] PHYSICAL [facility] [place] [address] Unknown, Provider Social History Tobacco Use Types Packs/Day Years Used Date Smoking Tobacco: Every Day Cigarettes 1 30 Alcohol Use Standard Drinks/Week Comments Yes 0.8 (1 standard drink = 0.6 oz p ure alcohol) Sex and Gender Information Value Date Recorded Sex Assigned at Not on file 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 Gender Identity Not on file Sexual [...] on filedocumented in this encounter Care Teams Campus Safety Officer Relationship Specialty Start Date End Date Ladonna Turcios MD PCP - General Family Medicine 12/08/13 06/03/15 Gabby Gilbert MD [address] [place], [place] [phone] PCP - General Family Medicine 06/04/15 05/04/24 Holli Wellington TRIM SETTER-BINDING BENCH WORKER [address] [place], [place] [address]y [address] [place] [address] PCP - Attributed-MSSP 11/29/18 06/04/19 Gabby Gilbert MD [address] [place] [address] PCP - Attributed-MSSP 03/01/21 06/28/21 Holli Wellington TRIM SETTER-BINDING BENCH WORKER [address] [place], [place] [address]y [address] [place] [address] PCP - Attributed-MSSP 06/29/21 05/30/23 Devora Lindsay, TRIM SETTER-BINDING BENCH WORKER [address] [place] [address] PCP - Attributed-MSSP 05/31/23 08/29/23 Gabby Gilbert MD [address] [place] [address] PCP - Attributed-MSSP 08/30/23 11/29/23 Holli Wellington TRIM SETTER-BINDING BENCH WORKER [address] [place] [address] [place] [phone] PCP - Attributed-MSSP 11/30/23 06/28/24 Gabby Gilbert MD [address] [place] [address] PCP - Attributed-MSSP 04/29/18 07/29/18 Glen Banks MD [address] [facility] [address] [place] [address] PCP - Attributed-MSSP 09/29/18 11/28/18 Holli Wellington, TRIM SETTER-BINDING BENCH WORKER [address] [facility] [address] [place] [address] PCP - Attributed-MSSP 07/30/18 09/28/18 Merary [place], TRIM SETTER-BINDING BENCH WORKER [address] [place] [address] PCP - General Nurse Practitioner 05/05/24 Shawn Whitmore PA-C [address] [facility] [address] [place] [address] PCP - Attributed-MSSP 06/29/24 Glen Banks MD [address] [facility] [address] [place] [address] Psychiatry 01/02/14 05/25/23 Pascual Lamar DO [address] [facility] [address] [place] [address] Hand Surgery 12/19/14 Jerrell Qureshi DO [address] [place] [address] Project Asst 06/04/15 Alex Cage MD [address] [facility] [address] [place] [phone] Endocrinology 06/04/15 Lewis Barahona DO [address] [facility] [address] [place] [phone] Orthopedic Surgery 05/25/17 Caitlin Mabry RN Grand ScribeWire Inserter 03/04/21 03/16/23 Caitlin Mabry RN Care Management 03/04/21 03/09/23 Lo Scott RN [address] [facility] [address] [place] [address] Grand ScribeWire Inserter 03/09/23 06/03/23 Alexa Burton MA Care Coordination Specialist Care Management 05/28/23 05/28/23 Lee Trujillo, JOHNATHAN [address] [facility] [address] [place] [address] Grand ScribeWire Inserter 11/04/23 11/05/23 Evelyn Azul [address] [place] [address] Care Coordination Specialist Care Management 12/02/23 01/16/24 Evelyn Azul [address] [place] [address] Care Coordination Specialist Care Management 03/08/24 04/22/24 documented as of this encounter
--- OUTSIDE RECORDS SUMMARY | 2025-01-31 12:32 | XMS_ITS | Encounter Summary ---
Author Organization [facility] Address [address] [place] [address] Care Team Providers Care Pellet Machine Operator Name Role Phone Glen Banks MD Unavailable Pascual Lamar DO Unavailable Gabby Gilbert MD Primary Care Provider Jerrell Qureshi DO Unavailable Alex Cage MD Unavailable Lewis Barahona DO Unavailable Holli Wellington ASSEMBLER [facility] Unavailable Caitlin Mabry RN Unavailable Gabby Gilbert MD Unavailable Holli Wellington ASSEMBLER [facility] Unavailable Caitlin Mabry RN Unavailable Lo Scott RN Unavailable Alexa Burton MA Unavailable Devora Lindsay ASSEMBLER [facility] Unavailable Lee Trujillo RN Unavailable Gabby Gilbert MD Unavailable [phone] Evelyn Azul Unavailable Holli Wellington ASSEMBLER [facility] Unavailable Evelyn Azul Unavailable Gabby Gilbert MD Unavailable Glen Banks MD Unavailable Holli Wellington ASSEMBLER [facility] Unavailable Merary [place] ASSEMBLER [facility] Primary Care Provid er Shawn Whitmore PA-C Unavailable [phone] Encounter Details Date Type Department Care Team (Late st Contact Info) Description 05/07/[address] 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 Lifestyle: Have labs drawn Lifestyle Liberty Pritchett MA Have labs drawn Lifestyle Liberty Pritchett MA documented as of this encounter Visit Diagnoses Not on filedocumented in this encounter Care Teams Pellet Machine Operator Relationship Specialty Start Date End Date Gabby Gilbert MD [address] [place] [address] PCP - General Family Medicine 06/04/15 05/04/24 Holli Wellington [facility] [address] [place] [address] [place] [phone] PCP - Attributed-MSSP 11/29/18 06/04/19 Gabby Gilbert MD [address] [place] [address] PCP - Attributed-MSSP 03/01/21 06/28/21 Holli Wellington [facility] [address] [place] [address] [place] [phone] PCP - Attributed-MSSP 06/29/21 05/30/23 Devora Lindsay ASSEMBLER [facility] [address] [place] [address] PCP - Attributed-MSSP 05/31/23 08/29/23 Gabby Gilbert MD [address] [place] [address] [address] [place] [address] PCP - Attributed-MSSP 08/30/23 11/29/23 Holli Wellington ASSEMBLER [facility] [address] [place], [place] [address]y [address] [place] [phone] PCP - Attributed-MSSP 11/30/23 06/28/24 Gabby Gilbert MD [address] [place] [address] [place] [address] PCP - Attributed-MSSP 04/29/18 07/29/18 [place] [address] [place] [address] [address] [place], [place] [phone] PCP - Attributed-MSSP 09/29/18 11/28/18 Holli Wellington ASSEMBLER [facility] [address] [place], [place] [address]y [address] [place] [phone] PCP - Attributed-MSSP 07/30/18 09/28/18 Merary [place] ASSEMBLER [facility] [address] [place], [place] [phone] PCP - General Nurse Practitioner 05/05/24 Shawn Whitmore PA-C [address] [place] [address] [address] [place] [address] PCP - Attributed-MSSP 06/29/24 Glen Banks MD [address] [facility] [address] [place] [address] Psychiatry 01/02/14 05/25/23 Pascual Lamar DO [address] [place] [address] [address] [place] [phone] Hand Surgery 12/19/14 Jerrell Qureshi DO [address] [place] [address] Mate Relief 06/04/15 Alex Cage MD [address] [place], [place] [address]y [address] [place] [address] Endocrinology 06/04/15 Lewis Barahona DO [address] [place], [place] [address] [address] [place] [phone] Orthopedic Surgery 05/25/17 Caitlin Mabry RN Medical AsstTimber Skidder 03/04/21 03/16/23 Caitlin Mabry RN Care Management 03/04/21 03/09/23 Lo Scott RN [address] [facility] [address] [place] [address] Medical AsstTimber Skidder 03/09/23 06/03/23 Alexa Burton, HERON Care Coordination Specialist Care Management 05/28/23 05/28/23 Lee Trujillo, RN [address] [place] [address] Medical AsstTimber Skidder 11/04/23 11/05/23 Evelyn Azul [address] [place] [address] Care Coordination Specialist Care Management 12/02/23 01/16/24 Evelyn Azul[address] [place] [address] Care Coordination Specialist Care Management 03/08/24 04/22/24 documented as of this encounter
--- OUTSIDE RECORDS SUMMARY | 2025-01-31 12:32 | XMS_ITS | Encounter Summary ---
Author Organization [facility] Address [address] [place] [address] Care Team Providers Care Music Video Director Name Role Phone Glen Banks MD Unavailable Pascual Lamar DO Unavailable Gabby Gilbert MD Primary Care Provider Jerrell Qureshi DO Unavailable Alex Cage MD Unavailable [phone] Lewis Barahona DO Unavailable Holli Wellington ANTIQUE [employer]UM MAINTENANCE WORKER-MAINTENANCE PERSON Unavailable Caitlin Mabry RN Unavailable Gabby Gilbert MD Unavailable Holli Wellington [employer] MAINTENANCE WORKER-MAINTENANCE PERSON Unavailable Caitlin Mabry RN Unavailable Lo Scott RN Unavailable Alexa Burton MA Unavailable Devora Lindsay ANTIQUE [employer]USEUM MAINTENANCE WORKER-MAINTENANCE PERSON Unavailable Lee Trujillo RN Unavailable Gabby Gilbert MD Unavailable Evelyn Azul Unavailable Holli Wellington ANTIQUE AUT[employer] MUSEUM MAINTENANCE WORKER-MAINTENANCE PERSON Unavailable [phone] Evelyn Azul Unavailable Gabby Gilbert MD Unavailable Glen Banks MD Unavailable [phone] Holli Wellington ANTIQUE AUT[employer] MUSEUM MAINTENANCE WORKER-MAINTENANCE PERSON Unavailable [phone] Merary Alston ANTIQUE [employer] MAINTENANCE WORKER-MAINTENANCE PERSON Primary Care Provid er Shawn Whitmore PA-C Unavailable [phone] Encounter Details Date Type Department Care Team (Late st Contact Info) Description 06/14/2017 [facility] Outpatient Visit [facility] Orthopedics - Radiology [address] [place] [address] Dell Walker PA-C [address] [place] [address] Social History Tobacco Use Types Packs/Day Years Used Date Smoking Tobacco: Every Day Cigarettes 1 30 Smokeless Tobacco: Never Alcohol Use Standard Drinks/Week Comments Yes 1 (1 standard drink = 0.6 oz pur e alcohol) Sex and Gender Information Value Date Recorded Sex Assigned at Not on file Legal Sex Male 6:03 AM [employer] Gender Identity Not on file Sexual Orientation [...] using tobacco Lifestyle No Liberty Yoder MA [facility] Lifestyle: Have labs drawn Lifestyle Liberty Pritchett MA Have labs drawn Lifestyle Liberty Pritchett MA documented as of this encounter Visit Diagnoses Not on filedocumented in this encounter Care Teams Music Video Director Relationship Specialty Start Date End Date Gabby Gilbert MD [address] [place] [address] PCP - General Family Medicine 06/04/15 05/04/24 Holli Wellington APRN-MAINTENANCE PERSON [address] [place] [address] [place] [phone] PCP - Attributed-MSSP 11/29/18 06/04/19 Gabby Gilbert MD [address] [place] [address] PCP - Attributed-MSSP 03/01/21 06/28/21 Holli Wellington APRN-MAINTENANCE PERSON [address] [place] [address] [place] [phone] PCP - Attributed-MSSP 06/29/21 05/30/23 Devora Lindsay [employer] MAINTENANCE WORKER-MAINTENANCE PERSON [address] [place] [address] PCP - Attributed-MSSP 05/31/23 08/29/23 Gabby Gilbert MD [address] [place] [address] [address] [place] [address] PCP - Attributed-MSSP 08/30/23 11/29/23 Holli Wellington ANTIQUE [employer] MAINTENANCE WORKER-MAINTENANCE PERSON [address] [place], [place] [address]y [address] [place] [phone] PCP - Attributed-MSSP 11/30/23 06/28/24 Gabby Gilbert MD [address] [place] [address] [place] [address] PCP - Attributed-MSSP 04/29/18 07/29/18 [place] [address] [place] [address] [address] [place], [place] [phone] PCP - Attributed-MSSP 09/29/18 11/28/18 Holli Wellington AN[employer]QUE [employer] MAINTENANCE WORKER-MAINTENANCE PERSON [address] [place], [place] [address]y [address] [place] [phone] PCP - Attributed-MSSP 07/30/18 09/28/18 Merary Alston [employer] MAINTENANCE WORKER-MAINTENANCE PERSON [address] [place], [place] [phone] PCP - General Nurse Practitioner 05/05/24 Shawn Whitmore PA-C [address] [place] [address] [address] [place] [address] PCP - Attributed-MSSP 06/29/24 Glen Banks MD [address] [facility] [address] [place] [address] Psychiatry 01/02/14 05/25/23 Pascual Lamar DO [address] [place] [address] [address] [place] [phone] Hand Surgery 12/19/14 Jerrell Qureshi DO [address] [place] [address] Truck Driver Rubbish Collector 06/04/15 Alex Cage MD [address] [place], [place] [address] [address] [place] [address] Endocrinology 06/04/15 Lewis Barahona DO [address] [place], [place] [address] [address] [place] [phone] Orthopedic Surgery 05/25/17 Caitlin Mabry RN Billing Collections SpecialistCement Crusher Operator 03/04/21 03/16/23 Caitlin Mabry RN Care Management 03/04/21 03/09/23 Lo Scott RN [address] [facility] [address] [place] [address] Billing Collections SpecialistCement Crusher Operator 03/09/23 06/03/23 Alexa Burton, HERON Care Coordination Specialist Care Management 05/28/23 05/28/23 Lee Trujillo, RN [address] [place] [address] Billing Collections SpecialistCement Crusher Operator 11/04/23 11/05/23 Evelyn Azul [address] [place] [address] Care Coordination Specialist Care Management 12/02/23 01/16/24 Evelyn Azul[address] [place] [address] Care Coordination Specialist Care Management 03/08/24 04/22/24 documented as of this encounter
[2025-02-04 19:08] LABS: Pancreatic Elastase, Fecal 214 (>200)
== END 2025-01-31 10:57 | disposition home or self-care (01) ==
PROVIDERS: PCP Nurse Practitioner; Visit Provider Nurse Practitioner
DX: R74.8 Abnormal levels of other serum enzymes (principal); R94.8 Abnormal results of function studies of other organs and systems; R10.11 Right upper quadrant pain
CPT/HCPCS: 82653